=== PATIENT | female | born 1965 | race Caucasian/White ===

== ENCOUNTER → 2017-05-15 | Outpatient (CLI) | payer BC ==
[~2017-05-15] MED LIST: ASPCH81X PO; GLC/500 PO; IBUP-1050 PO; LISI10TA PO; PRAV20TA PO; SULI150T PO; ZNTT/150 PO
--- NOTE | 2017-05-15 14:04 | DIAGNOSTIC IMAGING REPORT ---
LEFT INJ MAJOR JNT SHLDR,HIP,KNEE CLINICAL HISTORY: 51 years-old Female presenting with LT HIP ARTHRITIS. COMPARISON: None. PROCEDURE: The risks, benefits, and alternatives to the procedure were discussed with the patient. Written informed consent was obtained. The patient was placed supine on the fluoroscopy table, and a left hip injection was performed under fluoroscopic guidance. The area was prepped and draped in the usual aseptic fashion. The skin and soft tissues anesthetized with local 1% lidocaine. The left hip joint was accessed utilizing a 22-gauge 3 1/2 inch needle. Approximately 2 mL of Optiray 300 was injected to confirm intra-articular location. This was followed by a mixture of 5 mL of 0.5% bupivacaine and 2 mL of betamethasone at the request of the referring physician. The needle was then removed. There were no apparent complications. Fluoroscopy dosage (mGy): Not available. Fluoroscopy time: 37 seconds. Number of fluoroscopic spot images: 0. IMPRESSION: Successful injection of the left hip under fluoroscopic guidance. Electronically signed by: Khalif Oviedo M.D. 05/15/2017 1:54 PM Dictated Date/Time: 05/15/2017 1:51 PM
== END | disposition home or self-care (01) ==
LOC: C.RADBC 12:57
PROVIDERS: ATTEND Orthopaedic Surgery
DX: M19.90 Unspecified osteoarthritis, unspecified site (principal)

== ENCOUNTER 2017-08-25 08:08 | Inpatient (IN) | payer BC ==
[2017-08-06 14:23] VITALS: BMI 35.0
--- NOTE | 2017-08-06 15:23 | PAT Medication Instructions ---
Service Date Aug 06, 2017. Current Home Medication List Aspirin (Aspirin Adult Low Dose), 1 TAB PO QAM Cpesltv-Lbpmxfmiziyuv-Fimusisl (Excedrin Migraine), 1 TAB PO DAILY PRN for Migraine Cyclobenzaprine Hcl (Flexeril), 1 TAB PO HS Fish Oil (Douglas-3), 1 CAP PO QAM Ibuprofen (Advil), 200-600 MG PO Q4H PRN for Pain Ibuprofen (Motrin), 400 MG PO Q6H PRN for Pain Lisinopril (Lisinopril), 1 TAB PO QAM Metformin HCl (Metformin HCl ER), 2 TAB PO QAM Multivitamin (Multivitamin), 1 TAB PO QAM Pravastatin Sodium (Pravachol), 20 MG PO QAM Ranitidine (Zantac), 150 MG PO BID PRN Sitagliptin Phosphate (Januvia), 100 MG PO QAM Sulindac (Clinoril), 150 MG PO DAILY Sulindac (Sulindac), 1 TAB PO BID PRN for Pain Sumatriptan Succinate (Imitrex Statdose), 1 UNIT SQ DIRECTED Medication Instructions For Your Scheduled Surgery - Ask your surgeon for instructions for: Ibuprofen (Advil), 200-600 MG PO Q4H PRN for Pain Ibuprofen (Motrin), 400 MG PO Q6H PRN for Pain Aspirin (Aspirin Adult Low Dose), 1 TAB PO QAM Rponswe-Kqlodrgvlwdoi-Txkrelux (Excedrin Migraine), 1 TAB PO DAILY PRN for Migraine Sulindac (Clinoril), 150 MG PO DAILY Sulindac (Sulindac), 1 TAB PO BID PRN for Pain - Hold the following medications 2 weeks prior to surgery: Fish Oil (Douglas-3), 1 CAP PO QAM - Hold the following medications 48 hours prior to surgery: Metformin HCl (Metformin HCl ER), 2 TAB PO QAM - Hold the following medications the morning of surgery: Lisinopril (Lisinopril), 1 TAB PO QAM Multivitamin (Multivitamin), 1 TAB PO QAM Sitagliptin Phosphate (Januvia), 100 MG PO QAM - Take the following medications the morning of surgery with a sip of water: Sumatriptan Succinate (Imitrex Statdose), 1 UNIT SQ DIRECTED (if needed) Ranitidine (Zantac), 150 MG PO BID PRN (if needed) Pravastatin Sodium (Pravachol), 20 MG PO QAM - Take the following medications as scheduled the night before surgery: Cyclobenzaprine Hcl (Flexeril), 1 TAB PO HS Sumatriptan Succinate (Imitrex Statdose), 1 UNIT SQ DIRECTED (if needed) Ranitidine (Zantac), 150 MG PO BID PRN (if needed) If you have any questions please call us at [phone] or [phone] or [phone]
[2017-08-06 15:57] LABS: BASO % 0.9 %; BASO ABS # 0.08 K/uL (0-0.2); COMPLETE YES; EOS % 3.2 %; HEMATOCRIT 43.5 % (37-47); IG% 0.2 %; LYMPH % 34.3 %; LYMPH ABS # 2.98 K/uL (1.2-3.4); MEAN CELL VOLUME 87.5 fL (80-100); MEAN CORPUSCULAR HEMOGLOBIN 28.2 pg (25-34); MEAN CORPUSCULAR HGB CONC 32.2 g/dl (32-36); MONO % 8.5 %; NEUT % 52.9 %; PLATELET COUNT 401 K/uL (130-400); RED BLOOD COUNT 4.97 M/uL (4.2-5.4)
[2017-08-06 16:05] LABS: INR 0.9 (0.9-1.1)
--- NOTE | 2017-08-06 16:16 | DIAGNOSTIC IMAGING REPORT ---
TWO VIEW CHEST CLINICAL HISTORY: Preoperative examination. FINDINGS: PA and lateral chest radiographs are compared to study dated 04/11/2006 and correlated with chest CT dated 03/09/2007. The cardiomediastinal silhouette is unremarkable. There is minimal atherosclerotic calcification of the thoracic aorta. The lungs and pleural spaces are clear. There is no pneumothorax. The skeletal structures are osteopenic. The bony thorax appears intact. IMPRESSION: No active disease in the chest. Electronically signed by: Reza Pena M.D. 08/06/2017 4:15 PM Dictated Date/Time: 08/06/2017 4:14 PM
[2017-08-06 16:18] LABS: URINE APPEARANCE CLEAR (CLEAR); URINE BILIRUBIN NEG (NEG); URINE COLOR YELLOW; URINE NITRITE NEG (NEG); URINE SPECIFIC GRAVITY 1.016 (1.000-1.030); UROBILINOGEN NEG (NEG)
[2017-08-06 16:29] LABS: MANUAL MICROSCOPIC REQUIRED? NO; REVIEW REQ? NO
--- NOTE | 2017-08-24 19:29 | HISTORY & PHYSICAL EXAMINATION ---
DATE OF ADMISSION: 08/25/2017 She is being preoped for a posterior lumbar interbody fusion. CHIEF COMPLAINT: Back pain, leg pain, buttock pain, inability to ambulate. HISTORY OF PRESENT ILLNESS: Yessi is a pleasant young lady. She has had ongoing difficulty for several months in duration, worsening over time, numbness and tingling, and failure of nonoperative measures. PAST MEDICAL HISTORY: Includes diabetes mellitus, hypertension, and high cholesterol. PAST SURGICAL HISTORY: Tonsillectomy, , tubal ligation, appendectomy, and pituitary tumor removal. SOCIAL HISTORY: Nonsmoker, non-ETOH user. Listed some arthritis in the shoulder area. There is no acid reflux. No kidney or liver issues. No history of cancer. Some sleep apnea. Has hypertension and diabetes. OBJECTIVE: GENERAL: Height 5 feet 5 inches, weight 220. Alert, oriented. Mentation normal. VITAL SIGNS: Blood pressure 140/80, pulse of 80, and respiratory rate 16. CARDIAC: Normal S1, S2. No S3. LUNGS: Clear to auscultation. No rales, rhonchi, or wheezing. ABDOMEN: Soft, nontender. EXTREMITIES: Intact. NEUROLOGIC: 5/5 strength. Good sensation. Motor ability, no deficit. IMAGING STUDIES: Images demonstrate severely degenerative segment of the lumbar spine, L5-S1. DISPOSITION: Includes a posterior lumbar interbody fusion, L5-S1 lumbar spine at [facility] on 08/25/2017.
[2017-08-25] VITALS (9 sets, daily range): BP systolic 102–168; BP diastolic 65–87; PULSE 75–88; TEMP 34.8–37.2; O2SAT 97–100; Ht 165.1 cm; Wt 96.3 kg
[~2017-08-25] VITALS: Ht 165.1 cm; Wt 96.3 kg
[~2017-08-25 08:08] MED LIST changes: -ASPCH81X PO; +ASPI-390 PO; +ASPI-589 PO; +CEFAZOLIN 2000MG IV PUSH 10 ML IV SCH; +CLN200 PO; +CYCL10TA6 PO; -GLC/500 PO; +HYDR-5688 PO; +IBUP-1459 PO; +LACTATED RINGER'S 1000ML 1,000 ML IV SCH; -LISI10TA PO; +LSN20 PO; +METF-841 PO; +MULT-506 PO; +OMEG10007 PO; +SITA100T3 PO; +SODIUM CHLORIDE 0.9% 1000ML 1,000 ML IV SCH; +SUMA6KIT SQ
[2017-08-25] MEDS ORDERED: DEXAMETHASONE SOD INJ 4 MG/ML VIAL ONE (08:17)
[2017-08-25] MEDS ORDERED: ONDANSETRON INJ 2 MG/ML 2 ML VIAL ONE (08:17)
[2017-08-25] MEDS ORDERED: MIDAZOLAM HCL 1 MG/ML 2ML VIAL ONE (08:17)
[2017-08-25] MEDS ORDERED: ROCURONIUM BROMIDE 10 MG/ML 5 ML VIAL IV ONE (08:17)
[2017-08-25] MEDS ORDERED: FENTANYL CITRATE INJ 50 MCG/1 ML 2 ML VIAL ONE ×3 (08:17→12:36)
[2017-08-25] MEDS ORDERED: NEOSTIGMINE METHYLSULFATE 5 MG/5 ML SYR ONE (08:17)
[2017-08-25] MEDS ORDERED: PROPOFOL IV EMULSION 10 MG/ML 20 ML VIAL IV ONE ×2 (08:17→11:03)
[2017-08-25] MEDS ORDERED: LIDOCAINE HCL 2% 2 ML VIAL (20MG/ML) ONE (08:17)
[2017-08-25] MEDS ORDERED: GELATIN SPONGE SZ 100 ONE ×2 (09:27→11:48)
[2017-08-25] MEDS ORDERED: BACITRACIN 50000 UNIT VIAL ONE (09:28)
[2017-08-25] MEDS ORDERED: THROMBIN FOR SOLN 20000 UNIT KIT ONE (09:28)
[2017-08-25] MEDS ORDERED: BUPIVACAINE 0.5 % 5 MG/1 ML MPF 30ML VIAL ONE (09:28)
[2017-08-25] MEDS ORDERED: VANCOMYCIN HCL 1000MG/20ML VIAL ONE (09:28)
--- NOTE | 2017-08-25 09:37 | History & Physical Bridge Note ---
H&P Re-Evaluation Bridge Note: I have examined the patient, reviewed the History & Physical and in the interval since the performance of the History & Physical I have noted the following changes of clinical significance: No changes noted
[2017-08-25] MEDS ORDERED: ESMOLOL HCL 10 MG/ML 10 ML VIAL ONE (10:27)
--- NOTE | 2017-08-25 12:49 | [facility] Operative Report ---
Operative Report Operative Date Aug 25, 2017. Pre-Operative Diagnosis severely degenerative segment of the lumbar spine, L5-S1 Post-Operative Diagnosis SAME Procedure(s) Performed L5-S1 Posterior Lumbar Interbody Fusion Surgeon Dr. Campbell Airline Stewardess Surgeon(s) Quincy Mayer PA-C Estimated Blood Loss 200 ML Findings degenerative unstable segment l5-s1 Specimens none per surgeon Complication(s) None Disposition Recovery Room / PACU I attest to the content of the Intraoperative Record and any orders documented therein. Any exceptions are noted below.
[2017-08-25] MEDS ORDERED: SODIUM CHLORIDE 0.9% 1000ML 1,000 ML IV SCH (12:50)
[2017-08-25] MEDS ORDERED: HYDROmorphone INJ 2 MG/ML SYR/VIAL ONE (12:59)
[2017-08-25] MEDS ORDERED: SULINDAC 200 MG TAB PO PRN (13:00)
[2017-08-25] MEDS ORDERED: LORAZEPAM INJ 1 MG in SYRINGE 0.5 ML IV PRN (13:00)
[2017-08-25] MEDS ORDERED: HYDROmorphone HCL 0.5MG/ML 50 ML CASSETTE ONE (13:00)
[2017-08-25] MEDS ORDERED: NALOXONE HCL 0.4 MG/1 ML VIAL/CARP IV PRN ×2 (13:00→13:15)
[2017-08-25] MEDS ORDERED: ONDANSETRON INJ 2 MG/ML 2 ML VIAL IV PRN ×2 (13:00→13:15)
[2017-08-25] MEDS ORDERED: ACETAMINOPHEN 325 MG TAB PO PRN (13:00)
[2017-08-25] MEDS ORDERED: METOCLOPRAMIDE HCL INJ 5 MG/ML 2 ML VIAL IV PRN (13:00)
[2017-08-25] MEDS ORDERED: PROMETHAZINE HCL INJ 12.5 MG in SODIUM CHLORIDE 0.9% 50ML 50 ML IV PRN (13:00)
[2017-08-25] MEDS ORDERED: LABETALOL HCL IV 5 MG/ML 20ML IV PRN (13:15)
[2017-08-25] MEDS ORDERED: FLUMAZENIL 0.1 MG/1 ML 10 ML VIAL IV PRN (13:15)
[2017-08-25] MEDS ORDERED: FENTANYL CITRATE INJ 50 MCG/1 ML 2 ML VIAL IV PRN (13:15)
[2017-08-25] MEDS ORDERED: EpHEDrine SULFATE INJ 50 MG/ML AMP IV PRN (13:15)
[2017-08-25] MEDS ORDERED: HYDROmorphone INJ 2 MG/ML SYR/VIAL IV PRN (13:15)
[2017-08-25] MEDS ORDERED: MEPERIDINE HCL 25 MG/ML CARP IV PRN (13:15)
[2017-08-25] MEDS ORDERED: ATROPINE SULFATE 0.1 MG/ML 5ML SYR IV PRN (13:15)
[2017-08-25] MEDS ORDERED: PHENYLEPHRINE 100MCG/ML 5ML SYR IV PRN (13:15)
[2017-08-25 13:21] LABS: HEMATOCRIT 36.7 % (37-47)
--- NOTE | 2017-08-25 13:28 | OPERATIVE REPORT ---
DATE OF OPERATION: 08/25/2017 PREOPERATIVE DIAGNOSIS: Degenerative unstable segment lumbar spine, L5-S1. POSTOPERATIVE DIAGNOSIS: Degenerative unstable segment lumbar spine, L5-S1. PROCEDURE PERFORMED: Include a posterior lumbar interbody fusion, L5-S1. SURGEON: Calixto Campbell DO. SYSTEMS SOFTWARE ENGINEER: Quincy Mayer PA-C. COMPLICATIONS: Zero. BLOOD LOSS: Less than 200. COUNTS: Sponge and needle count correct. COMPLICATIONS: No complications. IMPLANTS USED: Arkadium. DESCRIPTION OF PROCEDURE: The patient was taken to the operating room, a general intubated anesthetic provided to the patient, placed prone, prepped and draped sterile. We made a skin incision and fascial incision dissecting the soft tissue in the same plane, putting in a deep self-retaining retractor. We could visualize the facets, lamina, sacrum quite readily. We decompressed the neural elements, essential laminectomy at L5, foraminotomy. The facet joints were removed as well. We then decompressed each and every nerve, which was the L5 nerve root and the S1 nerve root. We then instrumented the spine, safely getting pedicle screws into the sacrum, into the 5th vertebrae. I was pleased with the purchase of bone. We then retracted the dura over to medial direction. From each side, we did a formal diskectomy. We took out most of the disk that was present. We then were able to get an implant placed, which is called a spinal cage. These measured 22 mm in length, 7 mm in height, and 8 mm in width. These were placed into diskectomy sites at L5-S1. It was anatomic. We compressed the posterior aspect of the screws, locked down the rods. We began our closure. First, we irrigated it very well. We bone grafted all the transverse processes. We put in a Hemovac drain and put in vancomycin powder, closed fascia to fascia with 1 Vicryl, #2-0 on the subcuticular layer, 3-0 nylon on the skin surface. Sterile dressings applied. The Hemovac activated. The patient returned to PACU stable. No apparent interoperative complications. I attest to the content of the Intraoperative Record and any orders documented therein. Any exception s are noted below.
--- NOTE | 2017-08-25 13:37 | DIAGNOSTIC IMAGING REPORT ---
LUMBAR SPINE, INTRAOPERATIVE FLUOROSCOPY HISTORY: L5-S1 posterior decompression and fusion. FLUOROSCOPY TIME: 21 seconds. FINDINGS: Intraoperative fluoroscopy was provided for the lumbar spine. Single fluoroscopic spot image demonstrates pedicle screws at L5 and S1 consistent with posterior decompression and fusion. The hardware appears intact. IMPRESSION: Fluoroscopy provided for a L5-S1 posterior decompression and fusion. Electronically signed by: Eddie Topete M.D. 08/25/2017 1:35 PM Dictated Date/Time: 08/25/2017 1:35 PM
--- NOTE | 2017-08-25 14:07 | Anesthesiology Progress Note ---
Anesthesia Post Op Note Date & Time Aug 25, 2017 at 14:07 Vital Signs Pain Intensity: 3 Vital Signs Past 12 Hours Date Time Temp Pulse Resp B/P (MAP) Pulse Ox O2 Delivery O2 Flow Rate FiO2 08/25/17 13:47 36.3 89 19 126/67 (97) 99 Nasal Cannula 4 08/25/17 13:36 124/63 08/25/17 13:33 62 11 08/25/17 13:33 64 11 99 08/25/17 13:31 141/89 08/25/17 13:28 79 19 08/25/17 13:28 79 19 100 08/25/17 13:26 129/85 08/25/17 13:23 76 20 08/25/17 13:23 75 20 100 08/25/17 13:21 154/88 08/25/17 13:19 138/93 08/25/17 13:18 83 15 100 08/25/17 13:18 83 15 08/25/17 13:16 126/111 08/25/17 13:13 74 14 100 08/25/17 13:13 77 14 08/25/17 13:11 164/81 08/25/17 13:08 79 15 08/25/17 13:08 79 15 100 08/25/17 13:06 163/105 08/25/17 13:03 87 17 08/25/17 13:03 86 17 100 08/25/17 13:01 148/94 08/25/17 12:58 78 12 08/25/17 12:58 78 12 100 08/25/17 12:55 145/91 08/25/17 12:53 86 15 169/91 100 08/25/17 12:53 85 15 08/25/17 12:53 36.3 83 15 169/91 (119) 100 Oxymask 10 08/25/17 09:16 36.8 82 18 168/82 (110) 100 Room Air Notes Mental Status: alert / awake / arousable, participated in evaluation Pt Amnestic to Procedure: Yes Nausea / Vomiting: adequately controlled Pain: adequately controlled Airway Patency, RR, SpO2: stable & adequate BP & HR: stable & adequate Hydration State: stable & adequate Anesthetic Complications: no major complications apparent
[2017-08-25] MEDS ORDERED: SUMATRIPTAN SUCCINATE 6 MG/0.5 ML VIAL SQ PRN (15:30)
[2017-08-25] MEDS ORDERED: NURSING VERBAL MED ORDER ONE (15:45)
[2017-08-25] MEDS ORDERED: DEXAMETHASONE INJ 10 MG in SYRINGE 0 ML IV PRN (15:45)
[2017-08-25] MEDS ORDERED: DEXAMETHASONE INJ 10 MG in SYRINGE 0 ML IV SCH (16:00)
[2017-08-25] MEDS ORDERED: GLUCOSE 40% GEL 15 GM TUBE PO PRN (17:00)
[2017-08-25] MEDS ORDERED: DEXTROSE 50% 50 ML SYR IV PRN (17:00)
[2017-08-25] MEDS ORDERED: GLUCAGON FOR INJ 1 MG VIAL SQ PRN (17:00)
[2017-08-25] MEDS ORDERED: GLUCOSE 10 TABS/TUBE PO PRN (17:00)
[2017-08-25] MEDS: SODIUM CHLORIDE 0.9% 1000ML 1,000 ML IV SCH (17:46)
--- NOTE | 2017-08-25 17:56 | Medical Consult ---
Consultation Date of Consultation: Aug 25, 2017. Attending Physician: Calixto Campbell DO History of Present Illness Pt is 51 yo F with PMH HTN, dyslipidemia, DM II, GERD, migraine MENDEZ, sleep apnea , hx benign pituitary tumor and removal, is seen in consult after L5-S1 posterior lumbar interbody fusion surgery by Dr Campbell today. 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 Pt reports pituitary tumor was benign and no further treatment at this time. Does not use CPAP for sleep apnea as didn't tolerate. Pt states just returned to room within the last hour s/p surgery. Reports is still having some pain to low back since surgery. Denies any nausea or vomiting. Still has roa cath in. No BM yet after surgery. Denies any numbness/tingling of toes or legs. Denies fever/chills, diaphoresis, MENDEZ, dizziness, syncope, vision changes, neck pain, CP, SOB, orthopnea, palpitations, cough, sore throat, choking, otalgia, rhinorrhea, abdominal pain, rashes. BP: 126/85, R: 18, P: 75, 98% on 4L. Temp:36.2 oral Past Medical/Surgical History Medical Problems: (1) DM type 2 (diabetes mellitus, type 2) Status: Chronic (2) GERD (gastroesophageal reflux disease) Status: Chronic (3) HTN (hypertension) Status: Chronic (4) Hypercholesteremia Status: Chronic (5) Lumbar spondylosis Status: Chronic (6) Migraine Status: Chronic (7) Sleep apnea Status: Chronic Surgical Problems: (1) History of pituitary surgery Permanent Comment: Pituitary tumor removal 2000 - benign Status: Resolved (2) Hx of appendectomy Status: Resolved (3) Hx of tonsillectomy Status: Resolved (4) Hx of tubal ligation Status: Resolved Family History Diabetes mellitus MOTHER FH: CAD (coronary artery disease) FATHER (Stent placement) FH: cancer GRANDFATHER (Esophageal, Stomach) FH: hypercholesterolemia Hypertension FATHER MOTHER GRANDFATHER GRANDMOTHER Social History Smoking Status: Former Smoker (quit 2008, ppd x 25 years) Smokeless Tobacco Use: No Alcohol Use: socially Drug Use: none Marital Status: Housing Status: lives with significant other Occupation Status: employed Allergies Coded Allergies: No Known Allergies (Unverified , 08/25/17) Current Inpatient Medications Current Inpatient Medications Medications (Trade) Dose Ordered Sig/Cady Route Start Time Stop Time Status Last Admin Dose Admin Cefazolin Sodium 10 ml @ 2.5 mls/min PREOP IV 08/25/17 06:00 08/25/17 18:00 08/25/17 09:52 2.5 MLS/MIN Diphenhydramine HCl (Benadryl Cap) 25 mg Q6H PRN PO 08/25/17 13:00 09/24/17 12:59 Magnesium Hydroxide (Milk Of Magnesia Susp) 30 ml DAILY PRN PO 08/25/17 13:00 09/24/17 12:59 Bisacodyl (Dulcolax Supp) 10 mg DAILY PRN [place] 08/26/17 06:00 09/25/17 05:59 Bisacodyl (Dulcolax Tab) 5 mg DAILY PRN PO 08/26/17 06:00 09/25/17 05:59 Polyethylene (Miralax Powder Packet) 17 gm DAILY PO 08/26/17 09:00 09/25/17 08:59 Lorazepam 1 mg/ Syringe 1 ml @ 1 mls/min Q6H PRN IV 08/25/17 13:00 09/24/17 12:59 Lorazepam (Ativan Tab) 1 mg Q6H PRN PO 08/25/17 13:00 09/24/17 12:59 Metoclopramide HCl (Reglan Inj) 10 mg Q6H PRN IV 08/25/17 13:00 09/24/17 12:59 Ondansetron HCl (Zofran Inj) 4 mg Q6H PRN IV 08/25/17 13:00 09/24/17 12:59 Promethazine HCl 12.5 mg/Sodium Chloride 50.5 ml @ 202 mls/hr Q6H PRN IV 08/25/17 13:00 09/24/17 12:59 Ketorolac Tromethamine (Toradol Inj) 30 mg Q6 IV 08/25/17 18:00 08/26/17 18:01 Hydromorphone HCl (Dilaudid Inj) 1.5 mg Q3H PRN IV 08/26/17 08:00 09/09/17 07:59 Oxycodone/ Acetaminophen (Percocet 5-325mg Tab) 2 tab Q4H PRN PO 08/26/17 08:00 09/09/17 07:59 Hydromorphone HCl (Dilaudid Inj) 1 mg Q3H PRN IV 08/26/17 08:00 09/09/17 07:59 Oxycodone/ Acetaminophen (Percocet 5-325mg Tab) 1 tab Q4H PRN PO 08/26/17 08:00 09/09/17 07:59 Miscellaneous Information (Discontinue PRINCIPAL WEB DEVELOPER) 1 ea TODAY@0600 N/A 08/26/17 06:00 08/26/17 06:01 Acetaminophen (Tylenol Tab) 650 mg Q6H PRN PO 08/25/17 13:00 09/24/17 12:59 Cefazolin Sodium 2000 mg/Syringe 10 ml @ 2.5 mls/min Q8H IV 08/25/17 18:00 08/26/17 10:03 Sodium Chloride 1,000 ml @ 80 mls/hr [id number] IV 08/25/17 15:30 09/24/17 15:29 Aspirin (Ecotrin Tab) 81 mg QAM PO 08/26/17 09:00 09/25/17 08:59 Lisinopril (Zestril Tab) 20 mg QAM PO 08/26/17 09:00 09/25/17 08:59 Multivitamins (Multivitamin Tab) 1 tab QAM PO 08/26/17 09:00 09/25/17 08:59 Pravastatin Sodium (Pravachol Tab) 20 mg QAM PO 08/26/17 09:00 09/25/17 08:59 Sitagliptin Phosphate (Januvia Tab) 100 mg QAM PO 08/26/17 09:00 09/25/17 08:59 Sulindac (Clinoril Tab) 200 mg BID PRN PO 08/25/17 13:00 09/24/17 12:59 Sulindac (Clinoril Tab) 150 mg DAILY PO 08/26/17 09:00 09/25/17 08:59 Miscellaneous Information (Order Awaiting Action) 1 ea QS N/A 08/25/17 16:00 09/24/17 15:59 Sumatriptan Succinate (Imitrex Sq Inj) 6 mg DAILY PRN SQ 08/25/17 15:30 09/24/17 15:29 Naloxone HCl (Narcan Inj) 0.1 mg Q5M PRN IV 08/25/17 13:00 08/26/17 06:00 Hydromorphone HCl (Dilaudid Revenue Field Agent) 0.25 mg PRN PRN IV 08/25/17 13:00 08/26/17 06:00 Sodium Chloride 1,000 ml @ 15 mls/hr Q24H IV 08/25/17 12:50 08/26/17 06:00 Hydromorphone HCl (Dilaudid Inj) 0.5 mg Q5M PRN IV 08/25/17 13:15 08/25/17 18:15 Fentanyl Citrate (Fentanyl Inj) 25 mcg Q5M PRN IV 08/25/17 13:15 08/25/17 18:15 Naloxone HCl (Narcan Inj) 0.2 mg Q2M PRN IV 08/25/17 13:15 08/25/17 18:15 Meperidine HCl (Demerol Inj) 12.5 mg Q5M PRN IV 08/25/17 13:15 08/25/17 18:15 Ondansetron HCl (Zofran Inj) 4 mg ONE PRN IV 08/25/17 13:15 08/25/17 18:15 Flumazenil (Romazicon Inj) 0.2 mg Q2M PRN IV 08/25/17 13:15 08/25/17 18:15 Labetalol HCl (Normodyne IV) 5 mg Q5M PRN IV 08/25/17 13:15 08/25/17 18:15 Ephedrine Sulfate (EpHEDrine SULFATE INJ) 5 mg Q5M PRN IV 08/25/17 13:15 08/25/17 18:15 Atropine Sulfate (Atropine Sulfate 0.1MG/Ml Inj) 0.5 mg Q1M PRN IV 08/25/17 13:15 08/25/17 18:15 Phenylephrine HCl (Robbie-Synephrine 500MCG/5ML Syr) 100 mcg Q5M PRN IV 08/25/17 13:15 08/26/17 18:15 Dexamethasone Sodium Phosphate 10 mg/Syringe 2.5 ml @ 1 mls/min Q8H PRN IV 08/25/17 15:45 09/24/17 15:44 Review of Systems See HPI for pertinent positives & negatives. All other systems reviewed and were otherwise negative Physical Exam Date Time Temp Pulse Resp B/P (MAP) Pulse Ox O2 Delivery O2 Flow Rate FiO2 08/25/17 16:44 35.2 80 18 106/69 (81) 98 Nasal Cannula 4.0 08/25/17 15:45 34.8 75 18 126/85 (99) 98 Nasal Cannula 4.0 08/25/17 15:15 35.4 85 18 126/81 (96) 99 Nasal Cannula 4.0 08/25/17 14:45 36.3 82 18 117/78 (91) 99 Nasal Cannula 4.0 08/25/17 14:32 99 11 97 08/25/17 14:32 97 11 08/25/17 14:31 136/64 08/25/17 14:27 94 15 98 08/25/17 14:27 90 15 08/25/17 14:26 130/84 08/25/17 14:22 92 14 97 08/25/17 14:22 91 14 08/25/17 14:21 114/64 08/25/17 14:17 60 13 99 08/25/17 14:17 61 13 08/25/17 14:16 129/74 08/25/17 14:12 91 14 08/25/17 14:12 92 14 98 08/25/17 14:11 120/76 08/25/17 14:07 60 12 97 08/25/17 14:07 61 12 08/25/17 14:06 132/63 08/25/17 14:02 61 13 08/25/17 14:02 60 13 98 08/25/17 14:01 125/73 08/25/17 13:57 65 9 99 08/25/17 13:57 63 9 08/25/17 13:56 138/74 08/25/17 13:52 59 10 99 08/25/17 13:52 61 10 08/25/17 13:51 107/68 08/25/17 13:47 61 11 99 08/25/17 13:47 36.3 89 19 126/67 (97) 99 Nasal Cannula 4 08/25/17 13:47 60 11 08/25/17 13:46 126/67 08/25/17 13:42 62 9 08/25/17 13:42 62 9 99 08/25/17 13:41 133/74 08/25/17 13:37 78 22 99 08/25/17 13:37 78 22 08/25/17 13:36 124/63 08/25/17 13:33 62 11 08/25/17 13:33 64 11 99 08/25/17 13:31 141/89 08/25/17 13:28 79 19 08/25/17 13:28 79 19 100 08/25/17 13:26 129/85 08/25/17 13:23 76 20 08/25/17 13:23 75 20 100 08/25/17 13:21 154/88 08/25/17 13:19 138/93 08/25/17 13:18 83 15 100 08/25/17 13:18 83 15 08/25/17 13:16 126/111 08/25/17 13:13 74 14 100 08/25/17 13:13 77 14 08/25/17 13:11 164/81 08/25/17 13:08 79 15 08/25/17 13:08 79 15 100 08/25/17 13:06 163/105 08/25/17 13:03 87 17 08/25/17 13:03 86 17 100 08/25/17 13:01 148/94 08/25/17 12:58 78 12 08/25/17 12:58 78 12 100 08/25/17 12:55 145/91 08/25/17 12:53 86 15 169/91 100 08/25/17 12:53 85 15 08/25/17 12:53 36.3 83 15 169/91 (119) 100 Oxymask 10 08/25/17 09:16 36.8 82 18 168/82 (110) 100 Room Air General Appearance: WD/WN, no apparent distress Head: normocephalic, atraumatic Eyes: normal inspection, PERRL, EOMI, sclerae normal ENT: hearing grossly normal, pharynx normal Neck: supple, no JVD, no carotid bruits Respiratory/Chest: chest non-tender, lungs clear, normal breath sounds, no respiratory distress, no accessory muscle use Cardiovascular: regular rate, rhythm, no murmur Abdomen/GI: normal bowel sounds, non tender, soft Back: + pertinent finding (dressing in place to lumbar region) Extremities/Musculoskelatal: normal inspection, normal capillary refill, no pedal edema, + pertinent finding (distal pulses intact, sensation to light touch bilateral extremities intact. pedal pushes bilaterally intact) Neurologic/Psych: alert, normal mood/affect, normal reflexes, oriented x 3 Skin: normal color, warm/dry, no rash Laboratory Results Last 24 Hours Test 08/25/17 09:35 08/25/17 12:00 08/25/17 13:01 08/25/17 13:02 Bedside Glucose 182 mg/dl 184 mg/dl 195 mg/dl Hemoglobin 11.8 g/dL Hematocrit 36.7 % Test 08/25/17 15:35 Bedside Glucose 200 mg/dl Assessment & Plan POST-OP L5-S1 POSTERIOR INTERBODY FUSION Pt post op day# [address] Campbell -pain management per ortho -wound management per ortho -PT/OT as appropriate -DVT prophylaxis per ortho -incentive spirometry -monitor H&H for acute blood loss anemia -monitor prp HTN BP stable currently, 126/85 -continue lisinopril DM TYPE II -hold oral meds -NovoLog sliding scale -A1C 8.4 on 07/22/17 GERD -Protonix HYPERLIPIDEMIA -continue pravastatin -lipid panel 07/22/17 - Total: 146, LDL: 56, HDL: 53, Tri SLEEP APNEA -pt does not use CPAP MIGRAINE MENDEZ Pt reports no migraine for greater than one year -Will continue to monitor DVT PROPHYLAXIS -per ortho Full code Follows with Dr Carrasco for routine care Pt was seen with Dr Guallpa. See addendum ATTENDING ADDENDUM ;' 51 YO F s/p spinal decompression surgery cont management as per Ortho vitals remains stable recovering well post op will continue to follow pt medically during her hospital stay Shannan Guallpa MD
[2017-08-25] MEDS: KETOROLAC TROMETHAMINE 30 MG/ML VIAL IV SCH ×2 (18:36→23:35)
[2017-08-25] MEDS: CEFAZOLIN IV 2,000 MG in SYRINGE 0 ML IV SCH (18:37)
[2017-08-25] MEDS: INSULIN ASPART 100 UNITS/ML 3 ML PEN SC SCH ×2 (18:49→20:53)
[2017-08-25] MEDS: INSULIN GLARGINE SOLOSTAR 100 UNITS/ML 3 ML PEN SC SCH (20:54)
[2017-08-25] MEDS ORDERED: INFLUENZA ADMINISTRATION CHARGE ONE (22:30)
[2017-08-25] MEDS ORDERED: INFLUENZA VIRUS QUAD VACCINE 0.5 ML SYR IM. ONE (22:30)
[2017-08-25] MEDS ORDERED: PNEUMOCOCCAL POLYSACCHARIDES 25 MCG/0.5 ML VIAL/SYR IM. ONE (22:30)
[2017-08-25] MEDS ORDERED: PNEUMOCOCCAL ADMINISTRATION CHARGE ONE (22:30)
[2017-08-25] MEDS: HYDROmorphone HCL 0.5MG/ML 50 ML CASSETTE IV PRN (22:48)
[2017-08-26] MEDS: CEFAZOLIN IV 2,000 MG in SYRINGE 0 ML IV SCH ×2 (02:21→10:33)
[2017-08-26 03:34] VITALS: BP 102/64; PULSE 84; TEMP 36.5; O2SAT 99
[2017-08-26] MEDS: KETOROLAC TROMETHAMINE 30 MG/ML VIAL IV SCH ×2 (05:36→12:23)
[2017-08-26] MEDS: SODIUM CHLORIDE 0.9% 1000ML 1,000 ML IV SCH (05:38)
[2017-08-26] MEDS ORDERED: DC PCA SCH (06:00)
[2017-08-26] MEDS ORDERED: BISACODYL 10 MG SUPP PR PRN (06:00)
[2017-08-26 06:54] LABS: HEMATOCRIT 33.1 % (37-47); MEAN CORPUSCULAR HEMOGLOBIN 28.5 pg (25-34); MEAN PLATELET VOLUME 9.5 fL (7.4-10.4); PLATELET COUNT 306 K/uL (130-400); RED BLOOD COUNT 3.72 M/uL (4.2-5.4); WHITE BLOOD COUNT 9.67 K/uL (4.8-10.8)
[2017-08-26] MEDS: HYDROmorphone HCL 0.5MG/ML 50 ML CASSETTE IV PRN (07:01)
[2017-08-26 07:27] LABS: BUN/CREATININE RATIO 13.8 (10-20); CALCIUM 8.8 mg/dl (8.5-10.1); CREATININE 0.57 mg/dl (0.60-1.20); POTASSIUM 4.1 mmol/L (3.5-5.1)
--- NOTE | 2017-08-26 07:54 | ORTHOPEDICS PROGRESS NOTE ---
DATE: 08/26/2017 SUBJECTIVE: Moderate complaints of pain, some paresthesias, numbness and tingling. No chest pain or shortness of breath, calf tenderness, or confusion. OBJECTIVE: Vital signs stable, afebrile, blood pressure stable, 10.6 hemoglobin. ASSESSMENT: Status post reconstructive spinal surgery, lumbar spine and fusion of reconstruction L5-S1. DISPOSITION: We will slowly ambulate Yessi today. I only want her walking 10-20 feet. She can be up, taking p.o. We will tentatively get her home tomorrow or at the latest on .
[2017-08-26] MEDS ORDERED: HYDROmorphone INJ 2 MG/ML SYR/VIAL IV PRN (08:00)
[2017-08-26] MEDS ORDERED: OXYCODONE/ACETAMINOPHEN 5-325 TAB PO PRN (08:00)
[2017-08-26 08:08] VITALS: BP 127/77; PULSE 85; TEMP 36.6; O2SAT 98
[2017-08-26] MEDS ORDERED: SULINDAC 200 MG TAB PO SCH (09:00)
[2017-08-26] MEDS ORDERED: SITAGLIPTIN 100 MG TAB PO SCH (09:00)
[2017-08-26] MEDS: POLYETHYLENE (MIRALAX) 17 GM PACK PO SCH (09:30)
[2017-08-26] MEDS: LISINOPRIL 20 MG TAB PO SCH (09:31)
[2017-08-26] MEDS: ASPIRIN 81 MG ECTAB PO SCH (09:31)
[2017-08-26] MEDS: PRAVASTATIN SOD 20 MG TAB PO SCH (09:31)
[2017-08-26] MEDS: MULTIVITAMIN TAB PO SCH (09:31)
[2017-08-26] MEDS: INSULIN ASPART 100 UNITS/ML 3 ML PEN SC SCH ×4 (09:35→21:07)
[2017-08-26] MEDS: INSULIN GLARGINE SOLOSTAR 100 UNITS/ML 3 ML PEN SC SCH ×2 (09:35→21:08)
[2017-08-26] MEDS: OXYCODONE/ACETAMINOPHEN 5-325 TAB PO PRN ×2 (10:36→15:30)
[2017-08-26] MEDS ORDERED: PANTOprazole INJ 40 MG in SYRINGE 0 ML IV SCH (11:00)
--- NOTE | 2017-08-26 11:06 | Anesthesiology Progress Note ---
Anesthesia Post Op Note Date & Time Aug 26, 2017 at 11:06 Vital Signs Pain Intensity: 9.0 Vital Signs Past 12 Hours Date Time Temp Pulse Resp B/P (MAP) Pulse Ox O2 Delivery O2 Flow Rate FiO2 08/26/17 08:08 36.6 85 20 127/77 (94) 98 Room Air 08/26/17 08:00 Room Air 08/26/17 03:34 36.5 84 16 102/64 (77) 99 Room Air 08/25/17 23:30 Room Air Notes Mental Status: alert / awake / arousable, participated in evaluation Pt Amnestic to Procedure: Yes Nausea / Vomiting: improving with treatment Pain: adequately controlled Airway Patency, RR, SpO2: stable & adequate BP & HR: stable & adequate Hydration State: stable & adequate Anesthetic Complications: no major complications apparent
[2017-08-26 12:30] VITALS: BP 133/86; PULSE 82; TEMP 36.9; O2SAT 97
[2017-08-26] MEDS ORDERED: SULINDAC 200 MG TAB PO PRN (13:45)
[2017-08-26 15:12] VITALS: BP 112/75; PULSE 77; TEMP 36.9; O2SAT 98
[2017-08-26] MEDS ORDERED: NURSING DECISION MEDICATION ORDER SCH (17:00)
[2017-08-26] MEDS: MAGNESIUM HYDROXIDE SUSP 30 ML UDC PO PRN (17:09)
--- NOTE | 2017-08-26 17:14 | Discharge Instructions ---
Discharge Instructions Date of Service Aug 26, 2017. Admission Reason for Admission: Degenerative Disc Discharge Discharge Diagnosis / Problem: post PLIF surgery Discharge Goals Goal(s): Improve function Activity Recommendations Activity Limitations: as noted below Lifting Limitations: until after follow-up appointment Exercise/Sports Limitations: until after follow-up appointment Driving or Machine Use: home ,rest, recover . Current Hospital Diet Patient's current hospital diet: Diabetes Type 2 Diet Discharge Diet Recommended Diet: Diabetes Type 2 Diet Procedures Procedures Performed: L5-S1 Posterior Lumbar Interbody Fusion Pending Studies Studies pending at discharge: no Medical Emergencies . Who to Call and When: Medical Emergencies: If at any time you feel your situation is an emergency, please call 911 immediately. . Non-Emergent Contact Non-Emergency issues call your: Surgeon Call Non-Emergent contact if: your pain is concerning you, wound has increased drainage . "Provider Documentation" section prepared by Calixto Campbell. . VTE Core Measure Inpt VTE Proph given/why not?: Treatment not indicated
--- NOTE | 2017-08-26 18:23 | Progress Note ---
Medicine Progress Note Date & Time of Visit: Aug 26, 2017 at 1300. Subjective 51 yo s/p back surgery on 08/25. Doing well without complaints. Feels better since Lopez was removed. Small ambulation today with PT Drain still in place. Pain well-controlled. Meds reviewed with patient. Prutitis present since surgery yesterday. Objective Last 8 Hrs Date Time Temp Pulse Resp B/P (MAP) Pulse Ox O2 Delivery O2 Flow Rate FiO2 08/26/17 15:12 36.9 77 18 112/75 (87) 98 Room Air 08/26/17 12:30 36.9 82 18 133/86 (102) 97 Physical Exam: GEN: WNWD, in no acute distress, alert and appropriate HEENT: NC/AT, normal sclerae, MMM CARDIO: reg rate, S1/2 heard without m/g/r LUNGS: CTA bilaterally, no crackles, rales or wheezes, good diaphragmatic excursion ABD: soft, non-tender, non-distended, no rebound or guarding, +BS BACK-incision site covered w gauze tape that is c/d/i-drain in place. EXTREMITY: RP and DP palpable 2+ bilat, no LE swelling or edema, extremities are warm and well-perfused NEURO: CN 2-12 grossly intact, sensation intact throughout MUSC: moves extremities equally, no gross focal deficits. SKIN: warm and dry Laboratory Results: 08/26/17 06:15 08/26/17 06:15 Test 08/06/17 15:37 08/26/17 06:15 08/26/17 17:22 Immature Granulocyte % (Auto) 0.2 % White Blood Count 8.70 K/uL (4.8-10.8) Red Blood Count 4.97 M/uL (4.2-5.4) 3.72 M/uL (4.2-5.4) Hemoglobin 14.0 g/dL (12.0-16.0) Hematocrit 43.5 % (37-47) Mean Corpuscular Volume 87.5 fL (80-100) 89.0 fL (80-100) Mean Corpuscular Hemoglobin 28.2 pg (25-34) 28.5 pg (25-34) Mean Corpuscular Hemoglobin Concent 32.2 g/dl (32-36) 32.0 g/dl (32-36) Platelet Count 401 K/uL (130-400) Mean Platelet Volume 10.0 fL (7.4-10.4) 9.5 fL (7.4-10.4) Neutrophils (%) (Auto) 52.9 % Lymphocytes (%) (Auto) 34.3 % Monocytes (%) (Auto) 8.5 % Eosinophils (%) (Auto) 3.2 % Basophils (%) (Auto) 0.9 % Neutrophils # (Auto) 4.60 K/uL (1.4-6.5) Lymphocytes # (Auto) 2.98 K/uL (1.2-3.4) Monocytes # (Auto) 0.74 K/uL (0.11-0.59) Eosinophils # (Auto) 0.28 K/uL (0-0.5) Basophils # (Auto) 0.08 K/uL (0-0.2) Immature Granulocyte # (Auto) 0.02 K/uL (0.00-0.02) Prothrombin Time 10.0 SECONDS (9.0-12.0) Prothromb Time International Ratio 0.9 (0.9-1.1) Activated Partial Thromboplast Time 25.2 SECONDS (21.0-31.0) Partial Thromboplastin Ratio 1.0 Urine Color YELLOW Urine Appearance CLEAR (CLEAR) Urine pH 5.0 (4.5-7.5) Urine Specific [place] 1.016 (1.000-1.030) Urine Protein NEG (NEG) Urine Glucose (UA) NEG (NEG) Urine Ketones NEG (NEG) Urine Occult Blood NEG (NEG) Urine Nitrite NEG (NEG) Urine Bilirubin NEG (NEG) Urine Urobilinogen NEG (NEG) Urine Leukocyte Esterase NEG (NEG) RDW Standard Deviation 46.2 fL (36.4-46.3) RDW Coefficient of Variation 14.2 % (11.5-14.5) Anion Gap 8.0 mmol/L (3-11) Est Creatinine Clear Calc Drug Dose 131.0 ml/min Estimated GFR () 122.7 Estimated GFR (Non- 105.8 BUN/Creatinine Ratio 13.8 (10-20) Calcium Level 8.8 mg/dl (8.5-10.1) Hepatitis C Antibody Screen NEG (NEG) Bedside Glucose 128 mg/dl (70-90) Last 24 Hours Test 08/25/17 17:02 08/25/17 20:39 08/26/17 06:15 08/26/17 08:04 Bedside Glucose 215 mg/dl 212 mg/dl 148 mg/dl White Blood Count 9.67 K/uL Red Blood Count 3.72 M/uL Hemoglobin 10.6 g/dL Hematocrit 33.1 % Mean Corpuscular Volume 89.0 fL Mean Corpuscular Hemoglobin 28.5 pg Mean Corpuscular Hemoglobin Concent 32.0 g/dl RDW Standard Deviation 46.2 fL RDW Coefficient of Variation 14.2 % Platelet Count 306 K/uL Mean Platelet Volume 9.5 fL Sodium Level 141 mmol/L Potassium Level 4.1 mmol/L Chloride Level 106 mmol/L Carbon Dioxide Level 27 mmol/L Anion Gap 8.0 mmol/L Blood Urea Nitrogen 8 mg/dl Creatinine 0.57 mg/dl Est Creatinine Clear Calc Drug Dose 131.0 ml/min Estimated GFR () 122.7 Estimated GFR (Non- 105.8 BUN/Creatinine Ratio 13.8 Random Glucose 167 mg/dl Calcium Level 8.8 mg/dl Hepatitis C Antibody Screen NEG Test 08/26/17 12:26 Bedside Glucose 216 mg/dl Assessment & Plan POST-OP L5-S1 POSTERIOR INTERBODY FUSION Pt post op day# [address] Campbell -pain management per ortho -wound management per ortho -PT/OT as appropriate -DVT prophylaxis per ortho -incentive spirometry -monitor H&H for acute blood loss anemia-drain still in place -monitor prp -Lopez removed and patient is doing well, voiding spontaneously PRURITIS -states this has been present since surgery yesterday -no rash present but there is some redness where she is scratching -holding Toradol IV and use sulindac at home -multiple meds including abx, steroids and new exposures to drapes, tape, preop wipes and other materials in surgery which may have played a role. -defer to Surgical team to allow pt to shower which may help. -Benadyl PRN HTN BP stable currently, 126/85 -continue lisinopril -monitor PRP on Sulindac DM TYPE II-uncontrolled inpatient readings in setting of perioperative steroids. -hold oral meds -NovoLog sliding scale tightened, Lantus increased -A1C 8.4 on 07/22/17 GERD -Protonix ANEMIA-2/2 acute blood loss anemia from surgery yesterday. No indication for transfusion at this time. Cont to monitor. HYPERLIPIDEMIA -continue pravastatin -lipid panel 07/22/17 - Total: 146, LDL: 56, HDL: 53, Tri SLEEP APNEA -pt does not use CPAP MIGRAINE MENDEZ Pt reports no migraine for greater than one year -Will continue to monitor DVT PROPHYLAXIS -per ortho Full code Dispo-per Ortho team Thank you for the consult. We will follow this patient throughout the hospitalization. Swathi Cooper DO [facility] Hospitalist Current Inpatient Medications: Current Inpatient Medications Medications (Trade) Dose Ordered Sig/Cady Route Start Time Stop Time Status Last Admin Dose Admin Diphenhydramine HCl (Benadryl Cap) 25 mg Q6H PRN PO 08/25/17 13:00 09/24/17 12:59 08/26/17 10:36 25 MG Magnesium Hydroxide (Milk Of Magnesia Susp) 30 ml DAILY PRN PO 08/25/17 13:00 09/24/17 12:59 Bisacodyl (Dulcolax Supp) 10 mg DAILY PRN IN 08/26/17 06:00 09/25/17 05:59 Bisacodyl (Dulcolax Tab) 5 mg DAILY PRN PO 08/26/17 06:00 09/25/17 05:59 Polyethylene (Miralax Powder Packet) 17 gm DAILY PO 08/26/17 09:00 09/25/17 08:59 08/26/17 09:30 17 GM Lorazepam 1 mg/ Syringe 1 ml @ 1 mls/min Q6H PRN IV 08/25/17 13:00 09/24/17 12:59 Lorazepam (Ativan Tab) 1 mg Q6H PRN PO 08/25/17 13:00 09/24/17 12:59 Metoclopramide HCl (Reglan Inj) 10 mg Q6H PRN IV 08/25/17 13:00 09/24/17 12:59 Ondansetron HCl (Zofran Inj) 4 mg Q6H PRN IV 08/25/17 13:00 09/24/17 12:59 08/25/17 18:36 4 MG Promethazine HCl 12.5 mg/Sodium Chloride 50.5 ml @ 202 mls/hr Q6H PRN IV 08/25/17 13:00 09/24/17 12:59 Ketorolac Tromethamine (Toradol Inj) 30 mg Q6 IV 08/25/17 18:00 Future Hold 08/26/17 12:23 30 MG Hydromorphone HCl (Dilaudid Inj) 1.5 mg Q3H PRN IV 08/26/17 08:00 09/09/17 07:59 Oxycodone/ Acetaminophen (Percocet 5-325mg Tab) 2 tab Q4H PRN PO 08/26/17 08:00 09/09/17 07:59 08/26/17 15:30 2 TAB Hydromorphone HCl (Dilaudid Inj) 1 mg Q3H PRN IV 08/26/17 08:00 09/09/17 07:59 Oxycodone/ Acetaminophen (Percocet 5-325mg Tab) 1 tab Q4H PRN PO 08/26/17 08:00 09/09/17 07:59 Acetaminophen (Tylenol Tab) 650 mg Q6H PRN PO 08/25/17 13:00 09/24/17 12:59 08/26/17 04:23 650 MG Sodium Chloride 1,000 ml @ 80 mls/hr [id number] IV 08/25/17 15:30 09/24/17 15:29 08/26/17 05:38 80 MLS/HR Aspirin (Ecotrin Tab) 81 mg QAM PO 08/26/17 09:00 09/25/17 08:59 08/26/17 09:31 81 MG Lisinopril (Zestril Tab) 20 mg QAM PO 08/26/17 09:00 09/25/17 08:59 08/26/17 09:31 20 MG Multivitamins (Multivitamin Tab) 1 tab QAM PO 08/26/17 09:00 09/25/17 08:59 08/26/17 09:31 1 TAB Pravastatin Sodium (Pravachol Tab) 20 mg QAM PO 08/26/17 09:00 09/25/17 08:59 08/26/17 09:31 20 MG Phenylephrine HCl (Robbie-Synephrine 500MCG/5ML Syr) 100 mcg Q5M PRN IV 08/25/17 13:15 08/26/17 18:15 Dexamethasone Sodium Phosphate 10 mg/Syringe 2.5 ml @ 1 mls/min Q8H PRN IV 08/25/17 15:45 09/24/17 15:44 Pantoprazole Sodium 40 mg/ Syringe 10 ml @ 5 mls/min DAILY@1100 IV 08/26/17 11:00 09/25/17 10:59 08/26/17 10:33 5 MLS/MIN Insulin Aspart (novoLOG ASPART) SLIDING SCALE If C... ACHS SC 08/25/17 17:15 09/24/17 17:14 08/26/17 14:19 13 UNITS Glucose (Glucose 40% Gel) 15-30 GRAMS 15 GRAMS... UD PRN PO 08/25/17 17:00 09/24/17 16:59 Glucose (Glucose Chew Tab) 4-8 Tablets 4 Tabl... UD PRN PO 08/25/17 17:00 09/24/17 16:59 Dextrose (Dextrose 50% 50ML Syringe) 25-50ML OF 50% DW IV FOR... UD PRN IV 08/25/17 17:00 09/24/17 16:59 Glucagon (Glucagon Inj) 1 mg UD PRN SQ 08/25/17 17:00 09/24/17 16:59 Insulin Glargine (Lantus Solostar Pen) 20 units Q12 SC 08/26/17 21:00 09/24/17 20:59 Sulindac (Clinoril Tab) 200 mg BID PRN PO 08/26/17 13:45 09/25/17 13:44
[2017-08-26] MEDS: HYDROmorphone INJ 1 MG/ML SYR IV PRN ×3 (18:30→22:35)
[2017-08-26] MEDS: BISACODYL 5 MG TABEC PO PRN (22:16)
[2017-08-26 23:25] VITALS: BP 138/90; PULSE 95; TEMP 36.8; O2SAT 100
[2017-08-27] MEDS: OXYCODONE/ACETAMINOPHEN 5-325 TAB PO PRN ×5 (01:49→23:19)
[2017-08-27] MEDS: HYDROmorphone INJ 1 MG/ML SYR IV PRN ×2 (04:27→19:16)
[2017-08-27 07:37] LABS: HEMATOCRIT 33.6 % (37-47); MEAN CELL VOLUME 89.8 fL (80-100); MEAN CORPUSCULAR HEMOGLOBIN 28.6 pg (25-34); MEAN CORPUSCULAR HGB CONC 31.8 g/dl (32-36); MEAN PLATELET VOLUME 9.6 fL (7.4-10.4); PLATELET COUNT 308 K/uL (130-400); RED BLOOD COUNT 3.74 M/uL (4.2-5.4); WHITE BLOOD COUNT 10.86 K/uL (4.8-10.8)
[2017-08-27 07:38] VITALS: BP 113/74; PULSE 97; TEMP 36.5; O2SAT 98
[2017-08-27] MEDS ORDERED: OXYC-106 PO (07:40)
[2017-08-27] MEDS ORDERED: ATV/1 PO (07:41)
[2017-08-27] MEDS ORDERED: MISC-573 (07:49)
--- NOTE | 2017-08-27 07:56 | DISCHARGE SUMMARY ---
SUBJECTIVE: She is alert, oriented, significant pain. Up, ambulatory, taking p.o. No chest pain, shortness of breath. OBJECTIVE: Vital signs stable. Blood pressure is stable. LABORATORY DATA: 33.6 hematocrit. ASSESSMENT: Status post reconstructive spine surgery. PLAN: We will discharge her home later on today. I would estimate about 3:00 this afternoon. Dressings will be changed. She has a followup appointment. Prescriptions on her chart.
[2017-08-27 08:10] LABS: BUN/CREATININE RATIO 14.8 (10-20); CALCIUM 8.7 mg/dl (8.5-10.1); CREATININE 0.66 mg/dl (0.60-1.20); POTASSIUM 4.5 mmol/L (3.5-5.1)
[2017-08-27] MEDS: PRAVASTATIN SOD 20 MG TAB PO SCH (08:41)
[2017-08-27] MEDS: MULTIVITAMIN TAB PO SCH (08:41)
[2017-08-27] MEDS: POLYETHYLENE (MIRALAX) 17 GM PACK PO SCH (08:42)
[2017-08-27] MEDS: ASPIRIN 81 MG ECTAB PO SCH (08:42)
[2017-08-27] MEDS: LISINOPRIL 20 MG TAB PO SCH (08:42)
[2017-08-27] MEDS: PANTOprazole SOD 40 MG TAB PO SCH (08:42)
[2017-08-27] MEDS: INSULIN ASPART 100 UNITS/ML 3 ML PEN SC SCH ×4 (08:52→20:44)
[2017-08-27] MEDS: INSULIN GLARGINE SOLOSTAR 100 UNITS/ML 3 ML PEN SC SCH ×2 (08:53→20:45)
[2017-08-27 10:41] VITALS: BP 113/74; PULSE 97; TEMP 36.5; O2SAT 98
[2017-08-27] MEDS ORDERED: NURSING VERBAL MED ORDER ONE (11:00)
[2017-08-27] MEDS: LORAZEPAM 1 MG TAB PO PRN ×2 (13:14→19:13)
[2017-08-27 17:07] VITALS: BP 130/80; PULSE 101; TEMP 36.6; O2SAT 96
[2017-08-27 23:14] VITALS: BP 106/65; PULSE 111; TEMP 36.8; O2SAT 96
--- NOTE | 2017-08-28 00:05 | Progress Note ---
Medicine Progress Note Date & Time of Visit: Aug 27, 2017 at 18:41. Subjective tolerating PO pain is present but controlled with medication asymptomatic otherwise-pruritis resolved Objective Last 8 Hrs Date Time Temp Pulse Resp B/P (MAP) Pulse Ox O2 Delivery O2 Flow Rate FiO2 08/27/17 17:07 36.6 101 18 130/80 (97) 96 Room Air 08/27/17 15:27 Room Air Physical Exam: GEN: WNWD, in no acute distress, alert and appropriate HEENT: NC/AT, normal sclerae, MMM CARDIO: reg rate, S1/2 heard without m/g/r LUNGS: CTA bilaterally, no crackles, rales or wheezes, good diaphragmatic excursion ABD: soft, non-tender, non-distended, no rebound or guarding, +BS BACK-incision site covered w gauze tape that is c/d/i-drain in place. EXTREMITY: RP and DP palpable 2+ bilat, no LE swelling or edema, extremities are warm and well-perfused NEURO: CN 2-12 grossly intact, sensation intact throughout MUSC: moves extremities equally, no gross focal deficits. SKIN: warm and dry, redness present diffusely, no rash Laboratory Results: 08/27/17 06:56 08/27/17 06:56 Test 08/06/17 15:37 08/26/17 06:15 08/27/17 06:56 08/27/17 20:40 Immature Granulocyte % (Auto) 0.2 % White Blood Count 8.70 K/uL (4.8-10.8) Red Blood Count 4.97 M/uL (4.2-5.4) 3.74 M/uL (4.2-5.4) Hemoglobin 14.0 g/dL (12.0-16.0) Hematocrit 43.5 % (37-47) Mean Corpuscular Volume 87.5 fL (80-100) 89.8 fL (80-100) Mean Corpuscular Hemoglobin 28.2 pg (25-34) 28.6 pg (25-34) Mean Corpuscular Hemoglobin Concent 32.2 g/dl (32-36) 31.8 g/dl (32-36) Platelet Count 401 K/uL (130-400) Mean Platelet Volume 10.0 fL (7.4-10.4) 9.6 fL (7.4-10.4) Neutrophils (%) (Auto) 52.9 % Lymphocytes (%) (Auto) 34.3 % Monocytes (%) (Auto) 8.5 % Eosinophils (%) (Auto) 3.2 % Basophils (%) (Auto) 0.9 % Neutrophils # (Auto) 4.60 K/uL (1.4-6.5) Lymphocytes # (Auto) 2.98 K/uL (1.2-3.4) Monocytes # (Auto) 0.74 K/uL (0.11-0.59) Eosinophils # (Auto) 0.28 K/uL (0-0.5) Basophils # (Auto) 0.08 K/uL (0-0.2) Immature Granulocyte # (Auto) 0.02 K/uL (0.00-0.02) Prothrombin Time 10.0 SECONDS (9.0-12.0) Prothromb Time International Ratio 0.9 (0.9-1.1) Activated Partial Thromboplast Time 25.2 SECONDS (21.0-31.0) Partial Thromboplastin Ratio 1.0 Urine Color YELLOW Urine Appearance CLEAR (CLEAR) Urine pH 5.0 (4.5-7.5) Urine Specific [place] 1.016 (1.000-1.030) Urine Protein NEG (NEG) Urine Glucose (UA) NEG (NEG) Urine Ketones NEG (NEG) Urine Occult Blood NEG (NEG) Urine Nitrite NEG (NEG) Urine Bilirubin NEG (NEG) Urine Urobilinogen NEG (NEG) Urine Leukocyte Esterase NEG (NEG) Hepatitis C Antibody Screen NEG (NEG) RDW Standard Deviation 47.2 fL (36.4-46.3) RDW Coefficient of Variation 14.3 % (11.5-14.5) Anion Gap 5.0 mmol/L (3-11) Est Creatinine Clear Calc Drug Dose 113.2 ml/min Estimated GFR () 116.9 Estimated GFR (Non- 100.9 BUN/Creatinine Ratio 14.8 (10-20) Calcium Level 8.7 mg/dl (8.5-10.1) Bedside Glucose 226 mg/dl (70-90) Last 24 Hours Test 08/26/17 20:33 08/27/17 06:56 08/27/17 08:02 08/27/17 12:03 Bedside Glucose 229 mg/dl 201 mg/dl 182 mg/dl White Blood Count 10.86 K/uL Red Blood Count 3.74 M/uL Hemoglobin 10.7 g/dL Hematocrit 33.6 % Mean Corpuscular Volume 89.8 fL Mean Corpuscular Hemoglobin 28.6 pg Mean Corpuscular Hemoglobin Concent 31.8 g/dl RDW Standard Deviation 47.2 fL RDW Coefficient of Variation 14.3 % Platelet Count 308 K/uL Mean Platelet Volume 9.6 fL Sodium Level 139 mmol/L Potassium Level 4.5 mmol/L Chloride Level 105 mmol/L Carbon Dioxide Level 29 mmol/L Anion Gap 5.0 mmol/L Blood Urea Nitrogen 10 mg/dl Creatinine 0.66 mg/dl Est Creatinine Clear Calc Drug Dose 113.2 ml/min Estimated GFR () 116.9 Estimated GFR (Non- 100.9 BUN/Creatinine Ratio 14.8 Random Glucose 189 mg/dl Calcium Level 8.7 mg/dl Test 08/27/17 17:05 Bedside Glucose 183 mg/dl Assessment & Plan POST-OP L5-S1 POSTERIOR INTERBODY FUSION Pt post op day# [address] Campbell -pain management per ortho -wound management per ortho -PT/OT as appropriate -DVT prophylaxis per ortho -incentive spirometry -monitor H&H for acute blood loss anemia-drain still in place -monitor prp -Lopez removed and patient is doing well, voiding spontaneously PRURITIS-resolved HTN -controlled -continue lisinopril -monitor PRP on Sulindac DM TYPE II-almost to goal -hold oral meds -NovoLog sliding scale tightened, Lantus increased -A1C 8.4 on 07/22/17 GERD -Protonix ANEMIA-2/2 acute blood loss anemia from surgery yesterday. No indication for transfusion at this time. Stable. Cont to monitor. HYPERLIPIDEMIA -continue pravastatin -lipid panel 07/22/17 - Total: 146, LDL: 56, HDL: 53, Tri SLEEP APNEA -pt does not use CPAP MIGRAINE MENDEZ Pt reports no migraine for greater than one year -Will continue to monitor DVT PROPHYLAXIS -per ortho Full code Dispo-per Ortho team Thank you for the consult. We will follow this patient throughout the hospitalization. Swathi Cooper DO [facility] Hospitalist Current Inpatient Medications: Current Inpatient Medications Medications (Trade) Dose Ordered Sig/Cady Route Start Time Stop Time Status Last Admin Dose Admin Diphenhydramine HCl (Benadryl Cap) 25 mg Q6H PRN PO 08/25/17 13:00 09/24/17 12:59 08/26/17 17:09 25 MG Magnesium Hydroxide (Milk Of Magnesia Susp) 30 ml DAILY PRN PO 08/25/17 13:00 09/24/17 12:59 08/26/17 17:09 30 ML Bisacodyl (Dulcolax Supp) 10 mg DAILY PRN [place] 08/26/17 06:00 09/25/17 05:59 Bisacodyl (Dulcolax Tab) 5 mg DAILY PRN PO 08/26/17 06:00 09/25/17 05:59 08/26/17 22:16 5 MG Polyethylene (Miralax Powder Packet) 17 gm DAILY PO 08/26/17 09:00 09/25/17 08:59 08/27/17 08:42 17 GM Lorazepam 1 mg/ Syringe 1 ml @ 1 mls/min Q6H PRN IV 08/25/17 13:00 09/24/17 12:59 Lorazepam (Ativan Tab) 1 mg Q6H PRN PO 08/25/17 13:00 09/24/17 12:59 08/27/17 13:14 1 MG Metoclopramide HCl (Reglan Inj) 10 mg Q6H PRN IV 08/25/17 13:00 09/24/17 12:59 Ondansetron HCl (Zofran Inj) 4 mg Q6H PRN IV 08/25/17 13:00 09/24/17 12:59 08/25/17 18:36 4 MG Promethazine HCl 12.5 mg/Sodium Chloride 50.5 ml @ 202 mls/hr Q6H PRN IV 08/25/17 13:00 09/24/17 12:59 Ketorolac Tromethamine (Toradol Inj) 30 mg Q6 IV 08/25/17 18:00 Future Hold 08/26/17 12:23 30 MG Hydromorphone HCl (Dilaudid Inj) 1.5 mg Q3H PRN IV 08/26/17 08:00 09/09/17 07:59 Oxycodone/ Acetaminophen (Percocet 5-325mg Tab) 2 tab Q4H PRN PO 08/26/17 08:00 09/09/17 07:59 08/27/17 16:23 2 TAB Hydromorphone HCl (Dilaudid Inj) 1 mg Q3H PRN IV 08/26/17 08:00 09/09/17 07:59 08/27/17 04:27 1 MG Oxycodone/ Acetaminophen (Percocet 5-325mg Tab) 1 tab Q4H PRN PO 08/26/17 08:00 09/09/17 07:59 Acetaminophen (Tylenol Tab) 650 mg Q6H PRN PO 08/25/17 13:00 09/24/17 12:59 08/26/17 04:23 650 MG Aspirin (Ecotrin Tab) 81 mg QAM PO 08/26/17 09:00 09/25/17 08:59 08/27/17 08:42 81 MG Lisinopril (Zestril Tab) 20 mg QAM PO 08/26/17 09:00 09/25/17 08:59 08/27/17 08:42 20 MG Multivitamins (Multivitamin Tab) 1 tab QAM PO 08/26/17 09:00 09/25/17 08:59 08/27/17 08:41 1 TAB Pravastatin Sodium (Pravachol Tab) 20 mg QAM PO 08/26/17 09:00 09/25/17 08:59 08/27/17 08:41 20 MG Dexamethasone Sodium Phosphate 10 mg/Syringe 2.5 ml @ 1 mls/min Q8H PRN IV 08/25/17 15:45 09/24/17 15:44 Insulin Aspart (novoLOG ASPART) SLIDING SCALE If C... ACHS SC 08/25/17 17:15 09/24/17 17:14 08/27/17 18:32 11 UNITS Glucose (Glucose 40% Gel) 15-30 GRAMS 15 GRAMS... UD PRN PO 08/25/17 17:00 09/24/17 16:59 Glucose (Glucose Chew Tab) 4-8 Tablets 4 Tabl... UD PRN PO 08/25/17 17:00 09/24/17 16:59 Dextrose (Dextrose 50% 50ML Syringe) 25-50ML OF 50% DW IV FOR... UD PRN IV 08/25/17 17:00 09/24/17 16:59 Glucagon (Glucagon Inj) 1 mg UD PRN SQ 08/25/17 17:00 09/24/17 16:59 Insulin Glargine (Lantus Solostar Pen) 20 units Q12 SC 08/26/17 21:00 09/24/17 20:59 08/27/17 08:53 20 UNITS Sulindac (Clinoril Tab) 200 mg BID PRN PO 08/26/17 13:45 09/25/17 13:44 Pantoprazole Sodium (Protonix Tab) 40 mg QAM PO 08/27/17 09:00 09/26/17 08:59 08/27/17 08:42 40 MG
[2017-08-28] MEDS: OXYCODONE/ACETAMINOPHEN 5-325 TAB PO PRN ×4 (04:26→19:11)
[2017-08-28 07:25] VITALS: BP 110/75; PULSE 102; TEMP 36.7; O2SAT 93
[2017-08-28] MEDS: LORAZEPAM 1 MG TAB PO PRN (08:16)
[2017-08-28] MEDS: BISACODYL 5 MG TABEC PO PRN (08:16)
[2017-08-28] MEDS: PANTOprazole SOD 40 MG TAB PO SCH (08:39)
[2017-08-28] MEDS: POLYETHYLENE (MIRALAX) 17 GM PACK PO SCH (08:39)
[2017-08-28] MEDS: LISINOPRIL 20 MG TAB PO SCH (08:39)
[2017-08-28] MEDS: ASPIRIN 81 MG ECTAB PO SCH (08:39)
[2017-08-28] MEDS: MULTIVITAMIN TAB PO SCH (08:39)
[2017-08-28] MEDS: PRAVASTATIN SOD 20 MG TAB PO SCH (08:39)
[2017-08-28] MEDS: INSULIN GLARGINE SOLOSTAR 100 UNITS/ML 3 ML PEN SC SCH (08:47)
[2017-08-28] MEDS: INSULIN ASPART 100 UNITS/ML 3 ML PEN SC SCH ×3 (08:47→18:35)
[2017-08-28] MEDS: MAGNESIUM HYDROXIDE SUSP 30 ML UDC PO PRN (10:43)
--- NOTE | 2017-08-28 10:59 | Progress Note ---
Medicine Progress Note Date & Time of Visit: Aug 28, 2017 at 10:59 . Subjective Doing fairly well postoperatively. Blood sugars improved. No chest pain. Occasional cough. No nausea or vomiting. Passing flatus, but no stool. Having some postop pain. . Objective Last 8 Hrs Date Time Temp Pulse Resp B/P (MAP) Pulse Ox O2 Delivery O2 Flow Rate FiO2 08/28/17 08:00 Room Air 08/28/17 07:25 36.7 102 17 110/75 (87) 93 Room Air Physical Exam: General- no distress Lungs- clear Heart- RRR Abdomen- + BS, soft, nontender Extremities- no pretibial edema or calf tenderness; TEDS applied Neuro- alert . Laboratory Results: Last 24 Hours Test 08/27/17 12:03 08/27/17 17:05 08/27/17 20:40 08/28/17 07:51 Bedside Glucose 182 mg/dl 183 mg/dl 226 mg/dl 180 mg/dl Assessment & Plan S/P LUMBAR FUSION Doing well postoperatively. HYPERTENSION Continue lisinopril. DM TYPE 2 Usually managed with Glucophage and Januvia. Outpatient Hgb A1C 8.4 on 07/22/17. Blood sugars elevated during hospital stay due to surgery and perioperative steroids. Managed with Lantus / NovoLog per protocol. FBS this morning 180. Blood sugars should improve with discontinuation of Decadron and increased activity. Patient does not use insulin at home. Discharge on usual regimen of Glucophage and Januvia. Has appt with [facility] next week for ongoing diabetes management. GERD Continue Zantac. VTE PROPHYLAXIS Per Ortho protocol. DISPOSITION Expected discharge to home. Medical follow-up with Dr. Liliane Carrasco. Thank you for this consultation. We will follow the patient with you during their hospital stay. You can reach a member of the [facility] Medicine Team 12/05 via pager @ [phone]. You can reach me via cell @ [phone]. . Current Inpatient Medications: Current Inpatient Medications Medications (Trade) Dose Ordered Sig/Cady Route Start Time Stop Time Status Last Admin Dose Admin Diphenhydramine HCl (Benadryl Cap) 25 mg Q6H PRN PO 08/25/17 13:00 09/24/17 12:59 08/26/17 17:09 25 MG Magnesium Hydroxide (Milk Of Magnesia Susp) 30 ml DAILY PRN PO 08/25/17 13:00 09/24/17 12:59 08/28/17 10:43 30 ML Bisacodyl (Dulcolax Supp) 10 mg DAILY PRN [place] 08/26/17 06:00 09/25/17 05:59 Bisacodyl (Dulcolax Tab) 5 mg DAILY PRN PO 08/26/17 06:00 09/25/17 05:59 08/28/17 08:16 5 MG Polyethylene (Miralax Powder Packet) 17 gm DAILY PO 08/26/17 09:00 09/25/17 08:59 08/27/17 08:42 17 GM Lorazepam 1 mg/ Syringe 1 ml @ 1 mls/min Q6H PRN IV 08/25/17 13:00 09/24/17 12:59 Lorazepam (Ativan Tab) 1 mg Q6H PRN PO 08/25/17 13:00 09/24/17 12:59 08/28/17 08:16 1 MG Metoclopramide HCl (Reglan Inj) 10 mg Q6H PRN IV 08/25/17 13:00 09/24/17 12:59 Ondansetron HCl (Zofran Inj) 4 mg Q6H PRN IV 08/25/17 13:00 09/24/17 12:59 08/25/17 18:36 4 MG Promethazine HCl 12.5 mg/Sodium Chloride 50.5 ml @ 202 mls/hr Q6H PRN IV 08/25/17 13:00 09/24/17 12:59 Ketorolac Tromethamine (Toradol Inj) 30 mg Q6 IV 08/25/17 18:00 Future Hold 08/26/17 12:23 30 MG Hydromorphone HCl (Dilaudid Inj) 1.5 mg Q3H PRN IV 08/26/17 08:00 09/09/17 07:59 Oxycodone/ Acetaminophen (Percocet 5-325mg Tab) 2 tab Q4H PRN PO 08/26/17 08:00 09/09/17 07:59 08/28/17 10:43 2 TAB Hydromorphone HCl (Dilaudid Inj) 1 mg Q3H PRN IV 08/26/17 08:00 09/09/17 07:59 08/27/17 19:16 1 MG Oxycodone/ Acetaminophen (Percocet 5-325mg Tab) 1 tab Q4H PRN PO 08/26/17 08:00 09/09/17 07:59 Acetaminophen (Tylenol Tab) 650 mg Q6H PRN PO 08/25/17 13:00 09/24/17 12:59 08/26/17 04:23 650 MG Aspirin (Ecotrin Tab) 81 mg QAM PO 08/26/17 09:00 09/25/17 08:59 08/28/17 08:39 81 MG Lisinopril (Zestril Tab) 20 mg QAM PO 08/26/17 09:00 09/25/17 08:59 08/28/17 08:39 20 MG Multivitamins (Multivitamin Tab) 1 tab QAM PO 08/26/17 09:00 09/25/17 08:59 08/28/17 08:39 1 TAB Pravastatin Sodium (Pravachol Tab) 20 mg QAM PO 08/26/17 09:00 09/25/17 08:59 08/28/17 08:39 20 MG Dexamethasone Sodium Phosphate 10 mg/Syringe 2.5 ml @ 1 mls/min Q8H PRN IV 08/25/17 15:45 09/24/17 15:44 Insulin Aspart (novoLOG ASPART) SLIDING SCALE If C... ACHS SC 08/25/17 17:15 09/24/17 17:14 08/28/17 08:47 7 UNITS Glucose (Glucose 40% Gel) 15-30 GRAMS 15 GRAMS... UD PRN PO 08/25/17 17:00 09/24/17 16:59 Glucose (Glucose Chew Tab) 4-8 Tablets 4 Tabl... UD PRN PO 08/25/17 17:00 09/24/17 16:59 Dextrose (Dextrose 50% 50ML Syringe) 25-50ML OF 50% DW IV FOR... UD PRN IV 08/25/17 17:00 09/24/17 16:59 Glucagon (Glucagon Inj) 1 mg UD PRN SQ 08/25/17 17:00 09/24/17 16:59 Insulin Glargine (Lantus Solostar Pen) 20 units Q12 SC 08/26/17 21:00 09/24/17 20:59 08/28/17 08:47 20 UNITS Sulindac (Clinoril Tab) 200 mg BID PRN PO 08/26/17 13:45 09/25/17 13:44 Pantoprazole Sodium (Protonix Tab) 40 mg QAM PO 08/27/17 09:00 09/26/17 08:59 08/28/17 08:39 40 MG
[2017-08-28 14:52] VITALS: BP 112/75; PULSE 104; TEMP 36.7; O2SAT 94
== END 2017-08-28 19:00 | disposition home or self-care (01) | DRG 460 ==
LOC: C.ACU 08:08 → C.3E 09:30 → ENRESERV 14:10
PROVIDERS: ADMIT Orthopaedic Surgery Orthopaedic Surgery of the Spine; ATTEND Orthopaedic Surgery Orthopaedic Surgery of the Spine
PROC: 0SG30AJ Fusion of Lumbosacral Joint with Interbody Fusion Device, Posterior Approach, Anterior Column, Open Approach (ICD-10-PCS; principal; 2017-08-25 10:00)
PROC: 0SB40ZZ Excision of Lumbosacral Disc, Open Approach (ICD-10-PCS; principal; 2017-08-25 10:00)
DX: M47.897 Other spondylosis, lumbosacral region (principal); E11.9 Type 2 diabetes mellitus without complications; I10 Essential (primary) hypertension; E78.5 Hyperlipidemia, unspecified; K21.9 Gastro-esophageal reflux disease without esophagitis; Z87.891 Personal history of nicotine dependence; L29.9 Pruritus, unspecified

== ENCOUNTER → 2017-12-25 | Outpatient (CLI) | payer BC ==
[~2017-12-25] MED LIST changes: -CEFAZOLIN 2000MG IV PUSH 10 ML IV SCH; -IBUP-1459 PO; -LACTATED RINGER'S 1000ML 1,000 ML IV SCH; +MISC-573; +OXYC-106 PO; +RANI150T85 PO; -SODIUM CHLORIDE 0.9% 1000ML 1,000 ML IV SCH; -SULI150T PO; -ZNTT/150 PO
--- NOTE | 2017-12-25 09:43 | DIAGNOSTIC IMAGING REPORT ---
MRI CERVICAL WITHOUT CONTRAST CLINICAL HISTORY: CERVICAL SPONDYLOSIS NECK PAIN TECHNIQUE: Sagittal and axial T1, T2 and STIR images were obtained. COMPARISON STUDY: No previous studies for comparison. There are no suspicious areas of marrow replacement. No intrinsic cervical cord lesions are visualized. C2-3: There is no evidence of disc bulge or focal herniation. There is no spinal or foraminal stenosis. C3-4: There is no evidence of disc bulge or focal herniation. There is no spinal or foraminal stenosis. C4-5: There is a mild circumferential disc bulge. There is no significant spinal or foraminal stenosis. C5-6 :There is a mild circumferential disc bulge. There is no significant spinal stenosis. There is no significant foraminal narrowing. C6-7: There is a mild circumferential disc bulge. There is no significant spinal or foraminal stenosis. C7-T1: There is no evidence of disc bulge or focal herniation. There is no evidence of spinal or foraminal stenosis. There is a left-sided perineural cyst. IMPRESSION: 1. No cord lesions identified 2. Minor disc bulges the C4-5, C5-6, and C6-7 levels 3. No evidence of significant spinal or foraminal stenosis Electronically signed by: Cordell España M.D. 12/25/2017 9:42 AM Dictated Date/Time: 12/25/2017 9:38 AM
== END | disposition home or self-care (01) ==
LOC: C.MRIBC 08:40
PROVIDERS: ATTEND Orthopaedic Surgery Orthopaedic Surgery of the Spine
DX: M47.12 Other spondylosis with myelopathy, cervical region (principal)

== ENCOUNTER → 2018-01-13 | Outpatient (CLI) | payer BC ==
[~2018-01-13] MED LIST changes: +DICL1TAB5 PO; +GABA-113 PO
[2018-01-13 09:50] LABS: CREATININE 0.73 mg/dl (0.60-1.20)
== END | disposition home or self-care (01) ==
LOC: C.LAB 08:12
PROVIDERS: ATTEND Orthopaedic Surgery
DX: E11.9 Type 2 diabetes mellitus without complications (principal)

== ENCOUNTER 2018-01-15 08:23 | Day surgery (SDC) | payer BC ==
[2018-01-15] VITALS (9 sets, daily range): BP systolic 116–148; BP diastolic 66–90; PULSE 69–83; TEMP 36.5–36.8; O2SAT 94–97; Ht 166.4 cm; Wt 97.7 kg
[~2018-01-15] VITALS: Ht 166.4 cm; Wt 97.7 kg
[~2018-01-15 08:23] MED LIST changes: -DICL1TAB5 PO; -GABA-113 PO
[2018-01-15] MEDS ORDERED: GABA-113 PO (08:57)
[2018-01-15] MEDS ORDERED: DICL1TAB5 PO (08:57)
[2018-01-15] MEDS ORDERED: ACETAMINOPHEN 500 MG TAB PO PRN (10:30)
--- NOTE | 2018-01-15 10:30 | Discharge Instructions ---
Discharge Instructions Procedure Procedure Date: Jan 15, 2018. Reason for visit: Low Back Pain. Discharge Discharge Date: Jan 15, 2018. Discharge Diagnosis: low back pain Instructions Activity Recommendations: 1 Day-May resume regular activity, 48 Hours of decreased exertion, 1 Day with no exercise/sex/sports, 1 Day with no driving/ machine use Return to School/Work: limitations (light activity x 48 hours) Recommended Home Diet: Resume Previous Diet Provider Instructions: Fluoroscopic guided lumbar puncture was performed to inject iodinated contrast for CT myelogram. The procedure was well tolerated and without immediate complication. ACTIVITY RECOMMENDATIONS: * Rest today. * Resume regular activity in one day. MEDICATIONS: * May take Tylenol or Ibuprofen as needed for pain. DIET: * Resume previous diet. SPECIAL CARE INSTRUCTIONS: Call your doctor if: * Temperature above 101 degrees F. * Pain not relieved by pain medicine ordered. * Increased drainage or redness from incision. * Notify your doctor with any questions or concerns. Call your doctor or go to the nearest Emergency Department if you experience: * Increased chest pain or shortness of breath. FOLLOW UP VISIT: Follow-up with Referring Physician as scheduled. Allergies Coded Allergies: No Known Allergies (Unverified , 01/15/18) Mary Loyola Recommendations: Call your doctor if: * Temperature above 101 degrees * Pain not relieved by pain medicine ordered * There is increased drainage or redness from any incision * You have any unanswered questions or concerns. Your Doctors Instructions noted above were prepared by provider Reza Pena. Patient Signature Section: Patient Instructions Signature Page Yessi Braden Patient (or Guardian) Signature/Date: I have read and understand the instructions given to me by my caregivers. Caregiver/RN/Doctor Signature/Date: The above-named patient and/or guardian has received patient instructions on this date. + Original Patient Signature Page (only) stays with chart. Please make copy for patient.
[2018-01-15] MEDS ORDERED: OPTIRAY 320 IV PRN (10:45)
--- NOTE | 2018-01-15 11:04 | DIAGNOSTIC IMAGING REPORT ---
FLUOROSCOPIC GUIDED LUMBAR PUNCTURE CLINICAL HISTORY: Low back pain. Lumbar puncture for injection of intrathecal contrast for CT myelogram. PROCEDURE: The risks, benefits, and alternatives to the procedure is discussed with the patient who voiced understanding. Written informed consent was obtained. The patient was placed prone on the fluoroscopy table. The lower back was prepped and draped in the usual sterile fashion. 1% lidocaine was used for local anesthesia. A 22-gauge spinal needle was inserted into the L3-L4 interlaminar space, and intrathecal positioning was confirmed by return of cerebrospinal fluid into the needle hub. Approximately 12 cc of Isovue-200 was then injected into the thecal sac under fluoroscopic guidance. The patient tolerated the procedure well. There were no immediate complications. The patient was then transported to CT for CT myelogram and then observed in the medical treatment unit prior to discharge. Fluoroscopy time: 0.4 minutes. IMPRESSION: Successful fluoroscopic guided lumbar puncture with injection of intrathecal contrast for CT myelogram. There were no immediate complications. Electronically signed by: Reza Pena M.D. 01/15/2018 11:01 AM Dictated Date/Time: 01/15/2018 10:59 AM
--- NOTE | 2018-01-15 11:18 | DIAGNOSTIC IMAGING REPORT ---
CT MYELOGRAM OF THE LUMBAR SPINE CLINICAL HISTORY: Low back pain. History of spinal fusion. COMPARISON STUDY: Radiographs of the lumbar spine dated 05/13/2017. MRI of the lumbar spine dated 07/14/2017. CT scan of the chest, abdomen, and pelvis dated 03/09/2007. TECHNIQUE: Following the intrathecal administration of Isovue 200, CT myelogram of the lumbar spine is performed from the lower thoracic spine to the sacrum. Images are reviewed in the axial, sagittal, and coronal planes. A dose lowering technique was utilized adhering to the principles of ALARA. CT DOSE: 561.68 mGycm FINDINGS: Lumbar spine: There are 4 nonrib-bearing lumbar-type vertebral bodies. For the purposes of this examination, the last rib-bearing vertebral body will be labeled L1 with fusion change at L5-S1. The skeletal structures appear osteopenic. There is no evidence of fracture or malalignment. Vertebral body height and alignment are maintained throughout the lumbar spine. Anterior osteophytes are seen in the lower lumbar region. The transverse and remaining spinous processes appear intact. There are postoperative changes from L5 -S1 spinal fusion. The orthopedic hardware appears intact. The tip of the right interpedicular screw at L5 may terminate in the disc space. No lytic or blastic lesion is seen. Degenerative endplate sclerosis is seen at L5-S1. Intervertebral discs: There has been discectomy at L5-S1. Mild disc space narrowing seen at L4-L5. The remaining disc spaces appear preserved. Spinal cord and central canal: The central canal is well opacified with intrathecal contrast. The partially imaged spinal cord is grossly normal in morphology. The conus medullaris terminates at the level of L2. The nerve roots of the cauda equina are normal in morphology. L1-L2: The central canal and neural foramina are widely patent. L2-L3: The central canal and neural foramina are widely patent. L3-L4: The central canal and neural foramina are widely patent. L4-L5: The central canal and neural foramina appear patent. A left lateral disc bulge likely contributes to left-sided subarticular stenosis. L5-S1: A posterior osteophyte is of no consequence. The central canal and neural foramina appear patent. Sacrum: The visualized sacrum and bony pelvis appear intact. Soft tissues: The paraspinous soft tissues are normal in appearance noting postoperative change. Small foci of gas posteriorly at the L3-L4 level are likely related to the recent lumbar puncture. There is mild to moderate atherosclerotic calcification of the abdominal aorta. No retroperitoneal adenopathy is identified. IMPRESSION: 1. No acute osseous abnormality is identified involving the lumbar spine. 2. There are 4 nonrib-bearing lumbar type vertebral bodies. 3. There are postoperative changes from L5 -S1 spinal fusion. 4. There is no disc herniation or central canal stenosis. 5. Mild degenerative change as discussed above. 6. The tip of the interpedicular screw at L5 may terminate in the L4-L5 disc space. Electronically signed by: Reza Pena M.D. 01/15/2018 11:17 AM Dictated Date/Time: 01/15/2018 11:01 AM
[2018-01-15] MEDS ORDERED: ACETAMINOPHEN 500 MG TAB PO ONE (11:34)
== END 2018-01-15 14:35 | disposition home or self-care (01) ==
LOC: C.ACU 08:23
PROVIDERS: ATTEND Orthopaedic Surgery Orthopaedic Surgery of the Spine
DX: M54.5 Low back pain (principal)

== ENCOUNTER 2020-08-16 09:46 | Inpatient (IN) ==
--- NOTE | 2020-07-26 15:03 | PAT Medication Instructions ---
Medication Instructions Date of Service July 26, 2020 Home Medications Centrum Silver Women 1 tab PO QAM Excedrin Migraine 2 tab PO Q6H PRN ascorbic acid (vitamin C) [Vitamin C] 1,000 mg PO QAM aspirin 81 mg PO QAM atorvastatin [Lipitor] 20 mg PO QAM gabapentin 300 mg PO BID lisinopril 5 mg PO QAM metformin 1,000 mg PO BID sulindac 200 mg PO BID PRN vitamin E 1,000 unit PO QAM empagliflozin [Jardiance] 25 mg PO QAM famotidine 20 mg PO QAM ferrous sulfate 1 tab PO QAM glimepiride 4 mg PO QAM ibuprofen 200 mg PO Q6H PRN ASK your surgeon for instructions Excedrin Migraine 2 tab PO Q6H PRN sulindac 200 mg PO BID PRN ibuprofen 200 mg PO Q6H PRN ASK your prescriber and surgeon aspirin 81 mg PO QAM STOP taking 2 weeks before surgery (or as soon as possible if surgery is within 2 weeks) vitamin E 1,000 unit PO QAM DO NOT take the morning of surgery Centrum Silver Women 1 tab PO QAM ascorbic acid (vitamin C) [Vitamin C] 1,000 mg PO QAM lisinopril 5 mg PO QAM metformin 1,000 mg PO BID empagliflozin [Jardiance] 25 mg PO QAM ferrous sulfate 1 tab PO QAM glimepiride 4 mg PO QAM Take morning of surgery With a small sip of water, OTHERWISE NOTHING TO EAT OR DRINK AFTER MIDNIGHT: atorvastatin [Lipitor] 20 mg PO QAM gabapentin 300 mg PO BID famotidine 20 mg PO QAM Take evening before surgery gabapentin 300 mg PO BID metformin 1,000 mg PO BID Other Notes If you have any questions please call us at [phone] or [phone] or [phone] or [phone]
--- NOTE | 2020-07-28 11:03 | Anesthesiology Consultation ---
Date of Service July 28, 2020 Assessment & Plan (1) Encounter for pre-operative examination: - Preop EKG: consider lateral ischemia/+ TWI (TWI more evident in anterolateral leads compared to 03/21/2018 per cooler room worker review. Stress test was ordered 2018 but not completed per [facility] records). Will forward EKG to PCP for further recommendations. Awaiting response ([facility]). - Per assessment on 07/28: Travel screen negative. No known COVID-19 positive contacts or current COVID-19 related symptoms. Surgeon arranging preop COVID testing. Awaiting results. - Check [facility] AM DOS Chart Review Chart Review: Patient seen in Pre Admission Testing Teaching & Discussion Pre-Anesthesia Teaching/Discussion Notes: Instructed NPO after midnight before surgery,except medications with 15 cc of water. Medication instructions provided according to the PAT guidelines. History Surgery Operation Date: 08/18/20 07:45 Proposed Procedures p L3-L4 Decompression Fusion, L4-S1 Removal of Instrumentation, Spinal Cord Monitoring - Anthony Haynes, Height/Weight Height: 5 ft 5.5 in Weight: 92.9 kg Allergies Allergy/AdvReac Type Severity Reaction Status Date / Time No Known Allergies Allergy Unknown Verified 07/20/20 15:12 Medications Home Medications Medication Instructions Recorded Confirmed Last Taken Centrum Silver Women 1 tab PO QAM 07/20/18 07/20/20 08/03/18 07:00 Excedrin Migraine 2 tab PO Q6H PRN 07/20/18 07/20/20 07/02/16 14:00 ascorbic acid (vitamin C) [Vitamin 1,000 mg PO QAM 07/20/18 07/20/20 08/03/18 07 :00 C] aspirin 81 mg PO QAM 07/20/18 07/20/20 08/03/18 07:00 atorvastatin [Lipitor] 20 mg PO QAM 07/20/18 07/20/20 08/10/18 04:30 gabapentin 300 mg PO BID 07/20/18 07/20/20 08/10/18 04:30 lisinopril 5 mg PO QAM 07/20/18 07/20/20 08/07/18 07:00 metformin 1,000 mg PO BID 07/20/18 07/20/20 08/10/18 04:30 sulindac 200 mg PO BID PRN 07/20/18 07/20/20 07/08/18 20:00 vitamin E 1,000 unit PO QAM 07/20/18 07/20/20 08/03/18 07:00 empagliflozin [Jardiance] 25 mg PO QAM 07/20/20 07/20/20 Unknown famotidine 20 mg PO QAM 07/20/20 07/20/20 Unknown ferrous sulfate 1 tab PO QAM 07/20/20 07/20/20 Unknown glimepiride 4 mg PO QAM 07/20/20 07/20/20 Unknown ibuprofen 200 mg PO Q6H PRN 07/20/20 07/20/20 Unknown Past Medical History Medical History Diabetes mellitus, type 2 NIDDM GERD (gastroesophageal reflux disease) controlled 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" HTN (hypertension) Hypercholesteremia Lumbar spondylosis Migraine Obesity Sleep apnea non-compliant with CPAP, no device currently Exercise / Class Metabolic Activity III < 4 Walking/Shop/Light housework Past Family History Family History Mother Family history of diabetes mellitus Family/Other Family history of diabetes mellitus Past Surgical History Surgical History History of appendectomy History of bilateral tubal ligation History of brain surgery S/P PITUITARY TUMOR RESECTION (BENIGN) History of cardiac catheterization 15+ years ago- no stents History of section History of colonoscopy with polypectomy History of laparoscopy + MADDIE History of lumbar fusion History of tonsillectomy and adenoidectomy History of tooth extraction Past Anesthesia History Patient: emotional/crying with anesthesia emergence Mother: nasty/irate with Ativan use History of PONV No Hx of PONV and No Hx of Motion Sickness Social History Smoking Status: Former smoker Do You Dip or Chew Tobacco: No Smoking End Date: Quit 2007 Hx Alcohol Use: Yes alcohol intake frequency: holidays/special occasions only Hx Substance Use: No substance use type: does not use Review of Systems Patient denies chest pain, shortness of breath, fever, chills, reflux, cough, wheezing, palpitations. Physical Exam Vital Signs VITALS BP 124/79 P 73 TEMP 98.2 SP02 97%RA RESP 16 PHYSICAL Full neck and c-spine range of motion. Full TMJ range of motion. TMD 3 finger breaths Mallampati Score 3 Dentition: 2 chipped teeth (left/right lower molars), several molars missing Lungs: clear throughout to auscultation Cardiac: regular rate and rhythm, II/ systolic murmur Spine: normal Carotid arteries: negative bruit Extremities: no edema Testing Laboratory Results 07/28/20 11:19 PT 10.0 Seconds (9.0-12.0) 07/28/20 11:19 INR 0.9 (0.9-1.1) 07/28/20 11: APTT 28.9 Seconds (21.0-31.0) 07/28/20 11:19 Urine Color Dark Yellow 07/28/20 11:19 Urine Appearance Clear (Clear) 07/28/20 11:19 Urine pH 5.5 (4.5-7.5) 07/28/20 11:19 Ur Specific [place] 1.026 (1.000-1.030) 07/28/20 11:19 Urine Protein Negative (Negative) 07/28/20 11:19 Urine Glucose (UA) Negative (Negative) 07/28/20 11:19 Urine Ketones Negative (Negative) 07/28/20 11:19 Urine Nitrite Negative (Negative) 07/28/20 11:19 Ur Leukocyte Esterase Negative (Negative) 07/28/20 11:19 Blood Type O Positive 07/28/20 11:19 Antibody Screen NEGATIVE 07/28/20 11:19 07/14/20 SODIUM 140 POTASSIUM 4.61 CHLORIDE 102 CO2 26 BUN 21 CREATININE 0.8 GLUCOSE 69 HGBA1C 6.6% Electrocardiogram Date: 07/28/20 NSR at 69bpm. TWA, consider lateral ischemia. TWI more evident in anterolateral leads compared to 03/21/2018 per cooler room worker review. Chest X-Ray Date: 07/28/20 Findings: + NAD Echocardiogram Date: 08/20/17 LVEF 65%. Mild increased cLV wall thickness. Basal septum consistent with sigmoid septum. Apically-displaced papillary muscle with attached chordal apparatus creates increased LV intracavitary velocity, which is not accentuated with Valsalva maneuver. Grade I DD. No significant valvular disease.
[2020-07-28 12:02] LABS: Basophils # (auto) 0.09 K/uL (0-0.2); Basophils % (auto) 1.2 %; Eosinophils # (auto) 0.34 K/uL (0-0.5); Eosinophils % (auto) 4.4 %; Hematocrit (blood only) 43.5 % (37-47); Hemoglobin 13.9 g/dL (12.0-16.0); Immature Granulocytes # (auto) 0.02 K/uL (0.00-0.02); Immature Granulocytes % (auto) 0.3 %; Lymphocytes # (auto) 2.19 K/uL (1.2-3.4); Lymphocytes % (auto) 28.6 %; Mean Corpuscular Hemoglobin 28.7 pg (25-34); Mean Corpuscular Volume 89.7 fL (80-100); Mean Platelet Volume 9.9 fL (7.4-10.4); Monocytes # (auto) 0.56 K/uL (0.11-0.59); Monocytes % (auto) 7.3 %; Neutrophils # (auto) 4.47 K/uL (1.4-6.5); Neutrophils % (auto) 58.2 %; Platelet Count 352 K/uL (130-400); RDW Coefficient of Variation 14.7 % (11.5-14.5); RDW Standard Deviation 48.2 fL (36.4-46.3); Red Blood Count 4.85 M/uL (4.2-5.4); White Blood Count 7.67 K/uL (4.8-10.8)
--- NOTE | 2020-07-28 12:04 | XRay Report ---
XR chest 2V PA/lateral CLINICAL HISTORY: Preoperative chest COMPARISON STUDY: 618 FINDINGS: The cardiac and mediastinal contours are normal. There is no evidence of focal pulmonary co nsolidation. There is no evidence of failure. No pleural effusions are visualized.[ IMPRESSION: No active disease in the chest. ACT 112: Negative or not required by law. Electronically signed by: Cordell España M.D. 07/28/2020 12:03 PM
[2020-07-28 12:09] LABS: Appearance Urine Clear (Clear); Bilirubin Urine Negative (Negative); Blood Urine Negative (Negative); Color Urine Dark Yellow; Glucose Urine UA Negative (Negative); Ketones Urine Negative (Negative); Leukocyte Esterase Urine Negative (Negative); Nitrite Urine Negative (Negative); Protein Urine Negative (Negative); Specific Gravity Urine 1.026 (1.000-1.030); Urobilinogen Urine Negative (Negative); pH Urine 5.5 (4.5-7.5)
[2020-07-28 12:16] LABS: INR 0.9 (0.9-1.1); Partial Thromboplastin Time 28.9 Seconds (21.0-31.0)
--- NOTE | 2020-07-28 12:48 | Electrocardiogram Report ---
Test Reason : Blood Pressure : / mmHG Vent. Rate : 069 BPM Atrial Rate : 069 BPM P-R Int : 146 ms QRS Dur : 088 ms QT Int : 420 ms P-R-T Axes : 073 -07 097 degrees QTc Int : 450 ms Normal sinus rhythm T wave abnormality, consider lateral ischemia Abnormal ECG When compared with ECG of 21-MAR-2018 18:46, T wave inversion more evident in Anterolateral leads Confirmed by Clarence Art ([id number]) on 07/28/2020 12:48:19 PM Referred By: Anthony Haynes Confirmed By:Jose Art
--- OUTSIDE RECORDS SUMMARY | 2020-08-16 09:50 | External Medical Summary | Continuity of Care Document ---
:1965 Author Name Anshul Collazo, Provider Address Unavailable Unavailable , Care Team Providers Name Role Phone Unavailable Unavailable Unavailable Problems Lumbosacral radiculopathy (724.4) (M54.17) Allergies and Adverse Reactions Allergy history not documented Medications Medications not documented Procedures Procedures not documented Immunizations Immunizations not documented Plan of Treatment Planned Observations Planned Goals not documented Results No Known Results Results not documented
[2020-08-16] MEDS ORDERED: CeleBREX 200 MG CAP ONE (10:26)
[2020-08-16] MEDS ORDERED: GABAPENTIN 300 MG CAP ONE (10:26)
[2020-08-16] MEDS ORDERED: ACETAMINOPHEN 500 MG TAB ONE (10:26)
[2020-08-16] MEDS ORDERED: ceFAZolin 2,000 MG/15 ML IV PUSH IV ONE (10:31)
--- NOTE | 2020-08-16 11:08 | History & Physical Bridge Note ---
Date of Service August 16, 2020 History & Physical Bridge Note I have examined the patient, reviewed the History & Physical and in the interval since the performance of the History & Physical I have noted the following changes of clinical significance: no changes noted
--- NOTE | 2020-08-16 11:09 | History & Physical Report ---
Date of Service August 16, 2020 Assessment & Plan (1) Neurogenic claudication due to lumbar spinal stenosis: Admission and Anticipated Discharge Date Admission Date: Patient fusion, L4-S1 removal of instrumentation History of Present Illness Chief Complaint: Back and bilateral leg pain Primary Care Provider: Taylor Lawrence MD This is a 54-year-old female well-known to me the presents with marked clinical status with back and bilateral leg pain. Failing course of nonoperative care is here for surgical invention. Allergies Allergy/AdvReac Type Severity Reaction Status Date / Time No Known Allergies Allergy Unknown Verified 08/16/20 10:08 Home Medications Home Medications Medication Instructions Recorded Confirmed Type Centrum Silver Women 1 tab PO QAM 07/20/18 08/16/20 History Excedrin Migraine 2 tab PO Q6H PRN 07/20/18 08/16/20 History ascorbic acid (vitamin C) [Vitamin 1,000 mg PO QAM 07/20/18 08/16/20 History C] aspirin 81 mg PO QAM 07/20/18 08/16/20 History atorvastatin [Lipitor] 20 mg PO QAM 07/20/18 08/16/20 History gabapentin 300 mg PO BID 07/20/18 08/16/20 History lisinopril 5 mg PO QAM 07/20/18 08/16/20 History metformin 1,000 mg PO BID 07/20/18 08/16/20 History sulindac 200 mg PO BID PRN 07/20/18 08/16/20 History vitamin E 1,000 unit PO QAM 07/20/18 08/16/20 History famotidine 20 mg PO QAM 07/20/20 08/16/20 History ferrous sulfate 1 tab PO QAM 07/20/20 08/16/20 History glimepiride 4 mg PO QAM 07/20/20 08/16/20 History ibuprofen 200 mg PO Q6H PRN 07/20/20 08/16/20 History Past Med/Surg History Medical History Diabetes mellitus, type 2 NIDDM GERD (gastroesophageal reflux disease) controlled 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" HTN (hypertension) Hypercholesteremia Lumbar spondylosis Migraine Obesity Sleep apnea non-compliant with CPAP, no device currently Surgical History History of appendectomy History of bilateral tubal ligation History of brain surgery S/P PITUITARY TUMOR RESECTION (BENIGN) History of cardiac catheterization 15+ years ago- no stents History of section History of colonoscopy with polypectomy History of laparoscopy + MADDIE History of lumbar fusion History of tonsillectomy and adenoidectomy History of tooth extraction Family History Mother Family history of diabetes mellitus Family/Other Family history of diabetes mellitus Social History Smoking Status: Former smoker Smoking End Date: Quit 2007; Second Hand Exposure: Yes (as a child); Do You Dip or Chew Tobacco: No; Tobacco Cessation Education Requested by Patient: No Hx Alcohol Use: Yes Hx Substance Use: No Preferred Language: Syrian Communication Ability: Effective Visual Impairment: No Limitations Beliefs That Will Affect Care: None marital status: Current Living Situation: Spouse Feels Safe at Home: Yes Safety Concerns: Feels Safe At This Time Assistive Devices: Cane and Glasses Physical Exam Physical Exam: Patient is alert and oriented Lungs clear to auscultation Heart regular rate and rhythm Results & Data ([facility]) Vital Signs (Past 12 Hours) Vital Signs Temp Pulse Resp BP Pulse Ox 08/16/20 10:06 36.6 C 88 20 150/98 H 98
--- NOTE | 2020-08-16 11:31 | History & Physical Bridge Note ---
Date of Service August 16, 2020 History & Physical Bridge Note I have examined the patient, reviewed the History & Physical and in the interval since the performance of the History & Physical I have noted the following changes of clinical significance: Plan Lumbar decompression fusion L3-L4, removal of instrumentation L4 S1
[2020-08-16] MEDS ORDERED: fentaNYL citrate 100 MCG/2 ML VIAL ONE (11:43)
[2020-08-16] MEDS ORDERED: MIDAZOLAM HCL 1 MG/ML 2ML VIAL ONE (11:43)
[2020-08-16] MEDS ORDERED: LABETALOL HCL IV 5 MG/ML 20ML IV PRN (12:20)
[2020-08-16] MEDS ORDERED: HYDROmorphone INJ 2 MG/ML SYR/VIAL IV PRN (12:20)
[2020-08-16] MEDS ORDERED: ATROPINE SULFATE 0.1 MG/ML 10ML SYR IV PRN (12:20)
[2020-08-16] MEDS ORDERED: ONDANSETRON INJ 2 MG/ML 2 ML VIAL IV PRN ×2 (12:20→17:00)
[2020-08-16] MEDS ORDERED: ALBUTEROL 0.083% NEBU SOLN 3 ML VIAL INH PRN (12:20)
[2020-08-16] MEDS ORDERED: BUPIVACAINE 0.5 % 5 MG/1 ML MPF 30ML VIAL ONE (13:18)
[2020-08-16] MEDS ORDERED: BACITRACIN INJ 50,000 UNIT VIAL ONE (13:18)
[2020-08-16] MEDS ORDERED: EPINEPHrine INJ 1 MG/ML AMP ONE (13:18)
[2020-08-16] MEDS ORDERED: HYDROmorphone INJ 2 MG/ML SYR/VIAL ONE (14:02)
[2020-08-16] MEDS ORDERED: LIDOCAINE HCL 2% 2 ML VIAL/AMP(20MG/ML) INFIL ONE (14:06)
[2020-08-16] MEDS ORDERED: NEOSTIGMINE METHYLSULFATE 1 MG/ML 10ML VIAL ONE (14:06)
[2020-08-16] MEDS ORDERED: GLYCOPYRROLATE 0.2 MG/ML VIAL ONE (14:06)
[2020-08-16] MEDS ORDERED: DEXAMETHASONE SOD INJ 4 MG/ML VIAL ONE (14:06)
[2020-08-16] MEDS ORDERED: ONDANSETRON INJ 2 MG/ML 2 ML VIAL ONE (14:06)
[2020-08-16] MEDS ORDERED: ePHEDrine sulfate 50 MG/ML SYR ONE (14:06)
[2020-08-16] MEDS ORDERED: ROCURONIUM BROMIDE 10 MG/ML 5 ML VIAL IV ONE ×2 (14:06→14:24)
[2020-08-16] MEDS ORDERED: LARYING-O-JET KIT (LTA) ONE (14:06)
[2020-08-16] MEDS ORDERED: PHENYLEPHRINE 100MCG/ML 5ML SYR ONE (14:06)
[2020-08-16] MEDS ORDERED: PROPOFOL IV EMULSION 10 MG/ML 20 ML VIAL IV ONE (14:06)
[2020-08-16] MEDS ORDERED: FLOSEAL HEMOSTATIC MATRIX 10ML TOP ONE (14:59)
--- NOTE | 2020-08-16 15:07 | Operative Report ---
Post Operative Report Pre & Post Diagnosis Operation Date: 08/16/20 11:25 Pre-Op Diagnosis: Neurogenic Claudication due to Lumbar Spinal Stenosis Post-Op Diagnosis: Neurogenic Claudication due to Lumbar Spinal Stenosis I identified the patient and participated in the time-out.: Yes Procedure Operation Date: 08/16/20 11:25 Actual Procedures #1 removal of posterior instrumentation L4-5 L5-S1. #2 exploration of fusion L4-5 L5-S1. #3 lumbar decompression with bilateral medial facetectomies and foraminotomies L2-3 L3-4. #4 posterior spinal fusion L3-4. #5 placement posterior instrumentation L3-4. #6 interbody fusion L3-4. #7 placement of peek cage 12 x 22 mm at L3-4 per #8 placement locally harvested morselized autograft in the posterior lateral gutters. #9 placement infuse collagen sponge, master graft in the posterior lateral gutters and ostial amp and interbody space. Surgeon Anthony Haynes, DO [facility] [facility] Jaimie Gallegos Estimated Blood Loss 250 Findings See Below The patient is 5 foot 5 inches tall weighing 93 kg with a BMI in excess of 33. Significant technical difficulty requiring her deepest retractors and longus instruments in order to perform her procedure. This did at least 50% increase to the operative time. Specimens None Indications This is a 54-year-old female who presents with above-mentioned diagnosis after failing course of nonoperative care is here for the above-mentioned procedure. Description of Procedure Patient was met with identified informed consent obtained. Patient was then taken to the operative suite underwent an patient placed in a prone position on the Emiliano table on top of the Delio frame. All bony prominences well-padded eyes inspected to ensure no external pressure placed upon the. This point the lumbar spine was prepped and draped in normal sterile fashion. Sharp dissection with the assistance of Bovie cautery was performed down to and exposing the lamina and transverse processes of L3 and the instrumentation at L4-L5 and S1 levels bilaterally. I then proceeded to remove the hardware at L4-L5 and S1 levels bilaterally explored the fusion mass noting to be mature and intact. I then performed a complete laminectomy of L3 partial laminectomy of L2 including bilateral medial facetectomies and foraminotomies addressing severe spinal stenosis. Pedicle screws were then placed in L3 and L4 bilaterally with assistance of fluoroscopy and the appropriately sized carrie placed. By way of a transforaminal approach on the right complete discectomy of L3-4 was performed entrance curetted to subcortical bleeding bone and a 12 x 22 mm peek cage filled osteobone graft tapped in position. The rods were then compressed locked into final position bilaterally. The transverse processes of L3 and L4 were burred to subcortical bleeding bone. Infuse collagen sponge master graft local au tograft was placed in the posterior lateral gutters. I did place a small amount of DuraGen over some thinning of the dura at the junction of the scarred and new decompressed dura. There is no CSF leak this is precautionary. 15 round AYDEN drains inserted. Incision was closed with 1 Vicryl in the fascia 2-0 Vicryl subcutaneously and 4 Monocryl for final skin closure. Steri-Strip sterile dressings placed. Patient was then taken to PACU stable condition. Please note spinal cord monitoring was last that the procedure no changes noted. Lastly Jaimie Gallegos was present throughout the entire surgery involved the patient positioning complex portions of the surgery and final skin closure. I attest to the content of the Intraoperative Record and any orders documented therein. Any exceptions are noted below.
--- NOTE | 2020-08-16 15:26 | Fluoroscopy Report ---
FL lumbar spine 2-3V CLINICAL HISTORY: L4-S1 REMOVE HARDWARE/L3-4 DECOMPRESSION/FUSION/INTERBODY COMPARISON STUDY: None. FLUOROSCOPY TIME: 9 seconds. FINDINGS: 2 fluoroscopic spot images of the lumbar spine demonstrate L3-L4 posterior decompression an d fusion with pedicle screws and rods. The hardware appears intact. IMPRESSION: Fluoroscopy provided for a L3-L4 posterior decompression and fusion. ACT 112: Negative or not required by law. Electronically signed by: Eddie Topete M.D. 08/16/2020 3:25 PM
[2020-08-16] MEDS ORDERED: HYDROmorphone INJ 1 MG/ML SYRINGE ONE ×2 (15:38→16:03)
--- NOTE | 2020-08-16 16:55 | Anesthesiology Progress Note ---
Date of Service August 16, 2020 Anesthesia Post Procedure Vital Signs Vital Signs: Temp Pulse Pulse Resp BP BP Pulse Ox 08/16/20 16:45 69 12 94/61 L 92 08/16/20 16:35 97.2 F L 80 19 115/71 97 08/16/20 16:25 83 13 103/60 98 08/16/20 16:15 63 12 106/60 98 08/16/20 16:05 74 14 115/74 100 08/16/20 15:55 66 12 103/69 99 08/16/20 15:45 72 13 116/72 100 08/16/20 15:35 83 17 120/86 100 08/16/20 15:25 97.7 F 83 21 123/77 100 08/16/20 10:06 97.9 F 88 20 150/98 H 98 Pain Intensity Left Leg: Pain Intensity: 5 Back: Pain Intensity: 9 Transfer of Care Handoff Completed per policy Notes Mental Status: alert / awake / arousable and participated in evaluation Patient Amnestic to Procedure: Yes Nausea / Vomiting: adequately controlled Pain: adequately controlled Airway Patency, RR, SpO2: stable & adequate BP & HR: stable & adequate Hydration State: stable & adequate Anesthetic Complications: no major complications apparent and Pt Satisfied with anesthetic care
[2020-08-16] MEDS ORDERED: MAGNESIUM HYDROXIDE SUSP 30 ML UDC PO PRN (17:00)
[2020-08-16] MEDS ORDERED: SOD PHOSPHATE/SOD BIPHOSPHATE ENEMA 132 ML BTL PR PRN (17:00)
[2020-08-16] MEDS ORDERED: DO NOT ADMINISTER PNEUMOCOCCAL VACCINE PRN (17:00)
[2020-08-16] MEDS ORDERED: LORazepam 0.5 MG TAB PO PRN (17:00)
[2020-08-16] MEDS ORDERED: bisacodyL 10 MG SUPP PR PRN (17:00)
[2020-08-16] MEDS ORDERED: METOCLOPRAMIDE HCL INJ 5 MG/ML 2 ML VIAL IV PRN (17:00)
[2020-08-16] MEDS ORDERED: diphenhydrAMINE Capsule 25 MG CAP PO PRN (17:00)
[2020-08-16] MEDS ORDERED: hydrOXYzine HCl 25 MG TAB PO PRN (17:00)
[2020-08-16] MEDS ORDERED: PROMETHAZINE HCL 12.5 MG in SODIUM CHLORIDE 0.9% 50 ML IV PRN (17:00)
[2020-08-16] MEDS ORDERED: LORazepam 0.5 MG/1 ML VIAL IV PRN (17:00)
[2020-08-16] MEDS ORDERED: NON-FORMULARY MEDICATION (Aspirin-Acetaminophen-Caffeine [Excedrin Migraine] 250-250-65 mg PO PRN (17:00)
[2020-08-16] MEDS ORDERED: NALOXONE HCL 0.4 MG/1 ML VIAL/CARP IV PRN (17:00)
[2020-08-16] MEDS ORDERED: DO NOT ADMINISTER FLU VACCINE PRN (17:00)
[2020-08-16] MEDS ORDERED: ACETAMINOPHEN 1,000 MG/100 ML VIAL IV PRN (17:00)
[2020-08-16] MEDS ORDERED: HYDROmorphone INJ 0.5 MG/0.5 ML SYR IV PRN (17:00)
[2020-08-16] MEDS ORDERED: HYDROmorphone INJ 1 MG/ML SYRINGE IV PRN (17:00)
[2020-08-16] MEDS ORDERED: FAMOTIDINE 20 MG TAB PO PRN (17:00)
[2020-08-16] MEDS ORDERED: ALUMINUM/MAGNESIUM SUSP 30 ML UDC PO PRN (17:00)
[2020-08-16] MEDS ORDERED: ONDANSETRON 4 MG OD TAB PO PRN (17:00)
[2020-08-16] MEDS: oxyCODONE HCL IR 5 MG TAB (IMMEDIATE RELEASE) PO PRN ×2 (17:24→23:54)
[2020-08-16] MEDS ORDERED: PHARMACY GLYCEMIC MGMT CONSULT PRN (17:29)
[2020-08-16] MEDS: SODIUM CHLORIDE 0.9% 1000ML 1,000 ML IV SCH ×2 (17:31→23:37)
[2020-08-16] MEDS ORDERED: NovoLIN-N (NPH) PER UNIT CHARGE SQ ONE (17:45)
[2020-08-16] MEDS: INSULIN ASPART 100 UNITS/ML 3 ML PEN SC SCH ×2 (18:38→21:14)
[2020-08-16] MEDS: KETOROLAC 30 MG/ML VIAL IV SCH ×2 (19:32→23:35)
[2020-08-16] MEDS: GABAPENTIN 300 MG CAP PO SCH (20:38)
[2020-08-16] MEDS: DOCUSATE SODIUM/SENNA 50/8.6MG TAB PO SCH (20:38)
[2020-08-16] MEDS: ACETAMINOPHEN 500 MG TAB PO PRN (20:52)
[2020-08-16] MEDS: ceFAZolin 2000MG 2,000 MG/15 ML SYR IV SCH (20:54)
[2020-08-17] MEDS: INSULIN ASPART 100 UNITS/ML 3 ML PEN SC SCH ×6 (00:10→20:54)
[2020-08-17] MEDS: ceFAZolin 2000MG 2,000 MG/15 ML SYR IV SCH (04:31)
[2020-08-17] MEDS: POLYETHYLENE (MIRALAX) 17 GM PACK PO SCH ×3 (05:49→17:06)
[2020-08-17] MEDS: KETOROLAC 30 MG/ML VIAL IV SCH ×2 (05:49→13:30)
[2020-08-17 06:32] LABS: Basophils # (auto) 0.01 K/uL (0-0.2); Basophils % (auto) 0.1 %; Eosinophils # (auto) 0.01 K/uL (0-0.5); Eosinophils % (auto) 0.1 %; Hematocrit (blood only) 35.6 % (37-47); Hemoglobin 11.2 g/dL (12.0-16.0); Immature Granulocytes # (auto) 0.03 K/uL (0.00-0.02); Immature Granulocytes % (auto) 0.2 %; Lymphocytes # (auto) 0.98 K/uL (1.2-3.4); Mean Corpuscular Hemoglobin 28.1 pg (25-34); Mean Corpuscular Hgb Conc 31.5 g/dL (32-36); Mean Corpuscular Volume 89.2 fL (80-100); Mean Platelet Volume 9.6 fL (7.4-10.4); Monocytes # (auto) 0.86 K/uL (0.11-0.59); Monocytes % (auto) 6.2 %; Neutrophils # (auto) 12.09 K/uL (1.4-6.5); Neutrophils % (auto) 86.4 %; Platelet Count 325 K/uL (130-400); RDW Coefficient of Variation 14.2 % (11.5-14.5); RDW Standard Deviation 46.6 fL (36.4-46.3); Red Blood Count 3.99 M/uL (4.2-5.4); White Blood Count 13.98 K/uL (4.8-10.8)
[2020-08-17 07:02] LABS: BUN Creatinine Ratio 22.9 (10-20); Calcium 8.6 mg/dl (8.5-10.1); Creatinine Clr Calc Pharmacy 108.3 ml/min; Est GFR (African American) 114.5; Est GFR (Non-African American) 98.8; Potassium 4.3 mmol/L (3.5-5.1)
[2020-08-17] MEDS: traMADol HCL 50 MG TABLET PO PRN ×2 (08:07→20:47)
[2020-08-17] MEDS: ACETAMINOPHEN 500 MG TAB PO PRN (08:08)
--- NOTE | 2020-08-17 08:11 | Hospitalist Consultation ---
Date of Consultation August 17, 2020 Assessment & Plan (1) S/P spinal surgery: This is a 54-year-old female with PMH of type 2 diabetes, hypertension, GERD, ESPERAZNA and other medical problems as below who is POD#1 s/p removal of posterior instrumentation and decompression and fusion L2-L4 by Dr. Haynes. -POD#1 s/p removal of posterior instrumentation and decompression and fusion L2- L4 by Dr. Haynes -Pt is doing well post-operatively -Per ortho for pain control, wound care, anticoagulation and activities -Continue incentive spirometry, PT/OT when appropriate (2) Acute blood loss anemia: Hgb of 11.2 today (pre-op hgb 13.9). EBL 250ml -Denies lightheadedness, chest pain or shortness of breath -Continue to monitor daily CBC (3) DM type 2 (diabetes mellitus, type 2): A1c 6.6 in 07/09 -Hold home agents -SSI while in-patient -Glycemic consult placed by primary team -BSG AC HS (4) Migraine: Excedrin PRN (5) HLD (hyperlipidemia): Continue statin (6) Sleep apnea: Not currently using CPAP device PCP: Melinda Dispo: Per primary service Patient seen in collaboration with Dr. Guallpa. Please see addendum. Thank you for this consultation. We will follow the patient with you during their hospital stay. You can reach a member of the [facility] Hospitalist Team 12/05 via pager @ [phone]. Supervising Physician Co-Signing Physician Notes attending note: pt seen and examined , care co-ordniated with Anne GOINS 54 yo F s/p spinal surgery -recovering well post op able to walk on hallway , participate in PT/OT repeat H&H in am to assess acute blood loss /post op anemia stable vitals will continue to follow pt during her hospital stay please refer to documentation by Anne GOINS for discussion of other chronic issues Shannan Guallpa MD History of Present Illness Reason for Consultation: Postop medical management Attending Physician: Anthony Haynes, DO History of Present Illness This is a 54-year-old female with PMH of type 2 diabetes, hypertension, GERD, anxiety, ESPERANZA and other medical problems as below who is POD#1 s/p removal of posterior instrumentation and decompression and fusion L2-L4 by Dr. Haynes. Our service is consulted for postoperative medical management. Patient is feeling well postoperatively. Minimal surgical site discomfort. Still with chronic paresthesias to lower extremities but shooting nerve pain is no longer present postoperatively. Tolerated clear liquids for dinner last evening without issue and is awaiting breakfast. Lopez catheter removed this morning. Passing f latus, no bowel movement yet. Denies any fever, chills, chest pain, shortness of breath, nausea, vomiting, abdominal pain or dysuria. Allergies Allergy/AdvReac Type Severity Reaction Status Date / Time No Known Allergies Allergy Unknown Verified 08/16/20 10:08 Home Medications Home Medications Medication Instructions Recorded Confirmed Type Centrum Silver Women 1 tab PO QAM 07/20/18 08/16/20 History Excedrin Migraine 2 tab PO Q6H PRN 07/20/18 08/16/20 History ascorbic acid (vitamin C) [Vitamin 1,000 mg PO QAM 07/20/18 08/16/20 History C] aspirin 81 mg PO QAM 07/20/18 08/16/20 History atorvastatin [Lipitor] 20 mg PO QAM 07/20/18 08/16/20 History gabapentin 300 mg PO BID 07/20/18 08/16/20 History lisinopril 5 mg PO QAM 07/20/18 08/16/20 History metformin 1,000 mg PO BID 07/20/18 08/16/20 History sulindac 200 mg PO BID PRN 07/20/18 08/16/20 History vitamin E 1,000 unit PO QAM 07/20/18 08/16/20 History famotidine 20 mg PO QAM 07/20/20 08/16/20 History ferrous sulfate 1 tab PO QAM 07/20/20 08/16/20 History glimepiride 4 mg PO QAM 07/20/20 08/16/20 History ibuprofen 200 mg PO Q6H PRN 07/20/20 08/16/20 History oxycodone 5 mg PO Q6H PRN #20 tab 08/17/20 Rx tramadol 50 mg PO Q6H PRN #20 tab 08/17/20 Rx Patient History Medical History (Updated 08/17/20 @ 08:40 by Ronda Khanh, PA-C) Diabetes mellitus, type 2 NIDDM GERD (gastroesophageal reflux disease) controlled 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" HLD (hyperlipidemia) HTN (hypertension) Lumbar spondylosis Migraine Obesity Sleep apnea non-compliant with CPAP, no device currently Surgical History (Updated 08/17/20 @ 08:42 by Ronda Cassidy PA-C) History of appendectomy History of bilateral tubal ligation History of brain surgery S/P PITUITARY TUMOR RESECTION (BENIGN) History of cardiac catheterization 15+ years ago- no stents History of section History of colonoscopy with polypectomy History of laparoscopy + MADDIE History of lumbar fusion History of tonsillectomy and adenoidectomy History of tooth extraction Family History Mother Family history of diabetes mellitus Family/Other Family history of diabetes mellitus Social History Smoking Status: Former smoker Smoking End Date: Quit 2007; Second Hand Exposure: Yes (as a child); Do You Dip or Chew Tobacco: No; Tobacco Cessation Education Requested by Patient: No Hx Alcohol Use: Yes Hx Substance Use: No Preferred Language: Ukrainian Communication Ability: Effective Visual Impairment: No Limitations Beliefs That Will Affect Care: None marital status: Current Living Situation: Spouse Feels Safe at Home: Yes Safety Concerns: Feels Safe At This Time Assistive Devices: Walker Review of Systems Review of Systems: At least ten systems reviewed and negative except as noted in the HPI. Physical Exam Physical Exam: General Appearance: WD/WN, vitals as above, NAD, sitting up in bed, pleasant, conversing easily Head: normocephalic, atraumatic Eyes: normal inspection, PERRL, conjunctivae normal, anicteric sclerae ENT: external ear and nose normal, oropharynx normal Neck: normal visual inspection, trachea midline, no thyromegaly Respiratory: normal respiratory effort, lungs clear to auscultation, no wheeze, rales, rhonchi. No accessory muscle use Cardiovascular: regular rate, rhythm, faint systolic murmur, normal peripheral pulses, no BLE edema Abdomen/GI: normal bowel sounds, soft, nontender, no hepatosplenomegaly Extremities/Musculoskeletal: + lumbar surgical dressing c/d/i. AYDEN drain visualized. No cyanosis or clubbing, extremities motor strength 5/5 Neurologic: PERRL, CN's II-XI intact bilaterally and moves all extremities Psychiatric: A+Ox3, euthymic affect Skin: no rashes, normal color, warm/dry Results & Data Results & Data ([facility]) Vital Signs (Past 12 Hours) Vital Signs Temp Pulse Pulse Resp BP Pulse Ox 08/17/20 07:45 36.9 C 91 H 16 104/68 97 08/17/20 03:21 36.5 C 78 16 92/62 L 94 08/16/20 23:16 36.5 C 77 16 105/67 96 Laboratory Results Short CBC 08/17/20 Range/Units 06:02 WBC 13.98 H (4.8-10.8) K/uL Hgb 11.2 L (12.0-16.0) g/dL Hct 35.6 L (37-47) % Plt Count 325 (130-400) K/uL BMP 08/17/20 06:02 Sodium 140 Potassium 4.3 Chloride 110 H Carbon Dioxide 29 BUN 15 Creatinine 0.66 Glucose 147 H Calcium 8.6
--- NOTE | 2020-08-17 08:30 | Orthopedic Progress Note ---
Date of Service August 17, 2020 Assessment & Plan (1) Neurogenic claudication due to lumbar spinal stenosis: Admission and Anticipated Discharge Date Admission Date: August 16, 2020 We will initiate physical therapy today monitor AYDEN output hopefully discharge home tomorrow with home health. Subjective Back pain controlled leg pain improved Physical Exam Physical Exam: Patient is comfortable has good strength testing Results & Data ([facility]) Vital Signs (Past 12 Hours) Vital Signs Temp Pulse Pulse Resp BP Pulse Ox 08/17/20 07:45 36.9 C 91 H 16 104/68 97 08/17/20 03:21 36.5 C 78 16 92/62 L 94 08/16/20 23:16 36.5 C 77 16 105/67 96
[2020-08-17] MEDS: ASCORBIC ACID 500 MG TAB PO SCH (08:47)
[2020-08-17] MEDS: lisinopril 5 MG TAB PO SCH (08:47)
[2020-08-17] MEDS: FAMOTIDINE 20 MG TAB PO SCH (08:47)
[2020-08-17] MEDS: FERROUS SULFATE 325 MG TAB PO SCH (08:48)
[2020-08-17] MEDS: GABAPENTIN 300 MG CAP PO SCH ×2 (08:48→20:43)
[2020-08-17] MEDS: CEROVITE ADV FORMULA TAB PO SCH (08:48)
[2020-08-17] MEDS: ASPIRIN 81 MG ECTAB PO SCH (08:48)
[2020-08-17] MEDS: ATORVASTATIN 20 MG TAB PO SCH (08:48)
[2020-08-17] MEDS ORDERED: GLIMEPIRIDE 2 MG TAB PO SCH (09:00)
[2020-08-17] MEDS ORDERED: VITAMIN E 1000 UNIT PO SCH (09:00)
[2020-08-17] MEDS ORDERED: NovoLIN-N (NPH) PER UNIT CHARGE SQ ONE (09:00)
--- NOTE | 2020-08-17 09:08 | Pharmacy Report ---
Pharmacy Glycemic Short Note 2 - Date of Service August 17, 2020 - Glycemic Short BSG Results (Last 24 hours): 08/16/20 08/16/20 08/16/20 10:04 15:28 17:10 Glucose POC Glucose 126 H 118 H 167 H 08/16/20 08/16/20 08/17/20 21:12 21:12 00:06 Glucose POC Glucose 294 H 284 H 230 H 08/17/20 08/17/20 08/17/20 04:00 06:02 08:04 Glucose 147 H POC Glucose 183 H 128 H OUTPATIENT ANTIDIABETIC REGIMEN: * Glimepiride 4 mg PO daily * Metformin 1 g PO BIDM * HbA1c: 6.6% (07/14/20) ASSESSMENT: * PP is a 54 year old female now POD #1 s/p L3-L4 decompression fusion * Patient received dexamethasone 8 mg IV x 1 perioperatively yesterday - covered with NPH 18 units x 1 last evening * BSGs were elevated last evening (as high as 284 mg/dL) - likely steroid- induced * Dexamethasone 8 mg IV daily initiated today - will give NPH 25 units with today's dose + continue current Novolog parameters * Lunch BSG today of 225 mg/dL - will tighten Novolog parameters * Plan is for possible discharge tomorrow PLAN FOR INPATIENT GLYCEMIC CONTROL: * Hold outpatient oral diabetes medications * Basal insulin * NPH 25 units x 1 with dexamethasone * Will reassess NPH dose daily * Bolus insulin - tighten * NovoLog per scale ACHS or Q6hrs while NPO * Goal Range: Low 110 mg/dL - High 140 mg/dL * Correction Factor: 18 mg/dL/unit * Nutritional / Prandial insulin per carb ratio of 1 unit per 6 grams CHO consumed PLAN FOR DISCHARGE: * A1c of 6.6% demonstrates very good glycemic control as an outpatient * Continue home regimen of glimepiride 4 mg PO daily and metformin 1 g PO BIDM
[2020-08-17] MEDS: DEXAMETHASONE SOD PHOSPHATE 8 MG in SYRINGE 0 ML IV SCH (09:18)
[2020-08-17] MEDS: oxyCODONE HCL IR 5 MG TAB (IMMEDIATE RELEASE) PO PRN ×3 (15:52→23:57)
[2020-08-17] MEDS: DOCUSATE SODIUM/SENNA 50/8.6MG TAB PO SCH (20:43)
[2020-08-18] MEDS: POLYETHYLENE (MIRALAX) 17 GM PACK PO SCH ×5 (05:44→23:43)
[2020-08-18 05:59] LABS: Hematocrit (blood only) 34.1 % (37-47); Hemoglobin 10.7 g/dL (12.0-16.0); Mean Corpuscular Hemoglobin 28.2 pg (25-34); Mean Corpuscular Hgb Conc 31.4 g/dL (32-36); Mean Platelet Volume 9.6 fL (7.4-10.4); Platelet Count 322 K/uL (130-400); RDW Coefficient of Variation 14.6 % (11.5-14.5); RDW Standard Deviation 48.1 fL (36.4-46.3); Red Blood Count 3.79 M/uL (4.2-5.4); White Blood Count 12.92 K/uL (4.8-10.8)
[2020-08-18] MEDS ORDERED: CeleBREX 200 MG CAP PO SCH (06:00)
[2020-08-18] MEDS ORDERED: ACETAMINOPHEN 500 MG TAB PO SCH (06:00)
[2020-08-18] MEDS ORDERED: LR 15ML/HR IV SCH (06:00)
[2020-08-18] MEDS ORDERED: GABAPENTIN 600 MG DOSE PO SCH (06:00)
[2020-08-18] MEDS ORDERED: ceFAZolin 2000MG 2,000 MG/15 ML SYR IV SCH (06:00)
[2020-08-18 06:24] LABS: Calcium 8.8 mg/dl (8.5-10.1); Creatinine Clr Calc Pharmacy 95.3 ml/min; Est GFR (African American) 103.3; Est GFR (Non-African American) 89.1; Potassium 4.4 mmol/L (3.5-5.1)
--- NOTE | 2020-08-18 08:18 | Pharmacy Report ---
Pharmacy Glycemic Short Note 2 - Date of Service August 18, 2020 - Glycemic Short BSG Results (Last 24 hours): 08/17/20 08/17/20 08/17/20 08:04 12:03 17:08 Glucose POC Glucose 128 H 225 H 197 H 08/17/20 08/18/20 08/18/20 20:52 05:35 06:44 Glucose 100 H POC Glucose 157 H 98 OUTPATIENT ANTIDIABETIC REGIMEN: * Glimepiride 4 mg PO daily * Metformin 1 g PO BIDM * HbA1c: 6.6% (07/14/20) ASSESSMENT: * PP is a 54 year old female now POD #2 s/p L3-L4 decompression fusion * BSGs yesterday of 128, 225, 197, and 157 mg/dL * Novolog was tightened with lunch * Continues on dexamethasone 8 mg IV daily * Fasting BSG this morning of 98 mg/dL - will continue currently ordered dose of NPH with dexamethasone * Plan is for likely discharge home today with home health PLAN FOR INPATIENT GLYCEMIC CONTROL: * Hold outpatient oral diabetes medications * Basal insulin - continue * NPH 25 units x 1 with dexamethasone * Bolus insulin - continue tightened parameters * NovoLog per scale ACHS or Q6hrs while NPO * Goal Range: Low 110 mg/dL - High 140 mg/dL * Correction Factor: 18 mg/dL/unit * Nutritional / Prandial insulin per carb ratio of 1 unit per 6 grams CHO consumed PLAN FOR DISCHARGE: * A1c of 6.6% demonstrates very good glycemic control as an outpatient * Continue home regimen of glimepiride 4 mg PO daily and metformin 1 g PO BIDM
[2020-08-18] MEDS: DEXAMETHASONE SOD PHOSPHATE 8 MG in SYRINGE 0 ML IV SCH (08:21)
[2020-08-18] MEDS: oxyCODONE HCL IR 5 MG TAB (IMMEDIATE RELEASE) PO PRN ×3 (08:21→18:16)
[2020-08-18] MEDS: ASCORBIC ACID 500 MG TAB PO SCH (08:22)
[2020-08-18] MEDS: lisinopril 5 MG TAB PO SCH (08:22)
[2020-08-18] MEDS: FAMOTIDINE 20 MG TAB PO SCH (08:22)
[2020-08-18] MEDS: FERROUS SULFATE 325 MG TAB PO SCH (08:23)
[2020-08-18] MEDS: INSULIN ASPART 100 UNITS/ML 3 ML PEN SC SCH ×4 (08:23→20:45)
[2020-08-18] MEDS: ATORVASTATIN 20 MG TAB PO SCH (08:23)
[2020-08-18] MEDS: CEROVITE ADV FORMULA TAB PO SCH (08:23)
[2020-08-18] MEDS: GABAPENTIN 300 MG CAP PO SCH ×2 (08:23→20:42)
[2020-08-18] MEDS: ASPIRIN 81 MG ECTAB PO SCH (08:23)
[2020-08-18] MEDS ORDERED: NovoLIN-N (NPH) PER UNIT CHARGE SQ ONE (09:00)
--- NOTE | 2020-08-18 09:15 | Hospitalist Progress Note ---
Date of Service August 18, 2020 Assessment & Plan (1) S/P spinal surgery: This is a 54-year-old female with PMH of type 2 diabetes, hypertension, GERD, ESPERANZA and other medical problems as below who is POD#1 s/p removal of posterior instrumentation and decompression and fusion L2-L4 by Dr. Haynes. -POD#2 s/p removal of posterior instrumentation and decompression and fusion L2- L4 by Dr. Haynes -Pt is doing well post-operatively -Per ortho for pain control, wound care, anticoagulation and activities -Continue incentive spirometry, PT/OT (2) Acute blood loss anemia: Hgb of 10.7 today (11.2 yesterday) -Denies lightheadedness, chest pain or shortness of breath -Continue to monitor daily CBC (3) DM type 2 (diabetes mellitus, type 2): A1c 6.6 in 07/09 -Hold home agents -SSI while in-patient -Glycemic consult placed by primary team -BSG AC HS (4) Migraine: Excedrin PRN (5) HLD (hyperlipidemia): Continue statin (6) Sleep apnea: Not currently using CPAP device PCP: Melinda Dispo: Per primary service - possible discharge home today with home health. Patient seen in collaboration with Dr. Guallpa. Please see addendum. Thank you for this consultation. We will follow the patient with you during their hospital stay. You [facility] via pager @ [phone]. Admission and Anticipated Discharge Date Admission Date: August 16, 2020 Supervising Physician Co-Signing Physician Notes Pt seen and examined , care co-ordinated with Ronda Cassidy PA-C pt is recovering well form post op spinal surgery has minimum pain able to ambulate with Physical therapist AYDEN drain removed no fever or chills vitals stable please refer to further documentation by Ronda Cassidy PA-C for discussion of other chronic issues Shannan Guallpa MD Subjective Seen and examined in 218-1. Patient feeling better today with minimal surgical discomfort. Participating with therapy without issue. Denies fever, chills, lightheadedness, chest pain, palpitations, shortness of breath, abdominal pain, nausea, vomiting, dysuria or diarrhea. Passing flatus but no bowel movement. Review of Systems Review of Systems: At least ten systems reviewed and negative except as noted in the HPI. Physical Exam Physical Exam: General Appearance: WD/WN, vitals as above, NAD, sitting up in bed, pleasant, conversing easily Head: normocephalic, atraumatic Eyes: normal inspection, PERRL, conjunctivae normal, anicteric sclerae ENT: external ear and nose normal, oropharynx normal Neck: normal visual inspection, trachea midline, no thyromegaly Respiratory: normal respiratory effort, lungs clear to auscultation, no wheeze, rales, rhonchi. No accessory muscle use Cardiovascular: regular rate, rhythm, faint systolic murmur, normal peripheral pulses, no BLE edema Abdomen/GI: normal bowel sounds, soft, nontender, no hepatosplenomegaly Extremities/Musculoskeletal: + lumbar surgical dressing c/d/i. AYDEN drain visualized. No cyanosis or clubbing, extremities motor strength 5/5 Neurologic: PERRL, CN's II-XI intact bilaterally and moves all extremities Psychiatric: A+Ox3, euthymic affect Skin: no rashes, normal color, warm/dry Results & Data Results & Data ([facility]) Vital Signs (Past 12 Hours) Vital Signs Temp Pulse Resp BP Pulse Ox 08/18/20 07:20 36.8 C 68 18 119/76 97 08/17/20 22:30 36.7 C 69 16 107/68 98 Laboratory Results Short CBC 08/18/20 Range/Units 05:35 WBC 12.92 H (4.8-10.8) K/uL Hgb 10.7 L (12.0-16.0) g/dL Hct 34.1 L (37-47) % Plt Count 322 (130-400) K/uL [facility] 08/18/20 05:35 Sodium 140 Potassium 4.4 Chloride 108 H Carbon Dioxide 29 BUN 17 Creatinine 0.75 Glucose 100 H Calcium 8.8
[2020-08-18] MEDS: ACETAMINOPHEN 500 MG TAB PO PRN (09:49)
[2020-08-18] MEDS: traMADol HCL 50 MG TABLET PO PRN (09:49)
--- NOTE | 2020-08-18 10:27 | Orthopedic Progress Note ---
Date of Service August 18, 2020 Assessment & Plan (1) Neurogenic claudication due to lumbar spinal stenosis: Admission and Anticipated Discharge Date Admission Date: August 16, 2020 At this time continue physical therapy advance her bowel regiment and anticipate discharge home tomorrow. We will discontinue her drain today. Subjective Back pain controlled leg pain improved Physical Exam Physical Exam: Patient is in the chair at the bedside. She appears comfortable. Is good strength testing. Results & Data ([facility]) Vital Signs (Past 12 Hours) Vital Signs Temp Pulse Resp BP Pulse Ox 08/18/20 07:20 36.8 C 68 18 119/76 97 08/17/20 22:30 36.7 C 69 16 107/68 98
[2020-08-18] MEDS ORDERED: bisacodyL 5 MG TABEC PO ONE (16:15)
[2020-08-18] MEDS: DOCUSATE SODIUM/SENNA 50/8.6MG TAB PO SCH (20:41)
[2020-08-19] MEDS: oxyCODONE HCL IR 5 MG TAB (IMMEDIATE RELEASE) PO PRN ×3 (00:35→11:10)
[2020-08-19] MEDS: POLYETHYLENE (MIRALAX) 17 GM PACK PO SCH (06:36)
[2020-08-19] MEDS: FERROUS SULFATE 325 MG TAB PO SCH (07:45)
[2020-08-19] MEDS: ATORVASTATIN 20 MG TAB PO SCH (07:45)
[2020-08-19] MEDS: lisinopril 5 MG TAB PO SCH (07:45)
[2020-08-19] MEDS: ASPIRIN 81 MG ECTAB PO SCH (07:45)
[2020-08-19] MEDS: ASCORBIC ACID 500 MG TAB PO SCH (07:45)
[2020-08-19] MEDS: GABAPENTIN 300 MG CAP PO SCH (07:45)
[2020-08-19] MEDS: CEROVITE ADV FORMULA TAB PO SCH (07:45)
[2020-08-19] MEDS: FAMOTIDINE 20 MG TAB PO SCH (07:45)
[2020-08-19 07:58] LABS: Hematocrit (blood only) 37.8 % (37-47); Hemoglobin 12.1 g/dL (12.0-16.0); Mean Corpuscular Hemoglobin 28.9 pg (25-34); Mean Corpuscular Volume 90.2 fL (80-100); Mean Platelet Volume 9.7 fL (7.4-10.4); Platelet Count 354 K/uL (130-400); RDW Coefficient of Variation 14.5 % (11.5-14.5); RDW Standard Deviation 47.6 fL (36.4-46.3); Red Blood Count 4.19 M/uL (4.2-5.4); White Blood Count 13.97 K/uL (4.8-10.8)
[2020-08-19 08:25] LABS: BUN Creatinine Ratio 17.5 (10-20); Calcium 9.5 mg/dl (8.5-10.1); Creatinine Clr Calc Pharmacy 91.7 ml/min; Est GFR (African American) 98.5; Potassium 4.2 mmol/L (3.5-5.1)
[2020-08-19] MEDS: INSULIN ASPART 100 UNITS/ML 3 ML PEN SC SCH (09:18)
--- NOTE | 2020-08-19 10:33 | Discharge Summary ---
Date of Service August 19, 2020 Admission HPI Per Admitting Provider This is a 54-year-old female well-known to me the presents with marked clinical status with back and bilateral leg pain. Failing course of nonoperative care is here for surgical invention. Principal Diagnosis Lumbar spinal stenosis with neurogenic claudication Discharge Data Allergies Allergy/AdvReac Type Severity Reaction Status Date / Time No Known Allergies Allergy Unknown Verified 08/16/20 10:08 Consultations 08/16/20 17:00 Consult Case Management - Discharge Planning Routine Consult Hospitalist Routine Procedures Performed Operation Date: 08/16/20 11:25 Actual Procedures p L3-L4 Decompression Fusion, Spinal Cord Monitoring(Not Applicable) - Anthony Haynes DO s L4-S1 Removal of Instrumentation(Not Applicable) - Anthony Haynes DO Ordered Studies 08/16/20 11:25 FL fluoroscopy <1hr Routine FL lumbar spine 2-3V Routine Hospital Course (1) Neurogenic claudication due to lumbar spinal stenosis: Patient underwent lumbar decompression fusion tolerated so was taken to orthopedic for postoperative. Postop day 1 she was up and ambulating briskly postop day #2 on postop day #3 AYDEN drain and decreased probably. Pain well controlled. Strength intact. Subsequent discharge home. Discharge orders instructions from the chart for further review. Total Time Total Time Spent Total Time Spent (In Minutes): 20 minutes Discharge Plan Discharge Items Patient Disposition: Home - Self-Care Reason For Visit: Spinal Stenosis, Lumbar Region withou Neurogenic Discharge Diagnosis: Lumbar spinal stenosis with neurogenic claudication Activity: As commented below Non-emergency contact: Primary Care Provider Call non-emergency contact if: you have any medication questions Follow-up/Referrals: Taylor Lawrence MD [Primary Care Provider] - Diet: Regular Addtl Attending Provider Instructions: ACTIVITY RECOMMENDATIONS: SELF CARE INSTRUCTIONS AFTER THORACIC/LUMBAR FUSIONS 1. You may walk to your tolerance. It is good exercise for your legs and back. Expect some back and intermittent leg aches and pains. 2. You may perform "counter-top" level activities (make a sandwich, leo with a project, etc.). 3. No bending or lifting of more than 10 pounds or back twisting of any nature (roll like a log when turning in bed). 4. You may ride in a car for 20-30 minutes at a time. No driving until after your first visit with your doctor. 5. Frequent changes of position and restricting sitting to 30 minutes at a time will help limit the amount of back spasms and stiffness you may experience. 6. You may discontinue the use of ambulatory aids (cane, crutches, etc.) once your strength and confidence allow. 7. You may jointer operator the shower and let water strike your incision when you arrive home at least once daily. Do not take a tub bath, sit in a hot tub or go into a swimming pool until after your first recheck in the office. SPECIAL CARE INSTRUCTIONS: VERY IMPORTANT TO READ AND REVIEW A. Your surgical incision has been closed with a cosmetic suture under the skin that will dissolve in about 6 weeks. In 14 days, you can use a pair of clean scissors and cut the suture that is left outside of the skin at the ends of your incision. 1. The small skin tapes can be removed 7 days after surgery if they have not fallen off by that point. 2. You may keep the wound open to air as much as possible to promote healing after post-op day number 5 unless told otherwise by your doctor. 3. If you think the wound looks like it is becoming infected (redness or worsening drainage) and/or you are experiencing fever, chill or worsening back pain and muscle spasms, contact the office so that we may evaluate you as soon as possible. B. Complications are uncommon, but please contact us if you have any signs or symptoms of: 1. wound infection (fever higher than 102.5 degrees F, redness, separation of wound, drainage, or increasing pain from the incision) 2. blood clots in legs (pain, swelling, redness and warmth in legs) 3. urinary tract infection (fever higher than 102.5 degrees F, burning upon urination or increased frequency of urination) 4. nerve problems (inability to walk on your toes or heels, numbness, loss of bowel or bladder control) 5. any other symptoms that concern you C. Please call the office at if you have any concerns or ques tions about your operation or recovery. D. No smoking! Smoking drastically decreases the chance of a solid fusion. E. Do not take any anti-inflammatory medications (Indocin, Advil, Motrin, Aspirin, Naprosyn, etc.) as these may inhibit the chance of a solid fusion. Tylenol is okay to take for pain. MANAGING PAIN AFTER SPINAL SURGERY 1. Narcotic medication is intended for short-term use and will be provided for surgical pain. Surgical pain usually lasts for a period of 4-6 weeks. Narcotic medication includes Percocet, Vicodin, Darvocet, Tylenol #3 or Lortab. 2. Longer-term pain is more appropriately treated with non-narcotic medication such as Tylenol ES. 3. Muscle spasm is not appropriately treated with narcotics. Muscle relaxers such as Soma, Flexeril or Skelaxin can be used along with Tylenol ES. 4. Remember that we all live with some "aches and pains". This is not unusual or uncommon after an injury or as we get older. a. Back pain is expected and may include muscle spasms for 4 to 6 weeks after surgery. The pain should gradually improve. If the pain worsens for no apparent reason, please contact the office. b. Intermittent leg pain may also be experienced and should not be concerned about unless it worsens for no apparent reason. If so, please contact the office. 5. We will provide appropriate medication within the normal guidelines of their prescribed use. We will also be very cautious and aware of potential abuse and extended duration of patients' medication needs. a. Pain medications are for your comfort and to assist with sleep and rest so that the tissue can heal. They are not provided in order to return to normal activity and should not be used through the day. To do so or worsening pain at night can result from ongoing tissue damage and development of tolerance to the prescribed medicine. 6. Please allow 2-3 days to process refills. Prescriptions will not be mailed but must be picked up at the office. FOLLOW UP VISIT: Keep your scheduled follow-up appointment. Any questions, please call the office at . Pending Studies at Discharge: No Stand-Alone Forms: My [employer], Smoking Cessation Medications and DC Order Prescriptions: New tramadol 50 mg tablet 50 mg PO Q6H PRN (Reason: pain, moderate) Qty: 20 RF: 0 oxycodone 5 mg tablet 5 mg PO Q6H PRN (Reason: pain, severe) Qty: 20 RF: 0 Continued atorvastatin [Lipitor] 20 mg Tablet 20 mg PO QAM RF: 0 lisinopril 5 mg Tablet 5 mg PO QAM RF: 0 sulindac 200 mg Tablet 200 mg PO BID PRN (Reason: Pain) RF: 0 vitamin E 1,000 unit Capsule 1,000 unit PO QAM RF: 0 aspirin 81 mg Tablet,Delayed Release (Dr/Ec) 81 mg PO QAM RF: 0 ascorbic acid (vitamin C) [Vitamin C] 500 mg Tablet 1,000 mg PO QAM RF: 0 metformin 1,000 mg Tablet 1,000 mg PO BID RF: 0 gabapentin 300 mg Capsule 300 mg PO BID RF: 0 Excedrin Migraine 250-250-65 mg Tablet 2 tab PO Q6H PRN (Reason: Migraine Headache) RF: 0 Centrum Silver Women 8 mg iron-400 mcg-300 mcg Tablet 1 tab PO QAM RF: 0 famotidine 20 mg Tablet 20 mg PO QAM RF: 0 glimepiride 4 mg Tablet 4 mg PO QAM RF: 0 ibuprofen 200 mg Tablet 200 mg PO Q6H PRN (Reason: Pain) RF: 0 ferrous sulfate 1 tab PO QAM RF: 0 Discharge Orders: Discharge Order (Routine); Ordered 08/19/20 Ordered By: Anthony Jernigan/Other Patient Handouts: High Blood Sugar (Hyperglycemia), Managing Type 2 Diabetes Admission Data Admit Date/Time: 08/16/20 15:51 Attending Provider: Anthony Haynes Admit Provider: Anthony Haynes Primary Care Provider: Taylor Lawrence Other Providers: Calixto Quintana ; Shannan Guallpa
== END 2020-08-19 11:24 | disposition home or self-care (01) | DRG 454 ==
LOC: ASU 09:46 → 3E 15:51

== ENCOUNTER 2024-07-21 14:12 | Inpatient (IN) ==
[2024-07-21 15:12] LABS: Basophils % (auto) 1.1 %; Eosinophils # (auto) 0.43 K/uL (0.00-0.50); Eosinophils % (auto) 4.9 %; Hematocrit (blood only) 42.5 % (37.0-47.0); Hemoglobin 13.6 g/dl (12.0-16.0); Immature Granulocytes # (auto) 0.02 K/uL (0.01-0.20); Immature Granulocytes % (auto) 0.2 %; Lymphocytes # (auto) 2.05 K/uL (1.20-3.40); Lymphocytes % (auto) 23.5 %; Mean Corpuscular Volume 87.6 fL (80.0-100.0); Monocytes # (auto) 0.55 K/uL (0.11-0.59); Monocytes % (auto) 6.3 %; Neutrophils # (auto) 5.59 K/uL (1.40-6.50); Platelet Count 382 K/uL (130-400); RDW Coefficient of Variation 13.9 % (11.5-14.5); RDW Standard Deviation 44.8 fL (36.4-46.3); Red Blood Count 4.85 M/uL (4.20-5.40); White Blood Count 8.74 K/ul (4.8-10.8)
[2024-07-21 15:28] LABS: Albumin Globulin Ratio 1.6 (0.9-2); Albumin Level 4.2 gm/dl (3.4-5.0); Bilirubin,Total 0.5 mg/dl (0.2-1.0); Calcium 9.9 mg/dl (8.6-10.3); Creatinine Clr Calc Pharmacy 89.6 ml/min; Globulin 2.7 gm/dl (2.5-4.0); Potassium 4.3 mmol/L (3.5-5.1); Total Protein 6.9 gm/dl (6.0-8.3)
[2024-07-21 15:34] LABS: Troponin I High Sensitivity 4.3 pg/ml (0-14)
[2024-07-21 15:49] LABS: Appearance Urine Clear (Clear); Bacteria Urine Automated None Seen (None Seen); Bilirubin Urine Negative (Negative); Blood Urine Negative (Negative); Cast Urine Automated 0-2 /lpf (0-2); Color Urine Yellow; Epithelial Cell Urine Auto 0-2 /hpf (0-2); Glucose Urine UA Negative (Negative); Ketones Urine Trace (Negative); Leukocyte Esterase Urine 1+ (Negative); Nitrite Urine Negative (Negative); Protein Urine Negative (Negative); RBC Urine Automated 0-2 /hpf (0-2); Specific Gravity Urine 1.021 (1.000-1.030); Urobilinogen Urine Negative (Negative); WBC Urine Automated 0-5 /hpf (0-5); pH Urine 5.5 (4.5-7.5)
[2024-07-21 15:54] LABS: INR 0.9 (0.9-1.1); Partial Thromboplastin Time 28 Seconds (21-31)
--- NOTE | 2024-07-21 16:13 | XRay Report ---
SINGLE VIEW CHEST CLINICAL HISTORY: Atypical chest pain. FINDINGS: An AP, portable, upright chest radiograph is compared to study dated 07/28/2020. The heart i s top normal for projection noting atherosclerotic calcification of the thoracic aorta. Chronic inter stitial thickening is similar to previous. The lungs and pleural spaces are clear. No pneumothorax is seen. The skeletal structures are osteopenic. The bony thorax is grossly intact. Calcific tendinopat hy is noted in the right shoulder. IMPRESSION: No active disease in the chest. ACT 112: Negative or not required by law. Electronically signed by: Reza Pena M.D. 07/21/2024 4:12 PM
[2024-07-21] MEDS: MoRPHine SULFATE 4 MG/ML 1 ML CARP\\VIAL IV STA (16:16)
[2024-07-21] MEDS: ONDANSETRON INJ 2 MG/ML 2 ML VIAL IV STA (16:16)
[2024-07-21] MEDS: ASPIRIN CHEW 324 MG PO STA (16:17)
--- NOTE | 2024-07-21 16:18 | Emergency Department Note ---
Impression & Plan Chest pain, Abnormal EKG ED Provider Note NAME: JOSE WALLER AGE: 58 SEX: F : 1965 ARRIVES VIA: Walk-In INFORMANT: Patient, ED PROVIDER(S): Jake Woodard DO CHIEF COMPLAINT: Back pain HPI: The patient is a 58-year-old female who presented to the emergency department for an evaluation of back pain. The patient states she started having symptoms earlier today. She notices it in her middle back that goes into her scapula. She states it also goes into her left neck and her left arm. She states the pain is intermittent. It is not worsened with exertion. She denies having any shortness of breath. She denies having any leg swelling or leg pain. She took aspirin as well as pain medicine prior to coming to the emergency department. She only had minimal relief of her symptoms. The patient denies having any cough or hemoptysis. She does not have a cardiac history of coronary artery disease as far she knows. ROS: See above HPI for pertinent positives & negatives. A total of 10 systems reviewed and were otherwise negative. PAST MEDICAL HISTORY: See Below PAST SURGICAL HISTORY: See Below FAMILY HISTORY: See Below SOCIAL HISTORY: See Below HOME MEDICATIONS: See Below ALLERGIES: See Below VITALS: See Below PHYSICAL EXAMINATION: GENERAL: Patient is awake alert in no acute distress patient is resting comfortably and showing no signs of anxiety EYES: The conjunctivae are clear. The pupils are round and reactive. EARS, NOSE, MOUTH AND THROAT: The nose is without any evidence of any deformity. NECK: The neck is nontender and supple. RESPIRATORY: Normal respiratory effort is noted there is no evidence of wheezing rhonchi or rales CARDIOVASCULAR: Regular rate and rhythm noted there no murmurs rubs or gallops normal S1 normal S2. GASTROINTESTINAL: The abdomen is soft. Abdomen is nontender. MUSCULOSKELETAL/EXTREMITIES: There is no evidence of gross deformity full range of motion is noted in the hips and shoulders. SKIN: There is no obvious evidence of any rash. There are no petechiae, pallor or cyanosis noted. NEUROLOGIC: Patient is awake alert and oriented x3 MEDICAL DECISION MAKING: The patient is a 58-year-old female who presented to the emergency department for an evaluation of chest pain. The patient describes posterior chest pain that goes to her neck and into her arm. The pain is intermittent. The patient was not found to be hypertensive. Pulses are symmetric in both feet. She was not tachycardic and her D-dimer was normal. I reviewed the patient's previous EKG does show that she has Wellen T wave inversions. Today that does not appear to be the case but she does have ST segment abnormalities. She was treated in the emergency department with pain medication as well as aspirin. She was reevaluated multiple times. I discussed the patient's laboratory and radiographic studies with her. I discussed the limitations of the emergency part workup for chest pain with her. Ultimately given her findings as well as her previous EKG I do feel the patient would be a better candidate for inpatient management. I discussed her condition with the [facility] group. They have agreed to evaluate the patient in the emergency department for further management and disposition Triage Nursing notes reviewed. Prior medical records reviewed Vital Signs: reviewed and remarkable for no significant abnormalities Differential diagnosis: Cardiac ischemia, aortic dissection, pulmonary embolism, pneumothorax, pneumonia, pericarditis, myocarditis, esophageal rupture, GERD, cholecystitis, pancreatitis, musculoskeletal, as well as other pathologies. ER treatment provided: See below Diagnostics interpreted by me: ECG: EKG was obtained in the emergency department. My interpretation is normal sinus rhythm at 76 bpm. There was no ectopy. LVH was noted by voltage criteria. ST segment depression with T wave inversions were noted in the high lateral leads. There were ST segment abnormalities and depressions noted in the lower lateral leads. This was compared to a tracing from July 28, 2020. In the previous tracing there were biphasic T waves noted. A second EKG was obtained in the emergency department. My interpretation is normal sinus rhythm at 70 bpm. There is no ectopy. There was improvement of the ST segment abnormalities noted on the previous tracing. Otherwise no significant changes were noted. A 30 EKG was obtained in the emergency department as the patient developed worsening symptoms again. My interpretation is normal sinus rhythm at [address] abnormalities were noted in the lateral leads. This compares similar to the initial tracing obtained in the emergency department. Cardiac Monitoring: An order was placed for continuous cardiac monitoring. The monitor shows a rate of 74 bpm with sinus rhythm. Laboratory studies: As stated above and show below. Imaging studies: See below. Radiographic imaging was reviewed by myself Consultation(s): I discussed this case with Anabelle who is on-call for the [facility] hospitalist group. Past Med/Surg History Problem List (Updated 07/21/24 @ 18:54 by Jake Woodard DO) Abnormal EKG (Acute) Chest pain (Acute) Lumbar radiculopathy S/P spinal surgery HLD (hyperlipidemia) DM type 2 (diabetes mellitus, type 2) Migraine Sleep apnea GERD (gastroesophageal reflux disease) Neurogenic claudication due to lumbar spinal stenosis Acute blood loss anemia History of cardiac cath History of tonsillectomy and adenoidectomy History of appendectomy History of tubal ligation History of laparoscopy + MADDIE History of colonoscopy with polypectomy Lumbar spondylosis HTN (hypertension) Medical History Obesity 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" GERD (gastroesophageal reflux disease) controlled Diabetes mellitus, type 2 NIDDM Migraine Sleep apnea non-compliant with CPAP, no device currently Surgical History History of cardiac catheterization 15+ years ago- no stents History of lumbar fusion History of brain surgery S/P PITUITARY TUMOR RESECTION (BENIGN) History of section History of bilateral tubal ligation History of tooth extraction Family History Mother Family history of diabetes mellitus Family/Other Family history of diabetes mellitus Social History Smoking Status: Never smoker Second Hand Exposure: Yes (as a child); Do You Dip or Chew Tobacco: No; Hx Alcohol Use: Yes Hx Substance Use: No Preferred Language: Cypriot Communication Ability: Effective Visual Impairment: No Limitations Beliefs That Will Affect Care: None marital status: Current Living Situation: Spouse Feels Safe at Home: Yes Assistive Devices: Walker Allergies Allergies Allergy/AdvReac Type Severity Reaction Status Date / Time No Known Allergies Allergy Unknown Verified 07/21/24 17:40 Home Meds Home Medications Medication Instructions Recorded Confirmed ascorbic acid (vitamin C) 500 mg 1,000 mg PO QAM 07/20/18 07/21/24 tablet (Vitamin C) aspirin 81 mg tablet,delayed 81 mg PO QAM 07/20/18 07/21/24 release fwupuev-ozfmltnhpynex-ywqfqurb 250 2 tab PO Q6H PRN Migraine Headache 07/20/18 07/21/24 mg-250 mg-65 mg tablet (Excedrin Migraine) atorvastatin 20 mg tablet (Lipitor) 20 mg PO QAM 07/20/18 07/21/24 gabapentin 300 mg capsule 300 mg PO TID 07/20/18 07/21/24 lisinopril 5 mg tablet 5 mg PO QAM 07/20/18 07/21/24 metformin 1,000 mg tablet 1,000 mg PO BID 07/20/18 07/21/24 armjkxol-lfcj-vplq 8 mg-folic 400 1 tab PO QAM 07/20/18 07/21/24 mcg-K 50 mcg-lutein 300 mcg tablet (Centrum Silver Women) sulindac 200 mg tablet 200 mg PO BID PRN Pain 07/20/18 07/21/24 vitamin E 670 mg (1,000 unit) 1,000 unit PO QAM 07/20/18 07/21/24 capsule famotidine 20 mg tablet 20 mg PO QAM 07/20/20 07/21/24 glimepiride 4 mg tablet 4 mg PO QAM 07/20/20 07/21/24 ibuprofen 200 mg tablet 200 mg PO Q6H PRN Pain 07/20/20 07/21/24 duloxetine 30 mg capsule,delayed 30 mg PO QAM 07/21/24 07/21/24 release insulin degludec 100 24 unit subcut QAM 07/21/24 07/21/24 unit-liraglutide 3.6 mg/mL(3 mL) subcutaneous pen (Xultophy 100/3.6) omeprazole 20 mg capsule,delayed 20 mg PO QAM 07/21/24 07/21/24 release Results & Data (ED) Vital Signs Vital Signs - 24 hr 07/21/24 14:16 07/21/24 15:27 07/21/24 15:30 Temperature 36.7 C Temperature Source Temporal Artery Scan Pulse Rate 97 H 79 Pulse Rate from SpO2 Sensor 78 Respiratory Rate 17 16 Respiratory Effort / Characteristics Non-Labored Spontaneous Respiratory Depth Normal Blood Pressure 103/41 L 142/79 H Blood Pressure Mean 61 93 Blood Pressure Position Sitting Pulse Oximetry 95 95 Oxygen Delivery Method Room Air Room Air Sepsis Recent Fever Within 48 Hours No Sepsis New/Unexplained Change in Mental Status No Sepsis Action Taken by Nursing No Action Required 07/21/24 15:30 07/21/24 15:48 07/21/24 15:55 Temperature Temperature Source Pulse Rate 71 78 Pulse Rate from SpO2 Sensor 71 Respiratory Rate 16 Respiratory Effort / Characteristics Respiratory Depth Blood Pressure 128/76 Blood Pressure Mean 94 Blood Pressure Position Pulse Oximetry 95 Oxygen Delivery Method Room Air Sepsis Recent Fever Within 48 Hours Sepsis New/Unexplained Change in Mental Status Sepsis Action Taken by Nursing 07/21/24 16:00 07/21/24 16:09 07/21/24 16:30 Temperature Temperature Source Pulse Rate 82 Pulse Rate from SpO2 Sensor 81 Respiratory Rate 21 Respiratory Effort / Characteristics Respiratory Depth Blood Pressure 128/74 125/75 Blood Pressure Mean 101 88 Blood Pressure Position Pulse Oximetry 97 Oxygen Delivery Method Room Air Sepsis Recent Fever Within 48 Hours Sepsis New/Unexplained Change in Mental Status Sepsis Action Taken by Nursing 07/21/24 16:30 07/21/24 17:06 Temperature Temperature Source Pulse Rate 75 74 Pulse Rate from SpO2 Sensor 77 74 Respiratory Rate 20 17 Respiratory Effort / Characteristics Respiratory Depth Blood Pressure Blood Pressure Mean Blood Pressure Position Pulse Oximetry 94 93 Oxygen Delivery Method Room Air Room Air Sepsis Recent Fever Within 48 Hours Sepsis New/Unexplained Change in Mental Status Sepsis Action Taken by Jail Medications Current Medication List: was personally reviewed by me Laboratory Data Attestation: I reviewed the patient's lab results. 07/21/24 14:43 07/21/24 14:43 Lab Results 07/21/24 07/21/24 07/21/24 Range/Units 14:43 15:20 16:50 WBC 8.74 (4.8-10.8) K/ul RBC 4.85 (4.20-5.40) M/uL Hgb 13.6 (12.0-16.0) g/dl Hct 42.5 (37.0-47.0) % MCV 87.6 (80.0-100.0) fL MCH 28.0 (25.0-34.0) pg MCHC 32.0 (32.0-36.0) g/dL RDW Std Deviation 44.8 (36.4-46.3) fL RDW Coeff of Sumeet 13.9 (11.5-14.5) % Plt Count 382 (130-400) K/uL MPV 10.0 (9.4-12.4) fL Immature Gran % (Auto) 0.2 % Neut % (Auto) 64.0 % Lymph % (Auto) 23.5 % Wilson % (Auto) 6.3 % Eos % (Auto) 4.9 % Baso % (Auto) 1.1 % Neut # (Auto) 5.59 (1.40-6.50) K/uL Lymph # (Auto) 2.05 (1.20-3.40) K/uL Wilson # (Auto) 0.55 (0.11-0.59) K/uL Eos # (Auto) 0.43 (0.00-0.50) K/uL Baso # (Auto) 0.10 (0.00-0.20) K/uL Immature Gran # (Auto) 0.02 (0.01-0.20) K/uL PT 10.0 (9.0-12.0) Seconds INR 0.9 (0.9-1.1) APTT 28 (21-31) Seconds PTT Ratio 1.0 D-Dimer 380 (0-500) ug/L FEU Sodium 141 (136-145) mmol/L Potassium 4.3 (3.5-5.1) mmol/L Chloride 107 (98-107) mmol/L Carbon Dioxide 25 (21-32) mmol/L Anion Gap 9 (3-11) BUN 27 H (6-23) mg/dl Creatinine 0.75 (0.6-1.2) mg/dl Est Cr Clr Drug Dosing 89.6 ml/min eGFR 91.09 BUN/Creatinine Ratio 36.0 H (10-20) Glucose 94 (70-99(Fasting)) mg/dl Calcium 9.9 (8.6-10.3) mg/dl Total Bilirubin 0.5 (0.2-1.0) mg/dl AST 15 (13-39) U/L ALT 18 (7-52) U/L Alkaline Phosphatase 104 (34-104) U/L Troponin I High Sens 4.3 4.6 (0-14) pg/ml Total Protein 6.9 (6.0-8.3) gm/dl Albumin 4.2 (3.4-5.0) gm/dl Globulin 2.7 (2.5-4.0) gm/dl Albumin/Globulin Ratio 1.6 (0.9-2) Urine Color Yellow Urine Appearance Clear (Clear) Urine pH 5.5 (4.5-7.5) Ur Specific [place] 1.021 (1.000-1.030) Urine Protein Negative (Negative) Urine Glucose (UA) Negative (Negative) Urine Ketones Trace H (Negative) Urine Blood Negative (Negative) Urine Nitrite Negative (Negative) Urine Bilirubin Negative (Negative) Urine Urobilinogen Negative (Negative) Ur Leukocyte Esterase 1+ H (Negative) Urine WBC (Auto) 0-5 (0-5) /hpf Urine RBC (Auto) 0-2 (0-2) /hpf U Hyaline Cast (Auto) 0-2 (0-2) /lpf U Epithel Cells (Auto) 0-2 (0-2) /hpf Urine Bacteria (Auto) None Seen (None Seen) Administered Medications Discontinued Medications Aspirin (Aspirin Chew 324 Mg) 324 mg PO NOW STA Stop: 07/21/24 16:12 Last Admin: 07/21/24 16:17 Dose: 324 mg Documented By: VIVIENNE Morphine Sulfate (Morphine Sulfate 4 Mg/Ml 1 Ml Carp\\Vial) 4 mg IV NOW STA Stop: 07/21/24 16:08 Last Admin: 07/21/24 16:16 Dose: 4 mg Documented By: VIVIENNE Ondansetron HCl (Ondansetron Inj 2 Mg/Ml 2 Ml Vial) 4 mg IV NOW STA Stop: 07/21/24 16:08 Last Admin: 07/21/24 16:16 Dose: 4 mg Documented By: VIVIENNE Imaging Data Attestation: I personally reviewed and interpreted this imaging study as follows: My Impression: 1 view chest x-ray was obtained in the emergency department. My interpretation is no free air or definite infiltrate, final report below. Radiologist's Impression: Chest X-Ray 07/21/24 14:19 SINGLE VIEW CHEST CLINICAL HISTORY: Atypical chest pain. FINDINGS: An AP, portable, upright chest radiograph is compared to study dated 07/28/2020. The heart is top normal for projection noting atherosclerotic calcification of the thoracic aorta. Chronic interstitial thickening is similar to previous. The lungs and pleural spaces are clear. No pneumothorax is seen. The skeletal structures are osteopenic. The bony thorax is grossly intact. Calcific tendinopathy is noted in the right shoulder. IMPRESSION: No active disease in the chest. ACT 112: Negative or not required by law. Electronically signed by: Reza Pena M.D. 07/21/2024 4:12 PM Discharge Plan Visit Data Chief Complaint: Flank Pain Stated Complaint: SHARP PAIN UNDER LT ARM ED Provider: Jake Woodard Discharge Problem: Chest pain, Abnormal EKG Patient Disposition: Being Evaluated by Hospitalist Forms Stand Alone Forms: [facility] Prescriptions Prescriptions: No Action atorvastatin [Lipitor] 20 mg Tablet 20 mg PO QAM lisinopril 5 mg Tablet 5 mg PO QAM sulindac 200 mg Tablet 200 mg PO BID PRN (Reason: Pain) vitamin E 1,000 unit Capsule 1,000 unit PO QAM aspirin 81 mg Tablet,Delayed Release (Dr/Ec) 81 mg PO QAM ascorbic acid (vitamin C) [Vitamin C] 500 mg Tablet 1,000 mg PO QAM metformin 1,000 mg Tablet 1,000 mg PO BID gabapentin 300 mg Capsule 300 mg PO TID Excedrin Migraine 250-250-65 mg Tablet 2 tab PO Q6H PRN (Reason: Migraine Headache) Centrum Silver Women 8 mg iron-400 mcg-300 mcg Tablet 1 tab PO QAM famotidine 20 mg Tablet 20 mg PO QAM glimepiride 4 mg Tablet 4 mg PO QAM ibuprofen 200 mg Tablet 200 mg PO Q6H PRN (Reason: Pain) omeprazole 20 mg capsule,delayed release(DR/EC) 20 mg PO QAM duloxetine 30 mg capsule,delayed release(DR/EC) 30 mg PO QAM Xultophy 100/3.6 100 unit-3.6 mg /mL (3 mL) insulin pen 24 unit SUBCUT QAM Referrals Referrals: Je Lawrence MD [Primary Care Provider] - Discharge Problem: Chest pain Qualifiers: Chest pain type: unspecified Qualified Code(s): R07.9 - Chest pain, unspecified
[2024-07-21 16:24] LABS: D Dimer 380 ug/L FEU (0-500)
--- NOTE | 2024-07-21 18:18 | Electrocardiogram Report ---
Test Reason : Blood Pressure : */* mmHG Vent. Rate : 76 BPM Atrial Rate : 76 BPM P-R Int : 138 ms QRS Dur : 86 ms QT Int : 368 ms P-R-T Axes : -9 -12 166 degrees QTcB Int : 414 ms Normal sinus rhythm Left ventricular hypertrophy with repolarization abnormality possible Inferior infarct , age undetermined Abnormal ECG When compared with ECG of 28-Jul-2020 11:26, Nonspecific T wave abnormality now evident in Inferior leads T wave inversion less evident in Anterolateral leads Confirmed by Clarence Art ([id number]) on 07/21/2024 6:18:25 PM Referred By: Confirmed By: Clarence Art
[2024-07-21] MEDS: OPTIRAY 320 125ml IV ONE (19:15)
[2024-07-21] MEDS ORDERED: GLUCAGON FOR INJ 1 MG VIAL SQ PRN (19:25)
[2024-07-21] MEDS ORDERED: GLUCOSE 10 TAB/TUBE PO PRN (19:25)
[2024-07-21] MEDS ORDERED: CARBOHYDRATES FOR HYPOGLYCEMIA PO PRN (19:25)
[2024-07-21] MEDS ORDERED: GLUCOSE 40% GEL 15 GM TUBE PO PRN (19:25)
[2024-07-21] MEDS ORDERED: DEXTROSE 50% 50 ML SYRINGE IV PRN (19:25)
--- NOTE | 2024-07-21 19:39 | History & Physical Report ---
Date of Service July 21, 2024 Assessment & Plan (1) Abnormal EKG: (2) HLD (hyperlipidemia): (3) DM type 2 (diabetes mellitus, type 2): (4) History of cardiac cath: (5) HTN (hypertension): Plan Assessment and plan: Back pain R/O ACS: Abnormal EKG: Patient with complaints of radiating upper back pain & scapula EKG suggestive ST depression/T wave inversions Troponin negative x 2, history of cardiac cath over 10 years ago that was normal Aspirin/morphine given, cardiology consulted Chest x-ray negative, chest CTA ordered to rule out dissection Check echo, n.p.o. after midnight for possible stress test if warranted Will trial Robaxin tonight for muscle spasm Bilateral carotid US ordered to rule out carotid stenosis Hx HTN/HLD: Continue lisinopril/statin Hx DM2: On metformin/glimepiride/Xultophy 24 units daily at home Last A1c 6.4, SSI/4 times daily BGM/CTM Add long-acting insulin as needed Hx GERD: Continue Pepcid/omeprazole A total of 60 minutes was spent reviewing laboratory data/diagnostic testing/reviewing medical history/establishing plan of care Full code Heparin subcu for DVT prophylaxis History of Present Illness Chief Complaint: Radiating back pain Primary Care Provider: Je Lawrence MD The patient is a 58-year-old female with a past medical history of DM2, GERD, HLD, HTN who presents to the ED on 07/21/2024 with complaints of sharp back pain that starts under her arm radiates up to her left shoulder and up her neck. Reports that when the pain started she became short of breath because it knocked the wind out of her. Reports the pain started this morning while she was sitting on the couch.. Only lasts for about 5 seconds, but the pain is severe. Denies any recent injury. She does not currently work. Denies any fever/chills/abdominal pain/nausea/vomiting/diarrhea. Denied any direct chest pain. Reports seeing a plant engineering supervisor over 12 years ago having a cardiac cath done that was unremarkable. She reports following with a plant engineering supervisor for blood pressure management and check-ups here and there. The patient used to smoke but reports quitting cold turkey about 15 years ago On exam, the patient is in no apparent distress. The pain came on suddenly while I was at bedside and it is pretty consistent with the possibility of muscle spasms On arrival to the ED, labs are fairly unremarkable. Troponin is negative x 2 EKG showed normal sinus rhythm with possible inferior infarct, showed some nonspecific ST wave depression/T wave inversions in inferior leads UA fairly unremarkable Chest x-ray was negative Chest CTA was ordered to rule out aortic dissection. The patient will be admitted for monitoring and rule out ACS Allergies Allergy/AdvReac Type Severity Reaction Status Date / Time No Known Allergies Allergy Unknown Verified 07/21/24 17:40 Home Medications Medication Instructions Recorded Confirmed Type ascorbic acid (vitamin C) 500 mg 1,000 mg PO QAM 07/20/18 07/21/24 History tablet (Vitamin C) aspirin 81 mg tablet,delayed 81 mg PO QAM 07/20/18 07/21/24 History release glzsjua-siksnyqacncrq-etaklqkd 250 2 tab PO Q6H PRN Migraine Headache 07/20/18 07/21/24 History mg-250 mg-65 mg tablet (Excedrin Migraine) atorvastatin 20 mg tablet (Lipitor) 20 mg PO QAM 07/20/18 07/21/24 History gabapentin 300 mg capsule 300 mg PO TID 07/20/18 07/21/24 History lisinopril 5 mg tablet 5 mg PO QAM 07/20/18 07/21/24 History metformin 1,000 mg tablet 1,000 mg PO BID 07/20/18 07/21/24 History ucfemmhm-lqhp-xwnw 8 mg-folic 400 1 tab PO QAM 07/20/18 07/21/24 History mcg-K 50 mcg-lutein 300 mcg tablet (Centrum Silver Women) sulindac 200 mg tablet 200 mg PO BID PRN Pain 07/20/18 07/21/24 History vitamin E 670 mg (1,000 unit) 1,000 unit PO QAM 07/20/18 07/21/24 History capsule famotidine 20 mg tablet 20 mg PO QAM 07/20/20 07/21/24 History glimepiride 4 mg tablet 4 mg PO QAM 07/20/20 07/21/24 History ibuprofen 200 mg tablet 200 mg PO Q6H PRN Pain 07/20/20 07/21/24 History duloxetine 30 mg capsule,delayed 30 mg PO QAM 07/21/24 07/21/24 History release insulin degludec 100 24 unit subcut QAM 07/21/24 07/21/24 History unit-liraglutide 3.6 mg/mL(3 mL) subcutaneous pen (Xultophy 100/3.6) omeprazole 20 mg capsule,delayed 20 mg PO QAM 07/21/24 07/21/24 History release Past Med/Surg History Problem List (Updated 07/21/24 @ 18:54 by Jake Woodard DO) Abnormal EKG (Acute) Chest pain (Acute) Lumbar radiculopathy S/P spinal surgery HLD (hyperlipidemia) DM type 2 (diabetes mellitus, type 2) Migraine Sleep apnea GERD (gastroesophageal reflux disease) Neurogenic claudication due to lumbar spinal stenosis Acute blood loss anemia History of cardiac cath History of tonsillectomy and adenoidectomy History of appendectomy History of tubal ligation History of laparoscopy + MADDIE History of colonoscopy with polypectomy Lumbar spondylosis HTN (hypertension) Medical History Obesity 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" GERD (gastroesophageal reflux disease) controlled Diabetes mellitus, type 2 NIDDM Migraine Sleep apnea non-compliant with CPAP, no device currently Surgical History History of cardiac catheterization 15+ years ago- no stents History of lumbar fusion History of brain surgery S/P PITUITARY TUMOR RESECTION (BENIGN) History of section History of bilateral tubal ligation History of tooth extraction Family History Mother Family history of diabetes mellitus Family/Other Family history of diabetes mellitus Social History Smoking Status: Never smoker Second Hand Exposure: Yes (as a child); Do You Dip or Chew Tobacco: No; Hx Alcohol Use: Yes Hx Substance Use: No Preferred Language: Micronesian Communication Ability: Effective Visual Impairment: No Limitations Beliefs That Will Affect Care: None marital status: Current Living Situation: Spouse Feels Safe at Home: Yes Assistive Devices: Walker Review of Systems Review of Systems: All systems reviewed & are unremarkable except as noted in HPI & below Physical Exam Constitutional: WD/WN, vitals as above Eyes: PERRL, conjunctivae normal, anicteric sclerae ENMT: external ear and nose normal, oropharynx normal Neck: trachea midline, no thyromegaly Respiratory: normal respiratory effort, lungs clear to auscultation Cardiovascular: RRR, no murmur, no edema Chest (Breasts): normal inspection/palpation of breasts Gastrointestinal (Abdomen): normal bowel sounds, soft, nontender, no hepatosplenomegaly Musculoskeletal: no cyanosis or clubbing, extremities motor strength 5/5 Skin: no rashes, warm and dry Neurologic: patellar DTR's 2+ bilat, sensation intact Psychiatric: A+Ox3, euthymic affect Lymphatic: no cervical or axillary lymphadenopathy Results & Data Results & Data Vital Signs (Past 12 Hours) Vital Signs Temp Pulse Resp BP Pulse Ox O2 Del Method 07/21/24 19:21 73 07/21/24 17:06 74 17 93 Room Air 07/21/24 16:30 75 20 94 Room Air 07/21/24 16:30 125/75 07/21/24 16:09 82 21 97 Room Air 07/21/24 16:00 128/74 07/21/24 15:55 78 07/21/24 15:48 71 16 95 Room Air 07/21/24 15:30 128/76 07/21/24 15:30 79 16 95 Room Air 07/21/24 15:27 142/79 H 07/21/24 14:16 36.7 C 97 H 17 103/41 L 95 Room Air Diagnostic Findings Laboratory Results WBC 8.74 K/ul (4.8-10.8) 07/21/24 14:43 RBC 4.85 M/uL (4.20-5.40) 07/21/24 14:43 Hgb 13.6 g/dl (12.0-16.0) 07/21/24 14:43 Hct 42.5 % (37.0-47.0) 07/21/24 14:43 MCV 87.6 fL (80.0-100.0) 07/21/24 14:43 MCH 28.0 pg (25.0-34.0) 07/21/24 14:43 MCHC 32.0 g/dL (32.0-36.0) 07/21/24 14:43 RDW Std Deviation 44.8 fL (36.4-46.3) 07/21/24 14:43 RDW Coeff of Sumeet 13.9 % (11.5-14.5) 07/21/24 14:43 Plt Count 382 K/uL (130-400) 07/21/24 14:43 MPV 10.0 fL (9.4-12.4) 07/21/24 14:43 Immature Gran % (Auto) 0.2 % 07/21/24 14:43 Neut % (Auto) 64.0 % 07/21/24 14:43 Lymph % (Auto) 23.5 % 07/21/24 14:43 [place] % (Auto) 6.3 % 07/21/24 14:43 Eos % (Auto) 4.9 % 07/21/24 14:43 Baso % (Auto) 1.1 % 07/21/24 14:43 Neut # (Auto) 5.59 K/uL (1.40-6.50) 07/21/24 14:43 Lymph # (Auto) 2.05 K/uL (1.20-3.40) 07/21/24 14:43 Gibson # (Auto) 0.55 K/uL (0.11-0.59) 07/21/24 14:43 Eos # (Auto) 0.43 K/uL (0.00-0.50) 07/21/24 14:43 Baso # (Auto) 0.10 K/uL (0.00-0.20) 07/21/24 14:43 Immature Gran # (Auto) 0.02 K/uL (0.01-0.20) 07/21/24 14:43 PT 10.0 Seconds (9.0-12.0) 07/21/24 14:43 INR 0.9 (0.9-1.1) 07/21/24 14:43 APTT 28 Seconds (21-31) 07/21/24 14:43 PTT Ratio 1.0 07/21/24 14:43 D-Dimer 380 ug/L FEU (0-500) 07/21/24 14:43 Sodium 141 mmol/L (136-145) 07/21/24 14:43 Potassium 4.3 mmol/L (3.5-5.1) 07/21/24 14:43 Chloride 107 mmol/L (98-107) 07/21/24 14:43 Carbon Dioxide 25 mmol/L (21-32) 07/21/24 14:43 Anion Gap 9 (3-11) 07/21/24 14:43 BUN 27 mg/dl (6-23) H 07/21/24 14:43 Creatinine 0.75 mg/dl (0.6-1.2) 07/21/24 14:43 Est Cr Clr Drug Dosing 89.6 ml/min 07/21/24 14:43 eGFR 91.09 07/21/24 14:43 BUN/Creatinine Ratio 36.0 (10-20) H 07/21/24 14:43 Glucose 94 mg/dl (70-99(Fasting)) 07/21/24 14:43 Calcium 9.9 mg/dl (8.6-10.3) 07/21/24 14:43 Total Bilirubin 0.5 mg/dl (0.2-1.0) 07/21/24 14:43 AST 15 U/L (13-39) 07/21/24 14:43 ALT 18 U/L (7-52) 07/21/24 14:43 Alkaline Phosphatase 104 U/L (34-104) 07/21/24 14:43 Troponin I High Sens 4.6 pg/ml (0-14) 07/21/24 16:50 Total Protein 6.9 gm/dl (6.0-8.3) 07/21/24 14:43 Albumin 4.2 gm/dl (3.4-5.0) 07/21/24 14:43 Globulin 2.7 gm/dl (2.5-4.0) 07/21/24 14:43 Albumin/Globulin Ratio 1.6 (0.9-2) 07/21/24 14:43 Urine Color Yellow 07/21/24 15:20 Urine Appearance Clear (Clear) 07/21/24 15:20 Urine pH 5.5 (4.5-7.5) 07/21/24 15:20 Ur Specific [place] 1.021 (1.000-1.030) 07/21/24 15:20 Urine Protein Negative (Negative) 07/21/24 15:20 Urine Glucose (UA) Negative (Negative) 07/21/24 15:20 Urine Ketones Trace (Negative) H 07/21/24 15:20 Urine Blood Negative (Negative) 07/21/24 15:20 Urine Nitrite Negative (Negative) 07/21/24 15:20 Urine Bilirubin Negative (Negative) 07/21/24 15:20 Urine Urobilinogen Negative (Negative) 07/21/24 15:20 Ur Leukocyte Esterase 1+ (Negative) H 07/21/24 15:20 Urine WBC (Auto) 0-5 /hpf (0-5) 07/21/24 15:20 Urine RBC (Auto) 0-2 /hpf (0-2) 07/21/24 15:20 U Hyaline Cast (Auto) 0-2 /lpf (0-2) 07/21/24 15:20 U Epithel Cells (Auto) 0-2 /hpf (0-2) 07/21/24 15:20 Urine Bacteria (Auto) None Seen (None Seen) 07/21/24 15:20 Impressions Chest X-Ray 07/21/24 14:19 SINGLE VIEW CHEST CLINICAL HISTORY: Atypical chest pain. FINDINGS: An AP, portable, upright chest radiograph is compared to study dated 07/28/2020. The heart is top normal for projection noting atherosclerotic calcification of the thoracic aorta. Chronic interstitial thickening is similar to previous. The lungs and pleural spaces are clear. No pneumothorax is seen. The skeletal structures are osteopenic. The bony thorax is grossly intact. Calcific tendinopathy is noted in the right shoulder. IMPRESSION: No active disease in the chest. ACT 112: Negative or not required by law. Electronically signed by: Reza Pena M.D. 07/21/2024 4:12 PM Code Status & VTE Plan VTE Prophylaxis Plan VTE Prophylaxis will be ordered: Yes Supervising Physician Co-Signing Physician Notes Attending Addendum: Case reviewed with the advanced practitioner. I have personally performed a history and physical examination on the patient. I have reviewed the advanced practitioner's documentation on the date of service referenced in note, and I agree with, and take responsibility for the plan of care. please refer to her notes for full details patient seen and examined, records reviewed by myself as well on exam, patient seen resting in bed, not in distress reports intermittent sharp pain on the left lateral wall, inferior to axilla, radiating to the scapula and left lateral neck, left arm no dyspnea, dizziness, nausea no other symptoms VS noted and reviewed oriented x 3, not in distress, speaks in sentences with no effort nor accessory muscle use normal rate, regular rhythm, no murmurs clear breath sounds bilaterally non distended, soft, nontender no bipedal edema, erythema, warmth no neuro deficits no pain on palpation of left lateral chest wall no rashes noted all labs, imaging noted and reviewed ASSESSMENT AND PLAN> LEFT LATERAL CHEST WALL PAIN radiating to left scapula, neck, Arm sharp, no other associated symptoms Rule out acute coronary syndrome Risk factors: DM 2, hypertension, obesity Troponins x 2 negative, third pending EKG: No signs of acute ischemia or infarct per my review Echocardiogram: Pending Already on aspirin, Lipitor N.p.o. post-midnight, possible stress test tomorrow, plant engineering supervisor consulted CT angiogram rule out dissection pending Carotid Doppler rule out dissection pending Possible musculoskeletal etiology? Rosalio ordered other diagnoses and plan of care as per advanced practitioner's notes Zia Vaughn MD
--- NOTE | 2024-07-21 20:24 | CT Scan Report ---
Exam(s): CTA CHEST W/WO Contrast IV Amt: 119 ml opti 320 EXAM: CT Angiography Chest Without and With Intravenous Contrast CLINICAL HISTORY: Reason for exam: r/o dissection. TECHNIQUE: Axial computed tomographic angiography images of the chest without and with intravenous contrast. Automated exposure control was utilized for the study. A dose lowering technique was utilized adhering to the principles of ALARA. MIP reconstructed images were created and reviewed. CONTRAST: Patient received 119 ml opti 320 of IV contrast COMPARISON: 03/09/2007. FINDINGS: Pulmonary arteries: Unremarkable. No pulmonary embolism. Aorta: 3.9 cm ascending thoracic aortic aneurysm. Lungs: Unremarkable. No mass. No consolidation. Pleural space: Unremarkable. No significant effusion. No pneumothorax. Heart: Unremarkable. No cardiomegaly. No significant pericardial effusion. No evidence of RV dysfunction. Bones/joints: No acute fracture. No dislocation. Soft tissues: 1.5 cm soft tissue nodule within the left breast.. Lymph nodes: Unremarkable. No enlarged lymph nodes. IMPRESSION: No acute findings in the visualized arteries of the chest. 3.9 cm ascending thoracic aortic aneurysm 1.5 cm soft tissue nodule within the left breast. Recommend breast ultrasound or mammogram for further evaluation. This lesion was seen on the prior CT Electronically signed by: Chung Smith MD 07/21/24 20:23 PM
[2024-07-21] MEDS: GABAPENTIN 300 MG CAP PO SCH (21:30)
[2024-07-21] MEDS: INSULIN ASPART PER UNIT CHARGE SC SCH (22:05)
[2024-07-21] MEDS: LACTATED RINGER'S 1,000 ML IV SCH (23:48)
[2024-07-21] MEDS: HEPARIN SOD 5,000 UNIT/0.5 ML VIAL SQ SCH (23:49)
[2024-07-21] MEDS: METHOCARBAMOL 500 MG TABLET PO SCH (23:50)
--- NOTE | 2024-07-21 23:56 | Ultrasound Report ---
Exam(s): US CAROTID EXAM: US Duplex Bilateral Extracranial Arteries CLINICAL HISTORY: Reason for exam: chest pain. TECHNIQUE: Real-time duplex ultrasound scan of the extracranial arteries integrating B-mode two-dimensional vascular structure, Doppler spectral analysis and color flow Doppler imaging. COMPARISON: No relevant prior studies available. FINDINGS: Right common carotid artery: Unremarkable. No occlusion or significant stenosis on color flow and spectral Doppler imaging. Right internal carotid artery: Unremarkable. No occlusion or significant stenosis on color flow and spectral Doppler imaging. Right external carotid artery: Unremarkable. No occlusion or significant stenosis on color flow and spectral Doppler imaging. Right vertebral artery: Unremarkable. Antegrade flow. Right ICA/CCA ratio: Unremarkable. Within normal limits. Left common carotid artery: Unremarkable. No occlusion or significant stenosis on color flow and spectral Doppler imaging. Left internal carotid artery: Unremarkable. No occlusion or significant stenosis on color flow and spectral Doppler imaging. Left external carotid artery: Unremarkable. No occlusion or significant stenosis on color flow and spectral Doppler imaging. Left vertebral artery: Unremarkable. Antegrade flow. Left ICA/CCA ratio: Unremarkable. Within normal limits. Lymph nodes: Unremarkable. No lymphadenopathy. CAROTID STENOSIS REFERENCE USING SRU CRITERIA: Mild - <50% stenosis. ICA PSV is less than 125 cm/second and plaque or intimal thickening is visible. Moderate - 50-69% stenosis. ICA PSV is 125 to 230 cm/second and plaque is visible. Severe - 70-94% stenosis. ICA PSV is more than 230 cm/second and visible plaque with lumen narrowing is seen. Near occlusion - 95-99% stenosis. ICA PSV is variable and significant plaque with luminal narrowing is seen. Occluded - 100% stenosis. No flow identified. IMPRESSION: Normal duplex ultrasound of the neck. Electronically signed by: Chung Smith MD 07/21/24 23:55 PM
[2024-07-22] MEDS: SUMAtriptan succinate 50 MG TAB PO STA (02:46)
--- OUTSIDE RECORDS SUMMARY | 2024-07-22 05:15 | External Medical Summary | Summary of Care ---
Author Name Unknown Organization [facility] Address [address] [place] [address] Phone [phone] Care Team Providers Care Professor Of French Name Role Phone Je Lawrence MD Primary Care Provide r Reason for Visit * Reason Comments Medication Refill Encounter Details Date Type Department Care Team (Late st Contact Info) Description 05/31/2024 Refill Family Medicine [address] [phone] Je Lawrence MD [address] [place] [address] [place] [phone] Allergies No known active allergiesdocumented as of this encounter (statuses as of 06/01/2024) Medications Medication Sig Dispensed Refills Start Date End Date Status ASPIRIN 81 MG PO TABS Take by mouth daily. Active Vitamin D 50 MCG (1999 UT) Oral Capsule Take 2,000 Units by mouth daily. Active Vitamin E 100 UNIT Oral Capsule Take 1 Capsule by mouth in the morning. Active Centrum Silver 50+Women Oral Tablet Take by mouth. Active OneTouch Verio Reflect w/Device Kit 11/29/2021 Active OneTouch Delica Lancets 30GIndications:Type 2 diabetes mellitus with hemoglobin A1c goal of less than 7.0% ([facility]) Use to test blood sugar TWICE a day. Dx E11.9 200 Each 3 12/05/2022 Active Pulmicort Flexhaler 180 MCG/ACT Inhalation Aerosol Powder Breath ActivatedIndication s:Mild intermittent asthma with exacerbation Inhale 2 Puffs by mouth in the morning and 2 Puffs in the evening. 120 Each 1 01/08/2023 Active Xultophy 100-3.6 UNIT-MG/ML Subcutaneous Solution Pen-injector (Insulin Degludec-Liraglutid e)Indications:Type 2 diabetes mellitus with hemoglobin A1c goal of less than 7.0% ([facility]) Inject 24 Units under the skin in the morning. DXe11.9. 30 mL 3 08/21/2023 Active Sulindac 200 MG Oral TabletIndications:A rthralgia of foot, unspecified laterality TAKE ONE TABLET BY MOUTH TWICE A DAY NEEDED FOR PAIN 200 Tablet 1 09/18/2023 Active Albuterol Sulfate HFA 108 (90 Base) MCG/ACT Inhalation Aerosol SolutionIndications :Wheezing,Acute cough INHALE TWO PUFFS BY MOUTH EVERY FOUR HOURS NEEDED FOR WHEEZING 54 g 1 09/18/2023 4 Active Lisinopril 5 MG Oral Tablet (Prinivil)Indicatio ns:HTN, goal below 140/90 TAKE ONE TABLET BY MOUTH IN THE MORNING 90 Tablet 3 12/04/2023 Active SUMAtriptan Succinate 100 MG Oral TabletIndications:M igraine variant TAKE ONE TABLET BY MOUTH NEEDED FOR MIGRAINE, THEN AN ADDITIONAL ONE TABLET TWO HOURS AFTER FOR CONTINUED SYMPTOMS 16 Tablet 2 12/05/2023 Active Unifine Pentips 32G X 4 MM (Insulin Pen Needle)Indications: Type 2 diabetes mellitus with hemoglobin A1c goal of less than 7.0% ([facility]) USE ONCE DAILY WITH XULTOPHY 100 Each 3 02/02/2024 5 Active DULoxetine HCl 30 MG Oral Capsule Delayed Release Particles (Cymbalta)Indicatio ns:DDD (degenerative disc disease), lumbar,Peripheral polyneuropathy Take 1 Capsule by mouth in the morning. Do not cut, crush or chew. 100 Capsule 1 02/16/2024 Active Omeprazole 20 MG Oral Capsule Delayed Release (PriLOSEC)Indicatio ns:Abdominal pain, epigastric TAKE ONE CAPSULE BY MOUTH IN THE MORNING ONE HOUR BEFORE THE FIRST MEAL OF THE DAY 90 Capsule 1 03/22/2024 Active Atorvastatin Calcium 20 MG Oral Tablet (Lipitor)Indication s:Dyslipidemia, goal LDL below 100 TAKE ONE TABLET BY MOUTH EVERY DAY 90 Tablet 1 03/22/2024 Active metFORMIN HCl ER 500 MG Oral Tablet Extended Release 24 Hour (Glucophage XR) TAKE TWO TABLETS BY MOUTH TWICE A DAY 400 Tablet 05/12/2024 Active Gabapentin 300 MG Oral Capsule (Neurontin) Take 2 Capsules by mouth in the morning and 2 Capsules before bedtime. 360 Capsule 1 06/01/2024 Active Gabapentin 300 MG Oral Capsule (Neurontin) Take 2 Capsules by mouth in the morning and 2 Capsules before bedtime. 120 Capsule 3 03/22/2024 4 Discontinu ed(Refill) documented as of this encounter (statuses as of 06/01/2024) Active Problems Problem Noted Date Diagnosed Date Class 2 severe obesity due t o excess calories with serious comorbidity and body mass index (BMI) of 36.0 to 36.9 in adult 11/05/2023 Atherosclerosis of [place] co ronary artery without angina pectoris 11/05/2023 Type 2 diabetes mellitus wit h diabetic polyneuropathy, with long-term current use of insulin 06/12/2023 Peripheral polyneuropathy 06/12/2023 Dyslipidemia, goal LDL below 100 12/12/2022 Mild intermittent asthma with exacerbation 11/14 H/O Spinal surgery 05/14/2021 DDD (degenerative disc disease), lumbar 05/14/20 21 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 r disease 05/01/2021 Peripheral vascular disease 02/28/2021 Cardiac murmur 07/20/2018 Overview: Displaced papillary muscle on echo 07/2017 Type 2 diabetes mellitus wit h hemoglobin A1c goal of less than 7.0% 01/22/2013 Overview: ICD-10 update of inactive term Hypersomnia with sleep apnea 07/11/2010 Chronic rhinitis 07/11/2010 Deviated nasal septum 07/11/2010 HTN, goal below 140/90 06/04/2009 Simple endometrial hyperplasia without atypia Migraine variant 05/04/2007 ADVANCE DIRECTIVE INFORMATION 03/15/2005 Overview: No, Advance Directive brochure given to patient at prior appointment. [facility] 12/15/2001 Overview: S/p resection documented as of this encounter (statuses as of 06/01/2024) Resolved Problems Problem Noted Date Diagnosed Date Resolved Date Alopecia areata 11/10/2012 07/20/2018 Anxiety state 02/26/2011 12/12/2022 Temporomandibular joint diso rders, unspecified 07/11/2010 07/20/2018 Dyspnea and respiratory abnormality 07/11/2010 07/20/2018 Overview: ICD-10 update of inactive term Obesity, Class II, BMI 35-39 .9, isolated (see actual BMI) 04/02/2010 01/21/2024 Overview: Per Obesity Protocol, #19 historical Herpetic gingivostomatitis 06/04/2009 1 Esophageal reflux 06/04/2009 04/13/2020 Menstruation, irregular 06/04/200910/2017 Swelling, mass, or lump in head and neck 06/04/2009 07/20/2018 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 [place]'s syndrome 07/20/2018 Other abnormal glucose 03/14 Overview: prediabetes - on metformin Sleep apnea 07/20/2018 documented as of this encounter (statuses as of 06/01/2024) Immunizations Name Administration Dates Next Due COVID-19 mRNA, LNP-s, No Pre serve, 2-Dose Series ([employer]) 01/31/2022,07/19/2021,12/25/2020,12/05 COVID-19, MRNA-LNP, 23-24, P F, 30 MCG/0.3 mL, 12 YRS AND ABOVE, IM ([employer]-Comirnat) 11/10/2023 Covid-19, Mrna, Lnp-s, Pf, B ivalent, 30 Mcg, IM, 12 yrs and above ([employer]) 09/02/2022 Hepatitis B, 20+ yrs 03/14/2015,05/31/2014,03/08 Pneumococcal Conjugate Vacci ne, 20-valent ([id number]) 05/15/2022 Pneumococcal Polysaccharide PPV23 (Pneumovax) 03/09/2009 Seasonal Influenza Virus Vac cine, Unspecified Formulation 07/06/2021 Seasonal Influenza, PF, 6 M & above, IM , (FluLaval or Fluzone) 07/21/2023,09/02/2022,07/14/2020,07/26,07/09/2018 Seasonal Influenza, Quadriva lent, No Preserve, IM 12/26/2016 Seasonal Influenza, Split, I IV3, With Preserve, Inj 08/20/2013,08/03/2012,08/03/2011 TD - Tetanus/Diptheria (ADULT) 10/20/2003 TDAP (age 10 and older)(Boostrix) 11/10/2023 TDAP, Age 7 and older, IM (Adacel) 11/28/2011 Zoster Vaccine Recombinant (Shingrix) 09/28/2018 ,07/09/2018 documented as of this encounter Social History Tobacco Use Types Packs/Day Years Used Date Smoking Tobacco: Former Cigarettes 0.5 25 Q uit: 2004 Smokeless Tobacco: Never Comments:started age 16 quit 02/25 Alcohol Use Standard Drinks/Week Comments Yes 0 (1 standard drink = 0.6 oz pur e alcohol) very rare PHQ-2 Answer Date Recorded PHQ Adult Total Score 0 12/15/2023 Hunger Vital Sign Answer Date Recorded Within the past 12 months, y ou worried that your food would run out before you got the money to buy more. Never true 12/11/19 24 Within the past 12 months, t he food you bought just didn't last and you didn't have money to get more. Never true 12/11/2023 Childcare Answer Date Recorded Do you feel overwhelmed with taking care of a child, family member or friend? No 12/11/2023 Does your family need help f inding childcare? (Household - for ages 0-17 years) Not on file 12/11/2023 Clothing Answer Date Recorded Have you been unable to get clothing when it was really needed? No 12/11/2023 Is your family able to get c lothes or diapers when needed? (Household - for ages 0-17 years) Not on file 12/11/2023 Personal Safety Answer Date Recorded Do you feel unsafe or have concerns for your saf ety? No 12/11/2023 Do you have concerns for you r family's safety? (Household - for ages 0-17 years) Not on file 12/11/2023 Utilities Answer Date Recorded Do you have trouble paying y our heating, water, or electric bill? No 12/11/2023 Is your family able to pay t he heat, water, or electric bill? (Household - for ages 0-17 years) Not on file 12/11/2023 Does your family have access to good internet? (Household - for ages 0-17 years) Not on file 12/11/2023 Employment Status Answer Date Recorded Are you unemployed or without regular income? No 12/11/2023 Does the household have a [facility]all[facility] source of income? (Household - for ages 0-17 years) Not on file 12/11/2023 Social Connections Answer Date Recorded How often do you feel lonely or isolated from th ose around you? Never 12/11/2023 Financial Resource Strain Answer Date R ecorded Do you have any trouble payi ng for your medications, or do you think you might in the future? No 12/11/2023 Does your family have troubl e paying for medicine? (Household - for ages 0-17 years) Not on file 12/11/2023 Transportation Needs Answer Date Record ed READ ONLY Do you have troubl e getting a ride to medical visits or work? Never True 12/11/2023 Does your family have a hard time getting a ride to doctors visits? (Household - for ages 0-17 years) Not on file 12/11/2023 Has lack of transportation k ept you from medical appointments, meetings, work, or from getting things needed for daily living? Check all that apply. (Adult - for ages 18 years and over) Not on file 12/11/2023 Do you (or your family) have trouble finding or paying for a ride (transportation)? (Household - for ages 0-17 years) Not on file 12/11/2023 Housing Stability Answer Date Recorded Do you currently live in a s helter or have no steady place to sleep at night? No 12/11/2023 READ ONLY Do you think you a re at risk of becoming homeless? No 12/11/2023 Does your family worry about paying for your home or becoming homeless? (Household - for ages 0-17 years) Not on file 0 12/11/2023 Are you homeless or worried that you might be in the future? (Adult - for ages 18 years and over) Not on file Are you (or your family) mildred eless or worried that you might be in the future? (Household - for ages 0-17 years) Not on file Food Insecurity Answer Date Recorded Do you need food for this week? No 12/11/2023 Are you able to get enough f ood for your family? (Household - for ages 0-17 years) Not on file 12/11/2023 Does your family need food t his week? (Household - for ages 0-17 years) Not on file 12/11/2023 Do you always have enough fo od for your family? (Household - for ages 0-17 years) Not on file 12/11/2023 Sex and Gender Information Value Date Recorded Sex Assigned at Female 12/27/2019 1:56 PM EDT Gender Identity Female 12/27/2019 1:56 PM EDT Sexual Orientation Straight 12/27/2019 1: 56 PM EDT Job Start Date Occupation Industry Not on file Not on file Not on file documented as of this encounter Miscellaneous Notes * Telephone Encounter - Niru Sharpe CRNP - 06/01/2024 12:17 PM EDT Signed Prescriptions: Disp Refills Gabapentin 300 MG Oral Capsule (Neurontin) 360 Ca*1 Sig: Take 2 Capsules by mouth in the morning and 2 Capsules before bedtime. Authorizing Provider: NIRU SHARPE * Telephone Encounter - Niru Sharpe CRNP - 06/01/2024 12:17 PM EDT Signed Prescriptions: Disp Refills Gabapentin 300 MG Oral Capsule (Neurontin) 360 Ca*1 Sig: Take 2 Capsules by mouth in the morning and 2 Capsules before bedtime. Authorizing Provider: NIRU SHARPE * Telephone Encounter - Josette Reina [facility] - 06/01/2024 9:55 AM EDT Pharmacy is requesting a 90-day supply, pre-edited RXs as such. Please review and approve if appropriate. Pending Prescriptions: Disp Refills Gabapentin 300 MG Oral Capsule (Neurontin)360 Ca*1 Sig: Take 2 Capsules by mouth in the morning and 2 Capsules before bedtime. Last Visit: 01/22/2024 (in office), Visit date not found (telemedicine) Visit date not found If no future appointments scheduled, and last appointment is greater than a year ago, please schedule patient for an appointment Last date the medication was ordered: 03/22/24 Patient Phone Numbers Labs: Lab Results Component Value Date/Time CREAT 0.8 05/12/2024 11:27 AM CREAT 0.65 12/14/2020 12:00 AM CREAT 0.7 11/13/2020 01:01 PM POTASSIUM 5.0 05/12/2024 11:27 AM POTASSIUM 4.6 11/13/2020 01:01 PM TSH 1.47 01/25/2022 10:55 AM TSH 1.61 11/20/2018 12:16 PM LDLCALC 33 12/09/2023 11:14 AM LDLCALC 34 (A) 12/14/2020 12:00 AM LDLCALC 40 12/22/2019 08:28 AM LDLDIRECT 38 11/13/2020 01:01 PM LDLDIRECT 93 03/14/2015 05:05 PM ALT 23 05/12/2024 11:27 AM ALT 44 (H) 12/22/2019 08:28 AM HGBA1C 6.4 (H) 05/12/2024 11:27 AM HGBA1C 7.0 (A) 12/14/2020 12:00 AM HGBA1C 6.9 (H) 11/13/2020 01:01 PM documented in this encounter Plan of Treatment Upcoming Encounters Date Type Department Care Team (Late st Contact Info) Description 12/17/2024 10:00 AM EST Nurse Only Ancillary [address] [place] [phone] [place], Nurse [address] [place] [phone] Scheduled Procedures Name Priority Associated Diagnoses Date/Ti me COLONOSCOPY FLEXIBLE PROXIMAL DIAGNOSTIC Recall History of colon polyps Health Maintenance Due Date Last Done Comments Cologuard 2008 Fecal Occult Blood Test 2008 Sigmoidoscopy 2008 *SPIROMETRY ONCE FOR ASTHMA-ADULT 09/12/2022 Mammogram 02/28/2024 02/27/2023, 02/17, 01/18/2022, Additional history exists Influenza Vaccine (FLU shot) (#1) 2024 07/21/2023, 09/02/2022, 07/06/2021, Additional history exists Diabetic Eye Exam 09/23/2024 09/23/2023, , 12/11/2022, Additional history exists HbA1c 11/12/2024 05/12/2024, 11/21, 06/12/2023, Additional history exists Depression Screening 12/15/2024 12/15/2023 Diabetic Foot Exam 12/15/2024 12/15/2023, 0 12/11/2022, 11/14/2021, Additional history exists PAP SMEAR-EVERY 3 YRS,AGES 18-100 12/27/2024 12/27/2021, 06/02/2018, 06/02/2018, Additional history exists Albumin/Creatinine Ratio 04/12/2025 024, 06/12/2023, 12/04/2022, Additional history exists B-12 05/12/2025 05/12/2024, 05/21, 05/15/2022, Additional history exists GFR 05/12/2025 05/12/2024, 05/21, 01/13/2023, Additional history exists Colonoscopy 05/13/2026 05/13/2023, 04/20, 01/13/2018, Additional history exists Colorectal Cancer Screening 05/13/2026 DTaP,Tdap,and Td Vaccines (3 - Td or Tdap) 11/10/2033 11/10/2023, 11/28/2011, 10/20/2003 Hepatitis B Vaccine Completed 03/14/2015, 05/31/2014, 03/08/2014 Zoster Vaccines Completed 09/28/2018, 07/09/2018 Pneumococcal Vaccine: Pediatrics (0 to 5 Years) and At-Risk Patients (6 to 64 Years) Completed 05/15/2022, 03/09/2009 RETIRED - COLONOSCOPY-EVERY 5 YRS AGES 18-100 Discontinued 05/13/2023, 05/13/2023, 01/13/2018, Additional history exists COVID-19 Vaccine Completed 11/10/2023, , 01/31/2022, Additional history exists HPV (Gardasil) Vaccine Aged Out No lo nger eligible based on patient's age to complete this topic MENINGOCOCCAL (MENACTRA/MENVEO) Aged Out No longer eligible based on patient's age to complete this topic documented as of this encounter Medical Devices Not on filedocumented as of this encounter Care Teams Professor Of French Relationship Specialty Start Date End Date Je Lawrence MD [address] [place] [address] [place] [phone] PCP - General Family Medicine 04/13/20 documented as of this encounter
--- OUTSIDE RECORDS SUMMARY | 2024-07-22 05:15 | External Medical Summary | Summary of Care ---
Author Name Unknown Organization [facility] Address [address] [place] [address] Phone [phone] Care Team Providers Care Behavioral [employer] Counselors Name Role Phone Je Lawrence MD Primary Care Provide r Reason for Visit * Reason Onset Date Comments Health Maintenance 07/19/2024 Encounter Details Date Type Department Care Team (Late st Contact Info) Description 07/19/2024 Telephone Family Medicine [address] [phone] Je Lawrence MD [address] [place] [address] [place] [phone] Health Maintenance Allergies No known active allergiesdocumented as of this encounter (statuses as of 07/19/2024) Medications Medication Sig Dispensed Refills Start Date End Date Status ASPIRIN 81 MG PO TABS Take by mouth daily. Active Vitamin E 100 UNIT Oral Capsule Take 1 Capsule by mouth in the morning. Active Centrum Silver 50+Women Oral Tablet Take by mouth. Active OneTouch Verio Reflect w/Device Kit 11/29/2021 Acti ve OneTouch Delica Lancets 30GIndications:Type 2 diabetes mellitus with hemoglobin A1c goal of less than 7.0% ([facility]) Use to test blood sugar TWICE a day. Dx E11.9 200 Each 3 12/05/2022 Active Xultophy 100-3.6 UNIT-MG/ML Subcutaneous Solution Pen-injector (Insulin Degludec-Liraglutide )Indications:Type 2 diabetes mellitus with hemoglobin A1c goal of less than 7.0% ([facility]) Inject 24 Units under the skin in the morning. DXe11.9. 30 mL 3 08/21/2023 Active Albuterol Sulfate HFA 108 (90 Base) MCG/ACT Inhalation Aerosol SolutionIndications: Wheezing,Acute cough INHALE TWO PUFFS BY MOUTH EVERY FOUR HOURS NEEDED FOR WHEEZING 54 g 1 09/18/2023 4 Active Lisinopril 5 MG Oral Tablet (Prinivil)Indication s:HTN, goal below 140/90 TAKE ONE TABLET BY MOUTH IN THE MORNING 90 Tablet 3 12/04/2023 Active SUMAtriptan Succinate 100 MG Oral TabletIndications:Mi graine variant TAKE ONE TABLET BY MOUTH NEEDED FOR MIGRAINE, THEN AN ADDITIONAL ONE TABLET TWO HOURS AFTER FOR CONTINUED SYMPTOMS 16 Tablet 2 12/05/2023 Active Unifine Pentips 32G X 4 MM (Insulin Pen Needle)Indications:T ype 2 diabetes mellitus with hemoglobin A1c goal of less than 7.0% ([facility]) USE ONCE DAILY WITH XULTOPHY 100 Each 3 02/02/2024 5 Active DULoxetine HCl 30 MG Oral Capsule Delayed Release Particles (Cymbalta)Indication s:DDD (degenerative disc disease), lumbar,Peripheral polyneuropathy Take 1 Capsule by mouth in the morning. Do not cut, crush or chew. 100 Capsule 1 02/16/2024 Active Omeprazole 20 MG Oral Capsule Delayed Release (PriLOSEC)Indication s:Abdominal pain, epigastric TAKE ONE CAPSULE BY MOUTH IN THE MORNING ONE HOUR BEFORE THE FIRST MEAL OF THE DAY 90 Capsule 1 03/22/2024 Active Atorvastatin Calcium 20 MG Oral Tablet (Lipitor)Indications :Dyslipidemia, goal LDL below 100 TAKE ONE TABLET [...] before bedtime. 360 Capsule 1 06/01/2024 Active Additional Information Patient taking differently:600 mg OralTID(AM/NOON/HS), Reported on 06/07/2024 Fexofenadine HCl 180 MG Oral Tablet (Teri) Take 1 Tablet by mouth in the morning. Active Fish Oil 1200 MG Oral Capsule Take 1 Capsule by mouth daily. Active Docusate Sodium 100 MG Oral Capsule (Colace) Take 1 Capsule by mouth daily. Active Aspirin-Acetaminophe n-Caffeine 250-250-65 MG Oral Tablet (Excedrin Migraine) Take 4 Tablets by mouth as needed. Active Sulindac 200 MG Oral TabletIndications:Ar thralgia of foot, unspecified laterality TAKE ONE TABLET BY MOUTH TWICE A DAY NEEDED FOR PAIN 200 Tablet 1 07/06/2024 Active documented as of this encounter (statuses as of 07/19/2024) Active Problems Problem Noted Date Diagnosed Date Class 2 severe obesity due t o excess calories with serious comorbidity and body mass index (BMI) of 36.0 to 36.9 in adult 11/05/2023 Atherosclerosis of [place] co ronary artery without angina pectoris 11/05/2023 [...] as of this encounter (statuses as of 07/19/2024) Resolved Problems Problem Noted Date Diagnosed Date [...] 07/20/2018 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 [place]'s syndrome 07/20/2018 Other abnormal glucose 03/14 Overview: prediabetes - on metformin Sleep apnea 07/20/2018 documented as of this encounter (statuses as of 07/19/2024) Immunizations Name Administration Dates Next Due COVID-19 mRNA, LNP-s, No Pre serve, 2-Dose Series ([employer]) 01/31/2022,07/19/2021,12/25/2020,12/05 COVID-19, MRNA-LNP, 23-24, P F, 30 MCG/0.3 mL, 12 YRS AND ABOVE, IM ([employer]Comirnat) 11/10/2023 Covid-19, Mrna, Lnp-s, Pf, B ivalent, 30 Mcg, IM, 12 yrs and above ([employer]) 09/02/2022 Hepatitis B, 20+ yrs 03/14/2015,05/31/2014,03/08 Pneumococcal Conjugate Vacci ne, 20-valent ([id number]) 05/15/2022 Pneumococcal Polysaccharide PPV23 (Pneumovax) 03/09/2009 Seasonal Influenza Virus Vac cine, Unspecified Formulation 07/06/2021 Seasonal Influenza, PF, 6 M & above, IM , (FluLaval or Fluzone) 07/21/2023,09/02/2022,07/14/2020,07/26,07/09/2018 Seasonal Influenza, Quadriva lent, No Preserve, IM 12/26/2016 Seasonal Influenza, Trivalen t, (IIV3), with Preserv, (Fluzone) 08/20/2013,08/03/2012,08/03/2011 TD - Tetanus/Diptheria (ADULT) 10/20/2003 TDAP [...] No 12/11/2023 Does the household have a re lar source of income? (Household - for ages [...] encounter Miscellaneous Notes * Telephone Encounter - Priscilla BolesDANYA - 07/19/2024 2:14 PM EDT Care Gaps Comprehensive Care Outreach Last Office/Telemedicine Visit: 01/22/2024 (in office), Visit date not found (telemedicine) Next Office Visit: Visit date not found Hemoglobin AIC Results: Lab Results Component Value Date/Time HEMOGLOBIN A1C - [facility] 6.4 (H) 05/12/2024 11:27 AM HEMOGLOBIN A1C - [facility] 6.9 (H) 12/09/2023 11:14 AM HEMOGLOBIN A1C - [facility] 7.7 (H) 06/12/2023 01:38 PM HEMOGLOBIN A1C - [facility] 6.9 (H) 11/13/2020 01:01 PM HEMOGLOBIN A1C - [facility] 6.6 (H) 07/14/2020 02:31 PM HEMOGLOBIN A1C - [facility] 7.6 (H) 12/22/2019 08:28 AM BP Readings from Last 1 Encounters: 01/22/24 136/70 Reviewed Health Maintenance below: Health Maintenance Topic Date Due *SPIROMETRY ONCE FOR ASTHMA-ADULT Never done Influenza Vaccine (FLU shot) (1) 06/20/2024 COVID-19 Vaccine ( season) 2024 Diabetic Eye Exam 09/23/2024 HbA1c 11/12/2024 Diabetic Foot Exam 12/15/2024 Depression Screening 12/15/2024 PAP SMEAR-EVERY 3 YRS,AGES 18-100 12/27/2024 Just reached out and sent letter Care Gap Outreach Action Taken: Outreach not indicated documented in this encounter Plan of Treatment Upcoming Encounters Date Type Department Care Team (Late st Contact Info) Description 12/17/2024 10:00 AM EST Nurse Only Ancillary [address] [place] [phone] [place], Nurse [address] [place] [phone] 07/12/2025 12:30 PM EDT Imaging Radiology [address] [place] [phone] Scheduled Procedures Name Priority Associated Diagnoses Date/Ti me COLONOSCOPY FLEXIBLE PROXIMAL DIAGNOSTIC Recall History of colon polyps Health Maintenance Due Date Last Done Comments Cologuard 2008 Fecal Occult Blood Test 2008 Sigmoidoscopy 2008 *SPIROMETRY ONCE FOR ASTHMA-ADULT 09/12/2022 COVID-19 Vaccine ( season) 2024 11/10/2023, 09/02/2022, 01/31/2022, Additional history exists Influenza Vaccine (FLU shot) [...] 05/12/2025 05/12/2024, 05/21, 01/13/2023, Additional history exists Mammogram 07/06/2025 07/06/2024, 02/17, 02/27/2023, Additional history exists Colonoscopy 05/13/2026 05/13/2023, 04/20, 01/13/2018, Additional history exists Colorectal Cancer Screening 05/13/2026 DTap/Tdap Vaccines (3 - Td or Tdap) 11/10/2033 11/10/2023, 11/28/2011, 10/20/2003 Hepatitis B Vaccine Completed 03/14/2015, 05/31/2014, 03/08/2014 Zoster Vaccines Completed 09/28/2018, 07/09/2018 Pneumococcal Vaccine: Pediatrics (0 to 5 Years) and At-Risk Patients (6 to 64 Years) Completed 05/15/2022, 03/09/2009 RETIRED - COLONOSCOPY-EVERY 5 YRS AGES 18-100 Discontinued 05/13/2023, 05/13/2023, 01/13/2018, Additional history exists HPV (Gardasil) Vaccine Aged Out No lo nger eligible based on patient's age to complete this topic MENINGOCOCCAL (MENACTRA/MENVEO) Aged Out No longer eligible based on patient's age to complete this topic documented as of this encounter Medical Devices Not on filedocumented as of this encounter Care Teams Behavioral School Counselors Relationship Specialty Start Date End Date Je Lawrence MD [address] [place] [address] [place] [phone] PCP - General Family Medicine 04/13/20 documented as of this encounter
--- OUTSIDE RECORDS SUMMARY | 2024-07-22 05:15 | External Medical Summary | Summary of Care ---
Author Name Unknown Organization [facility] Address [address] [place] [address] Phone [phone] Care Team Providers Care Director Presales Name Role Phone Je Lawrence MD Primary Care Provide r Reason for Visit * Reason Onset Date Comments Health Maintenance 05/20/2024 Encounter Details Date Type Department Care Team (Late st Contact Info) Description 05/20/2024 Telephone Family Medicine [address] [phone] Je Lawrence MD [address] [place] [address] [place] [phone] Health Maintenance Allergies No known active allergiesdocumented as of this encounter (statuses as of 05/20/2024) Medications Medication Sig Dispensed Refills Start Date [...] hemoglobin A1c goal of less than 7.0% ([facility]) Use to test blood sugar TWICE a day. Dx E11.9 200 Each 3 12/05/2022 Active Pulmicort Flexhaler 180 MCG/ACT Inhalation Aerosol Powder Breath ActivatedIndications :Mild intermittent asthma with exacerbation Inhale 2 Puffs by mouth in the morning and 2 Puffs in the evening. 120 Each 1 01/08/2023 Active Xultophy 100-3.6 UNIT-MG/ML Subcutaneous Solution Pen-injector (Insulin Degludec-Liraglutide )Indications:Type 2 diabetes mellitus with hemoglobin A1c goal of less than 7.0% ([facility]) Inject 24 Units under the skin in the morning. DXe11.9. 30 mL 3 08/21/2023 Active Sulindac 200 MG Oral TabletIndications:Ar thralgia [...] hemoglobin A1c goal of less than 7.0% ([facility]) USE ONCE DAILY WITH XULTOPHY 100 Each [...] EVERY DAY 90 Tablet 1 03/22/2024 Active Gabapentin 300 MG Oral Capsule (Neurontin) Take 2 Capsules by mouth in the morning and 2 Capsules before bedtime. 120 Capsule 3 03/22/2024 Active metFORMIN HCl ER 500 MG Oral Tablet Extended Release 24 Hour (Glucophage XR) TAKE TWO TABLETS BY MOUTH TWICE A DAY 400 Tablet 05/12/2024 Active documented as of this encounter (statuses as of 05/20/2024) Active Problems Problem Noted Date Diagnosed Date Class 2 severe obesity due t o excess calories with serious comorbidity and body mass index (BMI) of 36.0 to 36.9 in adult 11/05/2023 Atherosclerosis of [place] ronary artery without angina pectoris 11/05/2023 [...] as of this encounter (statuses as of 05/20/2024) Resolved Problems Problem Noted Date Diagnosed Date [...] 07/20/2018 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 [place]'s syndrome 07/20/2018 Other abnormal glucose 03/14 Overview: prediabetes - on metformin Sleep apnea 07/20/2018 documented as of this encounter (statuses as of 05/20/2024) Immunizations Name Administration Dates Next Due COVID-19 mRNA, LNP-s, No Pre serve, 2-Dose Series ([employer]) 01/31/2022,07/19/2021,12/25/2020,12/05 COVID-19, MRNA-LNP, 23-24, P F, 30 MCG/0.3 mL, 12 YRS AND ABOVE, IM ([email or web address]) 11/10/2023 Covid-19, Mrna, Lnp-s, Pf, B ivalent, 30 Mcg, IM, 12 yrs and above (Pfizer) 09/02/2022 Hepatitis B, 20+ yrs 03/14/2015,05/31/2014,03/08 Pneumococcal Conjugate Vacci ne, 20-valent ([email or web address]) 05/15/2022 Pneumococcal Polysaccharide PPV23 (Pneumovax) 03/09/2009 Seasonal [...] 12/11/2023 Does the household have a re gular source of income? (Household - for ages [...] Miscellaneous Notes * Telephone Encounter - Priscilla Boles LPN - 05/20/2024 9:59 AM EDT Care Gaps Comprehensive Care Outreach Last [...] Due *SPIROMETRY ONCE FOR ASTHMA-ADULT Never done Mammogram 02/28/2024 Influenza Vaccine (FLU shot) (1) 06/20/2024 Diabetic Eye Exam 09/23/2024 Recapture Ov Mamm already scheduled Care Gap Outreach Action Taken: Left message and MyChart message sent documented in this encounter Plan of Treatment Upcoming Encounters Date Type Department Care Team (Late st Contact Info) Description 05/28/2024 11:00 AM EDT Imaging Radiology [address] [place] [phone] 12/17/2024 10:00 AM EST Nurse Only Ancillary [address] [place] [address] [place], Nurse [address] [place] [address] Scheduled Procedures Name Priority Associated Diagnoses Date/Ti [...] 12/11/2022, Additional history exists HbA1c 11/12/2024 05/12/2024, 02/, 06/12/2023, Additional history exists Depression Screening 12/15/2024 [...] filedocumented as of this encounter Care Teams Director Presales Relationship Specialty Start Date End Date Je Lawrence MD [address] [place] [address] [place] [address] PCP - General Family Medicine 04/13/20 documented as of this encounter
--- OUTSIDE RECORDS SUMMARY | 2024-07-22 05:15 | External Medical Summary | Summary of Care ---
Author Name Unknown Organization [facility] Address [address] [place] [address] Phone [phone] Care Team Providers Care Eye Technician Name Role Phone Je Lawrence MD Primary Care Provide r Reason for Visit * Reason Onset Date Comments Health Maintenance 05/20/2024 Encounter Details Date Type Department Care Team (Late st Contact Info) Description 05/20/2024 Telephone Family Medicine [address] [phone] Je Lawrence MD [address] [place] [address] [place] [phone] Health Maintenance Allergies No known active allergiesdocumented as of this encounter (statuses as of 06/28/2024) Medications Medication Sig Dispensed Refills Start Date [...] hemoglobin A1c goal of less than 7.0% ([facility]) Use to test blood sugar [...] TWICE A DAY 400 Tablet 05/12/2024 Active Vitamin D 50 MCG (1999 UT) Oral Capsule Take 2,000 Units by mouth daily. 4 Discontinu ed(Medicat ion List Clean Up) Pulmicort Flexhaler 180 MCG/ACT Inhalation Aerosol Powder Breath ActivatedIndication s:Mild intermittent asthma with exacerbation Inhale 2 Puffs by mouth in the morning and 2 Puffs in the evening. 120 Each 1 01/08/2023 4 Discontinu ed(Medicat ion List Clean Up) Gabapentin 300 MG Oral Capsule (Neurontin) Take 2 Capsules by mouth in the morning and 2 Capsules before bedtime. 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 [place]'s syndrome 07/20/2018 Other abnormal glucose 03/14 Overview: prediabetes - on metformin Sleep apnea 07/20/2018 documented as of this encounter (statuses as of 06/28/2024) Immunizations Name Administration Dates Next Due COVID-19 mRNA, LNP-s, No Pre serve, 2-Dose Series ([employer]) 01/31/2022,07/19/2021,12/25/2020,12/05 COVID-19, MRNA-LNP, 23-24, P F, 30 MCG/0.3 mL, 12 YRS AND ABOVE, IM ([employer]-Comirnaty) 11/10/2023 Covid-19, Mrna, Lnp-s, Pf, B ivalent, 30 Mcg, IM, 12 yrs and above ([employer]) 09/02/2022 Hepatitis B, 20+ yrs 03/14/2015,05/31/2014,03/08 Pneumococcal Conjugate Vacci ne, 20-valent ([id number]) 05/15/2022 Pneumococcal Polysaccharide PPV23 (Pneumovax) 03/09/2009 Seasonal [...] Telephone Encounter - Priscilla Boles LPN - 06/28/2024 11:21 AM EDT letter * Telephone Encounter - Priscilla Boles LPN [...] 12/17/2024 10:00 AM EST Nurse Only Ancillary [address] [place] [phone] [place], Nurse [address] [place] [address] Scheduled Procedures Name Priority Associated Diagnoses Date/Ti me COLONOSCOPY FLEXIBLE PROXIMAL DIAGNOSTIC Recall History of colon polyps Health Maintenance Due Date Last Done Comments Cologuard 2008 Fecal Occult Blood Test 2008 Sigmoidoscopy 2008 *SPIROMETRY ONCE FOR ASTHMA-ADULT 09/12/2022 Mammogram 02/28/2024 02/27/2023, 02/17, 01/18/2022, Additional history exists COVID-19 Vaccine ( season) 2024 11/10/2023, 09/02/2022, [...] filedocumented as of this encounter Care Teams Eye Technician Relationship Specialty Start Date End Date Je Lawrence MD [address] [place] [address] [place] [phone] PCP - General Family Medicine 04/13/20 documented as of this encounter
--- OUTSIDE RECORDS SUMMARY | 2024-07-22 05:15 | External Medical Summary | Summary of Care ---
Author Name Unknown Organization [facility] Address [address] [place] [address] Phone [phone] Care Team Providers Care Deputy Sheriff Generalist Name Role Phone Je Lawrence MD Primary Care Provide r Encounter Details Date Type Department Care Team (Late st Contact Info) Description 07/10/2024 Orders Only PATIENT PORTAL DO NOT DELETE THIS DEPT USED BY [place] BASS [phone] Allergies No known active allergiesdocumented as of this encounter (statuses as of 07/10/2024) Medications Medication Sig Dispensed Refills Start Date [...] A1c goal of less than 7.0% ([facility]) Use to test blood sugar TWICE a day. Dx E11.9 200 Each 3 12/05/2022 Active Xultophy 100-3.6 UNIT-MG/ML Subcutaneous Solution Pen-injector (Insulin Degludec-Liraglutide )Indications:Type 2 diabetes mellitus with hemoglobin A1c goal of less than 7.0% ([facility]) Inject 24 Units under the skin in [...] A1c goal of less than 7.0% ([facility]) USE ONCE DAILY WITH XULTOPHY 100 Each [...] as of this encounter (statuses as of 07/10/2024) Active Problems Problem Noted Date Diagnosed Date Class 2 severe obesity due t o excess calories with serious comorbidity and body mass index (BMI) of 36.0 to 36.9 in adult 11/05/2023 Atherosclerosis of [place] ronary artery without angina pectoris 11/05/2023 Type 2 diabetes mellitus wit h diabetic polyneuropathy, with long-term current use of insulin 06/12/2023 Peripheral polyneuropathy 06/12/2023 Dyslipidemia, goal LDL below 100 12/12/2022 Mild intermittent asthma with exacerbation 11/14 H/O Spinal surgery 05/14/2021 DDD (degenerative disc disease), lumbar 05/14/20 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 [...] as of this encounter (statuses as of 07/10/2024) Resolved Problems Problem Noted Date Diagnosed Date [...] 07/20/2018 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 [place]'s syndrome 07/20/2018 Other abnormal glucose 03/14 Overview: prediabetes - on metformin Sleep apnea 07/20/2018 documented as of this encounter (statuses as of 07/10/2024) Immunizations Name Administration Dates Next Due COVID-19 mRNA, LNP-s, No Pre serve, 2-Dose Series ([employer]) 01/31/2022,07/19/2021,12/25/2020,12/05 COVID-19, MRNA-LNP, 23-24, P F, 30 MCG/0.3 mL, 12 YRS AND ABOVE, IM ([employer]-Comirnaty) 11/10/2023 Covid-19, Mrna, Lnp-s, Pf, B ivalent, 30 Mcg, IM, 12 yrs and above (Pfizer) 09/02/2022 Hepatitis B, 20+ yrs 03/14/2015,05/31/2014,03/08 Pneumococcal Conjugate Vacci ne, 20-valent ([id number]) 05/15/2022 Pneumococcal Polysaccharide PPV23 (Pneumovax) 03/09/2009 Seasonal [...] on file documented as of this encounter Plan of Treatment Upcoming Encounters Date Type Department Care Team (Late st Contact Info) Description 12/17/2024 10:00 AM EST Nurse Only Ancillary [address] [place] [address] [place], Nurse Annual [address] [place] [address] 07/12/2025 12:30 PM EDT Imaging Radiology [address] [place] [address] Scheduled Procedures Name Priority Associated Diagnoses Date/Ti [...] filedocumented as of this encounter Care Teams Deputy Sheriff Generalist Relationship Specialty Start Date End Date Je Lawrence MD [address] [place] [address] [place] [address] PCP - General Family Medicine 04/13/20 documented as of this encounter
--- OUTSIDE RECORDS SUMMARY | 2024-07-22 05:15 | External Medical Summary | Summary of Care ---
Author Name Unknown Organization [facility] Address [address] [place] [address] Phone [phone] Care Team Providers Care Tree Inspector Name Role Phone Je Lawrence MD Primary Care Provide r Reason for Visit * Reason Comments Medication Refill Encounter Details Date Type Department Care Team (Late st Contact Info) Description 07/05/2024 Refill Family Medicine [address] [phone] Je Lawrence MD [address] [place] [address] [place] [address] Encounter for long-term (current) use of medications*; Arthralgia of foot, unspecified laterality Allergies No known active allergiesdocumented as of this encounter (statuses as of 07/06/2024) Medications Medication Sig Dispensed Refills Start Date [...] hemoglobin A1c goal of less than 7.0% ([facility]) Use to test blood sugar TWICE a day. Dx E11.9 200 Each 3 12/05/2022 Active Xultophy 100-3.6 UNIT-MG/ML Subcutaneous Solution Pen-injector (Insulin Degludec-Liraglutid e)Indications:Type 2 diabetes mellitus with hemoglobin A1c goal of less than 7.0% ([facility]) Inject 24 Units under the skin in the morning. DXe11.9. 30 mL 3 08/21/2023 Active Albuterol Sulfate HFA 108 (90 Base) MCG/ACT Inhalation Aerosol SolutionIndications :Wheezing,Acute cough INHALE TWO PUFFS BY MOUTH EVERY FOUR HOURS NEEDED FOR WHEEZING 54 g 1 09/18/2023 09/09/20 24 Active Lisinopril 5 MG Oral Tablet (Prinivil)Indicatio [...] hemoglobin A1c goal of less than 7.0% ([facility]) USE ONCE DAILY WITH XULTOPHY 100 Each 3 02/02/2024 01/31/20 25 Active DULoxetine HCl 30 MG Oral Capsule [...] Take 1 Capsule by mouth daily. Active Aspirin-Acetaminoph en-Caffeine 250-250-65 MG Oral Tablet (Excedrin Migraine) Take 4 Tablets by mouth as needed. Active Sulindac 200 MG Oral TabletIndications:A rthralgia of foot, unspecified laterality TAKE ONE TABLET BY MOUTH TWICE A DAY NEEDED FOR PAIN 200 Tablet 1 07/06/2024 Active Sulindac 200 MG Oral TabletIndications:A rthralgia of foot, unspecified laterality TAKE ONE TABLET BY MOUTH TWICE A DAY NEEDED FOR PAIN 200 Tablet 1 09/18/2023 07/05/20 24 Discontinu ed(Refill) documented as of this encounter (statuses as of 07/06/2024) Active Problems Problem Noted Date Diagnosed Date Class 2 severe obesity due t o excess calories with serious comorbidity and body mass index (BMI) of 36.0 to 36.9 in adult 11/05/2023 Atherosclerosis of [place] co ronary artery without angina pectoris 11/05/2023 [...] as of this encounter (statuses as of 07/06/2024) Resolved Problems Problem Noted Date Diagnosed Date [...] as of this encounter (statuses as of 07/06/2024) Immunizations Name Administration Dates Next Due COVID-19 mRNA, LNP-s, No Pre serve, 2-Dose Series ([employer]) 01/31/2022,07/19/2021,12/25/2020,12/05 COVID-19, MRNA-LNP, 23-24, P F, 30 MCG/0.3 mL, 12 YRS AND ABOVE, IM ([employer]-Comirnaty) 11/10/2023 Covid-19, Mrna, Lnp-s, Pf, B ivalent, 30 Mcg, IM, 12 yrs and above (Pfizer) 09/02/2022 Hepatitis B, 20+ yrs 03/14/2015,05/31/2014,03/08 Pneumococcal Conjugate Vacci ne, 20-valent ([id number]) 05/15/2022 Pneumococcal Polysaccharide PPV23 (Pneumovax) 03/09/2009 Seasonal [...] No 12/11/2023 Does the household have a [facility] hospitall[facility] source of income? (Household - for [...] encounter Miscellaneous Notes * Telephone Encounter - Jennifer Devlin [facility] - 07/06/2024 3:44 PM EDTSigned Prescriptions: Disp Refills Sulindac 200 MG Oral Tablet 200 Ta*1 Sig: TAKE ONE TABLET BY MOUTH TWICE A DAY NEEDED FOR PAIN Authorizing Provider: JE LAWRENCE Ordering User: JENNIFER DEVLIN * Telephone Encounter - Jennifer Devlin RPh - 07/06/2024 3:43 PM EDT Needs hgb on file yearly. May obtain with next routine labs. Jennifer Hughes Clinical Pharmacist [facility] [phone] 07/06/2024, 3:43 PM * Telephone Encounter - Blanche Marcos PHARM Tech - 07/06/2024 2:33 PM EDT Did you pend patient's preferred pharmacy and medication before forwarding?yes Pharmacy: [facility] Pending Prescriptions: Disp Refills Sulindac 200 MG Oral Tablet 200 Ta*1 Sig: TAKE ONE TABLET BY MOUTH TWICE A DAY NEEDED FOR PAIN Last Visit: 01/22/2024 (in office), Visit date not found (telemedicine) Next Visit: Visit date not found If no future appointments scheduled, and last appointment is greater than a year ago, please schedule patient for a follow-up appointment Last date the medication was ordered: 09/18/2023 Is this request for a controlled substance?No Urine Drug Screen:No results found. However, due to the size of the patient record, not all encounters were searched. Please check Results Review for a complete set of results. Patient Phone Numbers Labs: Lab Results Component Value Date/Time CREAT 0.8 05/12/2024 11:27 AM CREAT 0.65 12/14/2020 12:00 AM CREAT 0.7 11/13/2020 01:01 PM POTASSIUM 5.0 05/12/2024 11:27 AM POTASSIUM 4.6 11/13/2020 01:01 PM TSH 1.47 01/25/2022 10:55 AM TSH 1.61 11/20/2018 12:16 PM LDL 33 12/09/2023 11:14 AM LDL 38 11/13/2020 01:01 PM LDL 40 12/22/2019 08:28 AM LDLCALC 34 (A) 12/14/2020 12:00 AM ALT 23 05/12/2024 11:27 AM ALT 44 (H) 12/22/2019 08:28 AM HGBA1C 6.4 (H) 05/12/2024 11:27 AM HGBA1C 7.0 (A) 12/14/2020 12:00 AM HGBA1C 6.9 (H) 11/13/2020 01:01 PM documented in this encounter Plan of Treatment Upcoming Encounters Date Type Department Care Team (Late st Contact Info) Description 12/17/2024 10:00 AM EST Nurse Only Ancillary [address] [place] [address] [place], Nurse [address] [place] [address] 07/12/2025 12:30 PM EDT Imaging Radiology [address] [place] [address] Scheduled Orders Name Type Priority Associated Diagnoses Orde r Schedule HGB Lab Routine Encounter for long-term (current) use of medications Expected: 07/13/2024 (Approximate), Expires: 07/06/2025 Scheduled Procedures Name Priority Associated Diagnoses Date/Ti [...] Not on filedocumented as of this encounter Visit Diagnoses Diagnosis Encounter for long-term (current) use of medications- Primary Encounter for long-term (current) use of other medications Arthralgia of foot, unspecified laterality Screening mammogram for breast cancer documented in this encounter Care Teams Tree Inspector Relationship Specialty Start Date End Date Je Lawrence MD [address] [place] [address] [place] [phone] PCP - General Family Medicine 04/13/20 documented as of this encounter
--- OUTSIDE RECORDS SUMMARY | 2024-07-22 05:15 | External Medical Summary | Summary of Care ---
Author Name Unknown Organization [facility] Address [address] [place] [address] Phone [phone] Care Team Providers Care Barrel Assembler Name Role Phone Je Lawrence MD Primary Care Provide r Encounter Details Date Type Department Care Team (Late st Contact Info) Description 06/07/2024 [facility] [address] [place], [place] [id number] Josey El, informatica mdm developer Medication management*; Referred for management of medication therapy Allergies No known active allergiesdocumented as of this encounter (statuses as of 06/10/2024) Medications Medication Sig Dispensed Refills Start Date [...] A1c goal of less than 7.0% ([facility]) Use to test blood sugar TWICE a [...] 4 Tablets by mouth as needed. Active Vitamin D 50 MCG (1999) Oral Capsule Take 2,000 Units by mouth daily. 06/10/20 Discontinu ed(Medicat ion List Clean Up) Pulmicort Flexhaler 180 MCG/ACT Inhalation Aerosol Powder Breath ActivatedIndication s:Mild intermittent asthma with exacerbation Inhale 2 Puffs by mouth in the morning and 2 Puffs in the evening. 120 Each 1 01/08/2023 06/10/20 Discontinu ed(Medicat ion List Clean Up) documented as of this encounter (statuses as of 06/10/2024) Active Problems Problem Noted Date Diagnosed Date Class 2 severe obesity due t o excess calories with serious comorbidity and body mass index (BMI) of 36.0 to 36.9 in adult 11/05/2023 Atherosclerosis of [place] ronary artery without angina pectoris 11/05/2023 [...] as of this encounter (statuses as of 06/10/2024) Resolved Problems Problem Noted Date Diagnosed Date [...] as of this encounter (statuses as of 06/10/2024) Immunizations Name Administration Dates Next Due COVID-19 mRNA, LNP-s, No Pre serve, 2-Dose Series ([employer] 01/31/2022,07/19/2021,12/25/2020,12/05 COVID-19, MRNA-LNP, 23-24, P F, 30 MCG/0.3 mL, 12 YRS AND ABOVE, IM (PFIZER-Comirnaty) 11/10/2023 Covid-19, Mrna, Lnp-s, Pf, B ivalent, 30 Mcg, IM, 12 yrs and above (Pfizer) 09/02/2022 Hepatitis B, 20+ yrs 03/14/2015,05/31/2014,03/08 Pneumococcal Conjugate Vacci ne, 20-valent ([id number]) 05/15/2022 Pneumococcal Polysaccharide PPV23 (Pneumovax) 03/09/2009 Seasonal [...] No 12/11/2023 Does the household have a [facility] source of income? (Household - for ages [...] on file documented as of this encounter Progress Notes * Mabel Hood, [facility] - 06/10/2024 12:42 PM EDT Yessi Braden is a 58 year old female. Objective: Review of patient's allergies indicates: No Known Allergies Current Outpatient Medications - WARNING: List may be incomplete due to filtering Medication Sig Dispense Refill Blnmdql-Qqalgiufiozqy-Mozcngyl 250-250-65 MG Oral Tablet (Excedrin Migraine) Take 4 Tablets by mouth as needed. Docusate Sodium 100 MG Oral Capsule (Colace) Take 1 Capsule by mouth daily. Fexofenadine HCl 180 MG Oral Tablet (Teri) Take 1 Tablet by mouth in the morning. Fish Oil 1200 MG Oral Capsule Take 1 Capsule by mouth daily. Gabapentin 300 MG Oral Capsule (Neurontin) Take 2 Capsules by mouth in the morning and 2 Capsules before bedtime. (Patient taking differently: Take 2 Capsules by mouth in the morning and 2 Capsules at noon and 2 Capsules before bedtime.) 360 Capsule 1 metFORMIN HCl ER 500 MG Oral Tablet Extended Release 24 Hour (Glucophage XR) TAKE TWO TABLETS BY MOUTH TWICE A DAY 400 Tablet 0 Atorvastatin Calcium 20 MG Oral Tablet (Lipitor) TAKE ONE TABLET BY MOUTH EVERY DAY 90 Tablet 1 Omeprazole 20 MG Oral Capsule Delayed Release (PriLOSEC) TAKE ONE CAPSULE BY MOUTH IN THE MORNING ONE HOUR BEFORE THE FIRST MEAL OF THE DAY 90 Capsule 1 DULoxetine HCl 30 MG Oral Capsule Delayed Release Particles (Cymbalta) Take 1 Capsule by mouth in the morning. Do not cut, crush or chew. 100 Capsule 1 SUMAtriptan Succinate 100 MG Oral Tablet TAKE ONE TABLET BY MOUTH NEEDED FOR MIGRAINE, THEN AN ADDITIONAL ONE TABLET TWO HOURS AFTER FOR CONTINUED SYMPTOMS 16 Tablet 2 Lisinopril 5 MG Oral Tablet (Prinivil) TAKE ONE TABLET BY MOUTH IN THE MORNING 90 Tablet 3 Albuterol Sulfate HFA 108 (90 Base) MCG/ACT Inhalation Aerosol Solution INHALE TWO PUFFS BY MOUTH EVERY FOUR HOURS NEEDED FOR WHEEZING 54 g 1 Sulindac 200 MG Oral Tablet TAKE ONE TABLET BY MOUTH TWICE A DAY NEEDED FOR PAIN 200 Tablet 1 Xultophy 100-3.6 UNIT-MG/ML Subcutaneous Solution Pen-injector (Insulin Degludec-Liraglutide) Inject 24 Units under the skin in the morning. DXe11.9. 30 mL 3 Centrum Silver 50+Women Oral Tablet Take by mouth. Vitamin E 100 UNIT Oral Capsule Take 1 Capsule by mouth in the morning. ASPIRIN 81 MG PO TABS Take by mouth daily. Unifine Pentips 32G X 4 MM (Insulin Pen Needle) USE ONCE DAILY WITH XULTOPHY 100 Each 3 OneTouch Delica Lancets 30G Use to test blood sugar TWICE a day. Dx E11.9 200 Each 3 OneTouch Verio Reflect w/Device Kit Immunization History Administered Date(s) Administered COVID-19 mRNA, LNP-s, No Preserve, 2-Dose Series ([employer] 12/05/2020, 12/25/2020, 07/19/2021, 01/31/2022 COVID-19, MRNA-LNP, 23-24, PF, 30 MCG/0.3 mL, 12 YRS AND ABOVE, IM (PFIZER- Comirnaty) 11/10/2023 Covid-19, Mrna, Lnp-s, Pf, Bivalent, 30 Mcg, IM, 12 yrs and above (Pfizer) 09/02/2022 Hepatitis B, 20+ yrs 03/08/2014, 05/31/2014, 03/14/2015 Pneumococcal Conjugate Vaccine, 20-valent ([id number]) 05/15/2022 Pneumococcal Polysaccharide PPV23 (Pneumovax) 03/09/2009 Seasonal Influenza Virus Vaccine, Unspecified Formulation 07/06/2021 Seasonal Influenza, PF, 6 M & above, IM , (FluLaval or Fluzone) 07/09/2018, 07/26/2019, 07/14/2020, 09/02/2022, 07/21/2023 Seasonal Influenza, Quadrivalent, No Preserve, IM 12/26/2016 Seasonal Influenza, Split, IIV3, With Preserve, Inj 08/03/2011, 08/03/2012, 08/20/2013 TD - Tetanus/Diptheria (ADULT) 10/20/2003 TDAP (age 10 and older)(Boostrix) 11/10/2023 TDAP, Age 7 and older, IM (Adacel) 11/28/2011 Zoster Vaccine Recombinant (Shingrix) 07/09/2018, 09/28/2018 TMR Interventions Incomplete Encounter MTPs No medication therapy recommendations to display Complete Encounter MTPs No medication therapy recommendations to display Assessment & Plan Indication, effectiveness, safety and convenience of her medications were reviewed today. The patient's medical conditions were assessed, evaluated, and deemed meeting goals of drug therapy, with thefollowing exceptions. Additional Notes: See internal communications intern note Summary Time Spent: 16-30 min Supervising pharmacist who provided the service: Galdino Hernandez Information Who was the recipient of the CMR service: beneficiary Language Template for the Patient Takeaway: Latvian I attest that I have reviewed and updated the patient's conditions, allergies, and medications to the best of my ability. Patient provided medication list gathered by: Jazmyn Ortiz CPhT Mabel Hood RPh 06/10/2024, 12:42 PM * Josey El, informatica mdm developer - 06/07/2024 2:16 PM EDT Yessi Braden is a 58 year old female. Objective: Review of patient's allergies indicates: No Known Allergies Current Outpatient Medications - WARNING: List may be incomplete due to filtering Medication Sig Dispense Refill Jrtktjs-Bmvvhezngikyi-Amfoaexv 250-250-65 MG Oral Tablet (Excedrin Migraine) Take 4 Tablets by mouth as needed. Docusate Sodium 100 MG Oral Capsule (Colace) Take 1 Capsule by mouth daily. Fexofenadine HCl 180 MG Oral Tablet (Teri) Take 1 Tablet by mouth in the morning. Fish Oil 1200 MG Oral Capsule Take 1 Capsule by mouth daily. metFORMIN HCl ER 500 MG Oral Tablet Extended Release 24 Hour (Glucophage XR) TAKE TWO TABLETS BY MOUTH TWICE A DAY 400 Tablet 0 Atorvastatin Calcium 20 MG Oral Tablet (Lipitor) TAKE ONE TABLET BY MOUTH EVERY DAY 90 Tablet 1 Omeprazole 20 MG Oral Capsule Delayed Release (PriLOSEC) TAKE ONE CAPSULE BY MOUTH IN THE MORNING ONE HOUR BEFORE THE FIRST MEAL OF THE DAY 90 Capsule 1 DULoxetine HCl 30 MG Oral Capsule Delayed Release Particles (Cymbalta) Take 1 Capsule by mouth in the morning. Do not cut, crush or chew. 100 Capsule 1 SUMAtriptan Succinate 100 MG Oral Tablet TAKE ONE TABLET BY MOUTH NEEDED FOR MIGRAINE, THEN AN ADDITIONAL ONE TABLET TWO HOURS AFTER FOR CONTINUED SYMPTOMS 16 Tablet 2 Lisinopril 5 MG Oral Tablet (Prinivil) TAKE ONE TABLET BY MOUTH IN THE MORNING 90 Tablet 3 Albuterol Sulfate HFA 108 (90 Base) MCG/ACT Inhalation Aerosol Solution INHALE TWO PUFFS BY MOUTH EVERY FOUR HOURS NEEDED FOR WHEEZING 54 g 1 Sulindac 200 MG Oral Tablet TAKE ONE TABLET BY MOUTH TWICE A DAY NEEDED FOR PAIN 200 Tablet 1 Xultophy 100-3.6 UNIT-MG/ML Subcutaneous Solution Pen-injector (Insulin Degludec-Liraglutide) Inject 24 Units under the skin in the morning. DXe11.9. 30 mL 3 Centrum Silver 50+Women Oral Tablet Take by mouth. Vitamin E 100 UNIT Oral Capsule Take 1 Capsule by mouth in the morning. ASPIRIN 81 MG PO TABS Take by mouth daily. Gabapentin 300 MG Oral Capsule (Neurontin) Take 2 Capsules by mouth in the morning and 2 Capsules before bedtime. (Patient taking differently: Take 2 Capsules by mouth in the morning and 2 Capsules at noon and 2 Capsules before bedtime.) 360 Capsule 1 Unifine Pentips 32G X 4 MM (Insulin Pen Needle) USE ONCE DAILY WITH XULTOPHY 100 Each 3 Pulmicort Flexhaler 180 MCG/ACT Inhalation Aerosol Powder Breath Activated Inhale 2 Puffs by mouth in the morning and 2 Puffs in the evening. (Patient not taking: Reported on 01/22/2024) 120 Each 1 OneTouch Delica Lancets 30G Use to test blood sugar TWICE a day. Dx E11.9 200 Each 3 Imina TechnologiesTouch Verio Reflect w/Device Kit Vitamin D 50 MCG (1999 [place]) Oral Capsule Take 2,000 Units by mouth daily. (Patient not taking: Reported on 06/07/2024) Immunization History Administered Date(s) Administered COVID-19 mRNA, LNP-s, No Preserve, 2-Dose Series ([employer] 12/05/2020, 12/25/2020, 07/19/2021, 01/31/2022 COVID-19, MRNA-LNP, 23-24, PF, 30 MCG/0.3 mL, 12 YRS AND ABOVE, IM ([employer]) 11/10/2023 Covid-19, Mrna, Lnp-s, Pf, Bivalent, 30 Mcg, IM, 12 yrs and above ([employer] 09/02/2022 Hepatitis B, 20+ yrs 03/08/2014, 05/31/2014, 03/14/2015 Pneumococcal Conjugate Vaccine, 20-valent ([id number]) 05/15/2022 Pneumococcal Polysaccharide PPV23 (Pneumovax) 03/09/2009 Seasonal Influenza Virus Vaccine, Unspecified Formulation 07/06/2021 Seasonal Influenza, PF, 6 M & above, IM , (FluLaval or Fluzone) 07/09/2018, 07/26/2019, 07/14/2020, 09/02/2022, 07/21/2023 Seasonal Influenza, Quadrivalent, No Preserve, IM 12/26/2016 Seasonal Influenza, Split, IIV3, With Preserve, Inj 08/03/2011, 08/03/2012, 08/20/2013 TD - Tetanus/Diptheria (ADULT) 10/20/2003 TDAP (age 10 and older)(Boostrix) 11/10/2023 TDAP, Age 7 and older, IM (Adacel) 11/28/2011 Zoster Vaccine Recombinant (Shingrix) 07/09/2018, 09/28/2018 TMR Interventions Incomplete Encounter MTPs No medication therapy recommendations to display Complete Encounter MTPs No medication therapy recommendations to display Assessment & Plan Indication, effectiveness, safety and convenience of her medications were reviewed today. The patient's medical conditions were assessed, evaluated, and deemed meeting goals of drug therapy, with thefollowing exceptions. Additional Notes: Patient appears adherent and denies any issues with medications. 25 minute CMR. Summary Time Spent: No Previous Data Supervising pharmacist who provided the service: No Previous Data Takeaway Information Who was the recipient of the CMR service: beneficiary Language Template for the Patient Takeaway: Latvian I attest that I have reviewed and updated the patient's conditions, allergies, and medications to the best of my ability. Patient provided medication list gathered by: Breanna Elder, [facility] STEPH Murrell 06/07/2024, 2:16 PM documented in this encounter Miscellaneous Notes * MTM Personal Medication List - Josey El PHARM Tech - 06/07/2024 1:59 PM EDT Medication How I take it Why I use it Prescriber Albuterol Sulfate HFA 108 (90 Base) MCG/ACT Inhalation Aerosol Solution Inhale 2 puffs by mouth every 4 hours as needed. Shortness of Breath Je Lawrence MD ASPIRIN 81 MG PO TABS Take 1 tablet by mouth once daily. Heart Health Self Yrcczom-Ofojwhbtjkort-Jkuhgyuq 250-250-65 MG Oral Tablet (Excedrin Migraine) Take 4 tablets by mouth as needed. Migraine Self Atorvastatin Calcium 20 MG Oral Tablet (Lipitor) Take 1 tablet by mouth once daily. Cholesterol Je Lawrence MD Centrum Silver 50+Women Oral Tablet Take 1 tablet by mouth daily. General Health Self Docusate Sodium 100 MG Oral Capsule (Colace) Take 1 capsule by mouth daily. Constipation Self DULoxetine HCl 30 MG Oral Capsule Delayed Release Particles (Cymbalta) Take 1 capsule by mouth in the morning. Nerve Pain Je Lawrence MD Fexofenadine HCl 180 MG Oral Tablet (Teri) Take 1 tablet by mouth in the morning. Allergies Self Fish Oil 1200 MG Oral Capsule Take 1 capsule by mouth daily. General Health Self Gabapentin 300 MG Oral Capsule (Neurontin) Take 2 capsules by mouth three times daily. Nerve Pain Je Lawrence MD Lisinopril 5 MG Oral Tablet (Prinivil) Take 1 tablet by mouth once daily. Blood Pressure Je Lawrence MD metFORMIN HCl ER 500 MG Oral Tablet Extended Release 24 Hour (Glucophage XR) Take 2 tablets by mouth twice daily. Diabetes Je Lawrence MD Omeprazole 20 MG Oral Capsule Delayed Release (PriLOSEC) Take 1 capsule by mouth once daily 1 hour before first meal. Heartburn Je Lawrence MD Sulindac 200 MG Oral Tablet Take 1 tablet by mouth twice daily as needed. Pain Je Lawrence MD SUMAtriptan Succinate 100 MG Oral Tablet Take 1 tablet by mouth once as needed. May take an additional tablet after 2 hours if symptoms continue. Migraine Je Lawrence MD Vitamin E 100 UNIT Oral Capsule Take 1 capsule by mouth in the morning. General Health Self Xultophy 100-3.6 UNIT-MG/ML Subcutaneous Solution Pen-injector (Insulin Degludec-Liraglutide) Inject 24 units under the skin in the morning. Diabetes Romi Jaramillo MD * MTM To-Do-List - Josey El informatica mdm developer - 06/07/2024 1:59 PM EDT Images from the original note were not included. What we talked about: What I should do: The importance of taking your medication as prescribed Your medicine works best when taken as prescribed. It can be hard to remember to take daily medications. Consider making it a part of your daily routine. Pair taking your medication with something you do every day, like brushing your teeth or eating a meal. Consider setting daily alarms to help remind yourself when it is time to take your medicine. Using a pill box can also help you organize your medicines. Pill boxes allow you to fill each day slot with your daily medicine and help you track when your next dose is due. What we talked about: What I should do: Low Blood Sugar When your blood sugar is too high or too low your body could experience symptoms. Signs include: dizziness, shakiness, feeling hungry, feeling thirsty, sweatiness, nervousness, irritability, weakness, sleepiness, blurred vision, increased urination, lack of coordination. If you notice any of these signs, it is a great time to check your blood sugar. When your blood sugar is 70 mg/dl or below, it is important to increase blood sugar immediately. Low blood sugar could lead to coma and even . When you notice your sugar is low, eat a small snack containing sugar. Some examples include: drink a small amount of orange juice (4 ounces), 4 ouncesof regular soda or milk, taking glucose tablets (15 grams), or eat 1 tablespoonful of sugar. Wait 15 minutes, and recheck your blood sugar. If your sugar is still low, try to increase it again by eating a small amount of sugar. Recheck your blood sugar in 15 minutes. If after two attempts to raise it, and your blood sugar is still low-call your doctor immediately. What we talked about: What I should do: [facility] You can get a 90 day supply of your prescription medications delivered to your home. You also can be signed up for automatic refills. Typically, patients who switch to mail order save money on their monthly prescriptions. You will have access to a pharmacist to answer any questions about your medications (Friday- Friday, 6:30 am to 7 pm). Call [phone] to enroll in mail order services today. documented in this encounter Plan of Treatment Upcoming Encounters Date Type Department Care Team (Late st Contact Info) Description 12/17/2024 10:00 AM EST Nurse Only [place]illary [place] [address] [place] [id number] [place], Nurse [address] [place] [phone] Scheduled Procedures Name Priority Associated Diagnoses Date/Ti [...] as of this encounter Visit Diagnoses Diagnosis Medication management- Primary Encounter for long-term (current) use of other medications Referred for management of medication therapy Encounter for long-term (current) use of other medications documented in this encounter Care Teams Barrel Assembler Relationship Specialty Start Date End Date Je Lawrence MD [address] [place] [address] [place] [id number] PCP - General Family Medicine 04/13/20 documented as of this encounter
--- OUTSIDE RECORDS SUMMARY | 2024-07-22 05:15 | External Medical Summary | Summary of Care ---
Author Name Unknown Organization [facility] Address [address] [place] [address] Phone [phone] Care Team Providers Care Melter Helper Name Role Phone Elena Lawrence MD Primary Care Provide r Reason for Visit * Reason Comments Medication Refill Encounter Details Date Type Department Care Team (Late st Contact Info) Description 05/11/2024 Refill Family Medicine [address] [phone] Elena Lawrence MD [address] [place] [address] [place] [address] Encounter for long-term (current) use of medications* Allergies No known active allergiesdocumented as of [...] hemoglobin A1c goal of less than 7.0% ([facility]) Use to test blood sugar [...] hemoglobin A1c goal of less than 7.0% ([facility]) Inject 24 Units under the [...] hemoglobin A1c goal of less than 7.0% ([facility]) USE ONCE DAILY WITH XULTOPHY [...] TWICE A DAY 400 Tablet 05/12/2024 Active metFORMIN HCl ER 500 MG Oral Tablet Extended Release 24 Hour (Glucophage XR) TAKE TWO TABLETS BY MOUTH TWICE A DAY 400 Tablet 12/04/2023 4 Discontinu ed(Refill) documented as of this encounter (statuses as of 05/20/2024) Active Problems Problem Noted Date Diagnosed Date Class 2 severe obesity due t o excess calories with serious comorbidity and body mass index (BMI) of 36.0 to 36.9 in adult 11/05/2023 Atherosclerosis of [place] co ronary artery without angina pectoris 11/05/2023 [...] 07/20/2018 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 [place]'s syndrome 07/20/2018 Other abnormal glucose 03/14 Overview: prediabetes - on metformin Sleep apnea 07/20/2018 documented as of this encounter (statuses as of 05/20/2024) Immunizations Name Administration Dates Next Due COVID-19 mRNA, LNP-s, No Pre serve, 2-Dose Series ([facility]) 01/31/2022,07/19/2021,12/25/2020,12/05 COVID-19, MRNA-LNP, 23-24, P F, 30 MCG/0.3 mL, 12 YRS AND ABOVE, IM ([facility]Comirnaty) 11/10/2023 Covid-19, Mrna, Lnp-s, Pf, B ivalent, 30 Mcg, IM, 12 yrs and above ([facility]) 09/02/2022 Hepatitis B, 20+ yrs 03/14/2015,05/31/2014,03/08 Pneumococcal Conjugate Vacci ne, 20-valent ([id number]) 05/15/2022 Pneumococcal Polysaccharide PPV23 (Pneumovax) 03/09/2009 Seasonal [...] encounter Miscellaneous Notes * Telephone Encounter - Baudilio Loving RPh - 05/20/2024 10:27 AM EDT Received message to contact patient regarding scheduling labs due to be completed. However, patienthas had labs completed in the interim. No further action required. Thanks, Baudilio Loving Rph, Pharm D. Clinical Pharmacist [facility] [phone] 05/20/2024,10:27 AM * Telephone Encounter - Bharat Devlin RPh - 05/12/2024 8:57 AM EDTSigned Prescriptions: Disp Refills metFORMIN HCl ER 500 MG Oral Tablet Extend*400 Ta*0 Sig: TAKE TWO TABLETS BY MOUTH TWICE A DAY Authorizing Provider: ELENA LAWRENCE Ordering User: BHARAT DEVLIN * Telephone Encounter - Bharat Devlin RPh - 05/12/2024 8:56 AM EDT Provided 100 days supply with 0 refill(s). Per refill protocol patient should have routine labs on file within past year. Reviewed AMP report, Care Gaps/Health Maintenance, medications list, and for any routine labs typically ordered for this patient. Lab orders placed. Please contact patient to advise of labs ordered for blood draw. Fasting is not required. Advise toobtain labs before requesting the next refill. Thanks, Bharat Devlin Clinical Pharmacist [facility] ([facility]) [phone] 05/12/2024, 8:56 AM documented in this encounter Plan of Treatment Upcoming Encounters Date Type Department Care Team (Late st Contact Info) Description 05/28/2024 11:00 AM EDT Imaging Radiology [address] [place] [address] 12/17/2024 10:00 AM EST Nurse Only Ancillary [address] [place] [address] [place], Nurse Annual [address] [place] [address] Scheduled Procedures Name Priority Associated Diagnoses Date/Ti [...] 12/04/2022, Additional history exists B-12 05/12/2025 05/12/2024, 082 01/2023, 05/15/2022, Additional history exists GFR 05/12/2025 05/12/2024, 082 11/2022, 01/13/2023, Additional history exists Colonoscopy 05/13/2026 05/13/2023, [...] Not on filedocumented as of this encounter Results * (ABNORMAL) HEMOGLOBIN A1C (05/12/2024 11:27 AM EDT) Hemoglobin A1C 6.4(H) 4.0 - 5.6 % 05/12/2024 6:29 PM EDT [facility] Comment:The use of HbA1c to monitor glycemic status is based on normal hemoglobin and HbA composition. This test should not be used in patients with abnormal hemoglobin that affects the half life of the red blood cell or the in vivo glycation rates. Estimated Average Glucose 137(H) <126 mg/dL 05/12/2024 6:29 PM EDT [facility] Blood Venous blood specimen / Unknown Venipuncture / Unknown 05/12/2024 11:27 AM EDT 05/12/2024 11:27 AM EDT Bharat Devlin [facility] LAB BLOOD ORDERABLES Performing Organization Address City/[facility]/ZIP Co de Phone Number [facility] [address] [place] [address] * VITAMIN B12 (05/12/2024 11:27 AM EDT) Pathologist [facility] Vitamin B12 503 232 - 1,245 pg/mL 05/12/2024 6:50 PM EDT [facility] Blood Venous blood specimen / Unknown Venipuncture / Unknown 05/12/2024 11:27 AM EDT 05/12/2024 11:27 AM EDT Bharat Devlin [facility] LAB BLOOD ORDERABLES [facility] [address] [place] [address] * COMPREHENSIVE METABOLIC PANEL (05/12/2024 11:27 AM EDT) [facility] BUN 17 6 - 20 mg/dL 05/12/2024 12:37 PM EDT LABORATORY [facility] 57-10 Creatinine 0.8 0.5 - 1.0 mg/dL 05/12/2024 12:37 PM EDT LAB[facility]ORY [facility] 57-10 Estimated Glomerular Filtration Rate 84 >=60 mL/min 05/12/2024 12:37 PM EDT [facility] 57-10 Comment:eGFR is calculated b ased on the CKD-EPI 2020 equation. Sodium 141 135 - 146 mmol/L 05/12/2024 12:37 PM EDT LAB[facility]ATORY [facility] 57-10 Potassium 5.0 3.5 - 5.1 mmol/L 05/12/2024 12:37 PM EDT LABORATORY [place] 57-10 Chloride 105 98 - 107 mmol/L 05/12/2024 12:37 PM EDT LAB[facility]ATORY [facility] 57-10 CO2 29 22 - 32 mmol/L 05/12/2024 12:37 PM EDT [facility] [place] [facility] Anion Gap 7 7 - 15 mmol/L 05/12/2024 12:37 PM EDT LAB[facility]ORY [facility] 57-10 Glucose 103 70 - 120 mg/dL 05/12/2024 12:37 PM EDT LABORATORY [place] 57-10 Albumin 4.0 3.8 - 5.0 g/dL 05/12/2024 12:37 PM EDT LABORATORY [place] 57-10 AST 18 10 - 35 U/L 05/12/2024 12:37 PM EDT LABORATORY [place] 5710 Alkaline Phosphatase 113 35 - 130 U/L 05/12/2024 12:37 PM EDT LAB[facility]ORY [facility] 57-10 Bilirubin, Total 0.3 <=1.2 mg/dL 05/12/2024 12:37 PM EDT LAB[facility]ORY [facility] 57-10 Calcium 10.1 8.4 - 10.2 mg/dL 05/12/2024 12:37 PM EDT LAB[facility]ORY [facility] 57-10 Protein 6.3 6.0 - 8.3 g/dL 05/12/2024 12:37 PM EDT LAB[facility]ORY [facility] 5710 ALT 23 10 - 35 U/L 05/12/2024 12:37 PM EDT [facility]ATORY [facility] 57-10 Blood Venous blood specimen / Unknown Venipuncture / Unknown 05/12/2024 11:27 AM EDT 05/12/2024 11:27 AM EDT Bharat Devlin [facility] LAB BLOOD ORDERABLES [facility]ORY [facility] 57-[facility] [address] [facility] [place] [address] documented in this encounter Visit Diagnoses Diagnosis Encounter for long-term (current) use of medications- Primary Encounter for long-term (current) use of other medications documented in this encounter Care Teams Melter Helper Relationship Specialty Start Date End Date Elena Lawrence MD [address] [place] [address] [place] [address] PCP - General Family Medicine 04/13/20 documented as of this encounter
--- OUTSIDE RECORDS SUMMARY | 2024-07-22 05:15 | External Medical Summary | Summary of Care ---
Author Name Unknown Organization [facility] Address [address] [place] [address] Phone [phone] Care Team Providers Care Site Safety Representative Name Role Phone Je Lawrence MD Primary Care Provide r Encounter Details Date Type Department Care Team (Late st Contact Info) Description 05/11/2024 Population Health External Data Unspecified Department Allergies No known active allergiesdocumented as of this encounter (statuses as of 05/14/2024) Medications Medication Sig Dispensed Refills Start Date [...] A1c goal of less than 7.0% ([facility]) Use to test blood sugar [...] as of this encounter (statuses as of 05/14/2024) Active Problems Problem Noted Date Diagnosed Date Class 2 severe obesity due t o excess calories with serious comorbidity and body mass index (BMI) of 36.0 to 36.9 in adult 11/05/2023 Atherosclerosis of [place] co ronary artery without angina pectoris 11/05/2023 [...] as of this encounter (statuses as of 05/14/2024) Resolved Problems Problem Noted Date Diagnosed Date [...] 07/20/2018 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 07/20/2018 Other abnormal glucose 03/14 Overview: prediabetes - on metformin Sleep apnea 07/20/2018 documented as of this encounter (statuses as of 05/14/2024) Immunizations Name Administration Dates Next Due COVID-19 mRNA, LNP-s, No Pre serve, 2-Dose Series ([facility]) 01/31/2022,07/19/2021,12/25/2020,12/05 COVID-19, MRNA-LNP, 23-24, P F, 30 MCG/0.3 mL, 12 YRS AND ABOVE, IM ([facility] 11/10/2023 Covid-19, Mrna, Lnp-s, Pf, B ivalent, 30 Mcg, IM, 12 yrs and above ([facility]) 09/02/2022 Hepatitis B, 20+ yrs 03/14/2015,05/31/2014,03/08 Pneumococcal Conjugate Vacci ne, 20-valent ([id number]) 05/15/2022 Pneumococcal Polysaccharide PPV23 (Pneumovax) 03/09/2009 Seasonal [...] 05/28/2024 11:00 AM EDT Imaging Radiology [address] [place] [address] 12/17/2024 10:00 AM EST Nurse Only Ancillary [address] [place] [address] [place], Nurse Annual [address] [place] [address] Scheduled Procedures Name Priority Associated Diagnoses Date/Ti [...] filedocumented as of this encounter Care Teams Site Safety Representative Relationship Specialty Start Date End Date Je Lawrence MD [address] [place] [address] [place] [address] PCP - General Family Medicine 04/13/20 documented as of this encounter
--- OUTSIDE RECORDS SUMMARY | 2024-07-22 05:15 | External Medical Summary | Summary of Care ---
Author Name Unknown Organization [facility] Address [address] [place] [address] Phone [phone] Care Team Providers Care Infirmary Attendant Name Role Phone Je Lawrence MD Primary Care Provide r Encounter Details Date Type Department Care Team (Late st Contact Info) Description 07/08/2024 Population Health External Data Unspecified Department Allergies No known active allergiesdocumented as of this encounter (statuses as of 07/12/2024) Medications Medication Sig Dispensed Refills Start Date [...] A1c goal of less than 7.0% (HCC) Use to test blood sugar TWICE a [...] A1c goal of less than 7.0% ([facility]) USE ONCE DAILY WITH XULTOPHY 100 [...] as of this encounter (statuses as of 07/12/2024) Active Problems Problem Noted Date Diagnosed Date Class 2 severe obesity due t o excess calories with serious comorbidity and body mass index (BMI) of 36.0 to 36.9 in adult 11/05/2023 Atherosclerosis of [place] co ronary artery without angina pectoris 11/05/2023 [...] as of this encounter (statuses as of 07/12/2024) Resolved Problems Problem Noted Date Diagnosed Date [...] 07/20/2018 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 07/20/2018 Other abnormal glucose 03/14 Overview: prediabetes - on metformin Sleep apnea 07/20/2018 documented as of this encounter (statuses as of 07/12/2024) Immunizations Name Administration Dates Next Due COVID-19 mRNA, LNP-s, No Pre serve, 2-Dose Series ([facility]) 01/31/2022,07/19/2021,12/25/2020,12/05 COVID-19, MRNA-LNP, 23-24, P F, 30 MCG/0.3 mL, 12 YRS AND ABOVE, IM [facility] 11/10/2023 Covid-19, Mrna, Lnp-s, Pf, B ivalent, 30 Mcg, IM, 12 yrs and above ([facility]) 09/02/2022 Hepatitis B, 20+ yrs 03/14/2015,05/31/2014,03/08 Pneumococcal Conjugate Vacci ne, 20-valent ([id number]) 05/15/2022 Pneumococcal Polysaccharide PPV23 (Pneumovax) 03/09/2009 Seasonal [...] 12/17/2024 10:00 AM EST Nurse Only Ancillary [address] [place] [address] [place], Nurse Annual [address] [place] [address] 07/12/2025 12:30 PM EDT Imaging Radiology [address] [place] [address] Scheduled Procedures Name Priority Associated Diagnoses Date/Ti [...] 12/04/2022, Additional history exists B-12 05/12/2025 05/12/2024, 2 01/2023, 05/15/2022, Additional history exists GFR 05/12/2025 [...] filedocumented as of this encounter Care Teams Infirmary Attendant Relationship Specialty Start Date End Date Je Lawrence MD [address] [place] [address] [place] [address] PCP - General Family Medicine 04/13/20 documented as of this encounter
--- OUTSIDE RECORDS SUMMARY | 2024-07-22 05:16 | External Medical Summary | Summary of Care ---
Author Name Unknown Organization [facility] Address [address] [place] [address] Phone [phone] Care Team Providers Care Cannoneer Name Role Phone Je Lawrence MD Primary Care Provide r Encounter Details Date Type Department Care Team (Late st Contact Info) Description 04/12/2024 Population Health External Data Unspecified Department Allergies No known active allergiesdocumented as of this encounter (statuses as of 04/13/2024) Medications Medication Sig Dispensed Refills Start Date [...] hemoglobin A1c goal of less than 7.0% ([facility]) Use to test blood sugar [...] hemoglobin A1c goal of less than 7.0% ([facility]) Inject 24 Units under the [...] WHEEZING 54 g 1 09/18/2023 4 Active metFORMIN HCl ER 500 MG Oral Tablet Extended Release 24 Hour (Glucophage XR) TAKE TWO TABLETS BY MOUTH TWICE A DAY 400 Tablet 12/04/2023 Active Lisinopril 5 MG Oral Tablet (Prinivil)Indication [...] hemoglobin A1c goal of less than 7.0% ([facility]) USE ONCE DAILY WITH XULTOPHY [...] before bedtime. 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 07/20/2018 Other abnormal glucose 03/14 Overview: prediabetes - on metformin Sleep apnea 07/20/2018 documented as of this encounter (statuses as of 04/13/2024) Immunizations Name Administration Dates Next Due COVID-19 mRNA, LNP-s, No Pre serve, 2-Dose Series ([facility]) 01/31/2022,07/19/2021,12/25/2020,12/05 COVID-19, MRNA-LNP, 23-24, P F, 30 MCG/0.3 mL, 12 YRS AND ABOVE, IM ([facility]) 11/10/2023 Covid-19, Mrna, Lnp-s, Pf, B ivalent, 30 Mcg, IM, 12 yrs and above ([facility]) 09/02/2022 Hepatitis B, 20+ yrs 03/14/2015,05/31/2014,03/08 Pneumococcal Conjugate Vacci ne, 20-valent ([id number]) 05/15/2022 Pneumococcal Polysaccharide PPV23 (Pneumovax) 03/09/2009 Seasonal [...] 12/17/2024 10:00 AM EST Nurse Only Ancillary [address] [place] [address] [place], Nurse [address] [place] [address] Scheduled Procedures Name Priority Associated Diagnoses Date/Ti me COLONOSCOPY FLEXIBLE PROXIMAL DIAGNOSTIC Recall History of colon polyps Health Maintenance Due Date Last Done Comments Cologuard 2008 Fecal Occult Blood Test 2008 Sigmoidoscopy 2008 *SPIROMETRY ONCE FOR ASTHMA-ADULT 09/12/2022 Mammogram 02/28/2024 02/27/2023, 02/17, 01/18/2022, Additional history exists HbA1c 06/08/2024 12/09/2023, 05/21, 12/04/2022, Additional history exists GFR 06/10/2024 06/10/2023, 12/19, 12/04/2022, Additional history exists B-12 06/12/2024 06/12/2023, 04/20, 02/20/2021, Additional history exists Diabetic Eye Exam 09/23/2024 09/23/2023, , 12/11/2022, Additional history exists Depression Screening 12/15/2024 12/15/2023 Diabetic Foot Exam 12/15/2024 12/15/2023, 0 12/11/2022, 11/14/2021, Additional history exists PAP SMEAR-EVERY 3 YRS,AGES 18-100 12/27/2024 12/27/2021, 06/02/2018, 06/02/2018, Additional history exists Albumin/Creatinine Ratio 04/12/2025 024, 06/12/2023, 12/04/2022, Additional history exists Colonoscopy 05/13/2026 05/13/2023, 04/20, 01/13/2018, Additional history exists Colorectal Cancer Screening 05/13/2026 DTaP,Tdap,and Td Vaccines (3 - Td or Tdap) 11/10/2033 11/10/2023, 11/28/2011, 10/20/2003 Hepatitis B Completed 03/14/2015, 05/20, 03/08/2014 Zoster Vaccines Completed 09/28/2018, 07/09/2018 Pneumococcal Vaccine: Pediatrics (0 to 5 Years) and At-Risk Patients (6 to 64 Years) Completed 05/15/2022, 03/09/2009 RETIRED - COLONOSCOPY-EVERY 5 YRS AGES 18-100 Discontinued 05/13/2023, 05/13/2023, 01/13/2018, Additional history exists Influenza Vaccine (FLU shot) Completed 07/21/2023, 09/02/2022, 07/06/2021, Additional history exists COVID-19 Vaccine Completed 11/10/2023, , 01/31/2022, Additional history exists GARDASIL-HPV IMMUNIZATION SERIES Aged Out No longer eligible based on patient's age to complete this topic MENINGOCOCCAL (MENACTRA/MENVEO) Aged Out No longer eligible based on patient's age to complete this topic documented as of this encounter Medical Devices Not on filedocumented as of this encounter Care Teams Cannoneer Relationship Specialty Start Date End Date Je Lawrence MD [address] [place] [address] [place] [address] PCP - General Family Medicine 04/13/20 documented as of this encounter
--- OUTSIDE RECORDS SUMMARY | 2024-07-22 05:16 | External Medical Summary ---
Author Name Unknown Address Unknown Organization [id number]:LABORATORY [facility] - [address] [place] [address] Laboratory Report Ordering Provider Test Date Status KING NICHOLSON 05/12/2024 11:27:02 Final Observation Date Value Abnormality Reference (Units ) Status HbA1C 05/12/2024 11:27:02 6.4 Above high normal 4. 0-5.6 (%) Final The use of HbA1c to monitor glycemic status is based on normal hemoglobin and HbA composition. This test should not be used in patients with abnormal hemoglobin that affects the half life of the red blood cell or the in vivo glycation rates. Glucose, estimated average 05/12/2024 11:27:02 137 Above high normal <126 (mg/dL) Dion spicer Performing Location [facility]ORY [facility] - [address] [place] [address]
--- OUTSIDE RECORDS SUMMARY | 2024-07-22 05:16 | External Medical Summary | Summary of Care ---
Author Name Unknown Organization [facility] Address [address] [place] [address] Phone [phone] Care Team Providers Care Patient Care Technician Instructor Name Role Phone Je Lawrence MD Primary Care Provide r Reason for Visit * Reason Comments Outpatient Testing Encounter Details Date Type Department Care Team (Late st Contact Info) Description 04/12/2024 2:50 PM EDT Laboratory Laboratory, [facility] [address] [place] [id number] [facility] [address] [place] [address] Encounter for long-term (current) use of medications; 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r disease (HCC) Allergies No known active allergiesdocumented as of this encounter (statuses as of 04/12/2024) Medications Medication Sig Dispensed Refills Start Date [...] A1c goal of less than 7.0% ([facility]) Use to test blood [...] A1c goal of less than 7.0% ([facility]) Inject 24 Units under the [...] A1c goal of less than 7.0% ([facility]) USE ONCE DAILY WITH XULTOPHY [...] as of this encounter (statuses as of 04/12/2024) Active Problems Problem Noted Date Diagnosed Date Class 2 severe obesity due t o excess calories with serious comorbidity and body mass index (BMI) of 36.0 to 36.9 in adult 11/05/2023 Atherosclerosis of [place] co ronary artery without angina pectoris 11/05/2023 [...] as of this encounter (statuses as of 04/12/2024) Resolved Problems Problem Noted Date Diagnosed Date [...] 07/20/2018 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 07/20/2018 Other abnormal glucose 03/14 Overview: prediabetes - on metformin Sleep apnea 07/20/2018 documented as of this encounter (statuses as of 04/12/2024) Immunizations Name Administration Dates Next Due COVID-19 mRNA, LNP-s, No Pre serve, 2-Dose Series ([facility]) 01/31/2022,07/19/2021,12/25/2020,12/05 COVID-19, MRNA-LNP, 23-24, P F, 30 MCG/0.3 mL, 12 YRS AND ABOVE, IM ([facility]Com[facility]) 11/10/2023 Covid-19, Mrna, Lnp-s, Pf, B ivalent, 30 Mcg, IM, 12 yrs and above (Pfizer) 09/02/2022 Hepatitis B, 20+ yrs 03/14/2015,05/31/2014,03/08 Pneumococcal Conjugate Vacci ne, 20-valent ([id number]) 05/15/2022 Pneumococcal Polysaccharide PPV23 (Pneumovax) 03/09/2009 Seasonal [...] 12/17/2024 10:00 AM EST Nurse Only Ancillary [address] [place] [address] [place], Nurse [address] [place] [address] Pending Results Name Type Priority Associated Diagnoses Date /Time MAGNESIUM Lab Routine Encounter for long-term (current) use of medications 04/12/2024 2:38 PM EDT ALBUMIN / CREATININE RATIO, URINE Lab Routine Encounter for long-term (current) use of medications 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r disease (HCC) 04/12/2024 2:39 PM EDT Scheduled Procedures Name Priority Associated Diagnoses Date/Ti me COLONOSCOPY FLEXIBLE PROXIMAL DIAGNOSTIC Recall History of colon polyps Health Maintenance Due Date Last Done Comments Cologuard 2008 Fecal Occult Blood Test 2008 Sigmoidoscopy 2008 *SPIROMETRY ONCE FOR ASTHMA-ADULT 09/12/2022 Mammogram 02/28/2024 02/27/2023, 02/17, 01/18/2022, Additional history exists HbA1c 06/08/2024 12/09/2023, 05/21, 12/04/2022, Additional history exists GFR 06/10/2024 06/10/2023, 12/19, 12/04/2022, Additional history exists Albumin/Creatinine Ratio 06/12/2024 023, 12/04/2022, 11/14/2021, Additional history exists B-12 06/12/2024 06/12/2023, 04/20, 02/20/2021, Additional history exists Diabetic Eye Exam 09/23/2024 09/23/2023, , 12/11/2022, Additional history exists Depression Screening 12/15/2024 12/15/2023 Diabetic Foot Exam 12/15/2024 12/15/2023, 0 12/11/2022, 11/14/2021, Additional history exists PAP SMEAR-EVERY 3 YRS,AGES 18-100 12/27/2024 12/27/2021, 06/02/2018, 06/02/2018, Additional history exists Colonoscopy 05/13/2026 05/13/2023, 04/20, [...] Diagnosis Encounter for long-term (current) use of medications Encounter for long-term (current) use of other medications 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r disease (HCC) documented in this encounter Care Teams Patient Care Technician Instructor Relationship Specialty Start Date End Date Je Lawrence MD [address] [place] [address] [place] [id number] PCP - General Family Medicine 04/13/20 documented as of this encounter
--- OUTSIDE RECORDS SUMMARY | 2024-07-22 05:16 | External Medical Summary ---
Author Name Unknown Address Unknown Organization [id number]:[facility] [address] [place] [address] Laboratory Report Ordering Provider Test Date Status KING NCIHOLSON 05/12/2024 11:27:02 Final Observation Date Value Abnormality Reference (Units ) Status BUN 05/12/2024 11:27:02 17 6-20 (mg/dL) Final Creatinine 05/12/2024 11:27:02 0.8 0.5-1.0 (mg/dL) Final Glomerular filtration rate/1.73 sq M.predicted [Volume Rate/Area] in Serum, Plasma or Blood by Creatinine-based formula (CKD-EPI) 05/12/2024 11:27:02 84 >=60 (mL/min) Final eGFR is calculated based on the CKD-EPI 2020 equation. Sodium 05/12/2024 11:27:02 141 135-146 (m mol/L) Final Potassium 05/12/2024 11:27:02 5.0 3.5-5.1 (m mol/L) Final Cl 05/12/2024 11:27:02 105 98-107 (mm ol/L) Final CO2 05/12/2024 11:27:02 29 22-32 (mmo l/L) Final Anion gap 05/12/2024 11:27:02 7 7-15 (mmol /L) Final Glucose 05/12/2024 11:27:02 103 70-120 (mg /dL) Final Albumin 05/12/2024 11:27:02 4.0 3.8-5.0 (g /dL) Final AST (Aspartate aminotransferase) 05/12/2024 11:27:02 18 10-35 (U/L) Final Alk Phos 05/12/2024 11:27:02 113 35-130 (U/ L) Final Bilirubin, Total 05/12/2024 11:27:02 0.3 <=1 .2 (mg/dL) Final Calcium 05/12/2024 11:27:02 10.1 8.4-10.2 ( mg/dL) Final Protein 05/12/2024 11:27:02 6.3 6.0-8.3 (g /dL) Final ALT (Alanine aminotransferase) 05/12/2024 11:27:02 23 10-35 (U/L) Final Performing Location [facility] [facility] [address]
--- OUTSIDE RECORDS SUMMARY | 2024-07-22 05:16 | External Medical Summary | Summary of Care ---
Author Name Unknown Organization [facility] Address [address] [place] [address] Phone [phone] Care Team Providers Care Spiral Winder Name Role Phone Je Lawrence MD Primary Care Provide r Reason for Visit * Reason Comments Medication Refill Encounter Details Date Type Department Care Team (Late st Contact Info) Description 05/11/2024 Refill Family Medicine [address] [phone] Je Lawrence MD [address] [place] [address] [place] [phone] Encounter for long-term (current) use of medications* Allergies No known active allergiesdocumented as of this encounter (statuses as of 05/12/2024) Medications Medication Sig Dispensed Refills Start Date [...] goal of less than 7.0% ([facility]) Use to test blood sugar [...] goal of less than 7.0% ([facility]) Inject 24 Units under the [...] goal of less than 7.0% ([facility]) USE ONCE DAILY WITH XULTOPHY [...] as of this encounter (statuses as of 05/12/2024) Active Problems Problem Noted Date Diagnosed Date Class 2 severe obesity due t o excess calories with serious comorbidity and body mass index (BMI) of 36.0 to 36.9 in adult 11/05/2023 Atherosclerosis of [place] co ronary artery without angina pectoris 11/05/2023 [...] as of this encounter (statuses as of 05/12/2024) Resolved Problems Problem Noted Date Diagnosed Date [...] as of this encounter (statuses as of 05/12/2024) Immunizations Name Administration Dates Next Due COVID-19 mRNA, LNP-s, No Pre serve, 2-Dose Series ([employer]) 01/31/2022,07/19/2021,12/25/2020,12/05 COVID-19, MRNA-LNP, 23-24, P F, 30 MCG/0.3 mL, 12 YRS AND ABOVE, IM ([employer]Comirnaty) 11/10/2023 Covid-19, Mrna, Lnp-s, Pf, B ivalent, 30 Mcg, IM, 12 yrs and above ([employer]) 09/02/2022 Hepatitis B, 20+ yrs 03/14/2015,05/31/2014,03/08 Pneumococcal Conjugate Vacci ne, 20-valent ([id number]) 05/15/2022 Pneumococcal Polysaccharide PPV23 (Pneumovax) 03/09/2009 Seasonal [...] Notes * Telephone Encounter - Jennifer Devlin RPh - 05/12/2024 8:57 AM EDTSigned Prescriptions: Disp Refills metFORMIN HCl ER 500 MG Oral Tablet Extend*400 Ta*0 Sig: TAKE TWO TABLETS BY MOUTH TWICE A DAY Authorizing Provider: JE LAWRENCE Ordering User: JENNIFER DEVLIN * Telephone Encounter - Jennifer Devlin RPh - 05/12/2024 8:56 AM EDT [...] toobtain labs before requesting the next refill. Jennifer Hughes Clinical Pharmacist [facility] [phone] 05/12/2024, 8:56 AM documented in this encounter Plan of Treatment Upcoming Encounters Date Type Department Care Team (Late st Contact Info) Description 05/28/2024 11:00 AM EDT Imaging Radiology [address] [place] [address] 12/17/2024 10:00 AM EST Nurse Only Ancillary [address] [place] [address] [place], Nurse [address] [place] [address] Scheduled Orders Name Type Priority Associated Diagnoses Orde r Schedule COMPREHENSIVE METABOLIC PANEL Lab Routine Encounter for long-term (current) use of medications Expected: 05/19/2024 (Approximate), Expires: 05/12/2025 VITAMIN B12 Lab Routine Encounter for long-term (current) use of medications Expected: 05/19/2024 (Approximate), Expires: 05/12/2025 HEMOGLOBIN A1C Lab Routine Encounter for long-term (current) use of medications Expected: 05/19/2024 (Approximate), Expires: 05/12/2025 Scheduled Procedures Name Priority Associated Diagnoses Date/Ti [...] 06/12/2024 06/12/2023, 04/20, 02/20/2021, Additional history exists Influenza Vaccine (FLU shot) [...] medications documented in this encounter Care Teams Spiral Winder Relationship Specialty Start Date End Date Je Lawrence MD [address] [place] [address] [place] [phone] PCP - General Family Medicine 04/13/20 documented as of this encounter
--- OUTSIDE RECORDS SUMMARY | 2024-07-22 05:16 | External Medical Summary ---
Author Name Unknown Address Unknown Organization [id number]:[facility] [place] [address] [place] [address] Laboratory Report Ordering Provider Test Date Status CHLOE,DURA 04/12/2024 14:39:56 Final Normal: <30 mg/g creatinine< br/>High: 30-300 mg/g creatinine
Very High: >300 mg/g creatinine
Nephrotic: >2200 mg/g creatinine Observation Date Value Abnormality Reference (Units ) Status Albumin, Urine 04/12/2024 14:39:56 <1.20 (mg/dL) Final Creatinine, Urine 04/12/2024 14:39:56 145 (mg/dL) Final Albumin/Creatinine [Mass Ratio] in Urine 04/12/2024 14:39:56 <8 <30 (mg/g Creat) Final Performing Location [facility] [place] [address] [place] [address]
--- OUTSIDE RECORDS SUMMARY | 2024-07-22 05:16 | External Medical Summary | Summary of Care ---
Author Name Unknown Organization [facility] Address [address] [place] [address] Phone [phone] Care Team Providers Care Trade Specialist Name Role Phone Je Lawrence MD Primary Care Provide r Reason for Visit * Reason Comments Outpatient Testing Encounter Details Date Type Department Care Team (Late st Contact Info) Description 05/12/2024 10:40 AM EDT Laboratory Laboratory, [facility] [address] [place] [phone] [facility] [address] [place] [address] Encounter for long-term (current) use of medications Allergies No known active allergiesdocumented as of [...] than 7.0% ([facility]) Use to test blood sugar TWICE a [...] than 7.0% ([facility]) Inject 24 Units under the skin in [...] than 7.0% ([facility]) USE ONCE DAILY WITH XULTOPHY 100 Each [...] to 36.9 in adult 11/05/2023 Atherosclerosis of [place] co ronary artery without angina pectoris 11/05/2023 [...] 07/20/2018 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 [place]'s syndrome 07/20/2018 Other abnormal glucose 03/14 Overview: prediabetes - on metformin Sleep apnea 07/20/2018 documented as of this encounter (statuses as of 05/12/2024) Immunizations Name Administration Dates Next Due COVID-19 mRNA, LNP-s, No Pre serve, 2-Dose Series ([employer]) 01/31/2022,07/19/2021,12/25/2020,12/05 COVID-19, MRNA-LNP, 23-24, P F, 30 MCG/0.3 mL, 12 YRS AND ABOVE, IM ([employer]-Comirnaty) 11/10/2023 Covid-19, Mrna, Lnp-s, Pf, B ivalent, 30 Mcg, IM, 12 yrs and above (Pfizer) 09/02/2022 Hepatitis B, 20+ yrs 03/14/2015,05/31/2014,03/08 Pneumococcal Conjugate Vacci ne, 20-valent ([id number]) 05/15/2022 Pneumococcal Polysaccharide PPV23 (Pneumovax) 03/09/2009 Seasonal [...] 18 years and over) Not on file 4 Are you (or your family) mildred eless [...] Description 05/28/2024 11:00 AM EDT Imaging Radiology [address] [place] [address] 12/17/2024 10:00 AM EST Nurse Only Ancillary [address] [place] [address] [place], Nurse Annual [address] [place] [address] Pending Results Name Type Priority Associated Diagnoses Date /Time COMPREHENSIVE METABOLIC PANEL Lab Routine Encounter for long-term (current) use of medications 05/12/2024 11:27 AM EDT VITAMIN B12 Lab Routine Encounter for long-term (current) use of medications 05/12/2024 11:27 AM EDT HEMOGLOBIN A1C Lab Routine Encounter for long-term (current) use of medications 05/12/2024 11:27 AM EDT Scheduled Procedures Name Priority Associated Diagnoses [...] medications documented in this encounter Care Teams Trade Specialist Relationship Specialty Start Date End Date Je Lawrence MD [address] [place] [address] [place] [phone] PCP - General Family Medicine 04/13/20 documented as of this encounter
--- OUTSIDE RECORDS SUMMARY | 2024-07-22 05:16 | External Medical Summary ---
Author Name Unknown Address Unknown Organization K01:[facility] - [address] [place] [address] Laboratory Report Ordering Provider Test Date Status KING NICHOLSON 05/12/2024 11:27:02 Final Observation Date Value Abnormality Reference (Units ) Status Vitamin B12 05/12/2024 11:27:02 468 886-6104 (pg/mL) Final Performing Location [facility] - [address] [place] [address]
--- OUTSIDE RECORDS SUMMARY | 2024-07-22 05:17 | External Medical Summary ---
Author Name Unknown Address Unknown Organization K01:[facility] - [address] [place] [address] Laboratory Report Ordering Provider Test Date Status CHLOE,DURA 04/12/2024 14:38:09 Final Observation Date Value Abnormality Reference (Units ) Status Magnesium 04/12/2024 14:38:09 2.1 1.5-2.6 (m g/dL) Final Performing Location [facility] - [address] [place] [address]
--- OUTSIDE RECORDS SUMMARY | 2024-07-22 05:17 | External Medical Summary | Summary of Care ---
Author Name Unknown Organization [facility] Address [address] [place] [address] Phone [phone] Care Team Providers Care Dry Folder Cloth Name Role Phone Je Lawrence MD Primary Care Provide r Reason for Visit * Reason Comments Medication Refill Encounter Details Date Type Department Care Team (Late st Contact Info) Description 01/31/2024 Refill Pharmacy, [address] [place] [address] Je Lawrence MD [address] [place] [address] [place] [address] Type 2 diabetes mellitus with hemoglobin A1c goal of less than 7.0% ([facility]) Allergies No known active allergiesdocumented as of this encounter (statuses as of 02/02/2024) Medications Medication Sig Dispensed Refills Start Date End Date Status ASPIRIN 81 MG PO TABS Take by mouth daily. 0 Active Vitamin D 50 MCG (1999) Oral Capsule Take 2,000 Units by mouth daily. 0 Active Vitamin E 100 UNIT Oral Capsule Take 1 Capsule by mouth in the morning. 0 Active Centrum Silver 50+Women Oral Tablet Take by mouth. 0 Active OneTouch Verio Reflect w/Device Kit 0 11/29/2021 Active OneTouch Delica Lancets 30GIndications:Type 2 [...] the evening. 120 Each 1 01/08/2023 Active DULoxetine HCl 30 MG Oral Capsule Delayed Release Particles (Cymbalta)Indicatio ns:DDD (degenerative disc disease), lumbar,Peripheral polyneuropathy Take 1 Capsule by mouth in the morning. Do not cut, crush or chew. 100 Capsule 1 07/11/2023 Active Xultophy 100-3.6 UNIT-MG/ML Subcutaneous Solution Pen-injector (Insulin Degludec-Liraglutid e)Indications:Type 2 diabetes mellitus with hemoglobin A1c goal of less than 7.0% (HCC) Inject 24 Units under the skin in the morning. [id number]. 30 mL 3 08/21/2023 Active Omeprazole 20 MG Oral Capsule Delayed Release (PriLO[employer])Indicatio ns:Abdominal pain, epigastric TAKE ONE CAPSULE BY MOUTH IN THE MORNING ONE HOUR BEFORE THE FIRST MEAL OF THE DAY 90 Capsule 1 09/18/2023 Active Sulindac 200 MG Oral TabletIndications:A rthralgia of foot, unspecified laterality TAKE ONE TABLET BY MOUTH TWICE A DAY NEEDED FOR PAIN 200 Tablet 1 09/18/2023 Active Albuterol Sulfate HFA 108 (90 Base) MCG/ACT Inhalation Aerosol SolutionIndications :Wheezing,Acute cough INHALE TWO PUFFS BY MOUTH EVERY FOUR HOURS NEEDED FOR WHEEZING 54 g 1 09/18/2023 09/09/20 24 Active metFORMIN HCl ER 500 MG Oral Tablet Extended Release 24 Hour (Glucophage XR) TAKE TWO TABLETS BY MOUTH TWICE A DAY 400 Tablet 0 12/04/2023 Active Atorvastatin Calcium 20 MG Oral Tablet (Lipitor)Indication s:Dyslipidemia, goal LDL below 100 TAKE ONE TABLET BY MOUTH EVERY DAY 90 Tablet 0 12/04/2023 Active Lisinopril 5 MG Oral Tablet (Prinivil)Indicatio ns:HTN, goal below 140/90 TAKE ONE TABLET BY MOUTH IN THE MORNING 90 Tablet 3 12/04/2023 Active Gabapentin 300 MG Oral Capsule (Neurontin) Take 2 Capsules by mouth in the morning and 2 Capsules before bedtime. 120 Capsule 3 12/05/2023 Active Additional Information Patient taking differently:600 mg OralTID(AM/NOON/HS), Reported on 12/15/2023 SUMAtriptan Succinate 100 MG Oral TabletIndications:M igraine [...] 100 Each 3 02/02/2024 01/31/20 25 Active Insulin Pen Needle 32G X 4 MMIndications:Type 2 diabetes mellitus with hemoglobin A1c goal of less than 7.0% (HCC) USE ONCE DAILY WITH XULTOPHY 100 Each 3 12/12/2022 01/31/20 24 Discontinu ed(Refill) documented as of this encounter (statuses as of 02/02/2024) Active Problems Problem Noted Date Diagnosed Date Class 2 severe obesity due t o excess calories with serious comorbidity and body mass index (BMI) of 36.0 to 36.9 in adult 11/05/2023 Atherosclerosis of [place] co ronary artery without angina pectoris 11/05/2023 [...] as of this encounter (statuses as of 02/02/2024) Resolved Problems Problem Noted Date Diagnosed Date [...] 07/20/2018 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) 11/10/2023 Covid-19, Mrna, Lnp-s, Pf, B ivalent, 30 Mcg, IM, 12 yrs and above (Pfizer) 09/02/2022 Hepatitis B, 20+ yrs 03/14/2015,05/31/2014,03/08 Pneumococcal Conjugate Vacci ne, 20-valent ([id number]) 05/15/2022 Pneumococcal Polysaccharide PPV23 (Pneumovax) 03/09/2009 Seasonal Influenza Virus Vac cine, Unspecified Formulation 07/06/2021 Seasonal Influenza, PF, 6 M & above, IM , (FluLaval or Fluzone) 07/21/2023,09/02/2022,07/14/2020,07/26,07/09/2018 Seasonal Influenza, Quadriva lent, No Preserve, IM 12/26/2016 Seasonal Influenza, Split, I IV3, With Preserve, Inj 08/20/2013,08/03/2012,08/03/2011 TD - Tetanus/Diptheria (ADULT) 10/20/2003 TDAP (age 10 and older)(Boostrix) 11/10/2023 TDAP (age 11 and older)(Adacel) 11/28/2011 Zoster Vaccine Recombinant (Shingrix) 09/28/2018 ,07/09/2018 [...] money to get more. Never true 12/11/2023 Sex and Gender Information Value Date Recorded Sex Assigned at Female 12/27/2019 1:56 PM EDT Gender Identity Female 12/27/2019 1:56 PM EDT Sexual Orientation Straight 12/27/2019 1: 56 PM EDT Job Start Date Occupation Industry Not on file Not on file Not on file documented as of this encounter Miscellaneous Notes * Telephone Encounter - Je Lawrence MD - 02/02/2024 7:33 AM EDT Signed Prescriptions: Disp Refills Unifine Pentips 32G X 4 MM (Insulin Pen Ne*100 Ea*3 Sig: USE ONCE DAILY WITH XULTOPHY Authorizing Provider: JE LAWRENCE * Telephone Encounter - [facility] - 02/01/2024 12:33 PM EDT Pending Prescriptions: Disp Refills Unifine Pentips 32G X 4 MM (Insulin Pen Ne*100 Ea*3 Sig: USE ONCE DAILY WITH XULTOPHY documented in this encounter Plan of Treatment Upcoming Encounters Date Type Department Care Team (Late st Contact Info) Description 03/02/2024 12:30 PM EDT Imaging Radiology [address] [place] [address] 03/19/2024 10:00 AM EDT Office Visit Family Medicine [address] [place] [phone] Je Lawrence MD [address] [place] [address] [place] [phone] 12/17/2024 10:00 AM EST Nurse Only Ancillary [address] [place] [address] [place], Nurse [address] [place] [address] Scheduled Procedures Name Priority Associated Diagnoses Date/Ti me COLONOSCOPY FLEXIBLE PROXIMAL DIAGNOSTIC Recall History of colon polyps Health Maintenance Due Date Last Done Comments *SPIROMETRY ONCE FOR ASTHMA-ADULT 09/12/2022 Mammogram 02/28/2024 02/27/2023, 02/17, 01/18/2022, Additional history exists HbA1c 06/08/2024 12/09/2023, 05/21, 12/04/2022, Additional history exists GFR 06/10/2024 06/10/2023, 12/19, 12/04/2022, Additional history exists Albumin/Creatinine Ratio 06/12/2024 023, 12/04/2022, 11/14/2021, Additional history exists B-12 06/12/2024 06/12/2023, 04/20, 02/20/2021, Additional history exists Diabetic Eye Exam 09/23/2024 09/23/2023, , 09/26/2022, Additional history exists Depression Screening 12/15/2024 12/15/2023 Diabetic Foot Exam 12/15/2024 12/15/2023, 0 12/11/2022, 11/14/2021, Additional history exists PAP SMEAR-EVERY 3 YRS,AGES 18-100 12/27/2024 12/27/2021, 06/02/2018, 06/02/2018, Additional history exists COLONOSCOPY-EVERY 3 YRS AGES 18-100 05/13/2026 05/13/2023, 05/13/2023, 01/13/2018, Additional history exists DTaP,Tdap,and Td Vaccines (3 - Td or Tdap) 11/10/2033 11/10/2023, 11/28/2011, 10/20/2003 Hepatitis B Completed 03/14/2015, 05/20, 03/08/2014 Zoster Vaccines Completed 09/28/2018, 07/09/2018 Pneumococcal Vaccine: Pediatrics (0 to 5 Years) and At-Risk Patients (6 to 64 Years) Completed 05/15/2022, 03/09/2009 COLONOSCOPY-EVERY 5 YRS AGES 18-100 Discontinued 05/13/2023, [...] as of this encounter Visit Diagnoses Diagnosis Type 2 diabetes mellitus with hemoglobin A1c goal of less than 7.0% (HCC) documented in this encounter Care Teams Dry Folder Cloth Relationship Specialty Start Date End Date Je Lawrence MD [address] [place] [address] [place] [phone] PCP - General Family Medicine 04/13/20 documented as of this encounter
--- OUTSIDE RECORDS SUMMARY | 2024-07-22 05:17 | External Medical Summary | Summary of Care ---
Author Name Unknown Organization [facility] Address [address] [place] [address] Phone [phone] Care Team Providers Care Medical Videographer Name Role Phone Je Lawrence MD Primary Care Provide r Reason for Visit * Reason Comments Medication Refill Encounter Details Date Type Department Care Team (Late st Contact Info) Description 03/22/2024 Refill Family Medicine [address] [phone] Je Lawrence MD [address] [place] [address] [place] [phone] Allergies No known active allergiesdocumented as of this encounter (statuses as of 03/22/2024) Medications Medication Sig Dispensed Refills Start Date [...] goal of less than 7.0% ([facility]) Use to test blood sugar [...] goal of less than 7.0% ([facility]) Inject 24 Units under the [...] TWICE A DAY 400 Tablet 12/04/2023 Active Atorvastatin Calcium 20 MG Oral Tablet (Lipitor)Indication s:Dyslipidemia, goal LDL below 100 TAKE ONE TABLET BY MOUTH EVERY DAY 90 Tablet 12/04/2023 Active Lisinopril 5 MG Oral [...] goal of less than 7.0% ([facility]) USE ONCE DAILY WITH XULTOPHY 100 Each 3 02/02/2024 5 Active DULoxetine HCl 30 MG Oral Capsule Delayed Release Particles (Cymbalta)Indicatio ns:DDD (degenerative disc disease), lumbar,Peripheral polyneuropathy Take 1 Capsule by mouth in the morning. Do not cut, crush or chew. 100 Capsule 1 02/16/2024 Active Gabapentin 300 MG Oral Capsule (Neurontin) Take 2 Capsules by mouth in the morning and 2 Capsules before bedtime. 120 Capsule 3 03/22/2024 Active Gabapentin 300 MG Oral Capsule (Neurontin) Take 2 Capsules by mouth in the morning and 2 Capsules before bedtime. 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 [place]'s syndrome 07/20/2018 Other abnormal glucose 03/14 Overview: prediabetes - on metformin Sleep apnea 07/20/2018 documented as of this encounter (statuses as of 03/22/2024) Immunizations Name Administration Dates Next Due COVID-19 mRNA, LNP-s, No Pre serve, 2-Dose Series ([employer]) 01/31/2022,07/19/2021,12/25/2020,12/05 COVID-19, MRNA-LNP, 23-24, P F, 30 MCG/0.3 mL, 12 YRS AND ABOVE, IM ([employer]) 11/10/2023 Covid-19, Mrna, Lnp-s, Pf, B ivalent, 30 Mcg, IM, 12 yrs and above ([employer]) 09/02/2022 Hepatitis B, 20+ yrs 03/14/2015,05/31/2014,03/08 Pneumococcal Conjugate Vacci ne, 20-valent ([id number]) 05/15/2022 Pneumococcal Polysaccharide PPV23 (Pneumovax) 03/09/2009 Seasonal [...] Telephone Encounter - Je Lawrence MD - 03/22/2024 8:54 AM EDT Signed Prescriptions: Disp Refills Gabapentin 300 MG Oral Capsule (Neurontin) 120 Ca*3 Sig: Take 2 Capsules by mouth in the morning and 2 Capsules before bedtime.Authorizing Provider: YUKO LAWRENCE documented in this encounter Plan of Treatment Upcoming Encounters Date Type Department Care Team (Late st Contact Info) Description 12/17/2024 10:00 AM EST Nurse Only Ancillary [address] [place] [phone] [place], Nurse [address] [place] [address] Scheduled Procedures Name Priority Associated Diagnoses Date/Ti [...] filedocumented as of this encounter Care Teams Medical Videographer Relationship Specialty Start Date End Date Je Lawrence MD [address] [place] [address] [place] [phone] PCP - General Family Medicine 04/13/20 documented as of this encounter
--- OUTSIDE RECORDS SUMMARY | 2024-07-22 05:17 | External Medical Summary | Summary of Care ---
Author Name Unknown Organization [facility] Address [address] [place] [address] Phone [phone] Care Team Providers Care Interchange Agent Name Role Phone Je Lawrence MD Primary Care Provide r Reason for Visit * Reason Comments Medication Refill Encounter Details Date Type Department Care Team (Late st Contact Info) Description 03/20/2024 Refill Family Medicine [address] [phone] Je Lawrence MD [address] [place] [address] [place] [phone] Encounter for long-term (current) use of medications*; Abdominal pain, epigastric; Dyslipidemia, goal LDL below 100; 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r disease (HCC) Allergies No known active allergiesdocumented as of this encounter (statuses as of 03/22/2024) Medications Medication Sig Dispensed Refills Start Date End Date Status ASPIRIN 81 MG PO TABS Take by mouth daily. Active Vitamin D 50 MCG (1999) Oral [...] EVERY DAY 90 Tablet 1 03/22/2024 Active Omeprazole 20 MG Oral Capsule Delayed Release (PriLOSEC)Indicatio ns:Abdominal pain, epigastric TAKE ONE CAPSULE BY MOUTH IN THE MORNING ONE HOUR BEFORE THE FIRST MEAL OF THE DAY 90 Capsule 1 09/18/2023 4 Discontinu ed(Refill) Atorvastatin Calcium 20 MG Oral Tablet (Lipitor)Indication s:Dyslipidemia, goal LDL below 100 TAKE ONE TABLET BY MOUTH EVERY DAY 90 Tablet 12/04/2023 4 Discontinu ed(Refill) documented as of this encounter (statuses as of 03/22/2024) Active Problems Problem Noted Date Diagnosed Date Class 2 severe obesity due t o excess calories with serious comorbidity and body mass index (BMI) of 36.0 to 36.9 in adult 11/05/2023 Atherosclerosis of [place] ronary artery without angina pectoris 11/05/2023 [...] 07/20/2018 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 Other abnormal glucose 03/14 Overview: prediabetes - on metformin Sleep apnea 07/20/2018 documented as of this encounter (statuses as of 03/22/2024) Immunizations Name Administration Dates Next Due COVID-19 mRNA, LNP-s, No Pre serve, 2-Dose Series (Job1001) 01/31/2022,07/19/2021,12/25/2020,12/05 COVID-19, MRNA-LNP, 23-24, P F, 30 MCG/0.3 mL, 12 YRS AND ABOVE, IM (PFIZER-Comirnaty) 11/10/2023 Covid-19, Mrna, Lnp-s, Pf, B ivalent, 30 Mcg, IM, 12 yrs and above (Pfizer) 09/02/2022 Hepatitis B, 20+ yrs 03/14/2015,05/31/2014,03/08 Pneumococcal Conjugate Vacci ne, 20-valent ([id number]) 05/15/2022 Pneumococcal Polysaccharide PPV23 (Pneumovax) 03/09/2009 Seasonal [...] encounter Miscellaneous Notes * Telephone Encounter - Nery Godoy RPh - 03/22/2024 11:32 AM EDTSigned Prescriptions: Disp Refills Omeprazole 20 MG Oral Capsule Delayed Rele*90 Cap*1 Sig: TAKE ONE CAPSULE BY MOUTH IN THE MORNING ONE HOUR BEFORE THE FIRST MEAL OF THE DAY Authorizing Provider: JE LAWRENCE Ordering User: NERY GODOY Atorvastatin Calcium 20 MG Oral Tablet (Li*90 Tab*1 Sig: TAKE ONE TABLET BY MOUTH EVERY DAY Authorizing Provider: JE JAMES User: NERY GODOY * Telephone Encounter - Nery Godoy RPh - 03/22/2024 11:31 AM EDT Per refill protocol patient needs magnesium lab on file within the past 2 years while using PPIs. Lab work ordered. Patient may obtain with next routine labs. ThanksNery PharmD Clinical Pharmacist [facility] [phone] 03/22/2024, 11:31 AM documented in this encounter Plan of Treatment Upcoming Encounters Date Type Department Care Team (Late st Contact Info) Description 12/17/2024 10:00 AM EST Nurse Only Ancillary [address] [place] [phone] Sean Nurse [address] [place] [phone] Scheduled Orders Name Type Priority Associated Diagnoses Orde r Schedule MAGNESIUM Lab Routine Encounter for long-term (current) use of medications Expected: 03/29/2024 (Approximate), Expires: 03/22/2025 ALBUMIN / CREATININE RATIO, URINE Lab Routine Encounter for long-term (current) use of medications 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r disease (HCC) Expected: 03/22/2024, Expires: 03/22/2025 Scheduled Procedures Name Priority Associated Diagnoses Date/Ti [...] for long-term (current) use of other medications Abdominal pain, epigastric Dyslipidemia, goal LDL below 100 Other and unspecified hyperlipidemia 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r disease (HCC) documented in this encounter Care Teams Interchange Agent Relationship Specialty Start Date End Date Je Lawrence MD [address] [place] [address] [place] [phone] PCP - General Family Medicine 04/13/20 documented as of this encounter
--- OUTSIDE RECORDS SUMMARY | 2024-07-22 05:17 | External Medical Summary | Summary of Care ---
Author Name Unknown Organization [facility] Address [address] [place] [address] Phone [phone] Care Team Providers Care Eyelet Row Marker Name Role Phone Je Lawrence MD Primary Care Provide r Encounter Details Date Type Department Care Team (Late st Contact Info) Description 03/09/2024 Population Health External Data Unspecified Department Allergies No known active allergiesdocumented as of this encounter (statuses as of 03/10/2024) Medications Medication Sig Dispensed Refills Start Date [...] hemoglobin A1c goal of less than 7.0% ([facility]) Use to test blood sugar [...] hemoglobin A1c goal of less than 7.0% ([facility]) Inject 24 Units under the skin in the morning. DXe11.9. 30 mL 3 08/21/2023 Active Omeprazole 20 MG Oral Capsule Delayed Release (PriLOSEC)Indication s:Abdominal pain, epigastric TAKE ONE CAPSULE BY MOUTH IN THE MORNING ONE HOUR BEFORE THE FIRST MEAL OF THE DAY 90 Capsule 1 09/18/2023 Active Sulindac 200 MG Oral TabletIndications:Ar thralgia [...] on 12/15/2023 SUMAtriptan Succinate 100 MG Oral TabletIndications:Mi graine variant TAKE ONE TABLET BY MOUTH NEEDED FOR MIGRAINE, THEN AN ADDITIONAL ONE TABLET TWO HOURS AFTER FOR CONTINUED SYMPTOMS 16 Tablet 2 12/05/2023 Active Unifine Pentips 32G X 4 MM (Insulin Pen Needle)Indications:T ype 2 diabetes mellitus with hemoglobin A1c goal of less than 7.0% ([facility]) USE ONCE DAILY WITH XULTOPHY 100 Each 3 02/02/2024 5 Active DULoxetine HCl 30 MG Oral Capsule Delayed Release Particles (Cymbalta)Indication s:DDD (degenerative disc disease), lumbar,Peripheral polyneuropathy Take 1 Capsule by mouth in the morning. Do not cut, crush or chew. 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 Other abnormal glucose 03/14 Overview: prediabetes - on metformin Sleep apnea 07/20/2018 documented as of this encounter (statuses as of 03/10/2024) Immunizations Name Administration Dates Next Due COVID-19 mRNA, LNP-s, No Pre serve, 2-Dose Series (Mural.ly) 01/31/2022,07/19/2021,12/25/2020,12/05 COVID-19, MRNA-LNP, 23-24, P F, 30 MCG/0.3 mL, 12 YRS AND ABOVE, IM (LETSGROOP-Comirnat) 11/10/2023 Covid-19, Mrna, Lnp-s, Pf, B ivalent, 30 Mcg, IM, 12 yrs and above (Pfizer) 09/02/2022 Hepatitis B, 20+ yrs 03/14/2015,05/31/2014,03/08 Pneumococcal Conjugate Vacci ne, 20-valent ([id number]) 05/15/2022 Pneumococcal Polysaccharide PPV23 (Pneumovax) 03/09/2009 Seasonal [...] Care Team (Late st Contact Info) Description 03/19/2024 10:00 AM EDT Office Visit Family Medicine [address] [place] [phone] Je Lawrence MD [address] [place] [address] [place] [phone] 12/17/2024 10:00 AM EST Nurse Only Ancillary [address] [place] [phone] [place], Nurse [facility] [address] [place] [address] [place] [phone] Scheduled Procedures Name Priority Associated Diagnoses Date/Ti [...] filedocumented as of this encounter Care Teams Eyelet Row Marker Relationship Specialty Start Date End Date Je Lawrence MD [address] [place] [address] [place] [phone] PCP - General Family Medicine 04/13/20 documented as of this encounter
--- OUTSIDE RECORDS SUMMARY | 2024-07-22 05:17 | External Medical Summary | Summary of Care ---
Author Name Unknown Organization [facility] Address [address] [place] [address] Phone [phone] Care Team Providers Care Energy Consultant Name Role Phone Je Lawrence MD Primary Care Provide r Reason for Visit * Reason Comments Medication Refill Encounter Details Date Type Department Care Team (Late st Contact Info) Description 02/14/2024 Refill Family Medicine [address] [phone] Romi Jaramillo MD [address] [place] [address] [place] [phone] DDD (degenerative disc disease), lumbar; Peripheral polyneuropathy Allergies No known active allergiesdocumented as of this encounter (statuses as of 02/16/2024) Medications Medication Sig Dispensed Refills Start Date [...] hemoglobin A1c goal of less than 7.0% ([facility]) Use to test blood [...] hemoglobin A1c goal of less than 7.0% ([facility]) Inject 24 Units under [...] hemoglobin A1c goal of less than 7.0% ([facility]) USE ONCE DAILY WITH XULTOPHY 100 Each 3 02/02/2024 01/31/20 25 Active DULoxetine HCl 30 MG Oral Capsule Delayed Release Particles (Cymbalta)Indicatio ns:DDD (degenerative disc disease), lumbar,Peripheral polyneuropathy Take 1 Capsule by mouth in the morning. Do not cut, crush or chew. 100 Capsule 1 02/16/2024 Active DULoxetine HCl 30 MG Oral Capsule Delayed Release Particles (Cymbalta)Indicatio ns:DDD (degenerative disc disease), lumbar,Peripheral polyneuropathy Take 1 Capsule by mouth in the morning. Do not cut, crush or chew. 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 Other abnormal glucose 03/14 Overview: prediabetes - on metformin Sleep apnea 07/20/2018 documented as of this encounter (statuses as of 02/16/2024) Immunizations Name Administration Dates Next Due COVID-19 mRNA, LNP-s, No Pre serve, 2-Dose Series (Kaliki) 01/31/2022,07/19/2021,12/25/2020,12/05 COVID-19, MRNA-LNP, 23-24, P F, 30 MCG/0.3 mL, 12 YRS AND ABOVE, IM (Anthill-ComirnatDoubleRecall) 11/10/2023 Covid-19, Mrna, Lnp-s, Pf, B ivalent, 30 Mcg, IM, 12 yrs and above (Pfizer) 09/02/2022 Hepatitis B, 20+ yrs 03/14/2015,05/31/2014,03/08 Pneumococcal Conjugate Vacci ne, 20-valent ([id number]) 05/15/2022 Pneumococcal Polysaccharide PPV23 (Pneumovax) 03/09/2009 Seasonal [...] Notes * Telephone Encounter - Nery Godoy RP - 02/16/2024 12:07 PM EDTSigned Prescriptions: Disp Refills DULoxetine HCl 30 MG Oral Capsule Delayed *100 Ca*1 Sig: Take 1 Capsule by mouth in the morning. Do not cut, crush or chew. Authorizing Provider: JE LAWRENCE User: NERY GODOY * Telephone Encounter - Nery Godoy RP - 02/16/2024 12:07 PM EDTSigned Prescriptions: Disp Refills DULoxetine HCl 30 MG Oral Capsule Delayed *100 Ca*1 Sig: Take 1 Capsule by mouth in the morning. Do not cut, crush or chew. Authorizing Provider: JE LAWRENCE User: NERY GODOY * Telephone Encounter - Ai Cadet CPhT - 02/16/2024 11:47 AM EDT Patient needs ordered today , to have expedited delivery Did you pend patient's preferred pharmacy and medication before forwarding?yes Pharmacy: [facility] Pending Prescriptions: Disp Refills DULoxetine HCl 30 MG Oral Capsule Delayed*100 Ca*1 Sig: Take 1 Capsule by mouth in the morning. Do not cut, crush or chew. Last Visit: 01/22/2024 (in office), Visit date not found (telemedicine) Next Visit: 03/19/2024 If no future appointments scheduled, and last appointment is greater than a year ago, please schedule patient for a follow-up appointment Last date the medication was ordered: Is this request for a controlled substance?No Urine Drug Screen:No results found. However, due to the size of the patient record, not all encounters were searched. Please check Results Review for a complete set of results. Patient Phone Numbers Labs: Lab Results Component Value Date/Time CREAT 0.7 06/10/2023 09:18 AM CREAT 0.65 12/14/2020 12:00 AM CREAT 0.7 11/13/2020 01:01 PM POTASSIUM 4.9 06/10/2023 09:18 AM POTASSIUM 4.6 11/13/2020 01:01 PM TSH 1.47 01/25/2022 10:55 AM TSH 1.61 11/20/2018 12:16 PM LDLCALC 33 12/09/2023 11:14 AM LDLCALC 34 (A) 12/14/2020 12:00 AM LDLCALC 40 12/22/2019 08:28 AM LDLDIRECT 38 11/13/2020 01:01 PM LDLDIRECT 93 03/14/2015 05:05 PM ALT 24 06/10/2023 09:18 AM ALT 44 (H) 12/22/2019 08:28 AM HGBA1C 6.9 (H) 12/09/2023 11:14 AM HGBA1C 7.0 (A) 12/14/2020 12:00 AM HGBA1C 6.9 (H) 11/13/2020 01:01 PM documented in this encounter Plan of Treatment Upcoming Encounters Date Type Department Care Team (Late st Contact Info) Description 03/02/2024 12:30 PM EDT Imaging Radiology [address] [place] [phone] 03/19/2024 10:00 AM EDT Office Visit Family Medicine [address] [place] [phone] Je Lawrence MD [address] [place] [address] [place] [phone] 12/17/2024 10:00 AM EST Nurse Only Ancillary [place] [address] [place] [address] [place], Nurse Annual [address] [place] [phone] Scheduled Procedures Name Priority Associated Diagnoses Date/Ti [...] as of this encounter Visit Diagnoses Diagnosis DDD (degenerative disc disease), lumbar Degeneration of lumbar or lumbosacral intervertebral disc Peripheral polyneuropathy Unspecified hereditary and idiopathic peripheral neuropathy documented in this encounter Care Teams Energy Consultant Relationship Specialty Start Date End Date Je Lawrence MD [address] [place] [address] [place] [phone] PCP - General Family Medicine 04/13/20 documented as of this encounter
[2024-07-22 06:02] LABS: Basophils # (auto) 0.08 K/uL (0.00-0.20); Basophils % (auto) 1.1 %; Eosinophils # (auto) 0.52 K/uL (0.00-0.50); Eosinophils % (auto) 7.1 %; Hematocrit (blood only) 37.9 % (37.0-47.0); Hemoglobin 12.2 g/dl (12.0-16.0); Immature Granulocytes # (auto) 0.01 K/uL (0.01-0.20); Immature Granulocytes % (auto) 0.1 %; Lymphocytes # (auto) 2.21 K/uL (1.20-3.40); Lymphocytes % (auto) 30.4 %; Mean Corpuscular Hemoglobin 28.1 pg (25.0-34.0); Mean Corpuscular Hgb Conc 32.2 g/dL (32.0-36.0); Mean Corpuscular Volume 87.3 fL (80.0-100.0); Mean Platelet Volume 9.7 fL (9.4-12.4); Monocytes # (auto) 0.68 K/uL (0.11-0.59); Monocytes % (auto) 9.3 %; Neutrophils # (auto) 3.78 K/uL (1.40-6.50); Platelet Count 329 K/uL (130-400); RDW Standard Deviation 44.9 fL (36.4-46.3); Red Blood Count 4.34 M/uL (4.20-5.40); White Blood Count 7.28 K/ul (4.8-10.8)
[2024-07-22 06:18] LABS: Albumin Globulin Ratio 1.5 (0.9-2); Albumin Level 3.6 gm/dl (3.4-5.0); BUN Creatinine Ratio 28.4 (10-20); Bilirubin,Total 0.3 mg/dl (0.2-1.0); Calcium 9.3 mg/dl (8.6-10.3); Creatinine Clr Calc Pharmacy 83.3 ml/min; Globulin 2.4 gm/dl (2.5-4.0); Potassium 4.5 mmol/L (3.5-5.1)
[2024-07-22] MEDS: FAMOTIDINE 20 MG TAB PO SCH (08:28)
[2024-07-22] MEDS: PANTOprazole 40 MG TAB PO SCH (08:28)
[2024-07-22] MEDS: DULoxetine HCL 30 MG CAP PO SCH (08:28)
[2024-07-22] MEDS: ASPIRIN 81 MG ECTAB PO SCH (08:28)
[2024-07-22] MEDS: ATORVASTATIN 20 MG TAB PO SCH (08:28)
[2024-07-22] MEDS: lisinopril 5 MG TAB PO SCH (08:28)
[2024-07-22] MEDS ORDERED: ACETAMINOPHEN 325 MG TAB PO PRN (11:12)
--- NOTE | 2024-07-22 12:24 | Cardiology Consultation ---
Date of Consultation July 22, 2024 Assessment & Plan (1) Chest pain: (2) Abnormal EKG: (3) HLD (hyperlipidemia): (4) DM type 2 (diabetes mellitus, type 2): Plan 58-year-old female with multiple cardiovascular risk factors who developed rest pain left arm shoulder axillary radiating to the neck. Initial cardiac enzymes and EKGs without ischemia. EKG this morning with diffuse anterolateral ST segment abnormalities consistent with ischemia Echocardiogram pending Patient on aspirin at time of symptoms, no additional defined cause of complaints. Issues addressed as follows 1. Severe left shoulder arm and chest pain at rest with dynamic EKG changes in the left anterior descending distribution: Discussed findings in detail with patient. Findings represent high risk profile with rest symptoms, gilbert mitten use of aspirin and multiple cardiovascular risk factors. Normal stress test would not be reassuring. Will recommend proceeding to diagnostic coronary angiography Procedure and risks explained in detail the patient with patient agreeable Will review echo in interim 2. Hyperlipidemia/dyslipidemia on therapy 3. Hypertension with further recommendations pending the result of imaging 4. Mild enlargement of the ascending aorta (aneurysm): Discussed in detail with patient with minimal enlargement noted. Will plan on repeat imaging 6 months. Arch and descending thoracic aorta are normal size by CT scan History of Present Illness Reason for Consultation: Chest, left shoulder pain, abnormal EKG Requesting Physician: Latasha mitchell Attending Physician: Molina Barrientos MD History of Present Illness Patient is a 58-year-old female with multiple cardiovascular risk factors including hypertension, diabetes mellitus, aortic enlargement and past mild nonobstructive coronary atherosclerosis 2010 who presented with rest symptoms of severe left shoulder and chest pain radiating to the left arm and up into the left neck and throat. Patient on aspirin Initial EKGs without acute ischemic changes EKG this morning with evolution of anterolateral ST segment abnormalities Echocardiogram pending No prior history of myocardial infarction, TIA or stroke Hypertension per patient's been controlled Currently no chest pain or shortness of breath. No syncope or near syncope. No bleeding issues Allergies Allergy/AdvReac Type Severity Reaction Status Date / Time No Known Allergies Allergy Unknown Verified 07/21/24 17:40 Home Medications Medication Instructions Recorded Confirmed Type ascorbic acid (vitamin C) 500 mg 1,000 mg PO QAM 07/20/18 07/21/24 History tablet (Vitamin C) aspirin 81 mg tablet,delayed 81 mg PO QAM 07/20/18 07/21/24 History release vdjdjhk-jnzcfgoyveepp-mvuocder 250 2 tab PO Q6H PRN Migraine Headache 07/20/18 07/21/24 History mg-250 mg-65 mg tablet (Excedrin Migraine) atorvastatin 20 mg tablet (Lipitor) 20 mg PO QAM 07/20/18 07/21/24 History gabapentin 300 mg capsule 300 mg PO TID 07/20/18 07/21/24 History lisinopril 5 mg tablet 5 mg PO QAM 07/20/18 07/21/24 History metformin 1,000 mg tablet 1,000 mg PO BID 07/20/18 07/21/24 History prqcuovq-gnum-vzpo 8 mg-folic 400 1 tab PO QAM 07/20/18 07/21/24 History mcg-K 50 mcg-lutein 300 mcg tablet (Centrum Silver Women) sulindac 200 mg tablet 200 mg PO BID PRN Pain 07/20/18 07/21/24 History vitamin E 670 mg (1,000 unit) 1,000 unit PO QAM 07/20/18 07/21/24 History capsule famotidine 20 mg tablet 20 mg PO QAM 07/20/20 07/21/24 History glimepiride 4 mg tablet 4 mg PO QAM 07/20/20 07/21/24 History ibuprofen 200 mg tablet 200 mg PO Q6H PRN Pain 07/20/20 07/21/24 History duloxetine 30 mg capsule,delayed 30 mg PO QAM 07/21/24 07/21/24 History release insulin degludec 100 24 unit subcut QAM 07/21/24 07/21/24 History unit-liraglutide 3.6 mg/mL(3 mL) subcutaneous pen (Xultophy 100/3.6) omeprazole 20 mg capsule,delayed 20 mg PO QAM 07/21/24 07/21/24 History release Patient History Medical History Obesity 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" GERD (gastroesophageal reflux disease) controlled Diabetes mellitus, type 2 NIDDM Migraine Sleep apnea non-compliant with CPAP, no device currently Surgical History History of cardiac catheterization 15+ years ago- no stents History of lumbar fusion History of brain surgery S/P PITUITARY TUMOR RESECTION (BENIGN) History of section History of bilateral tubal ligation History of tooth extraction Family History Mother Family history of diabetes mellitus Family/Other Family history of diabetes mellitus Social History Smoking Status: Former smoker Second Hand Exposure: Yes (as a child); Do You Dip or Chew Tobacco: No; Hx Alcohol Use: Yes Hx Substance Use: No Preferred Language: Citizen Of [place] Communication Ability: Effective Visual Impairment: No Limitations Inspector Circuitry Negative Required: No Beliefs That Will Affect Care: None marital status: Current Living Situation: Spouse Feels Safe at Home: Yes Assistive Devices: Cane and Glasses Review of Systems Review of Systems: All systems reviewed & are unremarkable except as noted in HPI & below Physical Exam Constitutional: WD/WN, vitals as above no acute distress Eyes: PERRL, conjunctivae normal, anicteric sclerae ENMT: external ear and nose normal, oropharynx normal Neck: trachea midline, no thyromegaly Respiratory: normal respiratory effort, lungs clear to auscultation Cardiovascular: Rate/Rhythm: regular rate and regular rhythm Heart Sounds: normal S1 and normal S2; no gallop and no murmur Palpation: normal PMI Vessels: normal carotid upstroke and radial pulses present; no JVD and no carotid bruit Extremities: no edema Gastrointestinal (Abdomen): normal bowel sounds, soft, nontender, no hepat osplenomegaly Musculoskeletal: no cyanosis or clubbing, extremities motor strength 5/5 Skin: no rashes, warm and dry Neurologic: PERRL, EOMI, accommodation nl, no face palsy, no dysarthria Psychiatric: A+Ox3, euthymic affect Results & Data Vital Signs (Past 12 Hours) Vital Signs Temp Pulse Pulse Resp BP Pulse Ox O2 Del Method 07/22/24 10:41 36.8 C 78 19 141/82 H 98 Room Air 07/22/24 08:00 71 07/22/24 07:08 36.4 C L 72 19 138/82 96 Room Air 07/22/24 02:24 36.5 C 70 17 136/86 96 Room Air Laboratory Results Laboratory Results - last 24 hr 07/21/24 07/21/24 07/21/24 14:43 15:20 16:50 WBC 8.74 RBC 4.85 Hgb 13.6 Hct 42.5 MCV 87.6 MCH 28.0 MCHC 32.0 RDW Std Deviation 44.8 RDW Coeff of Sumeet 13.9 Plt Count 382 MPV 10.0 Immature Gran % (Auto) 0.2 Neut % (Auto) 64.0 Lymph % (Auto) 23.5 Cherry % (Auto) 6.3 Eos % (Auto) 4.9 Baso % (Auto) 1.1 Neut # (Auto) 5.59 Lymph # (Auto) 2.05 Cherry # (Auto) 0.55 Eos # (Auto) 0.43 Baso # (Auto) 0.10 Immature Gran # (Auto) 0.02 PT 10.0 INR 0.9 APTT 28 PTT Ratio 1.0 D-Dimer 380 Sodium 141 Potassium 4.3 Chloride 107 Carbon Dioxide 25 Anion Gap 9 BUN 27 H Creatinine 0.75 Est Cr Clr Drug Dosing 89.6 eGFR 91.09 BUN/Creatinine Ratio 36.0 H Glucose 94 POC Glucose Calcium 9.9 Total Bilirubin 0.5 AST 15 ALT 18 Alkaline Phosphatase 104 Troponin I High Sens 4.3 4.6 Total Protein 6.9 Albumin 4.2 Globulin 2.7 Albumin/Globulin Ratio 1.6 Urine Color Yellow Urine Appearance Clear Urine pH 5.5 Ur Specific Simms 1.021 Urine Protein Negative Urine Glucose (UA) Negative Urine Ketones Trace H Urine Blood Negative Urine Nitrite Negative Urine Bilirubin Negative Urine Urobilinogen Negative Ur Leukocyte Esterase 1+ H Urine WBC (Auto) 0-5 Urine RBC (Auto) 0-2 U Hyaline Cast (Auto) 0-2 U Epithel Cells (Auto) 0-2 Urine Bacteria (Auto) None Seen 07/21/24 07/21/24 07/22/24 21:31 23:12 05:25 WBC 7.28 RBC 4.34 Hgb 12.2 Hct 37.9 MCV 87.3 MCH 28.1 MCHC 32.2 RDW Std Deviation 44.9 RDW Coeff of Sumeet 14.0 Plt Count 329 MPV 9.7 Immature Gran % (Auto) 0.1 Neut % (Auto) 52.0 Lymph % (Auto) 30.4 Cherry % (Auto) 9.3 Eos % (Auto) 7.1 Baso % (Auto) 1.1 Neut # (Auto) 3.78 Lymph # (Auto) 2.21 Cherry # (Auto) 0.68 H Eos # (Auto) 0.52 H Baso # (Auto) 0.08 Immature Gran # (Auto) 0.01 PT INR APTT PTT Ratio D-Dimer Sodium 142 Potassium 4.5 Chloride 107 Carbon Dioxide 31 Anion Gap 4 BUN 23 Creatinine 0.81 Est Cr Clr Drug Dosing 83.3 eGFR 83.05 BUN/Creatinine Ratio 28.4 H Glucose 95 POC Glucose 199 H Calcium 9.3 Total Bilirubin 0.3 AST 11 L ALT 15 Alkaline Phosphatase 88 Troponin I High Sens 3.9 Total Protein 6.0 Albumin 3.6 Globulin 2.4 L Albumin/Globulin Ratio 1.5 Urine Color Urine Appearance Urine pH Ur Specific Simms Urine Protein Urine Glucose (UA) Urine Ketones Urine Blood Urine Nitrite Urine Bilirubin Urine Urobilinogen Ur Leukocyte Esterase Urine WBC (Auto) Urine RBC (Auto) U Hyaline Cast (Auto) U Epithel Cells (Auto) Urine Bacteria (Auto) 07/22/24 07/22/24 07/22/24 07:20 07:22 08:29 WBC RBC Hgb Hct MCV MCH MCHC RDW Std Deviation RDW Coeff of Sumeet Plt Count MPV Immature Gran % (Auto) Neut % (Auto) Lymph % (Auto) Cherry % (Auto) Eos % (Auto) Baso % (Auto) Neut # (Auto) Lymph # (Auto) Cherry # (Auto) Eos # (Auto) Baso # (Auto) Immature Gran # (Auto) PT INR APTT PTT Ratio D-Dimer Sodium Potassium Chloride Carbon Dioxide Anion Gap BUN Creatinine Est Cr Clr Drug Dosing eGFR BUN/Creatinine Ratio Glucose POC Glucose 69 L* 74 71 Calcium Total Bilirubin AST ALT Alkaline Phosphatase Troponin I High Sens Total Protein Albumin Globulin Albumin/Globulin Ratio Urine Color Urine Appearance Urine pH Ur Specific Simms Urine Protein Urine Glucose (UA) Urine Ketones Urine Blood Urine Nitrite Urine Bilirubin Urine Urobilinogen Ur Leukocyte Esterase Urine WBC (Auto) Urine RBC (Auto) U Hyaline Cast (Auto) U Epithel Cells (Auto) Urine Bacteria (Auto) 07/22/24 11:04 WBC RBC Hgb Hct MCV MCH MCHC RDW Std Deviation RDW Coeff of Sumeet Plt Count MPV Immature Gran % (Auto) Neut % (Auto) Lymph % (Auto) Cherry % (Auto) Eos % (Auto) Baso % (Auto) Neut # (Auto) Lymph # (Auto) Cherry # (Auto) Eos # (Auto) Baso # (Auto) Immature Gran # (Auto) PT INR APTT PTT Ratio D-Dimer Sodium Potassium Chloride Carbon Dioxide Anion Gap BUN Creatinine Est Cr Clr Drug Dosing eGFR BUN/Creatinine Ratio Glucose POC Glucose 83 Calcium Total Bilirubin AST ALT Alkaline Phosphatase Troponin I High Sens Total Protein Albumin Globulin Albumin/Globulin Ratio Urine Color Urine Appearance Urine pH Ur Specific Simms Urine Protein Urine Glucose (UA) Urine Ketones Urine Blood Urine Nitrite Urine Bilirubin Urine Urobilinogen Ur Leukocyte Esterase Urine WBC (Auto) Urine RBC (Auto) U Hyaline Cast (Auto) U Epithel Cells (Auto) Urine Bacteria (Auto) (1) Chest pain Chest pain type: unspecified Qualified Code(s): R07.9 - Chest pain, unspecified
[2024-07-22] MEDS: SODIUM CHLORIDE 0.9% 1,000 ML IV SCH (12:27)
--- NOTE | 2024-07-22 13:14 | Hospitalist Progress Note ---
Date of Service July 22, 2024 Assessment & Plan (1) Abnormal EKG: (2) HLD (hyperlipidemia): (3) DM type 2 (diabetes mellitus, type 2): (4) History of cardiac cath: (5) HTN (hypertension): Plan Atypical chest pain Abnormal EKG --Chest CTA: No acute findings in the visualized arteries of the chest. 3.9 cm ascending thoracic aortic aneurysm --Carotid USD: Normal duplex ultrasound of the neck. --EKG: Normal sinus rhythm, left ventricular hypertrophy, T wave inversions in anterolateral leads --Troponins negative --ECHO pending --Check lipid panel, A1c Continue aspirin, Lipitor Appreciate cardiology input Plan for cardiac catheterization today Thoracic aortic aneurysm Incidental finding on CT CT showed 3.9 cm ascending thoracic aortic aneurysm Follow-up as outpatient Left breast nodule --CT showed 1.5 cm soft tissue nodule within the left breast. Patient aware of the nodule in the past Currently being monitored per patient Migraine headache Lasix as needed HTN/HLD: Continue lisinopril/statin Monitor and adjust medications as needed DM II: Update HbA1c Hold home regimen:metformin/glimepiride/Xultophy 24 units daily at home Continue insulin while hospitalized Monitor blood glucose levels GERD: Continue Pepcid/PPI DVT Px: Heparin SQ Code Status Full code Admission and Anticipated Discharge Date Admission Date: July 21, 2024 Subjective Patient is seen and examined at bedside States having left shoulder/neck pain Also reports headache Discussed with cardiology. Patient denies any dyspnea, nausea, vomiting, abdominal pain Plan for cardiac catheterization today Review of Systems Review of Systems: All systems reviewed & are unremarkable except as noted in Subjective Physical Exam Physical Exam: Physical Exam: Vitals signs as noted above General Appearance:Obese, no apparent distress Head: normocephalic, Atraumatic Eyes: normal inspection, EOMI Neck: supple, Trachea midline Respiratory/Chest: Normal breath sounds, CTA, No accessory muscle use Cardiovascular: S1, S2, No murmur Abdomen/GI:Soft, Non tender, Bowel sounds present Extremities/Musculoskeletal:normal inspection, no edema Neurologic/Psych:AAOX3, grossly no focal neurological deficits Skin: normal color, warm Results & Data Results & Data Vital Signs (Past 12 Hours) Vital Signs Temp Pulse Pulse Resp BP Pulse Ox O2 Del Method 07/22/24 10:41 36.8 C 78 19 141/82 H 98 Room Air 07/22/24 08:00 71 07/22/24 07:08 36.4 C L 72 19 138/82 96 Room Air 07/22/24 02:24 36.5 C 70 17 136/86 96 Room Air Laboratory Results Short CBC 07/21/24 07/22/24 Range/Units 14:43 05:25 WBC 8.74 7.28 (4.8-10.8) K/ul Hgb 13.6 12.2 (12.0-16.0) g/dl Hct 42.5 37.9 (37.0-47.0) % Plt Count 382 329 (130-400) K/uL BMP 07/21/24 07/22/24 14:43 05:25 Sodium 141 142 Potassium 4.3 4.5 Chloride 107 107 Carbon Dioxide 25 31 BUN 27 H 23 Creatinine 0.75 0.81 Glucose 94 95 Calcium 9.9 9.3 Liver Function 07/21/24 07/22/24 Range/Units 14:43 05:25 Total Bilirubin 0.5 0.3 (0.2-1.0) mg/dl AST 15 11 L (13-39) U/L ALT 18 15 (7-52) U/L Alkaline Phosphatase 104 88 (34-104) U/L Albumin 4.2 3.6 (3.4-5.0) gm/dl Urine 07/21/24 Range/Units 15:20 Urine Color Yellow Urine Appearance Clear (Clear) Urine pH 5.5 (4.5-7.5) Ur Specific Raymond 1.021 (1.000-1.030) Urine Protein Negative (Negative) Urine Glucose (UA) Negative (Negative)
--- NOTE | 2024-07-22 14:37 | Pre Anesthesia Assessment ---
Date of Service July 22, 2024 Pre Sedation Assessment Vital Signs Temp Pulse Pulse Resp BP BP Pulse Ox 07/22/24 14:20 69 18 130/82 99 07/22/24 10:41 36.8 C 78 19 141/82 H 98 07/22/24 08:00 71 07/22/24 07:08 36.4 C L 72 19 138/82 96 07/22/24 02:24 36.5 C 70 17 136/86 96 07/22/24 00:00 68 07/21/24 22:45 07/21/24 22:45 36.5 C 62 17 147/86 H 96 07/21/24 21:30 96 07/21/24 21:03 129/77 96 07/21/24 20:09 75 16 117/87 97 07/21/24 19:33 76 23 135/82 97 07/21/24 19:21 73 07/21/24 17:06 74 17 93 07/21/24 16:30 75 20 94 07/21/24 16:30 125/75 07/21/24 16:09 82 21 97 07/21/24 16:00 128/74 07/21/24 15:55 78 07/21/24 15:48 71 16 95 07/21/24 15:30 128/76 07/21/24 15:30 79 16 95 07/21/24 15:27 142/79 H O2 Del Method 07/22/24 14:20 Room Air 07/22/24 10:41 Room Air 07/22/24 08:00 07/22/24 07:08 Room Air 07/22/24 02:24 Room Air 07/22/24 00:00 07/21/24 22:45 Room Air 07/21/24 22:45 Room Air 07/21/24 21:30 Room Air 07/21/24 21:03 Room Air 07/21/24 20:09 Room Air 07/21/24 19:33 Room Air 07/21/24 19:21 07/21/24 17:06 Room Air 07/21/24 16:30 Room Air 07/21/24 16:30 07/21/24 16:09 Room Air 07/21/24 16:00 07/21/24 15:55 07/21/24 15:48 Room Air 07/21/24 15:30 07/21/24 15:30 Room Air 07/21/24 15:27 Cardiovascular RRR, no murmur, no edema no JVD no edema Respiratory normal respiratory effort, lungs clear to auscultation Pre-Sedation Airway Assessment Smoking Status: Former smoker Short, Thick Neck: No Thyromental Distance: > or= 3.5 Finger Breadths Oral Cavity: + WNL Mallampati Class: III ASA: ASA3 NPO Status Date of Last Intake of Fluids: 07/21/24 Time of Last Intake of Fluids: 23:30 Date of Last Intake of Solid Food: 07/21/24 Time of Last Intake of Solid Foods: 23:30 Procedure Planning Contraindications for Sedation: none Current Medications Reviewed: Yes Notes The planned sedation has been discussed with the patient. Informed Consent was obtained. I have identified the patient, determined the appropriateness of sedation and have assessed the patient immediately prior to the procedure. All medicine(s) and interventions are by my order.
[2024-07-22] MEDS: OPTIRAY 350 ONE (15:24)
--- NOTE | 2024-07-22 15:33 | Post Anesthesia Assessment ---
Date of Service July 22, 2024 Post Sedation Assessment Vital Signs Temp Pulse Pulse Resp BP BP Pulse Ox 07/22/24 14:20 69 18 130/82 99 07/22/24 10:41 36.8 C 78 19 141/82 H 98 07/22/24 08:00 71 07/22/24 07:08 36.4 C L 72 19 138/82 96 07/22/24 02:24 36.5 C 70 17 136/86 96 07/22/24 00:00 68 07/21/24 22:45 07/21/24 22:45 36.5 C 62 17 147/86 H 96 07/21/24 21:30 96 07/21/24 21:03 129/77 96 07/21/24 20:09 75 16 117/87 97 07/21/24 19:33 76 23 135/82 97 07/21/24 19:21 73 07/21/24 17:06 74 17 93 07/21/24 16:30 75 20 94 07/21/24 16:30 125/75 07/21/24 16:09 82 21 97 07/21/24 16:00 128/74 07/21/24 15:55 78 07/21/24 15:48 71 16 95 O2 Del Method 07/22/24 14:20 Room Air 07/22/24 10:41 Room Air 07/22/24 08:00 07/22/24 07:08 Room Air 07/22/24 02:24 Room Air 07/22/24 00:00 07/21/24 22:45 Room Air 07/21/24 22:45 Room Air 07/21/24 21:30 Room Air 07/21/24 21:03 Room Air 07/21/24 20:09 Room Air 07/21/24 19:33 Room Air 07/21/24 19:21 07/21/24 17:06 Room Air 07/21/24 16:30 Room Air 07/21/24 16:30 07/21/24 16:09 Room Air 07/21/24 16:00 07/21/24 15:55 07/21/24 15:48 Room Air Recovery Score Activity: Moves 4 extremities Respiration: Deep Breath/Cough Circulation: +/-20% PreAnes Value Consciousness: Fully Awake Oxygen Saturation: > 92% On Room Air Discharge Sedation Level of Care: Phase I Post Sedation Plan On clinical assessment, the patient appears to have tolerated the sedation without complications. Patient is recovering as anticipated. Patient will continue to be monitored by nursing and may be discharged when sedation discharge criteria are met per below protocol. Upon Completions of procedure up to 15 minutes continue every 5 minute vital signs and the P.A.R. score; then discharge to a Phase I or Fast Track to Phase II per the following guidelines: * Discharge Patient to appropriate Phase II area if PAR is 8 or greater or return to pre- procedure baseline. The post - procedure orders will be as directed. * If PAR score is less than 8 or not return to pre-procedure baseline then patient will follow Phase I monitoring till PAR is reached for Phase II. The Phase I may be done in procedure room or may call to secure a Phase I area. * If naloxone or flumazenil are used for reversal, hold in Phase I for continued monitoring from when last reversal dose was given for a minimum of 60 minutes or longer pending the nurse and/or physician discretion of patient condition before discharge to Phase II. Please call the Sedation Physician to re-evaluate and complete post-note for discharge to Phase II area. Do NOT discharge from procedure sedation or Phase 1 until post- sedation evaluation note is complete by procedure /sedation MD Sedation Discharge Instructions to be given to the patient at discharge to home.
--- NOTE | 2024-07-22 15:39 | Cardiac Catheterization ---
Cardiac Cath Procedure Brief Procedure Date July 22, 2024 Pre-Procedure Diagnosis Pre-Procedure Diagnosis: Cardiothoracic Symptom AUC Score AUC Score: 8 Post-Procedure Diagnosis Post-Procedure Diagnosis: Normal Coronary Arteries Procedure(s) Performed Procedure(s) Performed: Coronary Angiography Thresher [place] Justin Snyder MD Estimated Blood Loss Estimated Blood Loss: None Medication(s) Medication(s): Fentanyl (12.5 mcg IV), Heparin (5000 units IV), Lidocaine 1% (Local infiltration access site), Nicardipine (250 mcg intra-arterial after arterial sheath insertion) and Versed (1 mg IV) Preliminary Findings Impression: Essentially normal right dominant coronary anatomy with minimal calcification of the proximal right coronary artery only Procedure: Coronary angiography via right radial access Catheters: 6 [place] long glide radial sheath, 5 [place], 5 [place] JL 5, 5 [place] straight pigtail Recommendations Recommendations: Medical Therapy and/or Counseling Specimens Specimens: None Fluids (cc crystalloids) Fluids (cc crystalloids): 80 Anesthesia Start time: 1459, stop time: 1525 Procedural Complication(s) None Disposition PCU
--- NOTE | 2024-07-22 15:42 | Cardiac Catheterization ---
Cardiac Cath Procedure Full Procedure Date July 22, 2024 Pre-Procedure Diagnosis Pre-Procedure Diagnosis: Cardiothoracic Symptom AUC Score AUC Score: 8 Post-Procedure Diagnosis Post-Procedure Diagnosis: Normal Coronary Arteries Procedure(s) Performed Procedure(s) Performed: Coronary Angiography Gamb Cutter Justin Snyder MD Quality Control Assistant(s) Kaitlynn Poole Estimated Blood Loss Estimated Blood Loss: None Medication(s) Medication(s): Fentanyl (12.5 mcg IV), Heparin (5000 units IV), Lidocaine 1% (Local infiltration access site), Nicardipine (250 mcg intra-arterial after arterial sheath insertion) and Versed (1 mg IV) Summary of Findings Impression: Essentially normal right dominant coronary anatomy with minimal calcification of the proximal right coronary artery only Procedure: Coronary angiography via right radial access Catheters: 6 [place] long glide radial sheath, 5 [place], 5 [place] JL 5, 5 [place] straight pigtail Coronary angiography: Right dominant anatomy with only minimal calcification of the proximal right coronary artery and no obstructive disease Left main: Short but free of disease Left anterior descending: Type II in distribution. It gives rise to a large septal branch and essentially trifurcates into 2 large diagonals and the left anterior descending at the end of its proximal third. The apical portion of the left anterior descending is small in caliber there is no obstructive disease Left circumflex: Large but nondominant consisting of a large trifurcating obtuse marginal and a single lateral atrial branch. There is no disease Right coronary artery: Large dominant vessel there is mild calcification in its proximal portion but no obstructive disease. It gives rise to a right ventricular branch in its midportion. At the AV groove it gives rise to a very large and long posterior descending artery and along the AV groove a large terminal posterior ventricular branch. Minimal luminal regularities only noted Hemodynamics Rest Ao:: 150/82/101 Final Ao: 147/83/91 LV: N/A Recommendations Recommendations: Medical Therapy and/or Counseling Specimens Specimens: None Radiation Exposure (mGy) 1171 Contrast (mls) 55 Fluids (cc crystalloids) Fluids (cc crystalloids): 80 Anesthesia Start time: 1459, stop time: 1525 Procedural Complication(s) None Disposition PCU I attest to the content of the Intraoperative Record and any orders documented therein. Any exceptions are noted below. 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 Cardiac Status 58-year-old female who presented with acute left shoulder and chest and back pain with dynamic ST T wave inversion anterior precordial leads CAD Presenation: Sx unlikely to be ischemic Anginal Classification: CCS IV Heart Failure: No Cardiogenic Shock within 24 Hours: No Cardiac Arrest within 24 Hours: No Imaging Studies Past 6 Months: Yes Stress Studies Past 6 Months: No Standard Exercise Test: No Stress Echocardiogram: No Stress Testing w/SPECT MPI: No Cardiac CTA: No Coronary Anatomy Dominant: Right Left Main (% Stenosis): Normal LAD (% Stenosis): Normal D1 (% Stenosis): Normal D2 (% Stenosis): Normal Circumflex (% Stenosis): Normal OM1 (% Stenosis): Normal RCA (% Stenosis): Proximal (Mild calcification) and Distal (Minimal luminal irregularity) R PDA (% Stenosis): Normal R PL1 (% Stenosis): Normal Diagnostic Physicians Name: Justin Snyder MD Status: Urgent Closure Device Percutaneous Entry Location: Radial Closure Device: Radial Band Recommendations: Medical Therapy and/or Counseling
[2024-07-22] MEDS: fentaNYL citrate PF 100 MCG/2 ML VIAL ONE (16:18)
[2024-07-22] MEDS: HEPARIN (PORCINE) 1000 UNIT/ML 10 ML (CATH LAB USE ONLY) ONE (16:18)
[2024-07-22] MEDS: IODIXANOL (VISIPAQUE) 320 MG/ML 100ML IV ONE (16:19)
[2024-07-22] MEDS: MIDAZOLAM HCL 1 MG/ML 2ML VIAL ONE (16:19)
[2024-07-22] MEDS: niCARdipine HCL INJ 2.5 MG/ML 10 ML AMP ONE (16:19)
[2024-07-22] MEDS: NITROGLYCERIN/D5W 100MCG/ML 20ML SYR ONE (16:19)
--- NOTE | 2024-07-22 16:30 | Electrocardiogram Report ---
Test Reason : Blood Pressure : */* mmHG Vent. Rate : 66 BPM Atrial Rate : 66 BPM P-R Int : 148 ms QRS Dur : 88 ms QT Int : 442 ms P-R-T Axes : 68 -9 124 degrees QTcB Int : 463 ms Normal sinus rhythm Abnormal ECG When compared with ECG of 21-Jul-2024 16:43, (unconfirmed) T wave inversion more evident in Anterolateral leads Confirmed by Clarence Art ([id number]) on 07/22/2024 4:30:05 PM Referred By: REFERRED SELF Confirmed By: Clarence Art
--- NOTE | 2024-07-22 16:45 | Electrocardiogram Report ---
Test Reason : Blood Pressure : */* mmHG Vent. Rate : 70 BPM Atrial Rate : 70 BPM P-R Int : 144 ms QRS Dur : 86 ms QT Int : 386 ms P-R-T Axes : 62 -21 110 degrees QTcB Int : 416 ms Normal sinus rhythm Left ventricular hypertrophy with repolarization abnormality Abnormal ECG When compared with ECG of 21-Jul-2024 14:38, Criteria for Inferior infarct are no longer Present Nonspecific T wave abnormality no longer evident in Inferior leads Confirmed by Clarence Art ([id number]) on 07/22/2024 4:45:06 PM Referred By: REFERRED SELF Confirmed By: Clarence Art
--- NOTE | 2024-07-22 16:53 | Communication Note ---
Date of Service: July 22, 2024 Patient presenting with chest pain underwent diagnostic coronary angiography this afternoon due to markedly abnormal EKG suggestive of LAD distribution is chemia Cardiac catheterization demonstrated minimal luminal regularities and calcification of the proximal vessels but no obstructive disease. LVEDP mildly elevated on transient measurement Chest pain/shoulder pain noncardiac origin Would treat hypertension with losartan 50 mg p.o. daily over lisinopril given ascending aortic enlargement Cardiac status stable for discharge at end of observation
[2024-07-22] MEDS: SIMETHICONE 80 MG CHEW PO ONE (19:30)
[2024-07-23] MEDS: SIMETHICONE 80 MG CHEW PO PRN (05:08)
[2024-07-23 06:36] LABS: Hematocrit (blood only) 38.8 % (37.0-47.0); Hemoglobin 12.9 g/dl (12.0-16.0); Mean Corpuscular Hemoglobin 28.5 pg (25.0-34.0); Mean Corpuscular Hgb Conc 33.2 g/dL (32.0-36.0); Mean Corpuscular Volume 85.8 fL (80.0-100.0); Mean Platelet Volume 10.4 fL (9.4-12.4); Platelet Count 304 K/uL (130-400); RDW Coefficient of Variation 13.8 % (11.5-14.5); RDW Standard Deviation 43.2 fL (36.4-46.3); Red Blood Count 4.52 M/uL (4.20-5.40); White Blood Count 6.83 K/ul (4.8-10.8)
[2024-07-23 06:50] LABS: BUN Creatinine Ratio 23.9 (10-20); Calcium 9.1 mg/dl (8.6-10.3); Chol HDL Ratio 2.2 (0-5); Creatinine Clr Calc Pharmacy 95.5 ml/min; Magnesium 1.9 mg/dl (1.7-2.4); Potassium 4.2 mmol/L (3.5-5.1)
[2024-07-23 07:19] VITALS: RESP 18; O2SAT 97
[2024-07-23 07:29] LABS: Estimated Average Glucose 146 mg/dl; Hemoglobin A1C 6.7 % (4.5-5.6)
[2024-07-23] MEDS: LOSARTAN POTASSIUM 50 MG TAB PO SCH (08:07)
--- NOTE | 2024-07-23 08:49 | Hospitalist Progress Note ---
Date of Service July 23, 2024 Assessment & Plan (1) Abnormal EKG: (2) HLD (hyperlipidemia): (3) DM type 2 (diabetes mellitus, type 2): (4) History of cardiac cath: (5) HTN (hypertension): Plan Atypical chest pain Abnormal EKG --Chest CTA: No acute findings in the visualized arteries of the chest. 3.9 cm ascending thoracic aortic aneurysm --Carotid USD: Normal duplex ultrasound of the neck. --EKG: Normal sinus rhythm, left ventricular hypertrophy, T wave inversions in anterolateral leads --Troponins negative --ECHO: Moderate concentric LVH. Focal thickening of the basal septum with no evidence of left ventricular outflow obstruction. EF 60 to 65%. No significant annular disease. Aortic root is normal size. Borderline dilated ascending aorta. --S/P CVardiac Cath:Essentially normal right dominant coronary anatomy with minimal calcification of the proximal right coronary artery only --lipid panel: Normal Continue aspirin, Lipitor Appreciate cardiology input Plan to discharge home today Thoracic aortic aneurysm Incidental finding on CT CT showed 3.9 cm ascending thoracic aortic aneurysm Follow-up as outpatient Left breast nodule --CT showed 1.5 cm soft tissue nodule within the left breast. Patient aware of the nodule in the past Currently being monitored per patient Migraine headache Lasix as needed HTN/HLD: Continue statin Lisinopril changed to losartan for better control of blood pressure Monitor and adjust medications as needed DM II: HbA1c 6.7 Hold home regimen:metformin/glimepiride/Xultophy 24 units daily at home Continue insulin while hospitalized Monitor blood glucose levels GERD: Continue Pepcid/PPI DVT Px: Heparin SQ Code Status Full code Disposition Home Admission and Anticipated Discharge Date Admission Date: July 21, 2024 Subjective Patient is seen and examined at bedside States feeling well today left shoulder/neck pain resolved Headache resolved as well Denies any chest pain, dyspnea, nausea, vomiting, abdominal pain Review of Systems Review of Systems: All systems reviewed & are unremarkable except as noted in Subjective Physical Exam Physical Exam: Physical Exam: Vitals signs as noted above General Appearance:Obese, no apparent distress Head: normocephalic, Atraumatic Eyes: normal inspection, EOMI Neck: supple, Trachea midline Respiratory/Chest: Normal breath sounds, CTA, No accessory muscle use Cardiovascular: S1, S2, No murmur Abdomen/GI:Soft, Non tender, Bowel sounds present Extremities/Musculoskeletal:normal inspection, no edema Neurologic/Psych:AAOX3, grossly no focal neurological deficits Skin: normal color, warm Results & Data Results & Data Vital Signs (Past 12 Hours) Vital Signs Temp Pulse Pulse Resp BP Pulse Ox O2 Del Method 07/23/24 08:00 68 07/23/24 07:16 36.9 C 65 18 138/81 97 Room Air 07/23/24 03:00 36.4 C L 69 19 131/76 96 Room Air 07/22/24 23:00 68 07/22/24 22:54 36.6 C 66 21 133/74 96 Room Air Laboratory Results Short CBC 07/23/24 Range/Units 05:26 WBC 6.83 (4.8-10.8) K/ul Hgb 12.9 (12.0-16.0) g/dl Hct 38.8 (37.0-47.0) % Plt Count 304 (130-400) K/uL BMP 07/23/24 05:26 Sodium 141 Potassium 4.2 Chloride 107 Carbon Dioxide 28 BUN 17 Creatinine 0.71 Glucose 119 H Calcium 9.1
--- NOTE | 2024-07-23 10:33 | Electrocardiogram Report ---
Test Reason : Blood Pressure : */* mmHG Vent. Rate : 72 BPM Atrial Rate : 72 BPM P-R Int : 144 ms QRS Dur : 82 ms QT Int : 388 ms P-R-T Axes : 61 -18 113 degrees QTcB Int : 424 ms Normal sinus rhythm Left ventricular hypertrophy with repolarization abnormality Abnormal ECG When compared with ECG of 21-Jul-2024 16:12, No significant change was found Confirmed by Clarence Art ([id number]) on 07/23/2024 10:32:43 AM Referred By: REFERRED SELF Confirmed By: Clarence Art
[2024-07-23] MEDS: POLYETHYLENE (MIRALAX) 17 GM PACK PO PRN (11:35)
[2024-07-23 11:52] VITALS: BP 137/91; PULSE 75; TEMP 97.6
--- NOTE | 2024-07-23 12:30 | Discharge Summary ---
Date of Service July 23, 2024 Admission HPI Per Admitting Provider The patient is a 58-year-old female with a past medical history of DM2, GERD, HLD, HTN who presents to the ED on 07/21/2024 with complaints of sharp back pain that starts under her arm radiates up to her left shoulder and up her neck. Reports that when the pain started she became short of breath because it knocked the wind out of her. Reports the pain started this morning while she was sitting on the couch.. Only lasts for about 5 seconds, but the pain is severe. Denies any recent injury. She does not currently work. Denies any fever/chills/abdominal pain/nausea/vomiting/diarrhea. Denied any direct chest p ain. Reports seeing a commercial insurance underwriter over 12 years ago having a cardiac cath done that was unremarkable. She reports following with a commercial insurance underwriter for blood pressure management and check-ups here and there. The patient used to smoke but reports quitting cold turkey about 15 years ago On exam, the patient is in no apparent distress. The pain came on suddenly while I was at bedside and it is pretty consistent with the possibility of muscle spasms On arrival to the ED, labs are fairly unremarkable. Troponin is negative x 2 EKG showed normal sinus rhythm with possible inferior infarct, showed some nonspecific ST wave depression/T wave inversions in inferior leads UA fairly unremarkable Chest x-ray was negative Chest CTA was ordered to rule out aortic dissection. The patient will be admitted for monitoring and rule out ACS Admission Exam Per Admitting Provider Constitutional: WD/WN, vitals as above Eyes: PERRL, conjunctivae normal, anicteric sclerae ENMT: external ear and nose normal, oropharynx normal Neck: trachea midline, no thyromegaly Respiratory: normal respiratory effort, lungs clear to auscultation Cardiovascular: RRR, no murmur, no edema Chest (Breasts): normal inspection/palpation of breasts Gastrointestinal (Abdomen): normal bowel sounds, soft, nontender, no hepatos plenomegaly Musculoskeletal: no cyanosis or clubbing, extremities motor strength 5/5 Skin: no rashes, warm and dry Neurologic: patellar DTR's 2+ bilat, sensation intact Psychiatric: A+Ox3, euthymic affect Lymphatic: no cervical or axillary lymphadenopathy Principal Diagnosis Atypical chest pain Thoracic aortic aneurysm Migraine Left breast nodule Discharge Data Allergies Allergy/AdvReac Type Severity Reaction Status Date / Time No Known Allergies Allergy Unknown Verified 07/21/24 17:40 Consultations Laboratory Results WBC 6.83 K/ul (4.8-10.8) 07/23/24 05:26 RBC 4.52 M/uL (4.20-5.40) 07/23/24 05:26 Hgb 12.9 g/dl (12.0-16.0) 07/23/24 05:26 Hct 38.8 % (37.0-47.0) 07/23/24 05:26 MCV 85.8 fL (80.0-100.0) 07/23/24 05:26 MCH 28.5 pg (25.0-34.0) 07/23/24 05:26 MCHC 33.2 g/dL (32.0-36.0) 07/23/24 05:26 RDW Std Deviation 43.2 fL (36.4-46.3) 07/23/24 05:26 RDW Coeff of Sumeet 13.8 % (11.5-14.5) 07/23/24 05:26 Plt Count 304 K/uL (130-400) 07/23/24 05:26 MPV 10.4 fL (9.4-12.4) 07/23/24 05:26 Immature Gran % (Auto) 0.1 % 07/22/24 05:25 Neut % (Auto) 52.0 % 07/22/24 05:25 Lymph % (Auto) 30.4 % 07/22/24 05:25 [place] % (Auto) 9.3 % 07/22/24 05:25 Eos % (Auto) 7.1 % 07/22/24 05:25 Baso % (Auto) 1.1 % 07/22/24 05:25 Neut # (Auto) 3.78 K/uL (1.40-6.50) 07/22/24 05:25 Lymph # (Auto) 2.21 K/uL (1.20-3.40) 07/22/24 05:25 [place] # (Auto) 0.68 K/uL (0.11-0.59) H 07/22/24 05:25 Eos # (Auto) 0.52 K/uL (0.00-0.50) H 07/22/24 05:25 Baso # (Auto) 0.08 K/uL (0.00-0.20) 07/22/24 05:25 Immature Gran # (Auto) 0.01 K/uL (0.01-0.20) 07/22/24 05:25 PT 10.0 Seconds (9.0-12.0) 07/21/24 14:43 INR 0.9 (0.9-1.1) 07/21/24 14:43 APTT 28 Seconds (21-31) 07/21/24 14:43 PTT Ratio 1.0 07/21/24 14:43 D-Dimer 380 ug/L FEU (0-500) 07/21/24 14:43 Sodium 141 mmol/L (136-145) 07/23/24 05:26 Potassium 4.2 mmol/L (3.5-5.1) 07/23/24 05:26 Chloride 107 mmol/L (98-107) 07/23/24 05:26 Carbon Dioxide 28 mmol/L (21-32) 07/23/24 05:26 Anion Gap 6 (3-11) 07/23/24 05:26 BUN 17 mg/dl (6-23) 07/23/24 05:26 Creatinine 0.71 mg/dl (0.6-1.2) 07/23/24 05:26 Est Cr Clr Drug Dosing 95.5 ml/min 07/23/24 05:26 eGFR 97.28 07/23/24 05:26 BUN/Creatinine Ratio 23.9 (10-20) H 07/23/24 05:26 Glucose 119 mg/dl (70-99(Fasting)) H 07/23/24 05:26 POC Glucose 175 mg/dl (70-99) H 07/23/24 11:03 Estimat Average Glucose 146 mg/dl 07/23/24 05:26 Hemoglobin A1c 6.7 % (4.5-5.6) H 07/23/24 05:26 Calcium 9.1 mg/dl (8.6-10.3) 07/23/24 05:26 Magnesium 1.9 mg/dl (1.7-2.4) 07/23/24 05:26 Total Bilirubin 0.3 mg/dl (0.2-1.0) 07/22/24 05:25 AST 11 U/L (13-39) L 07/22/24 05:25 ALT 15 U/L (7-52) 07/22/24 05:25 Alkaline Phosphatase 88 U/L (34-104) 07/22/24 05:25 Troponin I High Sens 3.9 pg/ml (0-14) 07/21/24 23:12 Total Protein 6.0 gm/dl (6.0-8.3) 07/22/24 05:25 Albumin 3.6 gm/dl (3.4-5.0) 07/22/24 05:25 Globulin 2.4 gm/dl (2.5-4.0) L 07/22/24 05:25 Albumin/Globulin Ratio 1.5 (0.9-2) 07/22/24 05:25 Triglycerides 114 mg/dl (0-150) 07/23/24 05:26 Cholesterol 106 mg/dl (0-200) 07/23/24 05:26 LDL Cholesterol, Calc 34 mg/dl 07/23/24 05:26 VLDL Cholesterol, Calc 23 mg/dl (0-30) 07/23/24 05:26 HDL Cholesterol 49 mg/dl 07/23/24 05:26 Cholesterol/HDL Ratio 2.2 (0-5) 07/23/24 05:26 Urine Color Yellow 07/21/24 15:20 Urine Appearance Clear (Clear) 07/21/24 15:20 Urine pH 5.5 (4.5-7.5) 07/21/24 15:20 Ur Specific [place] 1.021 (1.000-1.030) 07/21/24 15:20 Urine Protein Negative (Negative) 07/21/24 15:20 Urine Glucose (UA) Negative (Negative) 07/21/24 15:20 Urine Ketones Trace (Negative) H 07/21/24 15:20 Urine Blood Negative (Negative) 07/21/24 15:20 Urine Nitrite Negative (Negative) 07/21/24 15:20 Urine Bilirubin Negative (Negative) 07/21/24 15:20 Urine Urobilinogen Negative (Negative) 07/21/24 15:20 Ur Leukocyte Esterase 1+ (Negative) H 07/21/24 15:20 Urine WBC (Auto) 0-5 /hpf (0-5) 07/21/24 15:20 Urine RBC (Auto) 0-2 /hpf (0-2) 07/21/24 15:20 U Hyaline Cast (Auto) 0-2 /lpf (0-2) 07/21/24 15:20 U Epithel Cells (Auto) 0-2 /hpf (0-2) 07/21/24 15:20 Urine Bacteria (Auto) None Seen (None Seen) 07/21/24 15:20 Impressions Chest X-Ray 07/21/24 14:19 SINGLE VIEW CHEST CLINICAL HISTORY: Atypical chest pain. FINDINGS: An AP, portable, upright chest radiograph is compared to study dated 07/28/2020. The heart is top normal for projection noting atherosclerotic calcification of the thoracic aorta. Chronic interstitial thickening is similar to previous. The lungs and pleural spaces are clear. No pneumothorax is seen. The skeletal structures are osteopenic. The bony thorax is grossly intact. Calcific tendinopathy is noted in the right shoulder. IMPRESSION: No active disease in the chest. ACT 112: Negative or not required by law. Electronically signed by: Reza Pena M.D. 07/21/2024 4:12 PM Chest CTA 07/21/24 18:51 Exam(s): CTA CHEST W/WO Contrast IV Amt: 119 ml opti 320 EXAM: CT Angiography Chest Without and With Intravenous Contrast CLINICAL HISTORY: Reason for exam: r/o dissection. TECHNIQUE: Axial computed tomographic angiography images of the chest without and with intravenous contrast. Automated exposure control was utilized for the study. A dose lowering technique was utilized adhering to the principles of ALARA. MIP reconstructed images were created and reviewed. CONTRAST: Patient received 119 ml opti 320 of IV contrast COMPARISON: 03/09/2007. FINDINGS: Pulmonary arteries: Unremarkable. No pulmonary embolism. Aorta: 3.9 cm ascending thoracic aortic aneurysm. Lungs: Unremarkable. No mass. No consolidation. Pleural space: Unremarkable. No significant effusion. No pneumothorax. Heart: Unremarkable. No cardiomegaly. No significant pericardial effusion. No evidence of RV dysfunction. Bones/joints: No acute fracture. No dislocation. Soft tissues: 1.5 cm soft tissue nodule within the left breast.. Lymph nodes: Unremarkable. No enlarged lymph nodes. IMPRESSION: No acute findings in the visualized arteries of the chest. 3.9 cm ascending thoracic aortic aneurysm 1.5 cm soft tissue nodule within the left breast. Recommend breast ultrasound or mammogram for further evaluation. This lesion was seen on the prior CT Electronically signed by: Chung Smith MD 07/21/24 20:23 PM Carotid Doppler Study 07/21/24 21:40 Exam(s): US CAROTID EXAM: US Duplex Bilateral Extracranial Arteries CLINICAL HISTORY: Reason for exam: chest pain. TECHNIQUE: Real-time duplex ultrasound scan of the extracranial arteries integrating B-mode two-dimensional vascular structure, Doppler spectral analysis and color flow Doppler imaging. COMPARISON: No relevant prior studies available. FINDINGS: Right common carotid artery: Unremarkable. No occlusion or significant stenosis on color flow and spectral Doppler imaging. Right internal carotid artery: Unremarkable. No occlusion or significant stenosis on color flow and spectral Doppler imaging. Right external carotid artery: Unremarkable. No occlusion or significant stenosis on color flow and spectral Doppler imaging. Right vertebral artery: Unremarkable. Antegrade flow. Right ICA/CCA ratio: Unremarkable. Within normal limits. Left common carotid artery: Unremarkable. No occlusion or significant stenosis on color flow and spectral Doppler imaging. Left internal carotid artery: Unremarkable. No occlusion or significant stenosis on color flow and spectral Doppler imaging. Left external carotid artery: Unremarkable. No occlusion or significant stenosis on color flow and spectral Doppler imaging. Left vertebral artery: Unremarkable. Antegrade flow. Left ICA/CCA ratio: Unremarkable. Within normal limits. Lymph nodes: Unremarkable. No lymphadenopathy. CAROTID STENOSIS REFERENCE USING SRU CRITERIA: Mild - <50% stenosis. ICA PSV is less than 125 cm/second and plaque or intimal thickening is visible. Moderate - 50-69% stenosis. ICA PSV is 125 to 230 cm/second and plaque is visible. Severe - 70-94% stenosis. ICA PSV is more than 230 cm/second and visible plaque with lumen narrowing is seen. Near occlusion - 95-99% stenosis. ICA PSV is variable and significant plaque with luminal narrowing is seen. Occluded - 100% stenosis. No flow identified. IMPRESSION: Normal duplex ultrasound of the neck. Electronically signed by: Chung Smith MD 07/21/24 23:55 PM Procedures Performed Operation Date: 07/22/24 13:00 Actual Procedures s Cineradiography w/Routine Exam(Right) - Justin Snyder MD p Cath, Coronaries ONLY (no LV) - Justin Snyder MD Ordered Studies 07/21/24 18:51 CT angio chest dissec wo/w con Stat 07/21/24 21:40 Carotid duplex [US carotid doppler BI] Stat 07/22/24 14:35 CL Cath Imgs for PACS use only Routine Hospital Course (1) Abnormal EKG: (2) HLD (hyperlipidemia): (3) DM type 2 (diabetes mellitus, type 2): (4) History of cardiac cath: (5) HTN (hypertension): Plan Atypical chest pain Abnormal EKG --Chest CTA: No acute findings in the visualized arteries of the chest. 3.9 cm ascending thoracic aortic aneurysm --Carotid USD: Normal duplex ultrasound of the neck. --EKG: Normal sinus rhythm, left ventricular hypertrophy, T wave inversions in anterolateral leads --Troponins negative --ECHO: Moderate concentric LVH. Focal thickening of the basal septum with no evidence of left ventricular outflow obstruction. EF 60 to 65%. No significant annular disease. Aortic root is normal size. Borderline dilated ascending aorta. --S/P CVardiac Cath:Essentially normal right dominant coronary anatomy with minimal calcification of the proximal right coronary artery only --lipid panel: Normal Continue aspirin, Lipitor Appreciate cardiology input Plan to discharge home today Thoracic aortic aneurysm Incidental finding on CT CT showed 3.9 cm ascending thoracic aortic aneurysm Follow-up as outpatient Left breast nodule --CT showed 1.5 cm soft tissue nodule within the left breast. Patient aware of the nodule in the past Currently being monitored per patient Migraine headache Lasix as needed HTN/HLD: Continue statin Lisinopril changed to losartan for better control of blood pressure Monitor and adjust medications as needed DM II: HbA1c 6.7 Hold home regimen:metformin/glimepiride/Xultophy 24 units daily at home Continue insulin while hospitalized Monitor blood glucose levels GERD: Continue Pepcid/PPI DVT Px: Heparin SQ Code Status Full code Disposition Home Total Time Total Time Spent Total Time Spent (In Minutes): 44 minutes Discharge Plan Discharge Items Patient Disposition: Home - Self-Care Reason For Visit: BACK PAIN Discharge Diagnosis: Atypical chest pain Thoracic aortic aneurysm Migraine Left breast nodule Activity: Per Instructions section Exercise/Sports: Gradually increase as tolerated Non-emergency contact: Primary Care Provider Call non-emergency contact if: you have any medication questions, your symptoms worsen, your pain is concerning for you and you have a fever Follow-up/Referrals: Je Lawrence MD [Primary Care Provider] - (Date & Time 07/29/2024 8:20 AM Provider Rustam Fonseca MD Department Family Medicine [facility] ) Diet: Carb Consistent or DM2 and Heart Healthy [facility] Attending Provider Instructions: Follow-up with your primary care physician in 1 week Follow up with your Clothing Busheler as recommedned. -- Monitor your blood pressure regularly at home. Discuss with your physician for further adjustment of medications as needed --Follow up as outpatient to monitor Thoracic aortic aneurysm as recommended Seek immediate medical attention if your symptoms reoccur or worsen Please take all medications as instructed on discharge list below. Please call if you have any questions or problems. You can reach a [facility] hospitalist on duty at [facility] 24 hours a day by calling [phone] [facility] [employer] Provider Instructions: ACTIVITY RECOMMENDATIONS: Excess manipulation of the wrist should be avoided for the next 24-48 hours. * No lifting over 2 pounds (approximately a 1/2 gallon of milk) with the utilized arm for 24 hours. * No strenuous activity such as bowling or tennis for 3 days. * Keep the site of the procedure covered with a bandage for 24 hours. *You may shower the day after the procedure. Do not take a tub bath or submerge the puncture site in water for the next 3 days. *Do not operate any motorized equipment for 3 days. SPECIAL CARE INSTRUCTIONS: The site may be slightly bruised and sore following your procedure. Should any of the following occur, contact the Dr. who performed your procedure. 1. Redness/inflammation, swelling, chills, or fever, or colored drainage at procedure site within 3-7 days after your procedure. 2. Coldness, discoloration, ongoing numbness, severe pain, or swelling. Expect mild tingling of hand and tenderness at the puncture site for up to three days. If this persists beyond three days, or other symptoms develop, notify the Dr. who performed your procedure. BLEEDING: If the procedure site on your wrist begins to bleed, do not panic 1. Place 1 or 2 fingers firmly just slightly above the insertion site to stop the bleeding. You may be able to feel your pulse as you hold pressure. 2. Lift your finger after 5 minutes to see if the bleeding has stopped. 3. Once the bleeding has stopped, gently wipe the wrist area clean with a bandage. * If the bleeding from your wrist does not stop after 10 minutes, or if there is a large amount of bleeding or spurting, call 911 (do not drive yourself to the hospital). SKIN IRRITATION: * You may experience some redness and/or swelling in the area where radiation was administered. If any skin irritation occurs, please contact your family physician. FOLLOW UP VISIT: Keep any scheduled doctor appointments. Pending Studies at Discharge: No Stand-Alone Forms: My [facility] [employer] Smoking Cessation Medications and DC Order Prescriptions: New losartan 50 mg Tablet 50 mg PO QAM Qty: 30 1RF methocarbamol 500 mg Tablet 500 mg PO BID PRN (Reason: Spasms) Qty: 10 0RF Continued atorvastatin [Lipitor] 20 mg Tablet 20 mg PO QAM sulindac 200 mg Tablet 200 mg PO BID PRN (Reason: Pain) vitamin E 1,000 unit Capsule 1,000 unit PO QAM aspirin 81 mg Tablet,Delayed Release (Dr/Ec) 81 mg PO QAM ascorbic acid (vitamin C) [Vitamin C] 500 mg Tablet 1,000 mg PO QAM metformin 1,000 mg Tablet 1,000 mg PO BID gabapentin 300 mg Capsule 300 mg PO TID Excedrin Migraine 250-250-65 mg Tablet 2 tab PO Q6H PRN (Reason: Migraine Headache) Centrum Silver Women 8 mg iron-400 mcg-300 mcg Tablet 1 tab PO QAM famotidine 20 mg Tablet 20 mg PO QAM glimepiride 4 mg Tablet 4 mg PO QAM ibuprofen 200 mg Tablet 200 mg PO Q6H PRN (Reason: Pain) omeprazole 20 mg capsule,delayed release(DR/EC) 20 mg PO QAM duloxetine 30 mg capsule,delayed release(DR/EC) 30 mg PO QAM Xultophy 100/3.6 100 unit-3.6 mg /mL (3 mL) insulin pen 24 unit SUBCUT QAM Discontinued lisinopril 5 mg Tablet 5 mg PO QAM Discharge Orders: Discharge Order (Routine); Ordered 07/23/24 Ordered By: Molina Jernigan/Other Patient Handouts: Managing Type 2 Diabetes Admission Data Admit Date/Time: 07/21/24 19:23 Attending Provider: Molina Barrientos Admit Provider: Zia Vaughn Primary Care Provider: Je Lawrence Other Providers: Zia Vaughn; Dez Morgan Other Interventions: Discharge Summary Assessment (RN) Last Done: 07/23/24 10:43
== END 2024-07-23 12:14 | disposition home or self-care (01) | DRG 287 ==
LOC: ED 14:12 → SUATTDRO 19:23 → 2E 19:23
PROC: CLB.CCO (2024-07-22 13:00)

== ENCOUNTER 2025-07-24 02:31 | Observation (INO) ==
[2025-07-24] MEDS: SODIUM CHLORIDE 0.9% 1,000 ML IV ONE (03:02)
[2025-07-24] MEDS: ACETAMINOPHEN 1,000 MG/100 ML VIAL IV STA (03:02)
[2025-07-24] MEDS: MAGNESIUM SULFATE / D5W 1 GM/100 ML BAG IV STA (03:05)
[2025-07-24] MEDS: FAMOTIDINE 20MG IV PUSH 20 MG/5 ML SYR IV STA (03:06)
[2025-07-24] MEDS: PANTOprazole 40 MG/10 ML SYR IV ONE (03:07)
--- NOTE | 2025-07-24 03:17 | Emergency Department Note ---
Impression & Plan Chest pain, Atrial fibrillation with rapid ventricular response ED Provider Note ED Provider Note NAME: JOSE WALLER AGE:59 SEX: Female : 1965 ARRIVES VIA: Private vehicle INFORMANT: Patient ED PROVIDER(s): Cyn Jensen DO CHIEF COMPLAINT: Chest pain HPI: This is a 59-year-old female who presents the emergency department due to concern for chest pain. Patient states symptoms began around 1230. She states the pain is across her chest radiating to her shoulders and jaw. She states it is sharp, aching, heaviness and pressure. She states she also has a sense of racing and pounding of her heart. She states she developed a headache additionally. She states she could not find a comfortable position at home. She denies any recent fevers or chills, URI symptoms. No recent change in bowel or bladder function. She denies any change in medications. She states she was consuming margaritas earlier in the evening with a friend. PAST MEDICAL HISTORY:See Below PAST SURGICAL HISTORY:See Below FAMILY HISTORY:See Below SOCIAL HISTORY:See Below HOME MEDICATIONS:See Below ALLERGIES:See Below VITALS:See Below PHYSICAL EXAMINATION: GENERAL: alert, uncomfortable appearing, well nourished, no distress, non-toxic EYE EXAM: normal conjunctiva, PERRL and EOM's grossly intact OROPHARYNX: no exudate, no erythema, lips, buccal mucosa, and tongue normal and mucous membranes are dry NECK: supple, no nuchal rigidity, no adenopathy, non-tender LUNGS: Clear to auscultation. Normal chest wall mechanics, no w/r/r HEART: no murmurs, S1 normal and S2 normal ABDOMEN: abdomen soft, non-tender, normo-active bowel sounds, no masses, no rebound or guarding. BACK: Back is symmetrical on inspection and there is no deformity, no midline tenderness, no CVA tenderness. SKIN: no rashes, petechiae, orbruising UPPER EXTREMITIES: upper extremities are grossly normal. FROM, nml pulses b/l. LOWER EXTREMITIES: No pitting edema. FROM, nml pulses b/l. NEURO EXAM: Normal sensorium, cranial nerves II-XII grossly intact, normal speech, no facial droop,nogross weakness of arms, no gross weakness of legs. Gross sensation intact. No ataxia. Vital Signs: reviewed and remarkable Differential Diagnosis: acute coronary syndrome, pericarditis, pulmonary embolus, aortic dissection, pneumonia, pneumothorax, musculoskeletal pain, shingles, GERD, GI bleed, as well as others were considered MEDICAL DECISION MAKING: This is a 59-year-old female who presents to the emergency department due to concern for chest pain and palpitations. Patient noted to be tachycardic upon arrival. She was otherwise afebrile, she was also noted to be hypotensive and was immediately placed in a patient room and I was asked to come see her urgently. Patient noted to be in rapid atrial fibrillation once placed on telemetry. Labs drawn and sent, IV established, EKG and chest x-ray performed at bedside and interpreted by me. Patient was started on IV fluid bolus and quickly responded and hypotension resolved. Chest x-ray reassuring. Troponin negative and labs. Patient given IV Tylenol, IV Pepcid, and IV Protonix additionally. Patient did admit to alcohol use earlier in the evening. I did review her prior cardiac catheterization and echo from 1 year ago which were reassuring despite other risk factors for coronary artery disease. Patient given 2 doses of IV Lopressor 5 mg each with marked improvement of her symptoms and improvement of her heart rate although she was still in atrial fibrillation. Her usual morning Coreg was ordered additionally. I discussed the case with Dr. Nolasco who was on-call. We discussed the plan for discharge and close follow-up in the office. Patient given first dose of Eliquis here. Upon discussion of this at bedside with the patient she and her whom she called over the phone are uncomfortable with her going home given her abnormal heart rhythm and significant chest pain earlier tonight. They feel she needs admitted until she converts to normal sinus rhythm. We discussed risk versus benefits of admission versus discharge and they wish to be admitted. I did update cardiology again. Case discussed with the hospitalist team for additional inpatient evaluation. Per cardiology recommendations a 150 mg bolus of amiodarone was also added. Patient did receive additional oral potassium and IV magnesium for further repletion to preferred ranges. She did receive 2 L of IV fluids. She reported feeling markedly improved. Consultation(s): 729: Discussed with Dr. Nolasco. Agrees with plan for discharge and close follow-up in the office. She recommends starting the patient on Eliquis 5 mg twice daily as a precaution and giving the patient Lopressor 25 mg to use as needed for any further palpitations until she is seen. She expects the patient will spontaneously convert back to a normal sinus rhythm in the next 24 to 48 hours. She states she can see the patient tomorrow in the [place] office or later on the week agrees with this. 0755: Discussed with Dr. Nolasco again. Recommends amio 150 mg bolus. If patient converts to NSR, she could be discharged. 0845: [facility], for additional evaluation and mgmt. ER Treatment Provided: See below 0750: After discussion with the patient she states she is not comfortable going home. She is going both states they feel she needs to be admitted until her "heart goes back to normal". Diagnostics Interpreted By Me: -ECG: Atrial fibrillation at a rate of 128, normal axis, normal QRS, prolonged QTc, nonspecific ST/T wave changes and baseline aberrancy noted -Cardiac Monitoring: An order was placed for continuous cardiac monitoring. The monitor shows a rate of 112 with a.fib rhythm. -Laboratory studies: As stated above and show below. -Imaging studies: X-ray Chest: A single view study of the chest was reviewed and was negative for cardiomegaly, focal infiltrate, effusion, pulmonary edema, or wide mediastinum. Triage Nursing Note Reviewed Prior/Outside Records Reviewed -cardiac catheterization from July 2024 reviewed, echo reviewed Past Med/Surg History Problem List (Updated 07/24/25 @ 03:17 by Cyn Jensen DO) Atrial fibrillation with rapid ventricular response (Acute) Chest pain (Acute) Abnormal EKG (Acute) Chest pain (Acute) Lumbar radiculopathy S/P spinal surgery HLD (hyperlipidemia) DM type 2 (diabetes mellitus, type 2) Migraine Sleep apnea GERD (gastroesophageal reflux disease) Neurogenic claudication due to lumbar spinal stenosis Acute blood loss anemia History of cardiac cath History of tonsillectomy and adenoidectomy History of appendectomy History of tubal ligation History of laparoscopy + MADDIE History of colonoscopy with polypectomy Lumbar spondylosis HTN (hypertension) Medical History Obesity 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" GERD (gastroesophageal reflux disease) controlled Diabetes mellitus, type 2 NIDDM Migraine Sleep apnea non-compliant with CPAP, no device currently Surgical History History of cardiac catheterization 15+ years ago- no stents History of lumbar fusion History of brain surgery S/P PITUITARY TUMOR RESECTION (BENIGN) History of section History of bilateral tubal ligation History of tooth extraction Family History Mother Family history of diabetes mellitus Family/Other Family history of diabetes mellitus Social History Smoking Status: Former smoker Second Hand Exposure: Yes (as a child); Do You Dip or Chew Tobacco: No; Hx Alcohol Use: Yes Alcohol type: other Hx Substance Use: No Preferred Language: Gabonese Communication Ability: Effective Visual Impairment: No Limitations Contract Agent Required: No Beliefs That Will Affect Care: None marital status: Current Living Situation: Spouse Other Information That Helps Us Care for You: No Feels Safe at Home: No Is there a partner from a previous relationship who is making you feel unsafe now?: No Any Concerns about Your Family Situation: No Would You Like to Speak to Someone About Your Situation: No Safety Concerns: Feels Safe At This Time Assistive Devices: Cane, Contacts and Glasses Allergies Allergies Allergy/AdvReac Type Severity Reaction Status Date / Time No Known Allergies Allergy Unknown Verified 07/24/25 02:57 Home Meds Home Medications Medication Instructions Recorded Confirmed aspirin 81 mg tablet,delayed 81 mg PO QAM 07/20/18 07/24/25 release ytzyegi-isqaimxfmktpi-okqnbvto 250 2 tab PO DIRECTED PRN Migraine 07/20/18 07/24/25 mg-250 mg-65 mg tablet (Excedrin Headache Migraine) atorvastatin 20 mg tablet (Lipitor) 20 mg PO QAM 07/20/18 07/24/25 gabapentin 300 mg capsule 600 mg PO TID 07/20/18 07/24/25 hnsqtkfw-grqh-tzwf 8 mg-folic 400 1 tab PO QAM 07/20/18 07/24/25 mcg-K 50 mcg-lutein 300 mcg tablet (Centrum Silver Women) sulindac 200 mg tablet 200 mg PO BID PRN Pain 07/20/18 07/24/25 duloxetine 30 mg capsule,delayed 30 mg PO BID 07/21/24 07/24/25 release insulin degludec 100 24 unit subcut QAM 07/21/24 07/24/25 unit-liraglutide 3.6 mg/mL(3 mL) subcutaneous pen (Amolophlaurent 100/3.6) omeprazole 20 mg capsule,delayed 20 mg PO DAILYBB 07/21/24 07/24/25 release albuterol sulfate 90 mcg/actuation 2 puff inhalation Q4H PRN Wheezing 07/24/25 07/24/25 aerosol inhaler amlodipine 2.5 mg tablet 2.5 mg PO QAM 07/24/25 07/24/25 ascorbic acid (vitamin C) 500 mg 500 mg PO DAILY 07/24/25 07/24/25 tablet,extended release (Vitamin C ER) carvedilol 6.25 mg tablet 6.25 mg PO BID 07/24/25 07/24/25 cyclobenzaprine 10 mg tablet 10 mg PO BID PRN MUSCLE SPASMS 07/24/25 07/24/25 fexofenadine 180 mg tablet 180 mg PO DAILY 07/24/25 07/24/25 metformin 500 mg tablet,extended 1,000 mg PO BID 07/24/25 07/24/25 release 24 hr methocarbamol 500 mg tablet 500 mg PO DAILY PRN MUSCLE SPASMS 07/24/25 07/24/25 omega 7-vor-shx-fish oil 1,200 mg 1 cap PO DAILY 07/24/25 07/24/25 (144 mg-216 mg) capsule (Fish Oil) sumatriptan succinate 100 mg tablet 100 mg PO DIRECTED PRN Migraine 07/24/25 07/24/25 Headache vitamin E 670 mg (1,000 unit) 670 mg PO DAILY 07/24/25 07/24/25 capsule Previous Rx's Medication Instructions Recorded losartan 50 mg tablet 50 mg PO QAM #30 tabs 07/23/24 Results & Data (ED) Vital Signs Vital Signs - 24 hr 07/24/25 02:35 07/24/25 02:45 07/24/25 02:48 Temperature 37 C Temperature Source Temporal Artery Scan Pulse Rate 89 131 H 132 H Pulse Rate from SpO2 Sensor Pulse Rhythm Regular Pulse Strength Normal Respiratory Rate 24 23 Respiratory Effort / Characteristics Non-Labored Spontaneous Respiratory Depth Normal Respiratory Pattern Regular Blood Pressure 76/58 L 99/63 L Blood Pressure Mean 64 75 Blood Pressure Position Sitting Pulse Oximetry 94 93 Oxygen Delivery Method Room Air Sepsis Recent Fever Within 48 Hours No Sepsis New/Unexplained Change in Mental Status N/A Sepsis Action Taken by Nursing No Action Required 07/24/25 03:00 07/24/25 03:12 07/24/25 03:27 Temperature Temperature Source Pulse Rate 117 H 133 H 123 H Pulse Rate from SpO2 Sensor 104 H 103 H 101 H Pulse Rhythm Pulse Strength Respiratory Rate 22 19 18 Respiratory Effort / Characteristics Respiratory Depth Respiratory Pattern Blood Pressure 114/84 129/87 101/76 Blood Pressure Mean 90 101 84 Blood Pressure Position Pulse Oximetry 92 97 96 Oxygen Delivery Method Sepsis Recent Fever Within 48 Hours Sepsis New/Unexplained Change in Mental Status Sepsis Action Taken by Nursing 07/24/25 03:45 07/24/25 03:45 07/24/25 04:01 Temperature Temperature Source Pulse Rate 115 H 139 H 130 H Pulse Rate from SpO2 Sensor 90 104 H Pulse Rhythm Pulse Strength Respiratory Rate 16 19 Respiratory Effort / Characteristics Respiratory Depth Respiratory Pattern Blood Pressure 111/78 111/78 114/73 Blood Pressure Mean 94 94 Blood Pressure Position Pulse Oximetry 96 94 Oxygen Delivery Method Sepsis Recent Fever Within 48 Hours Sepsis New/Unexplained Change in Mental Status Sepsis Action Taken by Nursing 07/24/25 04:12 07/24/25 04:15 07/24/25 04:30 Temperature Temperature Source Pulse Rate 105 H 107 H 111 H Pulse Rate from SpO2 Sensor 105 H 83 101 H Pulse Rhythm Pulse Strength Respiratory Rate 16 24 18 Respiratory Effort / Characteristics Respiratory Depth Respiratory Pattern Blood Pressure 114/73 115/77 106/76 Blood Pressure Mean 86 89 86 Blood Pressure Position Pulse Oximetry 94 94 96 Oxygen Delivery Method Sepsis Recent Fever Within 48 Hours Sepsis New/Unexplained Change in Mental Status Sepsis Action Taken by Nursing 07/24/25 04:48 07/24/25 04:51 07/24/25 05:09 Temperature Temperature Source Pulse Rate 123 H 111 H 104 H Pulse Rate from SpO2 Sensor 85 98 H Pulse Rhythm Pulse Strength Respiratory Rate 20 20 Respiratory Effort / Characteristics Respiratory Depth Respiratory Pattern Blood Pressure 102/68 102/68 127/79 Blood Pressure Mean 79 95 Blood Pressure Position Pulse Oximetry 96 95 Oxygen Delivery Method Sepsis Recent Fever Within 48 Hours Sepsis New/Unexplained Change in Mental Status Sepsis Action Taken by Nursing 07/24/25 05:15 07/24/25 05:30 07/24/25 05:45 Temperature Temperature Source Pulse Rate 112 H 109 H 111 H Pulse Rate from SpO2 Sensor 101 H 106 H 113 H Pulse Rhythm Pulse Strength Respiratory Rate 22 22 21 Respiratory Effort / Characteristics Respiratory Depth Respiratory Pattern Blood Pressure 122/86 121/92 113/74 Blood Pressure Mean 94 101 85 Blood Pressure Position Pulse Oximetry 95 91 95 Oxygen Delivery Method Sepsis Recent Fever Within 48 Hours Sepsis New/Unexplained Change in Mental Status Sepsis Action Taken by Nursing 07/24/25 06:00 07/24/25 06:33 07/24/25 07:00 Temperature Temperature Source Pulse Rate 107 H 109 H 115 H Pulse Rate from SpO2 Sensor 105 H Pulse Rhythm Pulse Strength Respiratory Rate 22 23 Respiratory Effort / Characteristics Respiratory Depth Respiratory Pattern Blood Pressure 111/72 112/88 Blood Pressure Mean 85 94 Blood Pressure Position Pulse Oximetry 91 94 Oxygen Delivery Method Room Air Sepsis Recent Fever Within 48 Hours Sepsis New/Unexplained Change in Mental Status Sepsis Action Taken by Nursing 07/24/25 07:13 07/24/25 07:15 07/24/25 07:31 Temperature Temperature Source Pulse Rate 104 H 103 H Pulse Rate from SpO2 Sensor Pulse Rhythm Pulse Strength Respiratory Rate 24 20 Respiratory Effort / Characteristics Respiratory Depth Respiratory Pattern Blood Pressure 103/81 101/85 132/97 Blood Pressure Mean 85 95 114 Blood Pressure Position Pulse Oximetry 95 97 Oxygen Delivery Method Room Air Room Air Sepsis Recent Fever Within 48 Hours Sepsis New/Unexplained Change in Mental Status Sepsis Action Taken by Nursing 07/24/25 07:35 07/24/25 07:45 07/24/25 08:00 Temperature Temperature Source Pulse Rate 101 H 113 H 103 H Pulse Rate from SpO2 Sensor Pulse Rhythm Pulse Strength Respiratory Rate 23 22 17 Respiratory Effort / Characteristics Respiratory Depth Respiratory Pattern Blood Pressure 121/92 105/72 120/87 Blood Pressure Mean 104 94 97 Blood Pressure Position Pulse Oximetry 97 98 97 Oxygen Delivery Method Room Air Room Air Room Air Sepsis Recent Fever Within 48 Hours Sepsis New/Unexplained Change in Mental Status Sepsis Action Taken by Nursing 07/24/25 08:15 07/24/25 08:30 07/24/25 08:45 Temperature Temperature Source Pulse Rate 92 H 87 97 H Pulse Rate from SpO2 Sensor Pulse Rhythm Pulse Strength Respiratory Rate 22 21 22 Respiratory Effort / Characteristics Respiratory Depth Respiratory Pattern Blood Pressure 120/77 123/78 119/79 Blood Pressure Mean 84 80 95 Blood Pressure Position Pulse Oximetry 97 95 93 Oxygen Delivery Method Room Air Room Air Room Air Sepsis Recent Fever Within 48 Hours Sepsis New/Unexplained Change in Mental Status Sepsis Action Taken by Nursing Laboratory Data 07/24/25 02:42 07/24/25 02:42 Lab Results 07/24/25 07/24/25 07/24/25 Range/Units 02:42 03:04 03:20 WBC 15.31 H (4.8-10.8) K/ul RBC 5.18 (4.20-5.40) M/uL Hgb 15.3 (12.0-16.0) g/dl POC Hgb 15.6 16.0 (12.0-16.0) g/dl Hct 45.3 (37.0-47.0) % POC Hct 46 47 (37-47) % MCV 87.5 (80.0-100.0) fL MCH 29.5 (25.0-34.0) pg MCHC 33.8 (32.0-36.0) g/dL RDW Std Deviation 47.8 H (36.4-46.3) fL RDW Coeff of Sumeet 14.9 H (11.5-14.5) % Plt Count 431 H (130-400) K/uL MPV 9.9 (9.4-12.4) fL Immature Gran % (Auto) 0.7 % Neut % (Auto) 72.5 % Lymph % (Auto) 17.1 % Norton % (Auto) 7.1 % Eos % (Auto) 1.9 % Baso % (Auto) 0.7 % Neut # (Auto) 11.11 H (1.40-6.50) K/uL Lymph # (Auto) 2.62 (1.20-3.40) K/uL Norton # (Auto) 1.08 H (0.11-0.59) K/uL Eos # (Auto) 0.29 (0.00-0.50) K/uL Baso # (Auto) 0.11 (0.00-0.20) K/uL Immature Gran # (Auto) 0.10 (0.01-0.20) K/uL PT 9.8 (9.0-12.0) Seconds INR 0.9 (0.9-1.1) D-Dimer 430 (0-500) ug/L FEU POC Sodium 142 143 (135-144) mmol/L Sodium 140 (136-145) mmol/L POC Potassium 3.6 3.6 (3.3-5.0) mmol/L Potassium 3.6 (3.5-5.1) mmol/L POC Chloride 111 110 (101-112) mmol/L Chloride 108 H (98-107) mmol/L Carbon Dioxide 20 L (21-32) mmol/L POC Total CO2 18 L 18 L (24-31) mmol/L Anion Gap 12 H (3-11) POC Anion Gap 18.0 19.0 (16-25) mmol/L POC BUN 21 H 21 H (7-18) mg/dl BUN 20 (6-23) mg/dl Creatinine 0.82 (0.6-1.2) mg/dl POC Creatinine 0.8 0.8 (0.6-1.3) mg/dl Est Cr Clr Drug Dosing Not Reportable eGFR 81.33 BUN/Creatinine Ratio 24.4 H (10-20) Glucose 186 H (70-99(Fasting)) mg/dl POC Glucose (other) 192 H 191 H (70-99) mg/dl Calcium 10.0 (8.6-10.3) mg/dl POC Ioniz Calcium Nino 1.24 1.28 (1.12-1.32) mmol/l Magnesium 1.9 (1.7-2.4) mg/dl Total Bilirubin 0.3 (0.2-1.0) mg/dl AST 12 L (13-39) U/L ALT 16 (7-52) U/L Alkaline Phosphatase 130 H (34-104) U/L Troponin I High Sens 9.3 (0-14) pg/ml Total Protein 7.4 (6.0-8.3) gm/dl Albumin 4.1 (3.4-5.0) gm/dl Globulin 3.3 (2.5-4.0) gm/dl Albumin/Globulin Ratio 1.2 (0.9-2) Lipase 109 H (11-82) U/L TSH 7.782 H (0.300-4.500) uIu/ml Free T4 0.82 (0.61-1.60) ng/dl Urine Color Urine Appearance (Clear) Urine pH (4.5-7.5) Ur Specific [place] (1.000-1.030) Urine Protein (Negative) Urine Glucose (UA) (Negative) Urine Ketones (Negative) Urine Blood (Negative) Urine Nitrite (Negative) Urine Bilirubin (Negative) Urine Urobilinogen (Negative) Ur Leukocyte Esterase (Negative) Urine WBC (Auto) (0-5) /hpf Urine RBC (Auto) (0-2) /hpf U Hyaline Cast (Auto) (0-2) /lpf U Epithel Cells (Auto) (0-2) /hpf Urine Bacteria (Auto) (None Seen) Urine Mucus (None Prsent) Urine Comment Ethyl Alcohol mg/dL 23.8 H (<10.0) mg/dl Lyme Disease Screen Negative (Negative) 07/24/25 Range/Units 05:32 WBC (4.8-10.8) K/ul RBC (4.20-5.40) M/uL Hgb (12.0-16.0) g/dl POC Hgb (12.0-16.0) g/dl Hct (37.0-47.0) % POC Hct (37-47) % MCV (80.0-100.0) fL MCH (25.0-34.0) pg MCHC (32.0-36.0) g/dL RDW Std Deviation (36.4-46.3) fL RDW Coeff of Sumeet (11.5-14.5) % Plt Count (130-400) K/uL MPV (9.4-12.4) fL Immature Gran % (Auto) % Neut % (Auto) % Lymph % (Auto) % Norton % (Auto) % Eos % (Auto) % Baso % (Auto) % Neut # (Auto) (1.40-6.50) K/uL Lymph # (Auto) (1.20-3.40) K/uL Norton # (Auto) (0.11-0.59) K/uL Eos # (Auto) (0.00-0.50) K/uL Baso # (Auto) (0.00-0.20) K/uL Immature Gran # (Auto) (0.01-0.20) K/uL PT (9.0-12.0) Seconds INR (0.9-1.1) D-Dimer (0-500) ug/L FEU POC Sodium (135-144) mmol/L Sodium (136-145) mmol/L POC Potassium (3.3-5.0) mmol/L Potassium (3.5-5.1) mmol/L POC Chloride (101-112) mmol/L Chloride (98-107) mmol/L Carbon Dioxide (21-32) mmol/L POC Total CO2 (24-31) mmol/L Anion Gap (3-11) POC Anion Gap (16-25) mmol/L POC BUN (7-18) mg/dl BUN (6-23) mg/dl Creatinine (0.6-1.2) mg/dl POC Creatinine (0.6-1.3) mg/dl Est Cr Clr Drug Dosing eGFR BUN/Creatinine Ratio (10-20) Glucose (70-99(Fasting)) mg/dl POC Glucose (other) (70-99) mg/dl Calcium (8.6-10.3) mg/dl POC Ioniz Calcium Nino (1.12-1.32) mmol/l Magnesium (1.7-2.4) mg/dl Total Bilirubin (0.2-1.0) mg/dl AST (13-39) U/L ALT (7-52) U/L Alkaline Phosphatase (34-104) U/L Troponin I High Sens (0-14) pg/ml Total Protein (6.0-8.3) gm/dl Albumin (3.4-5.0) gm/dl Globulin (2.5-4.0) gm/dl Albumin/Globulin Ratio (0.9-2) Lipase (11-82) U/L TSH (0.300-4.500) uIu/ml Free T4 (0.61-1.60) ng/dl Urine Color Yellow Urine Appearance Clear (Clear) Urine pH 6.0 (4.5-7.5) Ur Specific [place] 1.013 (1.000-1.030) Urine Protein 2+ H (Negative) Urine Glucose (UA) 2+ H (Negative) Urine Ketones Negative (Negative) Urine Blood Negative (Negative) Urine Nitrite Negative (Negative) Urine Bilirubin Negative (Negative) Urine Urobilinogen Negative (Negative) Ur Leukocyte Esterase Trace H (Negative) Urine WBC (Auto) 11-20 H (0-5) /hpf Urine RBC (Auto) 0-2 (0-2) /hpf U Hyaline Cast (Auto) 6-10 H (0-2) /lpf U Epithel Cells (Auto) 3-5 H (0-2) /hpf Urine Bacteria (Auto) None Seen (None Seen) Urine Mucus Present A (None Prsent) Urine Comment Ethyl Alcohol mg/dL (<10.0) mg/dl Lyme Disease Screen (Negative) Administered Medications Acetaminophen (Acetaminophen 325 Mg Tab) 650 mg PO Q4H PRN PRN Reason: Pain or Fever Stop: 08/23/25 11:11 Last Admin: 07/24/25 21:13 Dose: 650 mg Documented By: BETY Apixaban (Apixaban 5 Mg Tablet) 5 mg PO BID [facility] Stop: 08/23/25 20:59 Last Admin: 07/24/25 21:05 Dose: 5 mg Documented By: BETY Ascorbic Acid (Ascorbic Acid 500 Mg Tab) 500 mg PO DAILY [facility] Stop: 08/23/25 11:29 Last Admin: 07/24/25 11:53 Dose: 500 mg Documented By: STEPHAN Atorvastatin Calcium (Atorvastatin 20 Mg Tab) 20 mg PO QAM [facility] Stop: 08/23/25 11:29 Last Admin: 07/24/25 11:52 Dose: 20 mg Documented By: STEPHAN Duloxetine HCl (Duloxetine Hcl 30 Mg Cap) 30 mg PO BID [facility] Stop: 08/23/25 11:29 Last Admin: 07/24/25 21:05 Dose: 30 mg Documented By: Admin: 07/24/25 11:52 Dose: 30 mg Documented By: STEPHAN Gabapentin (Gabapentin 300 Mg Cap) 600 mg PO TID [facility] Stop: 08/23/25 11:29 Last Admin: 07/24/25 21:05 Dose: 600 mg Documented By: Admin: 07/24/25 13:22 Dose: 600 mg Documented By: Admin: 07/24/25 11:52 Dose: 600 mg Documented By: STEPHAN Insulin Aspart (Insulin Aspart Per Unit Charge) 0 units SC ACHS [facility] Stop: 08/23/25 11:29 Last Admin: 07/24/25 21:05 Dose: Not Given Documented By: Admin: 07/24/25 16:38 Dose: 6 units Documented By: STEPHAN Co-signed By: ALICE Admin: 07/24/25 11:51 Dose: 3 units Documented By: STEPHAN Co-signed By: ALICE Metoprolol Succinate (Metoprolol Succ 50mg Ext Rel Tab) 50 mg PO BID BRITTANIE Stop: 08/23/25 11:44 Last Admin: 07/24/25 21:08 Dose: 50 mg Documented By: Admin: 07/24/25 11:53 Dose: 50 mg Documented By: STEPHAN Discontinued Medications Apixaban (Apixaban 5 Mg Tablet) 5 mg PO ONE ONE Stop: 07/24/25 07:46 Last Admin: 07/24/25 07:57 Dose: 5 mg Documented By: CAMDEN Aspirin (Aspirin 81 Mg Ectab) 81 mg PO QAM BRITTANIE Stop: 08/23/25 11:29 Last Admin: 07/24/25 12:00 Dose: Not Given Documented By: STEPHAN Carvedilol (Carvedilol 6.25 Mg Tab) 6.25 mg PO NOW STA Stop: 07/24/25 06:33 Last Admin: 07/24/25 07:12 Dose: 6.25 mg Documented By: CAMDEN Carvedilol (Carvedilol 6.25 Mg Tab) 6.25 mg PO BID BRITTANIE Stop: 08/23/25 11:29 Last Admin: 07/24/25 12:00 Dose: Not Given Documented By: STEPHAN Sodium Chloride (Nss) 1,000 mls @ 999 mls/hr IV .Q1H1M ONE Stop: 07/24/25 03:52 Last Infusion: 07/24/25 04:10 Dose: Infused Documented By: Admin: 07/24/25 03:02 Dose: 999 mls/hr Documented By: YOUSIF Magnesium Sulfate/Dextrose (Magnesium Sulfate / D5w) 1 gm in 100 mls @ 100 mls/hr IV NOW STA Stop: 07/24/25 03:51 Last Infusion: 07/24/25 04:10 Dose: Infused Documented By: Admin: 07/24/25 03:05 Dose: 100 mls/hr Documented By: YOUSIF Pantoprazole Sodium (Protonix) 40 mg in 10 mls @ 5 mls/min IV NOW ONE Stop: 07/24/25 02:53 Last Admin: 07/24/25 03:07 Dose: 5 mls/min Documented By: YOUSIF Famotidine (Pepcid 20mg Iv Push) 20 mg in 5 mls @ 2.5 mls/min IV NOW STA Stop: 07/24/25 02:53 Last Admin: 07/24/25 03:06 Dose: 2.5 mls/min Documented By: YOUSIF Acetaminophen (Ofirmev) 1,000 mg in 100 mls @ 400 mls/hr IV NOW STA Stop: 07/24/25 03:06 Last Infusion: 07/24/25 03:30 Dose: Infused Documented By: Admin: 07/24/25 03:02 Dose: 400 mls/hr Documented By: YOUSIF Sodium Chloride (Nss) 1,000 mls @ 125 mls/hr IV .Q8H BRITTANIE Stop: 07/27/25 03:59 Last Admin: 07/24/25 13:20 Dose: Not Given Documented By: Infusion: 07/24/25 06:20 Dose: Infused Documented By: Infusion: 07/24/25 06:19 Dose: 999 mls/hr Documented By: Admin: 07/24/25 04:01 Dose: 125 mls/hr Documented By: YOUSIF Amiodarone HCl/Dextrose (Nexterone / D5w) 150 mg in 100 mls @ 600 mls/hr IV NOW STA Stop: 07/24/25 08:07 Last Infusion: 07/24/25 08:22 Dose: Infused Documented By: CAMDEN Co-signed By: WALTER Admin: 07/24/25 08:05 Dose: 600 mls/hr Documented By: CAMDEN Co-signed By: WALTER Metoprolol Tartrate (Metoprolol Tartrate 1 Mg/Ml Vial) 5 mg IV NOW STA Stop: 07/24/25 03:54 Last Admin: 07/24/25 04:01 Dose: 5 mg Documented By: YOUSIF Metoprolol Tartrate (Metoprolol Tartrate 1 Mg/Ml Vial) 5 mg IV NOW STA Stop: 07/24/25 04:36 Last Admin: 07/24/25 04:51 Dose: 5 mg Documented By: YOUSIF Potassium Chloride (Potassium Chloride Crtab 20 Meq Tabcr) 40 meq PO NOW STA Stop: 07/24/25 04:36 Last Admin: 07/24/25 04:51 Dose: 40 meq Documented By: YOUSIF Imaging Data Radiologist's Impression: Chest X-Ray 07/24/25 02:52 EXAM: XR chest 1V portable CLINICAL HISTORY: CP. TECHNIQUE: An X-ray image of the chest was obtained in the AP projection. COMPARISON: 07/21/2024 X-ray. FINDINGS: Pulmonary Parenchyma: Chronic interstitial thickening is similar to previous studies. This is a non-specific finding. There is no evidence of consolidation, collapse, or focal opacities. No pulmonary nodules are identified. There is no evidence of pleural effusion or pleural thickening. Heart and Mediastinum: The heart size and shape are normal. There is no mediastinal widening or masses. No hilar or mediastinal lymphadenopathy is identified. Atheromatous calcifications are seen along the aortic knob. Bony Thorax: The bony thorax appears intact without fractures or deformities. Soft Tissues: The soft tissues overlying the chest wall are unremarkable. IMPRESSION: 1. No acute cardiopulmonary abnormalities are identified. 2. No significant interval changes. Electronically signed by Jack Hernandez 07-24-2025 04:28 AM Discharge Plan Visit Data Chief Complaint: Cardiac Assessment Stated Complaint: JAW/CHEST/LT ARM PAIN, NAUSEA/VOMIT ED Provider: Cyn Jensen Discharge Problem: Chest pain, Atrial fibrillation with rapid ventricular response Patient Disposition: Admitted As Inpatient Condition: Fair Discharge Instructions Interventions: ED Discharge Assessment Last Done: 07/24/25 10:44
[2025-07-24 03:25] LABS: Hematocrit (blood only) 45.3 % (37.0-47.0); Hemoglobin 15.3 g/dl (12.0-16.0); Immature Granulocytes # (auto) 0.10 K/uL (0.01-0.20); Immature Granulocytes % (auto) 0.7 %; Mean Corpuscular Hemoglobin 29.5 pg (25.0-34.0); Mean Corpuscular Volume 87.5 fL (80.0-100.0); Platelet Count 431 K/uL (130-400); RDW Standard Deviation 47.8 fL (36.4-46.3); Red Blood Count 5.18 M/uL (4.20-5.40); White Blood Count 15.31 K/ul (4.8-10.8)
[2025-07-24 03:47] LABS: Albumin Level 4.1 gm/dl (3.4-5.0); Anion Gap 12 (3-11); Bilirubin,Total 0.3 mg/dl (0.2-1.0); Calcium 10.0 mg/dl (8.6-10.3); Carbon Dioxide 20 mmol/L (21-32); Chloride 108 mmol/L (98-107); Magnesium 1.9 mg/dl (1.7-2.4); Potassium 3.6 mmol/L (3.5-5.1); Sodium 140 mmol/L (136-145)
[2025-07-24 03:53] LABS: Alanine Aminotransferase 16 U/L (7-52); Albumin Globulin Ratio 1.2 (0.9-2); Alkaline Phosphatase 130 U/L (34-104); Blood Urea Nitrogen 20 mg/dl (6-23); Globulin 3.3 gm/dl (2.5-4.0); Glucose 186 mg/dl (70-99(Fasting)); Lipase 109 U/L (11-82); Total Protein 7.4 gm/dl (6.0-8.3)
[2025-07-24 04:00] LABS: INR 0.9 (0.9-1.1); Prothrombin Time 9.8 Seconds (9.0-12.0)
[2025-07-24] MEDS: SODIUM CHLORIDE 0.9% 1,000 ML IV SCH (04:01)
[2025-07-24] MEDS: METOPROLOL TARTRATE 1 MG/ML VIAL IV STA ×2 (04:01→04:51)
[2025-07-24 04:25] LABS: Thyroid Stimulating Hormone 7.782 uIu/ml (0.300-4.500)
--- NOTE | 2025-07-24 04:28 | XRay Report ---
EXAM: XR chest 1V portable CLINICAL HISTORY: CP. TECHNIQUE: An X-ray image of the chest was obtained in the AP projection. COMPARISON: 07/21/2024 X-ray. FINDINGS: Pulmonary Parenchyma: Chronic interstitial thickening is similar to previous studies. This is a non-specific finding. There is no evidence of consolidation, collapse, or focal opacities. No pulmonary nodules are identified. There is no evidence of pleural effusion or pleural thickening. Heart and Mediastinum: The heart size and shape are normal. There is no mediastinal widening or masses. No hilar or mediastinal lymphadenopathy is identified. Atheromatous calcifications are seen along the aortic knob. Bony Thorax: The bony thorax appears intact without fractures or deformities. Soft Tissues: The soft tissues overlying the chest wall are unremarkable. IMPRESSION: 1. No acute cardiopulmonary abnormalities are identified. 2. No significant interval changes. Electronically signed by Jack Hernandez 07-24-2025 04:28 AM
[2025-07-24] MEDS: POTASSIUM CHLORIDE CRTAB 20 MEQ TABCR PO STA (04:51)
[2025-07-24 05:04] LABS: T4 Free Thyroxine 0.82 ng/dl (0.61-1.60)
[2025-07-24 05:58] LABS: Appearance Urine Clear (Clear); Bacteria Urine Automated None Seen (None Seen); Glucose Urine UA 2+ (Negative); RBC Urine Automated 0-2 /hpf (0-2)
[2025-07-24] MEDS: APIXABAN 5 MG TABLET PO ONE (07:57)
[2025-07-24] MEDS ORDERED: 0.2 MICRON FILTER SET 1 EACH IV ONE (07:58)
[2025-07-24] MEDS: AMIODARONE / D5W 150 MG/100 ML BAG IV STA (08:05)
--- NOTE | 2025-07-24 09:01 | History & Physical Report ---
Date of Service July 24, 2025 Assessment & Plan (1) Atrial fibrillation with rapid ventricular response: (2) HLD (hyperlipidemia): (3) DM type 2 (diabetes mellitus, type 2): (4) Migraine: (5) Sleep apnea: (6) HTN (hypertension): Plan The patient is a 59-year-old female who presented to the ED on 07/24/2025 found to be in new A-fib Palpitations New atrial fibrillation No prior history of atrial fibrillation, onset likely secondary to alcohol Improved rates with IV metoprolol and IV Amio x 1 Continue home Coreg dosing, Eliquis initiated Monitor on telemetry overnight, check echo, consult cardiology Hx ESPERANZA on CPAP: Continue CPAP at bedtime Hx HLD: Continue statin, consider discontinuing aspirin now that patient is on Eliquis Hx DM2: Managed on metformin, Xultophy, SSI/4 times daily BGM while inpatient Hx GERD: Continue omeprazole Full code DVT prophylaxis: Eliquis A total 55 minutes was spent on chart review/reviewing diagnostic data/facilitating plan of care/discussion with consultants History of Present Illness Chief Complaint: Chest pain, palpitations Primary Care Provider: Je Lawrence MD The patient is a 59-year-old female with a past medical history of HTN, DM2, HLD, migraines who presents to the ED on 07/24/2025 with complaints of intermittent chest pain and a feeling that her heart was racing. Patient reports she was drinking 4 margaritas with her neighbor prior to arrival. She started to feel like her heart was racing with movement. She also reported some associated chest pain. On arrival to the ED, she was found to be in rapid A- fib, this is completely new for her. Patient reports a recent cold about 2 weeks ago with a lingering cough. Otherwise denies any fever/chills. Denies any nausea/vomiting/abdominal pain/diarrhea. On arrival to the ED, labs are remarkable for WBC 15, platelets 431, bicarb 20, CO2 18, anion gap 12, glucose 186, TSH 7.7 with a normal T4 Urinalysis fairly unremarkable Chest x-ray was unremarkable The patient was given IV metoprolol and amiodarone in the ED with improvement in rates. Patient remains in fairly controlled A-fib. ED provider discussed with cardiology, patient was started on Eliquis, patient was already on Coreg at home. Patient was uncomfortable being discharged home while still in [facility] and will be admitted for further monitoring and management. Allergies Allergy/AdvReac Type Severity Reaction Status Date / Time No Known Allergies Allergy Unknown Verified 07/24/25 02:57 Home Medications Medication Instructions Recorded Confirmed Type aspirin 81 mg tablet,delayed 81 mg PO QAM 07/20/18 07/24/25 History release vkrryio-ujgcqnxylfwqu-hvtejydj 250 2 tab PO DIRECTED PRN Migraine 07/20/18 07/24/25 History mg-250 mg-65 mg tablet (Excedrin Headache Migraine) atorvastatin 20 mg tablet (Lipitor) 20 mg PO QAM 07/20/18 07/24/25 History gabapentin 300 mg capsule 600 mg PO TID 07/20/18 07/24/25 History lbfuenmz-lmxb-swgc 8 mg-folic 400 1 tab PO QAM 07/20/18 07/24/25 History mcg-K 50 mcg-lutein 300 mcg tablet (Centrum Silver Women) sulindac 200 mg tablet 200 mg PO BID PRN Pain 07/20/18 07/24/25 History duloxetine 30 mg capsule,delayed 30 mg PO BID 07/21/24 07/24/25 History release insulin degludec 100 24 unit subcut QAM 07/21/24 07/24/25 History unit-liraglutide 3.6 mg/mL(3 mL) subcutaneous pen (Xultophy 100/3.6) omeprazole 20 mg capsule,delayed 20 mg PO DAILYBB 07/21/24 07/24/25 History release losartan 50 mg tablet 50 mg PO QAM #30 tabs 07/23/24 07/24/25 Rx albuterol sulfate 90 mcg/actuation 2 puff inhalation Q4H PRN Wheezing 07/24/25 07/24/25 History aerosol inhaler amlodipine 2.5 mg tablet 2.5 mg PO QAM 07/24/25 07/24/25 History ascorbic acid (vitamin C) 500 mg 500 mg PO DAILY 07/24/25 07/24/25 History tablet,extended release (Vitamin C ER) carvedilol 6.25 mg tablet 6.25 mg PO BID 07/24/25 07/24/25 History cyclobenzaprine 10 mg tablet 10 mg PO BID PRN MUSCLE SPASMS 07/24/25 07/24/25 History fexofenadine 180 mg tablet 180 mg PO DAILY 07/24/25 07/24/25 History metformin 500 mg tablet,extended 1,000 mg PO BID 07/24/25 07/24/25 History release 24 hr methocarbamol 500 mg tablet 500 mg PO DAILY PRN MUSCLE SPASMS 07/24/25 07/24/25 History omega 5-fes-yls-fish oil 1,200 mg 1 cap PO DAILY 07/24/25 07/24/25 History (144 mg-216 mg) capsule (Fish Oil) sumatriptan succinate 100 mg tablet 100 mg PO DIRECTED PRN Migraine 07/24/25 07/24/25 History Headache vitamin E 670 mg (1,000 unit) 670 mg PO DAILY 07/24/25 07/24/25 History capsule Past Med/Surg History Problem List (Updated 07/24/25 @ 03:17 by Cyn Jensen DO) Atrial fibrillation with rapid ventricular response (Acute) Chest pain (Acute) Abnormal EKG (Acute) Chest pain (Acute) Lumbar radiculopathy S/P spinal surgery HLD (hyperlipidemia) DM type 2 (diabetes mellitus, type 2) Migraine Sleep apnea GERD (gastroesophageal reflux disease) Neurogenic claudication due to lumbar spinal stenosis Acute blood loss anemia History of cardiac cath History of tonsillectomy and adenoidectomy History of appendectomy History of tubal ligation History of laparoscopy + MADDIE History of colonoscopy with polypectomy Lumbar spondylosis HTN (hypertension) Medical History Obesity 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" GERD (gastroesophageal reflux disease) controlled Diabetes mellitus, type 2 NIDDM Migraine Sleep apnea non-compliant with CPAP, no device currently Surgical History History of cardiac catheterization 15+ years ago- no stents History of lumbar fusion History of brain surgery S/P PITUITARY TUMOR RESECTION (BENIGN) History of section History of bilateral tubal ligation History of tooth extraction Family History Mother Family history of diabetes mellitus Family/Other Family history of diabetes mellitus Social History Smoking Status: Former smoker Second Hand Exposure: Yes (as a child); Do You Dip or Chew Tobacco: No; Hx Alcohol Use: Yes Alcohol type: other Hx Substance Use: No Preferred Language: Frisian Communication Ability: Effective Visual Impairment: No Limitations Bioengineer Required: No Beliefs That Will Affect Care: None marital status: Current Living Situation: Spouse Other Information That Helps Us Care for You: No Feels Safe at Home: No Is there a partner from a previous relationship who is making you feel unsafe now?: No Any Concerns about Your Family Situation: No Would You Like to Speak to Someone About Your Situation: No Safety Concerns: Feels Safe At This Time Assistive Devices: Cane, Contacts and Glasses Review of Systems Review of Systems: All systems reviewed & are unremarkable except as noted in HPI & below Physical Exam Constitutional: WD/WN, vitals as above Eyes: PERRL, conjunctivae normal, anicteric sclerae ENMT: external ear and nose normal, oropharynx normal Neck: trachea midline, no thyromegaly Respiratory: normal respiratory effort, lungs clear to auscultation Cardiovascular: RRR, no murmur, no edema Rate/Rhythm: + tachycardic (Irregular rhythm) Heart Sounds: no murmur Gastrointestinal (Abdomen): normal bowel sounds, soft, nontender, no he patosplenomegaly Musculoskeletal: no cyanosis or clubbing, extremities motor strength 5/5 Skin: no rashes, warm and dry Neurologic: PERRL, EOMI, accommodation nl, no face palsy, no dysarthria Psychiatric: A+Ox3, euthymic affect Lymphatic: no cervical or axillary lymphadenopathy Results & Data Results & Data Vital Signs (Past 12 Hours) Vital Signs Temp Pulse Resp BP Pulse Ox O2 Del Method 07/24/25 07:15 104 H 24 101/85 95 Room Air 07/24/25 07:13 103/81 07/24/25 07:00 115 H 23 112/88 94 Room Air 07/24/25 06:33 109 H 07/24/25 06:00 107 H 22 111/72 91 07/24/25 05:45 111 H 21 113/74 95 07/24/25 05:30 109 H 22 121/92 91 07/24/25 05:15 112 H 22 122/86 95 07/24/25 05:09 104 H 20 127/79 95 07/24/25 04:51 111 H 102/68 07/24/25 04:48 123 H 20 102/68 96 07/24/25 04:30 111 H 18 106/76 96 07/24/25 04:15 107 H 24 115/77 94 07/24/25 04:12 105 H 16 114/73 94 07/24/25 04:01 130 H 114/73 07/24/25 03:45 139 H 19 111/78 94 07/24/25 03:45 115 H 16 111/78 96 07/24/25 03:27 123 H 18 101/76 96 07/24/25 03:12 133 H 19 129/87 97 07/24/25 03:00 117 H 22 114/84 92 07/24/25 02:48 132 H 23 99/63 L 93 07/24/25 02:45 131 H 07/24/25 02:35 37 C 89 24 76/58 L 94 Room Air Diagnostic Findings Laboratory Results WBC 15.31 K/ul (4.8-10.8) H 07/24/25 02:42 RBC 5.18 M/uL (4.20-5.40) 07/24/25 02:42 Hgb 15.3 g/dl (12.0-16.0) 07/24/25 02:42 POC Hgb 16.0 g/dl (12.0-16.0) 07/24/25 03:20 Hct 45.3 % (37.0-47.0) 07/24/25 02:42 POC Hct 47 % (37-47) 07/24/25 03:20 MCV 87.5 fL (80.0-100.0) 07/24/25 02:42 MCH 29.5 pg (25.0-34.0) 07/24/25 02:42 MCHC 33.8 g/dL (32.0-36.0) 07/24/25 02:42 RDW Std Deviation 47.8 fL (36.4-46.3) H 07/24/25 02:42 RDW Coeff of Sumeet 14.9 % (11.5-14.5) H 07/24/25 02:42 Plt Count 431 K/uL (130-400) H 07/24/25 02:42 MPV 9.9 fL (9.4-12.4) 07/24/25 02:42 Immature Gran % (Auto) 0.7 % 07/24/25 02:42 Neut % (Auto) 72.5 % 07/24/25 02:42 Lymph % (Auto) 17.1 % 07/24/25 02:42 Angelina % (Auto) 7.1 % 07/24/25 02:42 Eos % (Auto) 1.9 % 07/24/25 02:42 Baso % (Auto) 0.7 % 07/24/25 02:42 Neut # (Auto) 11.11 K/uL (1.40-6.50) H 07/24/25 02:42 Lymph # (Auto) 2.62 K/uL (1.20-3.40) 07/24/25 02:42 Angelina # (Auto) 1.08 K/uL (0.11-0.59) H 07/24/25 02:42 Eos # (Auto) 0.29 K/uL (0.00-0.50) 07/24/25 02:42 Baso # (Auto) 0.11 K/uL (0.00-0.20) 07/24/25 02:42 Immature Gran # (Auto) 0.10 K/uL (0.01-0.20) 07/24/25 02:42 PT 9.8 Seconds (9.0-12.0) 07/24/25 02:42 INR 0.9 (0.9-1.1) 07/24/25 02:42 D-Dimer 430 ug/L FEU (0-500) 07/24/25 02:42 POC Sodium 143 mmol/L (135-144) 07/24/25 03:20 Sodium 140 mmol/L (136-145) 07/24/25 02:42 POC Potassium 3.6 mmol/L (3.3-5.0) 07/24/25 03:20 Potassium 3.6 mmol/L (3.5-5.1) 07/24/25 02:42 POC Chloride 110 mmol/L (101-112) 07/24/25 03:20 Chloride 108 mmol/L (98-107) H 07/24/25 02:42 Carbon Dioxide 20 mmol/L (21-32) L 07/24/25 02:42 POC Total CO2 18 mmol/L (24-31) L 07/24/25 03:20 Anion Gap 12 (3-11) H 07/24/25 02:42 POC Anion Gap 19.0 mmol/L (16-25) 07/24/25 03:20 POC BUN 21 mg/dl (7-18) H 07/24/25 03:20 BUN 20 mg/dl (6-23) 07/24/25 02:42 Creatinine 0.82 mg/dl (0.6-1.2) 07/24/25 02:42 POC Creatinine 0.8 mg/dl (0.6-1.3) 07/24/25 03:20 Est Cr Clr Drug Dosing Not Reportable 07/24/25 02:42 eGFR 81.33 07/24/25 02:42 BUN/Creatinine Ratio 24.4 (10-20) H 07/24/25 02:42 Glucose 186 mg/dl (70-99(Fasting)) H 07/24/25 02:42 POC Glucose (other) 191 mg/dl (70-99) H 07/24/25 03:20 Calcium 10.0 mg/dl (8.6-10.3) 07/24/25 02:42 POC Ioniz Calcium Nino 1.28 mmol/l (1.12-1.32) 07/24/25 03:20 Magnesium 1.9 mg/dl (1.7-2.4) 07/24/25 02:42 Total Bilirubin 0.3 mg/dl (0.2-1.0) 07/24/25 02:42 AST 12 U/L (13-39) L 07/24/25 02:42 ALT 16 U/L (7-52) 07/24/25 02:42 Alkaline Phosphatase 130 U/L (34-104) H 07/24/25 02:42 Troponin I High Sens 9.3 pg/ml (0-14) 07/24/25 02:42 Total Protein 7.4 gm/dl (6.0-8.3) 07/24/25 02:42 Albumin 4.1 gm/dl (3.4-5.0) 07/24/25 02:42 Globulin 3.3 gm/dl (2.5-4.0) 07/24/25 02:42 Albumin/Globulin Ratio 1.2 (0.9-2) 07/24/25 02:42 Lipase 109 U/L (11-82) H 07/24/25 02:42 TSH 7.782 uIu/ml (0.300-4.500) H 07/24/25 02:42 Free T4 0.82 ng/dl (0.61-1.60) 07/24/25 02:42 Urine Color Yellow 07/24/25 05:32 Urine Appearance Clear (Clear) 07/24/25 05:32 Urine pH 6.0 (4.5-7.5) 07/24/25 05:32 Ur Specific [place] 1.013 (1.000-1.030) 07/24/25 05:32 Urine Protein 2+ (Negative) H 07/24/25 05:32 Urine Glucose (UA) 2+ (Negative) H 07/24/25 05:32 Urine Ketones Negative (Negative) 07/24/25 05:32 Urine Blood Negative (Negative) 07/24/25 05:32 Urine Nitrite Negative (Negative) 07/24/25 05:32 Urine Bilirubin Negative (Negative) 07/24/25 05:32 Urine Urobilinogen Negative (Negative) 07/24/25 05:32 Ur Leukocyte Esterase Trace (Negative) H 07/24/25 05:32 Urine WBC (Auto) 11-20 /hpf (0-5) H 07/24/25 05:32 Urine RBC (Auto) 0-2 /hpf (0-2) 07/24/25 05:32 U Hyaline Cast (Auto) 6-10 /lpf (0-2) H 07/24/25 05:32 U Epithel Cells (Auto) 3-5 /hpf (0-2) H 07/24/25 05:32 Urine Bacteria (Auto) None Seen (None Seen) 07/24/25 05:32 Urine Mucus Present (None Prsent) A 07/24/25 05:32 Urine Comment 07/24/25 05:32 Ethyl Alcohol mg/dL 23.8 mg/dl (<10.0) H 07/24/25 02:42 Lyme Disease Screen Negative (Negative) 07/24/25 02:42 Impressions Chest X-Ray 07/24/25 02:52 EXAM: XR chest 1V portable CLINICAL HISTORY: CP. TECHNIQUE: An X-ray image of the chest was obtained in the AP projection. COMPARISON: 07/21/2024 X-ray. FINDINGS: Pulmonary Parenchyma: Chronic interstitial thickening is similar to previous studies. This is a non-specific finding. There is no evidence of consolidation, collapse, or focal opacities. No pulmonary nodules are identified. There is no evidence of pleural effusion or pleural thickening. Heart and Mediastinum: The heart size and shape are normal. There is no mediastinal widening or masses. No hilar or mediastinal lymphadenopathy is identified. Atheromatous calcifications are seen along the aortic knob. Bony Thorax: The bony thorax appears intact without fractures or deformities. Soft Tissues: The soft tissues overlying the chest wall are unremarkable. IMPRESSION: 1. No acute cardiopulmonary abnormalities are identified. 2. No significant interval changes. Electronically signed by Jack Hernandez 07-24-2025 04:28 AM Code Status & VTE Plan VTE Prophylaxis Plan VTE Prophylaxis will be ordered: Yes Supervising Physician Co-Signing Physician Notes Attending Addendum: Case reviewed with the advanced practitioner. I have personally performed a history and physical examination on the patient. I have reviewed the advanced practitioner's documentation on the date of service referenced in note, and I agree with, and take responsibility for the plan of care. please refer to her notes for full details patient seen and examined, records reviewed by myself as well on exam, patient seen resting in bed, comfortable states she feels better overall no chest pain, dyspnea, palpitations, dizziness no other symptoms VS noted and reviewed oriented x3, not in distress, speaks in sentences with no effort nor accessory muscle use normal rate, regular rhythm, no murmurs clear breath sounds bilaterally non distended, soft, nontender no bipedal edema, erythema, warmth no neuro deficits all labs, imaging noted and reviewed ASSESSMENT AND PLAN> A FIB WITH RVR converted to SR after Amiodarone evaluated by cardiology service transition from coreg to metoprolol, aspirin to eliquis advised to avoid alcohol other diagnoses and plan of care as per advanced practitioner's notes I spent a total of 40 minutes coordinating, documenting, and providing care for this patient, excluding time spent in the performance of separately billed services or time spent by another provider/QHP. Zia Vaughn MD
[2025-07-24] MEDS ORDERED: GLUCOSE 10 TAB/TUBE PO PRN (09:28)
[2025-07-24] MEDS ORDERED: GLUCAGON FOR INJ 1 MG VIAL SQ PRN (09:28)
[2025-07-24] MEDS ORDERED: GLUCOSE 40% GEL 15 GM TUBE PO PRN (09:28)
[2025-07-24] MEDS ORDERED: DEXTROSE 50% 50 ML SYRINGE IV PRN (09:28)
[2025-07-24] MEDS ORDERED: CARBOHYDRATES FOR HYPOGLYCEMIA PO PRN (09:28)
[2025-07-24] MEDS ORDERED: METHOCARBAMOL 500 MG TABLET PO PRN (11:12)
[2025-07-24] MEDS ORDERED: METOPROLOL TARTRATE 1 MG/ML VIAL IV PRN (11:12)
--- NOTE | 2025-07-24 11:36 | Cardiology Consultation ---
<Statement entered by Marilyn Nolasco, - 07/24/25 13:26> I have reviewed the advanced practitioner's documentation and agree with the plan of care. I accept the responsibility for the associated risk. pt seen in cardiology consultation due to newly found AF with RVR in the setting of a few too many alcholoic drinks with underlying non-obstructive CAD, HTN and ESPERANZA she converted to SR after amio bolus she is feeling better ok to discharge home but would change coreg to metoprolol start eliquis and stop ASA echo today looked good she will need f/u in our office I discussed the case and my recommendations with the hospitalist over the phone and he agreed with my plan Date of Consultation July 24, 2025 Assessment & Plan (1) Atrial fibrillation with rapid ventricular response: (2) Chest pain: (3) Sleep apnea: (4) DM type 2 (diabetes mellitus, type 2): (5) HTN (hypertension): Plan -noted to be in new onset A Fib with RVR on presentation -now back in NSR -rate has improved after amio bolus, IV fluids and IV Lopressor -already started on Apixaban for AC; [id number] (female, CAD, HTN, DM II) -continue Losartan and atorvastatin -can Stop ASA not that she is on Apixaban -transition from Coreg to Toprol to manage rates better -can also consider starting her amlodipine, home dose is 2.5 mg daily if needed for BP control Case discussed with Dr. Nolasco. Please see attestation for additional recommendations. VASILE Sheppard Department of Cardiology, [facility] This chart was completed in part utilizing Speech Voice Recognition Software. Grammatical errors, random word insertions, pronoun errors, and incomplete sentences are an occasional consequence of this system due to software limitations, ambient noise, and hardware issues. Any formal questions or concerns about the content, text, or information contained within the body of this dictation should be directly addressed to the provider for clarification. History of Present Illness Reason for Consultation: New Onset A Fib Requesting Physician: Hospitalist Attending Physician: Zia Vaughn MD History of Present Illness 59 year old female seen in consultation today in regard to new onset A Fib. Presented to the ER overnight after feeling her heart racing and having chest pressure. Earlier in the evening had been drinking magaritas. On presentation in the ED was found the be in A Fib with RVR. Allergies Allergy/AdvReac Type Severity Reaction Status Date / Time No Known Allergies Allergy Unknown Verified 07/24/25 02:57 Home Medications Medication Instructions Recorded Confirmed Type aspirin 81 mg tablet,delayed 81 mg PO QAM 07/20/18 07/24/25 History release ihzoqxz-lawaqcekfertm-exefmjiv 250 2 tab PO DIRECTED PRN Migraine 07/20/18 07/24/25 History mg-250 mg-65 mg tablet (Excedrin Headache Migraine) atorvastatin 20 mg tablet (Lipitor) 20 mg PO QAM 07/20/18 07/24/25 History gabapentin 300 mg capsule 600 mg PO TID 07/20/18 07/24/25 History fgyoinvi-hypp-fwvb 8 mg-folic 400 1 tab PO QAM 07/20/18 07/24/25 History mcg-K 50 mcg-lutein 300 mcg tablet (Centrum Silver Women) sulindac 200 mg tablet 200 mg PO BID PRN Pain 07/20/18 07/24/25 History duloxetine 30 mg capsule,delayed 30 mg PO BID 07/21/24 07/24/25 History release insulin degludec 100 24 unit subcut QAM 07/21/24 07/24/25 History unit-liraglutide 3.6 mg/mL(3 mL) subcutaneous pen (Dagoltophy 100/3.6) omeprazole 20 mg capsule,delayed 20 mg PO DAILYBB 07/21/24 07/24/25 History release losartan 50 mg tablet 50 mg PO QAM #30 tabs 07/23/24 07/24/25 Rx albuterol sulfate 90 mcg/actuation 2 puff inhalation Q4H PRN Wheezing 07/24/25 07/24/25 History aerosol inhaler amlodipine 2.5 mg tablet 2.5 mg PO QAM 07/24/25 07/24/25 History ascorbic acid (vitamin C) 500 mg 500 mg PO DAILY 07/24/25 07/24/25 History tablet,extended release (Vitamin C ER) carvedilol 6.25 mg tablet 6.25 mg PO BID 07/24/25 07/24/25 History cyclobenzaprine 10 mg tablet 10 mg PO BID PRN MUSCLE SPASMS 07/24/25 07/24/25 History fexofenadine 180 mg tablet 180 mg PO DAILY 07/24/25 07/24/25 History metformin 500 mg tablet,extended 1,000 mg PO BID 07/24/25 07/24/25 History release 24 hr methocarbamol 500 mg tablet 500 mg PO DAILY PRN MUSCLE SPASMS 07/24/25 07/24/25 History omega 7-ucn-qaj-fish oil 1,200 mg 1 cap PO DAILY 07/24/25 07/24/25 History (144 mg-216 mg) capsule (Fish Oil) sumatriptan succinate 100 mg tablet 100 mg PO DIRECTED PRN Migraine 07/24/25 07/24/25 History Headache vitamin E 670 mg (1,000 unit) 670 mg PO DAILY 07/24/25 07/24/25 History capsule Patient History Medical History Obesity 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" GERD (gastroesophageal reflux disease) controlled Diabetes mellitus, type 2 NIDDM Migraine Sleep apnea non-compliant with CPAP, no device currently Surgical History History of cardiac catheterization 15+ years ago- no stents History of lumbar fusion History of brain surgery S/P PITUITARY TUMOR RESECTION (BENIGN) History of section History of bilateral tubal ligation History of tooth extraction Family History Mother Family history of diabetes mellitus Family/Other Family history of diabetes mellitus Social History Smoking Status: Former smoker Second Hand Exposure: Yes (as a child); Do You Dip or Chew Tobacco: No; Hx Alcohol Use: Yes Alcohol type: other Hx Substance Use: No Preferred Language: Australian Communication Ability: Effective Visual Impairment: No Limitations Costume Draper Required: No Beliefs That Will Affect Care: None marital status: Current Living Situation: Spouse Other Information That Helps Us Care for You: No Feels Safe at Home: No Is there a partner from a previous relationship who is making you feel unsafe now?: No Any Concerns about Your Family Situation: No Would You Like to Speak to Someone About Your Situation: No Safety Concerns: Feels Safe At This Time Assistive Devices: Cane, Contacts and Glasses Review of Systems Review of Systems: All systems reviewed & are unremarkable except as noted in Subjective Physical Exam Constitutional: WD/WN, vitals as above well developed and well nourished; no acute distress Eyes: PERRL, conjunctivae normal, anicteric sclerae Neck: trachea midline, no thyromegaly Respiratory: normal respiratory effort, lungs clear to auscultation Cardiovascular: Rate/Rhythm: regular rate and regular rhythm Heart Sounds: no murmur Vessels: no JVD Extremities: no edema Gastrointestinal (Abdomen): normal bowel sounds, soft, nontender, no hepatosplenomegaly Musculoskeletal: no cyanosis or clubbing, extremities motor strength 5/5 Skin: no rashes, warm and dry Psychiatric: A+Ox3, euthymic affect Results & Data Vital Signs (Past 12 Hours) Vital Signs Temp Pulse Resp BP Pulse Ox O2 Del Method 07/24/25 10:44 Room Air 07/24/25 10:31 90 23 110/47 L 97 Room Air 07/24/25 10:00 91 H 23 120/86 96 Room Air 07/24/25 09:30 96 H 24 104/79 94 Room Air 07/24/25 09:15 112/97 07/24/25 09:00 92 H 19 119/76 95 Room Air 07/24/25 08:45 97 H 22 119/79 93 Room Air 07/24/25 08:30 87 21 123/78 95 Room Air 07/24/25 08:15 92 H 22 120/77 97 Room Air 07/24/25 08:00 103 H 17 120/87 97 Room Air 07/24/25 07:45 113 H 22 105/72 98 Room Air 07/24/25 07:35 101 H 23 121/92 97 Room Air 07/24/25 07:31 103 H 20 132/97 97 Room Air 07/24/25 07:15 104 H 24 101/85 95 Room Air 07/24/25 07:13 103/81 07/24/25 07:00 115 H 23 112/88 94 Room Air 07/24/25 06:33 109 H 07/24/25 06:00 107 H 22 111/72 91 07/24/25 05:45 111 H 21 113/74 95 07/24/25 05:30 109 H 22 121/92 91 07/24/25 05:15 112 H 22 122/86 95 07/24/25 05:09 104 H 20 127/79 95 07/24/25 04:51 111 H 102/68 07/24/25 04:48 123 H 20 102/68 96 07/24/25 04:30 111 H 18 106/76 96 07/24/25 04:15 107 H 24 115/77 94 07/24/25 04:12 105 H 16 114/73 94 07/24/25 04:01 130 H 114/73 07/24/25 03:45 139 H 19 111/78 94 07/24/25 03:45 115 H 16 111/78 96 07/24/25 03:27 123 H 18 101/76 96 07/24/25 03:12 133 H 19 129/87 97 07/24/25 03:00 117 H 22 114/84 92 07/24/25 02:48 132 H 23 99/63 L 93 07/24/25 02:45 131 H 07/24/25 02:35 37 C 89 24 76/58 L 94 Room Air Laboratory Results Cardiac Enzymes 07/24/25 Range/Units 02:42 AST 12 L (13-39) U/L Troponin I High Sens 9.3 (0-14) pg/ml Coagulation 07/24/25 Range/Units 02:42 PT 9.8 (9.0-12.0) Seconds CBC 07/24/25 Range/Units 02:42 WBC 15.31 H (4.8-10.8) K/ul RBC 5.18 (4.20-5.40) M/uL Hgb 15.3 (12.0-16.0) g/dl Hct 45.3 (37.0-47.0) % Plt Count 431 H (130-400) K/uL Neut # (Auto) 11.11 H (1.40-6.50) K/uL Lymph # (Auto) 2.62 (1.20-3.40) K/uL Wright # (Auto) 1.08 H (0.11-0.59) K/uL Eos # (Auto) 0.29 (0.00-0.50) K/uL Baso # (Auto) 0.11 (0.00-0.20) K/uL Comprehensive Metabolic Panel 07/24/25 Range/Units 02:42 Sodium 140 (136-145) mmol/L Potassium 3.6 (3.5-5.1) mmol/L Chloride 108 H (98-107) mmol/L Carbon Dioxide 20 L (21-32) mmol/L BUN 20 (6-23) mg/dl Creatinine 0.82 (0.6-1.2) mg/dl Glucose 186 H (70-99(Fasting)) mg/dl Calcium 10.0 (8.6-10.3) mg/dl AST 12 L (13-39) U/L ALT 16 (7-52) U/L Alkaline Phosphatase 130 H (34-104) U/L Total Protein 7.4 (6.0-8.3) gm/dl Albumin 4.1 (3.4-5.0) gm/dl Intake and Output 07/23/25 07/24/25 07/24/25 22:59 06:59 14:59 Intake Total 2200.0 / 2200.0 100 / 100 Balance 2200.0 / 2200.0 100 / 100 Intake: IV 2200.0 / 2200.0 100 / 100 Acetaminophen 1,000 mg In 100 100 / 100 ml @ 400 mls/hr IV NOW STA Rx#: [id number] Amiodarone / D5w 150 mg In 100 100 / 100 ml @ 600 mls/hr IV NOW STA Rx#: [id number] Magnesium Sulfate / D5w 1 gm In 100 / 100 100 ml @ 100 mls/hr IV NOW STA Rx#:[id number] Sodium Chloride 0.9% 1,000 ml @ 2000.0 / 2000.0 125 mls/hr IV .Q8H [facility] Rx#: [id number] Diagnostic Findings Laboratory Results WBC 15.31 K/ul (4.8-10.8) H 07/24/25 02:42 RBC 5.18 M/uL (4.20-5.40) 07/24/25 02:42 Hgb 15.3 g/dl (12.0-16.0) 07/24/25 02:42 POC Hgb 16.0 g/dl (12.0-16.0) 07/24/25 03:20 Hct 45.3 % (37.0-47.0) 07/24/25 02:42 POC Hct 47 % (37-47) 07/24/25 03:20 MCV 87.5 fL (80.0-100.0) 07/24/25 02:42 MCH 29.5 pg (25.0-34.0) 07/24/25 02:42 MCHC 33.8 g/dL (32.0-36.0) 07/24/25 02:42 RDW Std Deviation 47.8 fL (36.4-46.3) H 07/24/25 02:42 RDW Coeff of Sumeet 14.9 % (11.5-14.5) H 07/24/25 02:42 Plt Count 431 K/uL (130-400) H 07/24/25 02:42 MPV 9.9 fL (9.4-12.4) 07/24/25 02:42 Immature Gran % (Auto) 0.7 % 07/24/25 02:42 Neut % (Auto) 72.5 % 07/24/25 02:42 Lymph % (Auto) 17.1 % 07/24/25 02:42 Wright % (Auto) 7.1 % 07/24/25 02:42 Eos % (Auto) 1.9 % 07/24/25 02:42 Baso % (Auto) 0.7 % 07/24/25 02:42 Neut # (Auto) 11.11 K/uL (1.40-6.50) H 07/24/25 02:42 Lymph # (Auto) 2.62 K/uL (1.20-3.40) 07/24/25 02:42 Wright # (Auto) 1.08 K/uL (0.11-0.59) H 07/24/25 02:42 Eos # (Auto) 0.29 K/uL (0.00-0.50) 07/24/25 02:42 Baso # (Auto) 0.11 K/uL (0.00-0.20) 07/24/25 02:42 Immature Gran # (Auto) 0.10 K/uL (0.01-0.20) 07/24/25 02:42 PT 9.8 Seconds (9.0-12.0) 07/24/25 02:42 INR 0.9 (0.9-1.1) 07/24/25 02:42 D-Dimer 430 ug/L FEU (0-500) 07/24/25 02:42 POC Sodium 143 mmol/L (135-144) 07/24/25 03:20 Sodium 140 mmol/L (136-145) 07/24/25 02:42 POC Potassium 3.6 mmol/L (3.3-5.0) 07/24/25 03:20 Potassium 3.6 mmol/L (3.5-5.1) 07/24/25 02:42 POC Chloride 110 mmol/L (101-112) 07/24/25 03:20 Chloride 108 mmol/L (98-107) H 07/24/25 02:42 Carbon Dioxide 20 mmol/L (21-32) L 07/24/25 02:42 POC Total CO2 18 mmol/L (24-31) L 07/24/25 03:20 Anion Gap 12 (3-11) H 07/24/25 02:42 POC Anion Gap 19.0 mmol/L (16-25) 07/24/25 03:20 POC BUN 21 mg/dl (7-18) H 07/24/25 03:20 BUN 20 mg/dl (6-23) 07/24/25 02:42 Creatinine 0.82 mg/dl (0.6-1.2) 07/24/25 02:42 POC Creatinine 0.8 mg/dl (0.6-1.3) 07/24/25 03:20 Est Cr Clr Drug Dosing Not Reportable 07/24/25 02:42 eGFR 81.33 07/24/25 02:42 BUN/Creatinine Ratio 24.4 (10-20) H 07/24/25 02:42 Glucose 186 mg/dl (70-99(Fasting)) H 07/24/25 02:42 POC Glucose 125 mg/dl (70-99) H 07/24/25 11:22 POC Glucose (other) 191 mg/dl (70-99) H 07/24/25 03:20 Calcium 10.0 mg/dl (8.6-10.3) 07/24/25 02:42 POC Ioniz Calcium Nino 1.28 mmol/l (1.12-1.32) 07/24/25 03:20 Magnesium 1.9 mg/dl (1.7-2.4) 07/24/25 02:42 Total Bilirubin 0.3 mg/dl (0.2-1.0) 07/24/25 02:42 AST 12 U/L (13-39) L 07/24/25 02:42 ALT 16 U/L (7-52) 07/24/25 02:42 Alkaline Phosphatase 130 U/L (34-104) H 07/24/25 02:42 Troponin I High Sens 9.3 pg/ml (0-14) 07/24/25 02:42 Total Protein 7.4 gm/dl (6.0-8.3) 07/24/25 02:42 Albumin 4.1 gm/dl (3.4-5.0) 07/24/25 02:42 Globulin 3.3 gm/dl (2.5-4.0) 07/24/25 02:42 Albumin/Globulin Ratio 1.2 (0.9-2) 07/24/25 02:42 Lipase 109 U/L (11-82) H 07/24/25 02:42 TSH 7.782 uIu/ml (0.300-4.500) H 07/24/25 02:42 Free T4 0.82 ng/dl (0.61-1.60) 07/24/25 02:42 Urine Color Yellow 07/24/25 05:32 Urine Appearance Clear (Clear) 07/24/25 05:32 Urine pH 6.0 (4.5-7.5) 07/24/25 05:32 Ur Specific [place] 1.013 (1.000-1.030) 07/24/25 05:32 Urine Protein 2+ (Negative) H 07/24/25 05:32 Urine Glucose (UA) 2+ (Negative) H 07/24/25 05:32 Urine Ketones Negative (Negative) 07/24/25 05:32 Urine Blood Negative (Negative) 07/24/25 05:32 Urine Nitrite Negative (Negative) 07/24/25 05:32 Urine Bilirubin Negative (Negative) 07/24/25 05:32 Urine Urobilinogen Negative (Negative) 07/24/25 05:32 Ur Leukocyte Esterase Trace (Negative) H 07/24/25 05:32 Urine WBC (Auto) 11-20 /hpf (0-5) H 07/24/25 05:32 Urine RBC (Auto) 0-2 /hpf (0-2) 07/24/25 05:32 U Hyaline Cast (Auto) 6-10 /lpf (0-2) H 07/24/25 05:32 U Epithel Cells (Auto) 3-5 /hpf (0-2) H 07/24/25 05:32 Urine Bacteria (Auto) None Seen (None Seen) 07/24/25 05:32 Urine Mucus Present (None Prsent) A 07/24/25 05:32 Urine Comment 07/24/25 05:32 Ethyl Alcohol mg/dL 23.8 mg/dl (<10.0) H 07/24/25 02:42 Lyme Disease Screen Negative (Negative) 07/24/25 02:42 Impressions Chest X-Ray 07/24/25 02:52 EXAM: XR chest 1V portable CLINICAL HISTORY: CP. TECHNIQUE: An X-ray image of the chest was obtained in the AP projection. COMPARISON: 07/21/2024 X-ray. FINDINGS: Pulmonary Parenchyma: Chronic interstitial thickening is similar to previous studies. This is a non-specific finding. There is no evidence of consolidation, collapse, or focal opacities. No pulmonary nodules are identified. There is no evidence of pleural effusion or pleural thickening. Heart and Mediastinum: The heart size and shape are normal. There is no mediastinal widening or masses. No hilar or mediastinal lymphadenopathy is identified. Atheromatous calcifications are seen along the aortic knob. Bony Thorax: The bony thorax appears intact without fractures or deformities. Soft Tissues: The soft tissues overlying the chest wall are unremarkable. IMPRESSION: 1. No acute cardiopulmonary abnormalities are identified. 2. No significant interval changes. Electronically signed by Jack Hernandez 07-24-2025 04:28 AM Medications Administered Current Inpatient Medications Acetaminophen (Acetaminophen 325 Mg Tab) 650 mg PO Q4H PRN PRN Reason: Pain or Fever Stop: 08/23/25 11:11 Apixaban (Apixaban 5 Mg Tablet) 5 mg PO BID [facility]ITTANIE Stop: 08/23/25 20:59 Ascorbic Acid (Ascorbic Acid 500 Mg Tab) 500 mg PO DAILY BRITTANIE Stop: 08/23/25 11:29 Aspirin (Aspirin 81 Mg Ectab) 81 mg PO QAM [facility]ITTAN[facility] Stop: 08/23/25 11:29 Atorvastatin Calcium (Atorvastatin 20 Mg Tab) 20 mg PO QAM BRITTANIE Stop: 08/23/25 11:29 Carvedilol (Carvedilol 6.25 Mg Tab) 6.25 mg PO BID BRITTANIE Stop: 08/23/25 11:29 Dextrose (Dextrose 50% 50 Ml Syringe) 25 - 50 ml IV UD PRN; Protocol PRN Reason: Hypoglycemia Protocol Stop: 08/23/25 09:27 Duloxetine HCl (Duloxetine Hcl 30 Mg Cap) 30 mg PO BID [facility] Stop: 08/23/25 11:29 Fish Oil (Beatrice-3 (Purified Fish Oil) 1 Gm Cap) 1 cap PO DAILY BRITTANIE Stop: 08/24/25 08:59 Gabapentin (Gabapentin 300 Mg Cap) 600 mg PO TID BRITTANIE Stop: 08/23/25 11:29 Glucagon (Glucagon For Inj 1 Mg Vial) 1 mg SQ UD PRN; Protocol PRN Reason: Hypoglycemia Protocol Stop: 08/23/25 09:27 Glucose (Glucose 40% Gel 15 Gm Tube) 15 - 30 gm PO UD PRN; Protocol PRN Reason: Hypoglycemia Protocol Stop: 08/23/25 09:27 Glucose (Glucose 10 Tab/Tube) 4 - 8 tab PO UD PRN; Protocol PRN Reason: Hypoglycemia Protocol Stop: 08/23/25 09:27 Sodium Chloride (Nss) 1,000 mls @ 125 mls/hr IV .Q8H BRITTANIE Stop: 07/27/25 03:59 Last Infusion: 07/24/25 06:20 Dose: Infused Insulin Aspart (Insulin Aspart Per Unit Charge) 0 units SC ACHS [facility] Stop: 08/23/25 11:29 Methocarbamol (Methocarbamol 500 Mg Tablet) 500 mg PO DAILY PRN PRN Reason: MUSCLE SPASMS Stop: 08/23/25 11:11 Metoprolol Tartrate (Metoprolol Tartrate 1 Mg/Ml Vial) 5 mg IV Q6 PRN PRN Reason: sustained HR > 120 Stop: 08/23/25 11:11 Miscellaneous (Carbohydrates For Hypoglycemia ) 15 - 30 gm PO UD PRN PRN Reason: Hypoglycemia Protocol Stop: 08/23/25 09:27 Pantoprazole Sodium (Pantoprazole 40 Mg Tab) 40 mg PO DAILYBB [facility] Stop: 08/24/25 06:29 PG Care Time/CCT Total # of Minutes Spent Total Time Spent with Patient: Total time spent is greater than 50% in coordination of care (as documented) at patient's floor/unit and/or counseling patient: [place] [address] IN/OBS CONSULT LVL 5,80M Patient Type New Medical Decision Making High Complexity Diagnoses Atrial fibrillation with rapid ventricular response I48.91 Chest pain R07.9 Sleep apnea G47.30 DM type 2 (diabetes mellitus, type 2) E11.9 HTN (hypertension) I10
[2025-07-24] MEDS: INSULIN ASPART PER UNIT CHARGE SC SCH (11:51)
[2025-07-24] MEDS: ATORVASTATIN 20 MG TAB PO SCH (11:52)
[2025-07-24] MEDS: GABAPENTIN 300 MG CAP PO SCH (11:52)
[2025-07-24] MEDS: ASCORBIC ACID 500 MG TAB PO SCH (11:53)
[2025-07-24] MEDS: METOPROLOL SUCC 50MG EXT REL TAB PO SCH (11:53)
[2025-07-24] MEDS: ASPIRIN 81 MG ECTAB PO SCH (12:00)
--- NOTE | 2025-07-24 12:01 | Electrocardiogram Report ---
Test Reason : Blood Pressure : */* mmHG Vent. Rate : 128 BPM Atrial Rate : * BPM P-R Int : * ms QRS Dur : 78 ms QT Int : 354 ms P-R-T Axes : * -13 144 degrees QTcB Int : 516 ms Atrial fibrillation with rapid ventricular response with premature ventricular or aberrantly conducte d complexes Left ventricular hypertrophy with repolarization abnormality Abnormal ECG When compared with ECG of 22-Jul-2024 06:12, Atrial fibrillation has replaced Sinus rhythm Vent. rate has increased by 62 bpm Criteria for Anterior infarct are no longer Present T wave inversion less evident in Lateral leads Confirmed by Jake Perez ([id number]) on 07/24/2025 12:01:15 PM Referred By: REFERRED SELF Confirmed By: Jake Perez
--- NOTE | 2025-07-24 12:25 | XCELERA ---
[id number]
[2025-07-24] MEDS: APIXABAN 5 MG TABLET PO SCH (21:05)
[2025-07-24] MEDS: ACETAMINOPHEN 325 MG TAB PO PRN (21:13)
[2025-07-25 07:05] VITALS: RESP 19; TEMP 97.9; O2SAT 93
[2025-07-25 07:17] LABS: Hematocrit (blood only) 39.2 % (37.0-47.0); Hemoglobin 12.6 g/dl (12.0-16.0); Immature Granulocytes # (auto) 0.04 K/uL (0.01-0.20); Immature Granulocytes % (auto) 0.4 %; Mean Corpuscular Hemoglobin 28.1 pg (25.0-34.0); Mean Corpuscular Volume 87.3 fL (80.0-100.0); Platelet Count 306 K/uL (130-400); RDW Standard Deviation 48.4 fL (36.4-46.3); Red Blood Count 4.49 M/uL (4.20-5.40); White Blood Count 10.42 K/ul (4.8-10.8)
[2025-07-25 07:40] LABS: Alanine Aminotransferase 18.0 U/L (7-52); Albumin Globulin Ratio 1.5 (0.9-2); Albumin Level 3.7 gm/dl (3.4-5.0); Alkaline Phosphatase 104.0 U/L (34-104); Anion Gap 4.0 (3-11); Bilirubin,Total 0.4 mg/dl (0.2-1.0); Blood Urea Nitrogen 20.0 mg/dl (6-23); Calcium 9.2 mg/dl (8.6-10.3); Carbon Dioxide 28.0 mmol/L (21-32); Chloride 109.0 mmol/L (98-107); Creatinine Clr Calc Pharmacy 91.3 ml/min; Globulin 2.4 gm/dl (2.5-4.0); Glucose 154.0 mg/dl (70-99(Fasting)); Magnesium 2.0 mg/dl (1.7-2.4); Potassium 4.7 mmol/L (3.5-5.1); Sodium 141.0 mmol/L (136-145); Total Protein 6.1 gm/dl (6.0-8.3)
[2025-07-25] MEDS: OMEGA-3 (PURIFIED FISH OIL) 1 GM CAP PO SCH (07:42)
[2025-07-25] MEDS: LOSARTAN POTASSIUM 50 MG TAB PO SCH (07:44)
--- NOTE | 2025-07-25 08:58 | Discharge Summary ---
Discharge Summary Date of Service July 25, 2025 Principal Dx & Hospital Course #1 = Principal Diagnosis (1) Atrial fibrillation with rapid ventricular response: (2) HLD (hyperlipidemia): (3) DM type 2 (diabetes mellitus, type 2): (4) Migraine: (5) Sleep apnea: (6) HTN (hypertension): Plan The patient is a 59-year-old female who presented to the ED on 07/24/2025 found to be in new A-fib. She had drank 4 alcoholic beverages then developed papitations. Found to be in new onset afib RVR in the ED. She was given IV lopressor and amiodarone in the ED and converted back to NSR. TSH 7 with normal FT4. Cardio was consulted and recommended changing home coreg to toprol BID and starting eliquis due to her elevated chadsvasc score. Today she is feeling well and denies any complaints. Discussed risks and benefits of AC and she agreed to take eliquis. TTE normal EF without major valvular dysfunction. vitals and labs are stable for DC home. she is to f/u with cardio in one month. Notes For Next Care Provider Medication Changes From Visit Coreg changed to toprol eliquis 5 bid added excedrin and NSAIDs DC due to risk of bleeding with eliquis Admission HPI Per Admitting Provider The patient is a 59-year-old female with a past medical history of HTN, DM2, HLD, migraines who presents to the ED on 07/24/2025 with complaints of intermittent chest pain and a feeling that her heart was racing. Patient reports she was drinking 4 margaritas with her neighbor prior to arrival. She started to feel like her heart was racing with movement. She also reported some associated chest pain. On arrival to the ED, she was found to be in rapid A- fib, this is completely new for her. Patient reports a recent cold about 2 weeks ago with a lingering cough. Otherwise denies any fever/chills. Denies any nausea/vomiting/abdominal pain/diarrhea. On arrival to the ED, labs are remarkable for WBC 15, platelets 431, bicarb 20, CO2 18, anion gap 12, glucose 186, TSH 7.7 with a normal T4 Urinalysis fairly unremarkable Chest x-ray was unremarkable The patient was given IV metoprolol and amiodarone in the ED with improvement in rates. Patient remains in fairly controlled A-fib. ED provider discussed with cardiology, patient was started on Eliquis, patient was already on Coreg at home. Patient was uncomfortable being discharged home while still in A-fib and will be admitted for further monitoring and management. Discharge Exam Vitals and labs reviewed General: Well appearing, NAD HEENT: EOMI, PERRLA Neck: Supple Cardiac: RRR no rubs gallops or murmurs Lungs: CTA no rhonchi wheezing or rales Abd: S NT ND BS positive : no foely MSK: Full ROM. No obvious deformities Ext: No Edema cyanosis Skin: Warm, Dry Neuro: AOx3 No focal deficits. Psych: Normal Mood Updated Medication List Medication Instructions Recorded Confirmed Type aspirin 81 mg tablet,delayed 81 mg PO QAM 07/20/18 07/24/25 History release dicamxx-vloyssecqthou-qgglcefx 250 2 tab PO DIRECTED PRN Migraine 07/20/18 07/24/25 History mg-250 mg-65 mg tablet (Excedrin Headache Migraine) atorvastatin 20 mg tablet (Lipitor) 20 mg PO QAM 07/20/18 07/24/25 History gabapentin 300 mg capsule 600 mg PO TID 07/20/18 07/24/25 History idswqtlw-dfki-edpj 8 mg-folic 400 1 tab PO QAM 07/20/18 07/24/25 History mcg-K 50 mcg-lutein 300 mcg tablet (Centrum Silver Women) sulindac 200 mg tablet 200 mg PO BID PRN Pain 07/20/18 07/24/25 History duloxetine 30 mg capsule,delayed 30 mg PO BID 07/21/24 07/24/25 History release insulin degludec 100 24 unit subcut QAM 07/21/24 07/24/25 History unit-liraglutide 3.6 mg/mL(3 mL) subcutaneous pen (Xultophy 100/3.6) omeprazole 20 mg capsule,delayed 20 mg PO DAILYBB 07/21/24 07/24/25 History release losartan 50 mg tablet 50 mg PO QAM #30 tabs 07/23/24 07/24/25 Rx albuterol sulfate 90 mcg/actuation 2 puff inhalation Q4H PRN Wheezing 07/24/25 07/24/25 History aerosol inhaler amlodipine 2.5 mg tablet 2.5 mg PO QAM 07/24/25 07/24/25 History ascorbic acid (vitamin C) 500 mg 500 mg PO DAILY 07/24/25 07/24/25 History tablet,extended release (Vitamin C ER) carvedilol 6.25 mg tablet 6.25 mg PO BID 07/24/25 07/24/25 History cyclobenzaprine 10 mg tablet 10 mg PO BID PRN MUSCLE SPASMS 07/24/25 07/24/25 History fexofenadine 180 mg tablet 180 mg PO DAILY 07/24/25 07/24/25 History metformin 500 mg tablet,extended 1,000 mg PO BID 07/24/25 07/24/25 History release 24 hr methocarbamol 500 mg tablet 500 mg PO DAILY PRN MUSCLE SPASMS 07/24/25 07/24/25 History omega 1-pte-ojs-fish oil 1,200 mg 1 cap PO DAILY 07/24/25 07/24/25 History (144 mg-216 mg) capsule (Fish Oil) sumatriptan succinate 100 mg tablet 100 mg PO DIRECTED PRN Migraine 07/24/25 07/24/25 History Headache vitamin E 670 mg (1,000 unit) 670 mg PO DAILY 07/24/25 07/24/25 History capsule apixaban 5 mg tablet (Eliquis) 5 mg PO BID 30 days #60 tabs 07/25/25 Rx metoprolol succinate 50 mg 50 mg PO BID 30 days #60 tabs 07/25/25 Rx tablet,extended release 24 hr Hospital Stay Data Consultations 07/24/25 08:47 ED Decision to Admit Stat 07/24/25 11:12 Consult Cardiology Routine Pending Results Patient Have Any Pending Studies at Discharge: No Discharge Instructions Given to Patient (Per Discharging Provider) You were diagnosed with new afib. You are started on a blood thinner, eliquis, to help prevent stroke. Please follow up with [facility] cardiology in one month. Please see your PCP within two weeks. Total Time Total Time Spent Total Time Spent (In Minutes): 38
[2025-07-25 10:33] VITALS: BP 138/84; PULSE 62
--- NOTE | 2025-07-25 15:11 | Electrocardiogram Report ---
Test Reason : Blood Pressure : */* mmHG Vent. Rate : 61 BPM Atrial Rate : 61 BPM P-R Int : 148 ms QRS Dur : 88 ms QT Int : 446 ms P-R-T Axes : 83 3 127 degrees QTcB Int : 448 ms Normal sinus rhythm Abnormal ECG When compared with ECG of 24-Jul-2025 02:41, Sinus rhythm has replaced Atrial fibrillation Vent. rate has decreased by 67 bpm T wave inversion more evident in Lateral leads Confirmed by Jake Perez ([id number]) on 07/25/2025 3:10:56 PM Referred By: REFERRED SELF Confirmed By: Jake Perez
== END 2025-07-25 11:19 | disposition home or self-care (01) ==
LOC: 2S 02:31 → ED 02:31 → SUATTDRO 08:51 → 2S 10:44